=== PATIENT | female | born 1960 | race Hispanic/Latino ===

== ENCOUNTER 2016-09-15 10:32 | Inpatient (IN) | payer OTHER ==
[2016-09-15] MEDS ORDERED: DUONEB 0.5 MG-3 MG/3 ML SOLN IH ONE (11:18)
--- NOTE | 2016-09-15 11:20 | Emergency Department Report ---
HPI - General Chief Complaint: Extremity Injury, Lower Time Seen by Provider: 09/15/16 10:53 - HPI HPI: This is a 56-year-old female who presents to the emergency department with a complaint of a 3-4 day history of progressively worsening right lower leg swelling, redness and weeping. Through triage, the patient was found to have some low oxygen saturation of 86%. Patient does admit to a little shortness of breath but otherwise thinks she is close to her baseline respiratory status. She has a history of COPD and is on 3 L oxygen dependence at home. She also has a history of CHF. Her primary care doctor is Dr. Lam Crane. No recent travel or sick contacts at home. She has not taken anything for symptoms prior to presentation. ED Past Medical Hx - Past Medical History Hx Congestive Heart Failure: Yes Hx Diabetes: No Hx Asthma: No Hx COPD: Yes Hx HIV: No - Social History Smoking Status: Former Smoker Substance Use Type: Alcohol - Medications Home Medications: Home Medications Medication Instructions Recorded Confirmed Last Taken Type Aspirin [Aspirin TAB] 325 mg PO QDAY 06/05/15 09/15/16 06/05/15 History Hydrochlorothiazide [HCTZ] 25 mg PO QDAY 06/05/15 09/15/16 1 Day Ago History ALBUTEROL Inhaler [ProAir HFA 1 puff IH Q4H PRN #1 inha 06/07/15 09/15/16 Unknown Rx Inhaler] Lisinopril [Zestril TAB] 10 mg PO QDAY #30 tablet 06/07/15 09/15/16 1 Day Ago Rx ED Review of Systems ROS: Stated complaint: RT LEG BLISTERS Other details as noted in HPI Comment: All other systems reviewed and negative Constitutional: denies: chills, fever Eyes: denies: eye pain, eye discharge, vision change ENT: denies: ear pain, throat pain Respiratory: denies: cough, shortness of breath, wheezing Cardiovascular: edema. denies: chest pain Gastrointestinal: denies: abdominal pain, nausea, diarrhea Genitourinary: denies: urgency, dysuria, discharge Musculoskeletal: denies: back pain, joint swelling, arthralgia Skin: change in color. denies: pruritus Neurological: denies: headache, weakness, paresthesias Physical Exam - Physical Exam Vital Signs: Vital Signs 09/15/16 10:40 Temperature 98.5 F Pulse Rate 110 H Respiratory 20 Rate Blood Pressure 140/78 O2 Sat by Pulse 86 Oximetry Physical Exam: GENERAL: The patient is well-developed well-nourished. HEENT: Normocephalic. Atraumatic. Extraocular motions are intact. Patient has moist mucous membranes. Pupils equal reactive to light bilaterally. NECK: Supple. Trachea is midline. CHEST/LUNGS: Coarse breath sounds throughout the chest. Mild tachypnea but no accessory muscle use. There is no respiratory distress noted. HEART/CARDIOVASCULAR: Regular. There is mild tachycardia. There is no gallop rub or murmur. ABDOMEN: Abdomen is soft, nontender. Patient has normal bowel sounds. Obese habitus. SKIN: The patient has erythema to the bilateral lower extremities from the knees distally but is worse on the right. There is some weeping and some cheesy white discharge to the lateral distal right leg. NEURO: The patient is awake, alert, and oriented. The patient is cooperative. The patient has no focal neurologic deficits. The patient has normal speech. MUSCULOSKELETAL: There is no tenderness or deformity. There is no limitation range of motion. There is no evidence of acute injury. ED Course Vital Signs 09/15/16 10:40 Temperature 98.5 F Pulse Rate 110 H Respiratory 20 Rate Blood Pressure 140/78 O2 Sat by Pulse 86 Oximetry - ABG Interpretation Ph: 7.236 PCO2: 95 PO2: 54 Bicarbonate: 40 Interpretation: respiratory acidosis ED Medical Decision Making - Lab Data Result diagrams: 09/15/16 11:37 09/15/16 11:37 - EKG Data -: EKG Interpreted by Me EKG shows normal: sinus rhythm, axis (right axis deviation), intervals, QRS complexes (right ventricular hypertrophy), ST-T waves (T-wave inversions to the anterior leads) Rate: tachycardia (103 bpm) - EKG Data When compared to previous EKG there are: no significant change Interpretation: unchanged when compared t (07/21/16) - Radiology Data Radiology results: report reviewed, image reviewed interpreted by me: X-ray shows some moderate to severe cardiomegaly, pulmonary vascular congestion and mild basilar effusions. No obvious pneumonia. CT angiography of the chest is negative for pulmonary embolus, dissection. - Medical Decision Making 56-year-old female presents with complaint of right lower extremity pain, redness and some mild shortness of breath. However the patient presents with some hypoxia and history of COPD and CHF. Patient's blood work showed hypercapnia and was even more profound on the ABG so the patient has been placed on BiPAP. D-dimer was elevated and equivocal so a CT angiography of the chest was done that did not show any pulmonary embolus him. There is some signs of CHF as well so the patient was given some Lasix. Blood cultures were obtained and the patient was started on some vagal mycin for suspected lower extremity cellulitis. She'll be admitted to the hospital for further evaluation and treatment and has been accepted by the hospitalist, Dr. Maldonado. - Differential Diagnosis cellulitis, CHF, COPD, PE Critical Care Time: No Critical care attestation.: If time is entered above; I have spent that time in minutes in the direct care of this critically ill patient, excluding procedure time. ED Disposition Clinical Impression: Acute exacerbation of chronic obstructive pulmonary disease (COPD), Hypercapnia , Hypoxemia Cellulitis of lower extremity Qualifiers: Laterality: right Qualified Code(s): L03.115 - Cellulitis of right lower limb CHF (congestive heart failure) Qualifiers: Congestive heart failure type: unspecified congestive heart failure type Congestive heart failure chronicity: acute on chronic Qualified Code(s): I50.9 - Heart failure, unspecified Disposition: OP ADMITTED IP TO THIS HOSP Is pt being admited?: Yes Condition: Stable Instructions: Chronic Obstructive Pulmonary Disease (ED) Time of Disposition: 15:21
[2016-09-15 11:54] LABS: Basophils % (Auto) 1.1 % (0.0-1.8); Eosinophils % (Auto) 4.4 % (0.0-4.3); Hematocrit 45.2 % (30.3-42.9); Hemoglobin 14.3 gm/dl (10.1-14.3); Mean Corpuscular HGB Conc 32 % (30-34); Mean Corpuscular Hemoglobin 31 pg (28-32); Mean Corpuscular Volume 99 fl (79-97); Platelet Count 166 K/mm3 (140-440); Red Blood Count 4.58 M/mm3 (3.65-5.03)
[2016-09-15] MEDS ORDERED: MORPHINE IV ONE (11:54)
[2016-09-15 12:07] LABS: BUN/Creatinine Ratio 28.57; Blood Urea Nitrogen 20 mg/dL (7-17); Calcium 9.2 mg/dL (8.4-10.2); Chloride 95.1 mmol/L (98-107); Glucose 147 mg/dL (65-100); Potassium 5.8 mmol/L (3.6-5.0); Sodium 142 mmol/L (137-145)
[2016-09-15 12:12] LABS: Anion Gap 10 mmol/L
[2016-09-15 12:17] LABS: Carbon Dioxide 43 mmol/L (22-30)
[2016-09-15] MEDS ORDERED: KIONEX PO ONE (12:52)
[2016-09-15] MEDS ORDERED: D50W (25GM) IV ONE (12:52)
[2016-09-15] MEDS ORDERED: PROVENTIL IH ONE (12:52)
[2016-09-15] MEDS ORDERED: VANCOMYCIN/NS 1 GM/250 ML 1 GM/250 ML BAG IV ONE (12:53)
--- NOTE | 2016-09-15 13:17 | Admit Criteria Form ---
Admission Criteria Documentation: RESPIRATORY FAILURE GRG Clinical Indications for Admission to Inpatient Care (Place 'X' for any and all applicable criteria): Hospital admission is needed for appropriate care of the patient because of acute respiratory failure or insufficiency as indicated by ANY ONE of the following(1)(2)(3)(4)(5)(6)(7)(8): [ X]I. Mechanical ventilation needed (acute invasive or noninvasive) [X ]II. Severe ventilation deficit as indicated by ANY ONE of the following (9 ) [X ]a) Respiratory acidosis (pH less than 7.32 and partial pressure of carbon dioxide greater than 40 mm Hg (5.3 kPa)) [ ]b) Partial pressure of carbon dioxide greater than 44 mm Hg (5.9 kPa ) (new) [ ]c) Airflow measurements less than 25% of predicted (eg, peak expiratory flow rate less than 100 L/minute) [ ]d) Forced vital capacity less than 15 mL/kg of ideal body weight, or 50% decrease in vital capacity from baseline [ ]III. Noncardiac pulmonary edema not resolving with rapid emergency treatment (8) [ ]IV. Severe respiratory distress as indicated by ANY ONE of the following: [ ]a) Severe tachypnea (respiratory rate greater than 30, greater than 45 for 6-month-old, greater than 60 for ) [ ]b) Severe hypoxemia (partial pressure of oxygen less than 50 mm Hg ( 6.7 kPa) on greater than 50% oxygen or partial pressure of oxygen to FIO2 ratio less than 200) [ ]c) Mental status deterioration from respiratory disease [ ]V. Airway obstruction or inadequate protection [A](10)(11) The original [employer] content created by [employer] has been revised. The portions of the content which have been revised are identified through the use of italic text or in bold, and [facility] has neither reviewed nor approved the modified material. All other unmodified content is copyright [employer]. Please see references footnoted in the original [employer] edition 2016 Admission Criteria Met: Yes
[2016-09-15] MEDS ORDERED: NACL 0.9% 1000 ML 1,000 ML ONE (13:39)
--- NOTE | 2016-09-15 13:49 | XRay Report ---
Single view chest: Compared to 07/26/16. History: Shortness of breath. Findings: Marked cardiomegaly. Trachea is midline. Mild pulmonary venous congestion. No consolidation or pleural effusion. No significant interval change. Impression: No significant change.
[2016-09-15 14:17] LABS: Bilirubin,Urine NEG (Negative); Blood,Urine SM (Negative); Ketones,Urine NEG (Negative); Leukocyte Esterase,Urine NEG (Negative); Mucus,Urine FEW /HPF; Nitrite,Urine NEG (Negative); Urobilinogen,Urine < 2.0 mg/dL (<2.0)
[2016-09-15] MEDS ORDERED: LASIX IV ONE (14:23)
[2016-09-15 14:56] LABS: ISTAT Base Excess 13; ISTAT HCO3 40.5; ISTAT PCO2 95.4 (35-45); ISTAT PH 7.236 (7.35-7.45); ISTAT PO2 54 (80-105); ISTAT SO2 79; ISTAT TCO2 43
--- NOTE | 2016-09-15 15:07 | Cat Scan Report ---
CTA chest: PA protocol. History: Shortness of breath elevated d-dimer. Findings: No evidence of acute aneurysm or pulmonary embolism. Pretracheal and aorticopulmonary window lymph nodes are visualized with maximum diameter 1.4 cm. No pleural or pericardial effusion. Bibasilar linear densities suggestive of discoid atelectasis. Less likely pneumonitis. No mass. Impression: No evidence of pulmonary embolism. Bibasilar atelectasis. The
[2016-09-15 16:33] LABS: ISTAT Base Excess 16; ISTAT HCO3 42.8; ISTAT PH 7.249 (7.35-7.45); ISTAT PO2 55 (80-105); ISTAT SO2 80; ISTAT TCO2 46
[2016-09-15] MEDS ORDERED: DULCOLAX PR PRN (18:10)
[2016-09-15] MEDS ORDERED: MILK OF MAGNESIA PO PRN (18:10)
[2016-09-15] MEDS ORDERED: D50W (25GM) IV PRN (18:10)
[2016-09-15] MEDS ORDERED: ALUM-MAG HYDROX-SIMETH 200-200-20MG/5ML PO PRN (18:10)
[2016-09-15] MEDS ORDERED: XYLOCAINE TOPICAL 2% TP PRN (18:21)
[2016-09-15] MEDS: MORPHINE IV PRN ×2 (18:54→23:34)
[2016-09-15] MEDS ORDERED: NACL 0.9% 1000 ML 1,000 ML IV SCH (19:00)
[2016-09-15] MEDS: DECADRON IV SCH (19:06)
[2016-09-15] MEDS: DUONEB 0.5 MG-3 MG/3 ML SOLN IH SCH (20:02)
--- NOTE | 2016-09-15 20:23 | History and Physical Report ---
History of Present Illness Date of examination: 09/15/16 Date of admission: 09/15/16 18:10 Chief complaint: Burning pain swelling and redness in the right leg for 4 days History of present illness: This is a 56-year-old obese female with history of COPD and home oxygen who presents to the emergency department with a complaint of a 3-4 day history of progressively worsening right leg swelling, redness and pain. Through triage, the patient was found to have some low oxygen saturation of 86% . Patient does admit to a little shortness of breath but otherwise thinks she is close to her baseline respiratory status. She has a history of COPD and is on 3 L oxygen dependence at home. At the time of my evaluation patient was on BiPAP. ABG showed respiratory failure with CO2 retention and hypoxemia She also has a history of CHF. Her primary care doctor is Dr. Lam Crane. No recent travel or sick contacts at home. She has not taken anything for symptoms prior to presentation. Past History Past Medical History: COPD, heart failure Past Surgical History: hysterectomy, Other (lumpectomy left breast) Social history: no significant social history (quit smoking 1 year ago) Family history: no significant family history Medications and Allergies Allergies Allergy/AdvReac Type Severity Reaction Status Date / Time methylprednisolone sodium Allergy Itching Verified 09/15/16 10:40 succinate [From Solu-Medrol] Home Medications Medication Instructions Recorded Confirmed Last Taken Type Aspirin [Aspirin TAB] 325 mg PO QDAY 06/05/15 09/15/16 06/05/15 History Hydrochlorothiazide [HCTZ] 25 mg PO QDAY 06/05/15 09/15/16 1 Day Ago History ALBUTEROL Inhaler [ProAir HFA 1 puff IH Q4H PRN #1 inha 06/07/15 09/15/16 Unknown Rx Inhaler] Lisinopril [Zestril TAB] 10 mg PO QDAY #30 tablet 06/07/15 09/15/16 1 Day Ago Rx Active Meds: Active Medications Al Hydrox/Mg Hydrox/Simethicone (Alum-Mag Hydrox-Simeth 420-685-78tz/5ml) 30 ml PO Q4H PRN PRN Reason: Indigestion Albuterol/Ipratropium (Duoneb 0.5 Mg-3 Mg/3 Ml Soln) 1 ampul IH Q6HRT [facility] Last Admin: 09/15/16 20:02 Dose: 1 ampul Bisacodyl (Dulcolax) 10 mg [place] QDAY PRN PRN Reason: constipation unrelieved by MOM Dexamethasone (Decadron) 2 mg IV Q12H [facility] Last Admin: 09/15/16 19:06 Dose: 2 mg Dextrose (D50w (25gm)) 50 ml IV PRN PRN PRN Reason: Hypoglycemia Heparin Sodium (Porcine) (Heparin) 5,000 unit SUB-Q Q8HR [facility] Hydrochlorothiazide (Hctz) 12.5 mg PO QDAY [facility] Sodium Chloride (Nacl 0.9% 1000 Ml) 1,000 mls @ 42 mls/hr IV DIRECT [facility] Piperacillin Sod/Tazobactam Sod (Zosyn/Ns 4.5gm/100ml) 4.5 gm in 100 mls @ 200 mls/hr IV Q8HR [facility] PRN Reason: Protocol Insulin Aspart (Novolog) 0 units SUB-Q ACHS [facility] PRN Reason: Protocol Lidocaine (Xylocaine Topical 2%) 1 applic TP Q8H PRN PRN Reason: Analgesia Last Admin: 09/15/16 18:55 Dose: 1 applic Magnesium Hydroxide (Milk Of Magnesia) 30 ml PO Q4H PRN PRN Reason: Constipation Morphine Sulfate (Morphine) 2 mg IV Q4H PRN PRN Reason: Pain, Moderate (4-6) Last Admin: 09/15/16 18:54 Dose: 2 mg Pantoprazole Sodium (Protonix) 40 mg PO DAILY [facility] Review of Systems Constitutional: no weight loss, no weight gain, no fever, no chills Ears, nose, mouth and throat: no ear pain, no ear discharge, no sore throat, no headache Breasts: deferred Cardiovascular: no chest pain, no orthopnea, no palpitations, no syncope, no lightheadedness, no high blood pressure Respiratory: shortness of breath (chronic), home oxygen, no cough, no wheezing Gastrointestinal: no abdominal pain, no nausea, no vomiting, no diarrhea, no constipation, no melena Genitourinary Female: no stress incontinence, no urge incontinence Rectal: no pain Musculoskeletal: no neck pain, no low back pain Neurological: no head injury, no seizures, no syncope Psychiatric: no anxiety, no depression Endocrine: no polyphagia, no excessive thirst, no polydipsia Exam - Constitutional Vitals: Temp Pulse Resp BP Pulse Ox 98.7 F 101 H 25 H 133/68 93 09/15/16 12:45 09/15/16 20:02 09/15/16 20:02 09/15/16 16:18 09/15/16 19:05 General appearance: Present: mild distress, well-nourished, obese - EENT Eyes: Present: PERRL, EOM intact ENT: hearing intact - Neck Neck: Present: supple, normal ROM. Absent: masses or JVD - Respiratory Respiratory: bilateral: diminished, negative: rhonchi, wheezing - Cardiovascular Rhythm: regular Heart Sounds: Present: S1 & S2 - Extremities Extremity abnormal: edema (bilateral nonpitting leg edema), erythema (right leg with moderate tenderness with some superficial slough) - Abdominal General gastrointestinal: Present: soft, non-tender. Absent: hepatomegaly, splenomegaly - Musculoskeletal Musculoskeletal: strength equal bilaterally - Neurologic Neurologic: no focal deficits, moves all extremities Results - Labs CBC & Chem 7: 09/15/16 11:37 09/15/16 11:37 Assessment and Plan - Patient Problems (1) Cellulitis of lower extremity Current Visit: Yes Status: Acute Qualifiers: Laterality: right Qualified Code(s): L03.115 - Cellulitis of right lower limb Plan to address problem: Patient was started on vancomycin I would start the patient on Zosyn We will consult wound care There is no evidence of any systemic infection (2) UTI (urinary tract infection) Current Visit: Yes Status: Acute Qualifiers: Urinary tract infection type: U Hematuria presence: H Indwelling urinary catheter type: I Encounter type: E Plan to address problem: Continue Zosyn (3) Hyperkalemia Current Visit: Yes Status: Acute Plan to address problem: Most likely rox inhibitor induced She was given Kayexalate in ED monitor electrolytes (4) Acute exacerbation of chronic obstructive pulmonary disease (COPD) Current Visit: Yes Status: Acute (5) Acute hypoxemic respiratory failure Current Visit: No Status: Acute Plan to address problem: Patient is presently on BiPAP Admit the patient to stepdown or CCU Pulmonary consult was requested Aggressive invasive treatments with DuoNeb Patient is allergic to methylprednisolone Will try dexamethasone and monitor for any reaction (6) Morbid obesity Current Visit: No Status: Acute Qualifiers: Obesity type: due to excess calories Qualified Code(s): E66.01 - Morbid ( severe) obesity due to excess calories
[2016-09-15] MEDS: NOVOLOG SUB-Q SCH (23:00)
[2016-09-15] MEDS: HEPARIN SUB-Q SCH (23:33)
[2016-09-15] MEDS: ZOSYN/NS 4.5GM/100ML 4.5 GM/100 ML VIAL IV SCH (23:36)
[2016-09-16] MEDS: DUONEB 0.5 MG-3 MG/3 ML SOLN IH SCH ×4 (01:37→20:21)
[2016-09-16 04:22] LABS: Blood Urea Nitrogen 12 mg/dL (7-17); Calcium 7.9 mg/dL (8.4-10.2); Chloride 92.6 mmol/L (98-107); Glucose 185 mg/dL (65-100); Sodium 144 mmol/L (137-145)
[2016-09-16 04:37] LABS: Potassium 4.2 mmol/L (3.6-5.0)
[2016-09-16 04:40] LABS: Anion Gap 13 mmol/L; Carbon Dioxide 43 mmol/L (22-30)
[2016-09-16] MEDS: ZOSYN/NS 4.5GM/100ML 4.5 GM/100 ML VIAL IV SCH ×3 (06:15→22:26)
[2016-09-16] MEDS: HEPARIN SUB-Q SCH ×3 (06:16→22:19)
[2016-09-16] MEDS: DECADRON IV SCH (08:00)
[2016-09-16] MEDS: NOVOLOG SUB-Q SCH ×4 (08:00→22:21)
[2016-09-16] MEDS: MORPHINE IV PRN ×4 (08:54→22:39)
[2016-09-16] MEDS: PROTONIX PO SCH (11:00)
[2016-09-16] MEDS: HCTZ PO SCH (11:00)
--- NOTE | 2016-09-16 13:24 | Consultation ---
History of Present Illness Consult date: 09/16/16 Requesting physician: ROJAS SEXTON Reason for consult: other (Respiratory Failure) History of present illness: PULMONARY/CCM CONSULT NOTE (Full dictation # [id number]) Please see dictated notes for full details Past History Past Medical History: COPD, heart failure Past Surgical History: hysterectomy, Other (lumpectomy left breast) Social history: no significant social history (quit smoking 1 year ago) Family history: no significant family history Medications and Allergies Allergies Allergy/AdvReac Type Severity Reaction Status Date / Time methylprednisolone sodium Allergy Itching Verified 09/15/16 10:40 succinate [From Solu-Medrol] Home Medications Medication Instructions Recorded Confirmed Last Taken Type Aspirin [Aspirin TAB] 325 mg PO QDAY 06/05/15 09/15/16 06/05/15 History Hydrochlorothiazide [HCTZ] 25 mg PO QDAY 06/05/15 09/15/16 1 Day Ago History ALBUTEROL Inhaler [ProAir HFA 1 puff IH Q4H PRN #1 inha 06/07/15 09/15/16 Unknown Rx Inhaler] Lisinopril [Zestril TAB] 10 mg PO QDAY #30 tablet 06/07/15 09/15/16 1 Day Ago Rx Active Meds: Active Medications Al Hydrox/Mg Hydrox/Simethicone (Alum-Mag Hydrox-Simeth [id number]/5ml) 30 ml PO Q4H PRN PRN Reason: Indigestion Albuterol/Ipratropium (Duoneb 0.5 Mg-3 Mg/3 Ml Soln) 1 ampul IH Q6HRT [facility] Last Admin: 09/16/16 07:22 Dose: 1 ampul Bisacodyl (Dulcolax) 10 mg [place] QDAY PRN PRN Reason: constipation unrelieved by MOM Dexamethasone (Decadron) 2 mg IV Q12H [facility] Last Admin: 09/16/16 08:00 Dose: 2 mg Dextrose (D50w (25gm)) 50 ml IV PRN PRN PRN Reason: Hypoglycemia Heparin Sodium (Porcine) (Heparin) 5,000 unit SUB-Q Q8HR [facility] Last Admin: 09/16/16 06:16 Dose: 5,000 unit Hydrochlorothiazide (Hctz) 12.5 mg PO QDAY [facility] Last Admin: 09/16/16 11:00 Dose: 12.5 mg Sodium Chloride (Nacl 0.9% 1000 Ml) 1,000 mls @ 42 mls/hr IV DIRECT [facility] Last Admin: 09/15/16 23:37 Dose: 42 mls/hr Piperacillin Sod/Tazobactam Sod (Zosyn/Ns 4.5gm/100ml) 4.5 gm in 100 mls @ 200 mls/hr IV Q8HR [facility] PRN Reason: Protocol Last Admin: 09/16/16 06:15 Dose: 200 mls/hr Insulin Aspart (Novolog) 0 units SUB-Q ACHS [facility] PRN Reason: Protocol Last Admin: 09/16/16 12:17 Dose: Not Given Lidocaine (Xylocaine Topical 2%) 1 applic TP Q8H PRN PRN Reason: Analgesia Last Admin: 09/15/16 18:55 Dose: 1 applic Magnesium Hydroxide (Milk Of Magnesia) 30 ml PO Q4H PRN PRN Reason: Constipation Morphine Sulfate (Morphine) 2 mg IV Q4H PRN PRN Reason: Pain, Moderate (4-6) Last Admin: 09/16/16 08:54 Dose: 2 mg Pantoprazole Sodium (Protonix) 40 mg PO DAILY [facility] Last Admin: 09/16/16 11:00 Dose: 40 mg Physical Examination Vital signs: Vital Signs Temp Pulse Resp BP Pulse Ox 98.5 F 110 H 20 140/78 86 09/15/16 10:40 09/15/16 10:40 09/15/16 10:40 09/15/16 10:40 09/15/16 10:40 Results - Laboratory Findings CBC and BMP: 09/15/16 11:37 09/16/16 03:40 ABG POC ABG pH 7.249 (7.35-7.45) L 09/15/16 16:11 POC ABG pCO2 98.0 (35-45) H 09/15/16 16:11 POC ABG pO2 55 (80-105) L 09/15/16 16:11 POC ABG HCO3 42.8 09/15/16 16:11 POC ABG Total CO2 46 09/15/16 16:11 POC ABG O2 Sat 80 09/15/16 16:11 PT/INR, D-dimer D-Dimer 595.43 ng/mlDDU (0-234) H 09/15/16 11:37 Abnormal lab findings: Abnormal Labs 09/15/16 09/16/16 09/16/16 23:23 03:40 08:25 Chloride 92.6 L Carbon Dioxide 43 H* Creatinine 0.5 L Glucose 185 H POC Glucose 143 H 155 H Calcium 7.9 L 09/16/16 12:13 Chloride Carbon Dioxide Creatinine Glucose POC Glucose 141 H Calcium
[2016-09-16 14:18] LABS: ISTAT Base Excess 28; ISTAT HCO3 52.8; ISTAT PCO2 90.8 (35-45); ISTAT PH 7.372 (7.35-7.45); ISTAT PO2 65 (80-105); ISTAT SO2 90; ISTAT TCO2 > 50
[2016-09-16] MEDS ORDERED: MORPHINE IV PRN (14:22)
--- NOTE | 2016-09-16 19:53 | Consultation ---
CONSULTING PHYSICIAN: Berto Franco MD REASON FOR CONSULTATION: Acute on chronic respiratory failure, hypoxemic, and hypercapnic. CHIEF COMPLAINT AND HISTORY OF PRESENT ILLNESS: The patient is a 56-year-old female with past medical history significant both for a diagnoses of home oxygen dependent, COPD, on 3 liters at home, but also history of congestive heart failure. She came in with complaints of 3-4 days of progressively worsening right lower leg swelling, redness, weeping, really denied any significant increase in shortness of breath. Subjectively, she denied any chest pains. She denied any cough or expectoration. She stated she had been on diuretics at that point, but that was stopped and also she has had trouble getting her medications on outpatient setting. She is without insurance. In the Emergency Room, she was found to be hypercapnic, hypoxemic, required continuous BiPAP and was brought to the Intensive Care Unit for that reason. When I stopped by to see her, she was lying in bed, feeling better. She had oxygen on about 3 liters nasal cannula. She denied any prior fevers or chills. Now with regards to tobacco use/abuse, she has a [id number] tobacco smoking history, but has quit smoking now. That really is as much of the history of presentation as I have. PAST MEDICAL HISTORY: Again, COPD, congestive heart failure, obstructive sleep apnea. She is morbidly obese, history of hypertension, and history of congestive heart failure. PAST SURGICAL HISTORY: Unknown. MEDICATIONS: She was on at the time I stopped by to see her, according to the medication administration record included the following: P.r.n. milk of magnesia, DuoNeb treatments nebulized q.6 hours, Decadron 2 mg IV q.12 hours, p.r.n. Dulcolax, heparin 5000 units subcutaneous q.8 hours, hydrochlorothiazide 12.5 mg p.o. daily, insulin via sliding scale, topical Xylocaine 2% patch q.8 hours p.r.n. for analgesia, morphine sulfate 2 mg IV q.4 hours p.r.n., moderate pain, Protonix 40 mg p.o. daily, and Zosyn 4.5 g IV q.8 hours. She had been receiving normal saline at 42 mL per hour earlier. She received a one-time dose of Lasix in the Emergency Room. ALLERGIES: Solu-Medrol. Nature of this allergy is unknown. DIET: Morbidly obese. Denies significant weight loss or gain the preceding few weeks to months. FAMILY AND SOCIAL HISTORY: Lives in the community. She has a 10+ pack year tobacco smoking history. No longer smokes. Denies alcohol or illicit drug use or abuse. REVIEW OF SYSTEMS: No loss of consciousness. No new onset seizures. No new onset focal weakness. No gross hematochezia or melena. No gross hematuria or dysuria. No hematemesis. No hemoptysis. She complains of the increase in bilateral lower extremity swelling and redness. Complete review of systems obtained. Pertinent positives and/or negatives as in body of history above, otherwise noncontributory. PHYSICAL EXAMINATION: VITAL SIGNS: At presentation, she was afebrile, temperature 98.5, pulse was 110, respiratory rate was 24, blood pressure was 140/78, oxygen sats were 77%, inspired oxygen concentration was not recorded. HEENT, EYES, EARS, NOSE AND THROAT: Pupils are equal, round about 3 mm, reactive to light. Extraocular muscle movements are intact. Oropharynx is a Mallampati #4 oropharynx. No significant posterior oropharyngeal erythema. Grossly, no palpable lymph nodes in the supraclavicular or submandibular lymph node chains. No gross jugular venous distention. LUNGS: Auscultation of both lung guzman, diminished bilateral breath sounds, prolonged expiratory phase, but clear. HEART: Heart sounds 1 and 2 are heard. They were regular in rate and rhythm at time of my evaluation. ABDOMEN: Soft, full, bowel sounds are positive, nontender. EXTREMITIES: Without over digital clubbing or cyanosis. She had about 2+ pedal edema and redness to the right chin with an area about 3 cm diameter that has happened to her at some open skin in the area. NEUROLOGIC: The exam was grossly nonfocal. LABORATORY DATA: From my review are as follows: White cell count 10,000, hemoglobin 14.3, hematocrit 45.2, and platelet count 166,000. D-dimer was elevated at 595. Arterial blood gas at presentation showed a pH of 7.24, pCO2 of 95, pO2 of 54 that was on 3 liters nasal cannula. Serum sodium was 142, potassium was 5.8, chloride was 95, bicarbonate was 43, BUN 20, creatinine 0.7, glucose 147. BNP was elevated cardiac enzymes, troponin within normal limits. Urinalysis negative for nitrites and leukocyte esterase. It did show 13 white cells per high power field, no bacteria. Potassium was within normal range today. pH yesterday showed a pH of 7.25 with a pCO2 of 98. Radiographic studies have been reviewed. I have also reviewed the radiologist's interpretation and really the main finding is gross cardiomegaly compared to the chest x-ray from July of this year, really no significant changes. CT angio was also done. I am going to try and review those images, I have reviewed the radiologist's interpretation and essentially states no evidence of pulmonary embolism, but with bibasilar atelectasis and some AP window nodes, which may well be related to chronic venous congestion. I must say this CTA of the chest was high as poor contrast phase timing. It is really difficult to completely rule out pulmonary emboli, but I do feel there are other reasons for lower extremity swelling. No overt pulmonary edema features on the CT scan. ASSESSMENT AND PLAN: We have a middle-aged lady in with cellulitis essentially and found to be with a hypercapnic, hypoxemia, and acute on chronic respiratory failure. Clinically, she looks more alert. I have also give her serum bicarbonate, serum pCO2 should be improved. A stat arterial blood gas has been ordered. If that is within normal limits, the plan will be to transfer her to the medical floor. She will be kept on BiPAP at bedtime scheduled. I have told her to try and talk to her primary care physician about repeating another sleep study. Bronchodilators will be continued. I will add long-acting bronchodilators as well as inhaled corticosteroids and quickly wean her off Decadron, especially in light of cellulitis. She is appropriately on antibiotic therapy, it is not clear if she does need Zosyn, she probably could get by with Levaquin monotherapy, I would guess Infectious Disease consultation will be at the behest of the attending physician. I am sure she should be able away with p.o. treatment. She is appropriately on GI and DVT prophylaxis. Just to complete for workup here and I see that has actually been ordered. Lower extremity Dopplers will be done and that has been done. No DVTs was found. Flu and pneumonia vaccination will be per protocol. Thank you very much for the consult. She is doing better. She can transfer to the medical floor. JOB# [id number] ALDEN/ROSA
[2016-09-16] MEDS: PULMICORT IH SCH (20:21)
[2016-09-16] MEDS: BROVANA NEBU IH SCH (20:21)
--- NOTE | 2016-09-16 21:54 | Progress Note ---
Assessment and Plan Assessment and plan: 1. Acute on chronic hypercapnic hypoxic respiratory failure Due to advanced COPD Placed on BiPAP and inhaled bronchodilators Pulmonary consulted and regimen adjusted 2. COPD Advanced, on 3 L home oxygen No signs of exacerbation, so will discontinue IV corticosteroid Continue inhaled bronchodilators, supplemental oxygen and BiPAP at night 3. Sepsis Due to severe lower extremity cellulitis/? UTI Continue antibiotics 4. RLE cellulitis With open, oozing wound (wound culture not obtained before starting antibiotics) On broad-spectrum IV antibiotics Local wound care Wound care nurse consulted 5. UTI UA suggestive of UTI (slightly elevated WBC) Urine culture not obtained On antibiotics for cellulitis that also will cover UTI if any 6. Hyperkalemia Received Kayexalate, resolved Continue to monitor 7. Hypertension BP controlled on HCTZ 8. CHF - suspected, but last month ECHO showed normal EF and severe pulmonary hypertension 9. Morbid obesity Counseled regarding importance of losing weight 10. DVT/GI prophylaxis History Interval history: c/o RLE pain, swelling and oozing wound Hospitalist Physical - Constitutional Vitals: Temp Pulse Resp BP Pulse Ox 98.6 F 80 20 121/58 90 09/16/16 21:32 09/16/16 21:32 09/16/16 21:32 09/16/16 21:32 09/16/16 21:32 General appearance: Present: no acute distress, obese (morbidly) - EENT Eyes: Present: PERRL, EOM intact. Absent: scleral icterus, conjunctival injection - Neck Neck: Present: supple. Absent: enlarged thyroid, masses or JVD - Respiratory Respiratory effort: labored Respiratory: bilateral: diminished, negative: rhonchi, wheezing - Cardiovascular Rhythm: other (tachycardic) Heart Sounds: Present: S1 & S2. Absent: systolic murmur - Extremities Extremities: no ischemia Extremity abnormal: edema, erythema, other (RLE with open, oozing wound) - Abdominal General gastrointestinal: soft, non-tender, non-distended, normal bowel sounds - Psychiatric Psychiatric: cooperative - Neurologic Neurologic: CNII-XII intact, no focal deficits Results - Labs CBC & Chem 7: 09/15/16 11:37 09/16/16 03:40 Labs: Laboratory Last Values WBC 10.0 K/mm3 (4.5-11.0) 09/15/16 11:37 RBC 4.58 M/mm3 (3.65-5.03) 09/15/16 11:37 Hgb 14.3 gm/dl (10.1-14.3) 09/15/16 11:37 Hct 45.2 % (30.3-42.9) H 09/15/16 11:37 MCV 99 fl (79-97) H 09/15/16 11:37 MCH 31 pg (28-32) 09/15/16 11:37 MCHC 32 % (30-34) 09/15/16 11:37 RDW 18.0 % (13.2-15.2) H 09/15/16 11:37 Plt Count 166 K/mm3 (140-440) 09/15/16 11:37 Lymph % (Auto) 11.5 % (13.4-35.0) L 09/15/16 11:37 [place] % (Auto) 7.0 % (0.0-7.3) 09/15/16 11:37 Eos % (Auto) 4.4 % (0.0-4.3) H 09/15/16 11:37 Baso % (Auto) 1.1 % (0.0-1.8) 09/15/16 11:37 Lymph # 1.1 K/mm3 (1.2-5.4) L 09/15/16 11:37 [place] # 0.7 K/mm3 (0.0-0.8) 09/15/16 11:37 Eos # 0.4 K/mm3 (0.0-0.4) 09/15/16 11:37 Baso # 0.1 K/mm3 (0.0-0.1) 09/15/16 11:37 Seg Neutrophils % 76.0 % (40.0-70.0) H 09/15/16 11:37 Seg Neutrophils # 7.6 K/mm3 (1.8-7.7) 09/15/16 11:37 D-Dimer 595.43 ng/mlDDU (0-234) H 09/15/16 11:37 POC ABG pH 7.372 (7.35-7.45) 09/16/16 14:08 POC ABG pCO2 90.8 (35-45) H 09/16/16 14:08 POC ABG pO2 65 (80-105) L 09/16/16 14:08 POC ABG HCO3 52.8 09/16/16 14:08 POC ABG Total CO2 > 50 09/16/16 14:08 POC ABG O2 Sat 90 09/16/16 14:08 POC ABG Base Excess 28 09/16/16 14:08 FiO2 5 % 09/16/16 14:08 Sodium 144 mmol/L (137-145) 09/16/16 03:40 Potassium 4.2 mmol/L (3.6-5.0) D 09/16/16 03:40 Chloride 92.6 mmol/L (98-107) L 09/16/16 03:40 Carbon Dioxide 43 mmol/L (22-30) H* 09/16/16 03:40 Anion Gap 13 mmol/L 09/16/16 03:40 BUN 12 mg/dL (7-17) 09/16/16 03:40 Creatinine 0.5 mg/dL (0.7-1.2) L 09/16/16 03:40 Estimated GFR > 60 ml/min 09/16/16 03:40 BUN/Creatinine Ratio 24.00 % 09/16/16 03:40 Glucose 185 mg/dL (65-100) H 09/16/16 03:40 POC Glucose 190 (70-105) H 09/16/16 17:13 Lactic Acid 1.6 mmol/L (0.7-2.0) 09/16/16 14:33 Calcium 7.9 mg/dL (8.4-10.2) L 09/16/16 03:40 Troponin T < 0.010 ng/mL (0.00-0.029) 09/15/16 11:37 C-Reactive Protein 5.00 mg/dL (0.00-1.30) H 09/16/16 14:33 NT-Pro-B Natriuret Pep 1415 pg/mL (0-900) H 09/15/16 11:37 Urine Color Yellow (Yellow) 09/15/16 12:22 Urine Turbidity Clear (Clear) 09/15/16 12:22 Urine pH 5.0 (5.0-7.0) 09/15/16 12:22 Ur Specific [place] 1.016 (1.003-1.030) 09/15/16 12:22 Urine Protein 30 mg/dl mg/dL (Negative) 09/15/16 12:22 Urine Glucose (UA) Neg mg/dL (Negative) 09/15/16 12:22 Urine Ketones Neg mg/dL (Negative) 09/15/16 12:22 Urine Blood Sm (Negative) 09/15/16 12:22 Urine Nitrite Neg (Negative) 09/15/16 12:22 Urine Bilirubin Neg (Negative) 09/15/16 12:22 Urine Urobilinogen < 2.0 mg/dL (<2.0) 09/15/16 12:22 Ur Leukocyte Esterase Neg (Negative) 09/15/16 12:22 Urine WBC (Auto) 13.0 /HPF (0.0-6.0) H 09/15/16 12:22 Urine RBC (Auto) 1.0 /HPF (0.0-6.0) 09/15/16 12:22 U Epithel Cells (Auto) 3.0 /HPF (0-13.0) 09/15/16 12:22 Hyaline Casts 1 /LPF 09/15/16 12:22 Urine Mucus Few /HPF 09/15/16 12:22 - Imaging and Cardiology EKG: image reviewed Chest x-ray: image reviewed CT scan - chest: report reviewed (no PE, bibasilar atelectasis) Venous US: report reviewed (no DVT/SVT bilateral lower extremities)
[2016-09-17] MEDS: DUONEB 0.5 MG-3 MG/3 ML SOLN IH SCH ×4 (02:23→21:06)
[2016-09-17] MEDS: MORPHINE IV PRN ×3 (04:31→23:39)
[2016-09-17] MEDS: ZOSYN/NS 4.5GM/100ML 4.5 GM/100 ML VIAL IV SCH ×3 (05:46→21:57)
[2016-09-17] MEDS: HEPARIN SUB-Q SCH ×3 (05:52→21:57)
[2016-09-17] MEDS: NOVOLOG SUB-Q SCH ×4 (08:00→22:50)
[2016-09-17] MEDS: PULMICORT IH SCH ×2 (08:14→21:06)
[2016-09-17] MEDS: BROVANA NEBU IH SCH ×2 (08:14→21:06)
--- NOTE | 2016-09-17 11:22 | Progress Note ---
Assessment and Plan Assessment and plan: 1. Acute on chronic hypercapnic hypoxic respiratory failure Due to advanced COPD Placed on BiPAP and inhaled bronchodilators Pulmonary consulted and regimen adjusted 2. COPD Advanced, on 3 L home oxygen No signs of exacerbation, so IV corticosteroid discontinued Continue inhaled bronchodilators, supplemental oxygen and BiPAP at night 3. Sepsis Due to severe lower extremity cellulitis/? UTI Continue antibiotics 4. RLE cellulitis With open, oozing wound (wound culture not obtained before starting antibiotics) On broad-spectrum IV antibiotics; ; plan to switch to by mouth tomorrow based on clinical status Local wound care Wound care nurse consulted 5. UTI UA suggestive of UTI (slightly elevated WBC, LE, nitrate negative) Urine culture not obtained On antibiotics for cellulitis that also will cover UTI if any 6. Hyperkalemia Received Kayexalate, resolved Continue to monitor 7. Hypertension BP controlled on HCTZ 8. CHF - suspected, but last month ECHO showed normal EF and severe pulmonary hypertension 9. Morbid obesity Counseled regarding importance of losing weight 10. DVT/GI prophylaxis History Interval history: edema and eythema RLE decreased as well as the pain; wound still oozing Hospitalist Physical - Constitutional Vitals: Temp Pulse Resp BP Pulse Ox 97.3 F L 80 20 126/59 90 09/17/16 04:25 09/17/16 08:34 09/17/16 08:34 09/17/16 04:25 09/17/16 08:11 General appearance: Present: no acute distress, obese (morbidly) - EENT Eyes: Present: PERRL, EOM intact. Absent: scleral icterus, conjunctival injection - Neck Neck: Present: supple. Absent: enlarged thyroid, masses or JVD - Respiratory Respiratory effort: normal (at rest), labored (with minimal activity) Respiratory: bilateral: diminished, negative: rhonchi, wheezing - Cardiovascular Rhythm: regular Heart Sounds: Present: S1 & S2. Absent: systolic murmur - Extremities Extremities: no ischemia Extremity abnormal: edema, erythema (RLE), other (RLE with open wound) - Abdominal General gastrointestinal: soft, non-tender, non-distended, normal bowel sounds - Psychiatric Psychiatric: cooperative - Neurologic Neurologic: CNII-XII intact, no focal deficits Results - Labs CBC & Chem 7: 09/15/16 11:37 09/16/16 03:40 Labs: Laboratory Last Values WBC 10.0 K/mm3 (4.5-11.0) 09/15/16 11:37 RBC 4.58 M/mm3 (3.65-5.03) 09/15/16 11:37 Hgb 14.3 gm/dl (10.1-14.3) 09/15/16 11:37 Hct 45.2 % (30.3-42.9) H 09/15/16 11:37 MCV 99 fl (79-97) H 09/15/16 11:37 MCH 31 pg (28-32) 09/15/16 11:37 MCHC 32 % (30-34) 09/15/16 11:37 RDW 18.0 % (13.2-15.2) H 09/15/16 11:37 Plt Count 166 K/mm3 (140-440) 09/15/16 11:37 Lymph % (Auto) 11.5 % (13.4-35.0) L 09/15/16 11:37 [place] % (Auto) 7.0 % (0.0-7.3) 09/15/16 11:37 Eos % (Auto) 4.4 % (0.0-4.3) H 09/15/16 11:37 Baso % (Auto) 1.1 % (0.0-1.8) 09/15/16 11:37 Lymph # 1.1 K/mm3 (1.2-5.4) L 09/15/16 11:37 [place] # 0.7 K/mm3 (0.0-0.8) 09/15/16 11:37 Eos # 0.4 K/mm3 (0.0-0.4) 09/15/16 11:37 Baso # 0.1 K/mm3 (0.0-0.1) 09/15/16 11:37 Seg Neutrophils % 76.0 % (40.0-70.0) H 09/15/16 11:37 Seg Neutrophils # 7.6 K/mm3 (1.8-7.7) 09/15/16 11:37 D-Dimer 595.43 ng/mlDDU (0-234) H 09/15/16 11:37 POC ABG pH 7.372 (7.35-7.45) 09/16/16 14:08 POC ABG pCO2 90.8 (35-45) H 09/16/16 14:08 POC ABG pO2 65 (80-105) L 09/16/16 14:08 POC ABG HCO3 52.8 09/16/16 14:08 POC ABG Total CO2 > 50 09/16/16 14:08 POC ABG O2 Sat 90 09/16/16 14:08 POC ABG Base Excess 28 09/16/16 14:08 FiO2 5 % 09/16/16 14:08 Sodium 144 mmol/L (137-145) 09/16/16 03:40 Potassium 4.2 mmol/L (3.6-5.0) D 09/16/16 03:40 Chloride 92.6 mmol/L (98-107) L 09/16/16 03:40 Carbon Dioxide 43 mmol/L (22-30) H* 09/16/16 03:40 Anion Gap 13 mmol/L 09/16/16 03:40 BUN 12 mg/dL (7-17) 09/16/16 03:40 Creatinine 0.5 mg/dL (0.7-1.2) L 09/16/16 03:40 Estimated GFR > 60 ml/min 09/16/16 03:40 BUN/Creatinine Ratio 24.00 % 09/16/16 03:40 Glucose 185 mg/dL (65-100) H 09/16/16 03:40 POC Glucose 170 (70-105) H 09/16/16 21:42 Lactic Acid 1.6 mmol/L (0.7-2.0) 09/16/16 14:33 Calcium 7.9 mg/dL (8.4-10.2) L 09/16/16 03:40 Troponin T < 0.010 ng/mL (0.00-0.029) 09/15/16 11:37 C-Reactive Protein 5.00 mg/dL (0.00-1.30) H 09/16/16 14:33 NT-Pro-B Natriuret Pep 1415 pg/mL (0-900) H 09/15/16 11:37 Urine Color Yellow (Yellow) 09/15/16 12:22 Urine Turbidity Clear (Clear) 09/15/16 12:22 Urine pH 5.0 (5.0-7.0) 09/15/16 12:22 Ur Specific [place] 1.016 (1.003-1.030) 09/15/16 12:22 Urine Protein 30 mg/dl mg/dL (Negative) 09/15/16 12:22 Urine Glucose (UA) Neg mg/dL (Negative) 09/15/16 12:22 Urine Ketones Neg mg/dL (Negative) 09/15/16 12:22 Urine Blood Sm (Negative) 09/15/16 12:22 Urine Nitrite Neg (Negative) 09/15/16 12:22 Urine Bilirubin Neg (Negative) 09/15/16 12:22 Urine Urobilinogen < 2.0 mg/dL (<2.0) 09/15/16 12:22 Ur Leukocyte Esterase Neg (Negative) 09/15/16 12:22 Urine WBC (Auto) 13.0 /HPF (0.0-6.0) H 09/15/16 12:22 Urine RBC (Auto) 1.0 /HPF (0.0-6.0) 09/15/16 12:22 U Epithel Cells (Auto) 3.0 /HPF (0-13.0) 09/15/16 12:22 Hyaline Casts 1 /LPF 09/15/16 12:22 Urine Mucus Few /HPF 09/15/16 12:22
[2016-09-17] MEDS: HCTZ PO SCH (11:36)
[2016-09-17] MEDS: PROTONIX PO SCH (11:36)
[2016-09-17] MEDS ORDERED: VANCOMYCIN PHARMACY TO DOSE IV SCH (12:00)
[2016-09-17] MEDS: VANCOMYCIN 2,000 MG in NACL 0.9% 500 ML 500 ML IV SCH (13:25)
--- NOTE | 2016-09-17 15:27 | Progress Note ---
Subjective Date of service: 09/17/16 Principal diagnosis: Acute on Chronic Respiratory Failure; Cellulitis Interval history: Seen and examined at bedside; 24 hour events reviewed; nursing and respiratory care staff consulted; no adverse overnight events reported to me; Objective Vital Signs - 12hr 09/17/16 09/17/16 09/17/16 04:25 04:31 08:11 Temperature 97.3 F L Pulse Rate [ 75 Anterior Bilateral Throughout] Pulse Rate [ 83 Right Radial] Respiratory 22 18 Rate Respiratory 20 Rate [Anterior Bilateral Throughout] Blood Pressure 126/59 [Right Radial Artery] O2 Sat by Pulse 96 90 Oximetry 09/17/16 09/17/16 08:34 10:00 Temperature 97.6 F Pulse Rate [ 80 Anterior Bilateral Throughout] Pulse Rate [ 82 Right Radial] Respiratory 22 Rate Respiratory 20 Rate [Anterior Bilateral Throughout] Blood Pressure 128/58 [Right Radial Artery] O2 Sat by Pulse 91 Oximetry CBC and BMP: 09/15/16 11:37 09/16/16 03:40 ABG, PT/INR, D-dimer: ABG POC ABG pH 7.372 (7.35-7.45) 09/16/16 14:08 POC ABG pCO2 90.8 (35-45) H 09/16/16 14:08 POC ABG pO2 65 (80-105) L 09/16/16 14:08 POC ABG HCO3 52.8 09/16/16 14:08 POC ABG Total CO2 > 50 09/16/16 14:08 POC ABG O2 Sat 90 09/16/16 14:08 PT/INR, D-dimer D-Dimer 595.43 ng/mlDDU (0-234) H 09/15/16 11:37 Abnormal lab findings: Abnormal Labs 09/15/16 09/16/16 09/16/16 23:23 03:40 08:25 POC ABG pCO2 POC ABG pO2 Chloride 92.6 L Carbon Dioxide 43 H* Creatinine 0.5 L Glucose 185 H POC Glucose 143 H 155 H Calcium 7.9 L C-Reactive Protein 09/16/16 09/16/16 09/16/16 12:13 14:08 14:33 POC ABG pCO2 90.8 H POC ABG pO2 65 L Chloride Carbon Dioxide Creatinine Glucose POC Glucose 141 H Calcium C-Reactive Protein 5.00 H 09/16/16 09/16/16 09/17/16 17:13 21:42 11:56 POC ABG pCO2 POC ABG pO2 Chloride Carbon Dioxide Creatinine Glucose POC Glucose 190 H 170 H 177 H Calcium C-Reactive Protein
[2016-09-18] MEDS: DUONEB 0.5 MG-3 MG/3 ML SOLN IH SCH ×4 (03:00→20:44)
[2016-09-18] MEDS: HEPARIN SUB-Q SCH ×3 (06:52→21:58)
[2016-09-18] MEDS: ZOSYN/NS 4.5GM/100ML 4.5 GM/100 ML VIAL IV SCH ×3 (06:52→21:58)
[2016-09-18] MEDS: MORPHINE IV PRN ×2 (07:09→13:58)
[2016-09-18] MEDS: VANCOMYCIN 2,000 MG in NACL 0.9% 500 ML 500 ML IV SCH ×2 (07:13→13:57)
[2016-09-18 07:27] LABS: Basophils % (Auto) 0.8 % (0.0-1.8); Eosinophils % (Auto) 2.3 % (0.0-4.3); Mean Corpuscular HGB Conc 31 % (30-34); Mean Corpuscular Hemoglobin 30 pg (28-32); Mean Corpuscular Volume 98 fl (79-97); Platelet Count 123 K/mm3 (140-440); Red Blood Count 4.66 M/mm3 (3.65-5.03); Red Cell Distribution Width 17.6 % (13.2-15.2)
[2016-09-18 07:38] LABS: Hematocrit 45.5 % (30.3-42.9)
[2016-09-18 07:43] LABS: Anion Gap 13 mmol/L; Blood Urea Nitrogen 15 mg/dL (7-17); Calcium 8.1 mg/dL (8.4-10.2); Chloride 92.5 mmol/L (98-107); Glucose 105 mg/dL (65-100); Sodium 142 mmol/L (137-145)
[2016-09-18 07:44] LABS: Carbon Dioxide 41 mmol/L (22-30)
[2016-09-18] MEDS: PULMICORT IH SCH ×2 (08:16→20:43)
[2016-09-18] MEDS: BROVANA NEBU IH SCH ×2 (08:16→20:43)
[2016-09-18] MEDS: NOVOLOG SUB-Q SCH ×4 (08:31→21:58)
[2016-09-18] MEDS: PROTONIX PO SCH (10:28)
[2016-09-18] MEDS: HCTZ PO SCH (10:28)
--- NOTE | 2016-09-18 13:59 | Progress Note ---
Assessment and Plan Patient sleeping at this time on 3 litres O2. Patient arousable. Says breathing better. No complaint of chest pain or shortness of breath.O2 satuaration 97% on 3 litres O2. - Patient Problems (1) Acute exacerbation of chronic obstructive pulmonary disease (COPD) Current Visit: Yes Status: Acute Plan to address problem: O2 supplementatation BIPAP during Night and Prn during day time. Brovanna and budesonide aerosol treatments. q 12 hours. Albuterol/atrovent aerosol treatments q 6 hours prn for shortness of breath. (2) Acute hypoxemic respiratory failure Current Visit: No Status: Acute Plan to address problem: O2 supplementation 3 litres. BIPAP during night time and Prn during day time. Brovanna/Budesonide aerosol treatments q 12 hours. Continue S/C Heparin for DVT prophylaxis. Continue Protonix. (3) CHF (congestive heart failure) Current Visit: Yes Status: Acute Qualifiers: Congestive heart failure type: unspecified congestive heart failure type Congestive heart failure chronicity: acute on chronic Qualified Code(s): I50.9 - Heart failure, unspecified Plan to address problem: Management as per primary care and cardiology. (4) Cellulitis of lower extremity Current Visit: Yes Status: Acute Qualifiers: Laterality: right Qualified Code(s): L03.115 - Cellulitis of right lower limb Plan to address problem: Patient is on zosyn and vancomycin. (5) UTI (urinary tract infection) Current Visit: Yes Status: Acute Qualifiers: Urinary tract infection type: U Hematuria presence: H Indwelling urinary catheter type: I Encounter type: E Plan to address problem: Patient is on zosyn and vancomycin. (6) Morbid obesity Current Visit: No Status: Acute Qualifiers: Obesity type: due to excess calories Qualified Code(s): E66.01 - Morbid ( severe) obesity due to excess calories Plan to address problem: Recommend to loose weight. Recommend sleep study as out patient. (7) HTN (hypertension), benign Current Visit: No Status: Chronic Plan to address problem: Management as per primary care. Subjective Date of service: 09/18/16 Principal diagnosis: Acute on Chronic Respiratory Failure; Cellulitis Interval history: Patient sleeping at this time on 3 litres O2. Patient arousable. Says breathing better. No complaint of chest pain or shortness of breath.O2 satuaration 97% on 3 litres O2. Objective Vital Signs - 12hr 09/18/16 09/18/16 09/18/16 02:57 03:00 03:12 Temperature Pulse Rate 74 Pulse Rate [ 86 86 Anterior Bilateral Throughout] Pulse Rate [ From Monitor] Pulse Rate [ Right Radial] Respiratory 25 H Rate Respiratory 18 18 Rate [Anterior Bilateral Throughout] Blood Pressure [Right Radial Artery] O2 Sat by Pulse 97 Oximetry 09/18/16 09/18/16 09/18/16 06:28 08:00 08:14 Temperature 98.1 F Pulse Rate Pulse Rate [ 71 Anterior Bilateral Throughout] Pulse Rate [ 65 From Monitor] Pulse Rate [ 64 65 Right Radial] Respiratory 18 20 Rate Respiratory 17 Rate [Anterior Bilateral Throughout] Blood Pressure 124/76 [Right Radial Artery] O2 Sat by Pulse 98 97 Oximetry 09/18/16 09/18/16 09/18/16 08:32 10:00 10:09 Temperature 98.0 F Pulse Rate 70 Pulse Rate [ 64 Anterior Bilateral Throughout] Pulse Rate [ From Monitor] Pulse Rate [ 124 H Right Radial] Respiratory Rate Respiratory 20 Rate [Anterior Bilateral Throughout] Blood Pressure 124/63 [Right Radial Artery] O2 Sat by Pulse Oximetry 09/18/16 13:13 Temperature Pulse Rate Pulse Rate [ Anterior Bilateral Throughout] Pulse Rate [ From Monitor] Pulse Rate [ 79 Right Radial] Respiratory Rate Respiratory Rate [Anterior Bilateral Throughout] Blood Pressure 140/64 [Right Radial Artery] O2 Sat by Pulse Oximetry Constitutional: no acute distress, asleep (Patient is arousable.) Eyes: non-icteric Neck: supple, no lymphadenopathy Ascultation: Bilateral: diminished breath sounds Cardiovascular: regular rate and rhythm Gastrointestinal: normoactive bowel sounds, soft, non-tender Integumentary: normal Extremities: no cyanosis, no edema Neurologic: normal mental status, non-focal exam, pupils equal and round, CN II- XII normal Psychiatric: other (Patient sleepy.) CBC and BMP: 09/18/16 06:53 09/18/16 06:53 ABG, PT/INR, D-dimer: ABG POC ABG pH 7.372 (7.35-7.45) 09/16/16 14:08 POC ABG pCO2 90.8 (35-45) H 09/16/16 14:08 POC ABG pO2 65 (80-105) L 09/16/16 14:08 POC ABG HCO3 52.8 09/16/16 14:08 POC ABG Total CO2 > 50 09/16/16 14:08 POC ABG O2 Sat 90 09/16/16 14:08 PT/INR, D-dimer D-Dimer 595.43 ng/mlDDU (0-234) H 09/15/16 11:37 Abnormal lab findings: Abnormal Labs 09/15/16 09/16/16 09/16/16 23:23 03:40 08:25 Hct MCV RDW Plt Count Lymph % (Auto) Lymph # Seg Neutrophils % Seg Neutrophils # POC ABG pCO2 POC ABG pO2 Chloride 92.6 L Carbon Dioxide 43 H* Creatinine 0.5 L Glucose 185 H POC Glucose 143 H 155 H Calcium 7.9 L C-Reactive Protein 09/16/16 09/16/16 09/16/16 12:13 14:08 14:33 Hct MCV RDW Plt Count Lymph % (Auto) Lymph # Seg Neutrophils % Seg Neutrophils # POC ABG pCO2 90.8 H POC ABG pO2 65 L Chloride Carbon Dioxide Creatinine Glucose POC Glucose 141 H Calcium C-Reactive Protein 5.00 H 09/16/16 09/16/16 09/17/16 17:13 21:42 11:56 Hct MCV RDW Plt Count Lymph % (Auto) Lymph # Seg Neutrophils % Seg Neutrophils # POC ABG pCO2 POC ABG pO2 Chloride Carbon Dioxide Creatinine Glucose POC Glucose 190 H 170 H 177 H Calcium C-Reactive Protein 09/17/16 09/17/16 09/18/16 16:36 21:22 06:53 Hct 45.5 H MCV 98 H RDW 17.6 H Plt Count 123 L Lymph % (Auto) 11.2 L Lymph # 1.1 L Seg Neutrophils % 78.9 H Seg Neutrophils # 7.8 H POC ABG pCO2 POC ABG pO2 Chloride Carbon Dioxide Creatinine Glucose POC Glucose 143 H 158 H Calcium C-Reactive Protein 09/18/16 06:53 Hct MCV RDW Plt Count Lymph % (Auto) Lymph # Seg Neutrophils % Seg Neutrophils # POC ABG pCO2 POC ABG pO2 Chloride 92.5 L Carbon Dioxide 41 H* Creatinine 0.5 L Glucose 105 H POC Glucose Calcium 8.1 L C-Reactive Protein Chest x-ray: report reviewed (Cardiomegaly.), image reviewed CT scan - chest: report reviewed (No pulmonary emboli.), image reviewed Prior PFT's, U/S of legs: report reviewed (No DVT.)
--- NOTE | 2016-09-18 17:08 | Progress Note ---
Assessment and Plan Assessment and plan: 1. Acute on chronic hypercapnic hypoxic respiratory failure Due to advanced COPD Placed on BiPAP at night and inhaled bronchodilators Pulmonary consulted and regimen adjusted 2. COPD Advanced, on 3 L home oxygen No signs of exacerbation, so IV corticosteroid discontinued Continue inhaled bronchodilators, supplemental oxygen and BiPAP at night Likely with SAMANTHA/OHS also 3. Sepsis Due to severe lower extremity cellulitis/? UTI Continue antibiotics 4. RLE cellulitis With open, oozing wound (wound culture not obtained before starting antibiotics) On broad-spectrum IV antibiotics Wound care nurse consulted; following recom; intervention appreciated 5. UTI UA suggestive of UTI (slightly elevated WBC, LE, nitrate negative) Urine culture not obtained On antibiotics for cellulitis that also will cover UTI if any 6. Hyperkalemia Received Kayexalate, resolved Continue to monitor 7. Hypertension BP controlled on HCTZ 8. CHF - suspected, but last month ECHO showed normal EF and severe pulmonary hypertension 9. Morbid obesity Counseled regarding importance of losing weight 10. DVT/GI prophylaxis History Interval history: edema and eythema RLE decreased as well as the pain, but wound still oozing Hospitalist Physical - Constitutional Vitals: Temp Pulse Resp BP Pulse Ox 98.0 F 79 20 140/64 97 09/18/16 10:09 09/18/16 13:13 09/18/16 08:32 09/18/16 13:13 09/18/16 08:14 General appearance: Present: no acute distress, obese (morbidly) - EENT Eyes: Present: PERRL, EOM intact. Absent: scleral icterus, conjunctival injection - Neck Neck: Present: supple, normal ROM. Absent: masses or JVD - Respiratory Respiratory effort: normal (at rest), other (on O2 per NC) Respiratory: bilateral: diminished, negative: rhonchi, wheezing - Cardiovascular Rhythm: regular Heart Sounds: Present: S1 & S2. Absent: systolic murmur - Extremities Extremities: no ischemia, abnormal (RLE wound with dressing in place, edema and erythema decreased) - Abdominal General gastrointestinal: soft, non-tender, non-distended, normal bowel sounds - Psychiatric Psychiatric: cooperative - Neurologic Neurologic: CNII-XII intact, no focal deficits Results - Labs CBC & Chem 7: 09/18/16 06:53 09/18/16 06:53 Labs: Laboratory Last Values WBC 10.0 K/mm3 (4.5-11.0) 09/18/16 06:53 RBC 4.66 M/mm3 (3.65-5.03) 09/18/16 06:53 Hgb 14.0 gm/dl (10.1-14.3) 09/18/16 06:53 Hct 45.5 % (30.3-42.9) H 09/18/16 06:53 MCV 98 fl (79-97) H 09/18/16 06:53 MCH 30 pg (28-32) 09/18/16 06:53 MCHC 31 % (30-34) 09/18/16 06:53 RDW 17.6 % (13.2-15.2) H 09/18/16 06:53 Plt Count 123 K/mm3 (140-440) L 09/18/16 06:53 Lymph % (Auto) 11.2 % (13.4-35.0) L 09/18/16 06:53 [place] % (Auto) 6.8 % (0.0-7.3) 09/18/16 06:53 Eos % (Auto) 2.3 % (0.0-4.3) 09/18/16 06:53 Baso % (Auto) 0.8 % (0.0-1.8) 09/18/16 06:53 Lymph # 1.1 K/mm3 (1.2-5.4) L 09/18/16 06:53 [place] # 0.7 K/mm3 (0.0-0.8) 09/18/16 06:53 Eos # 0.2 K/mm3 (0.0-0.4) 09/18/16 06:53 Baso # 0.1 K/mm3 (0.0-0.1) 09/18/16 06:53 Seg Neutrophils % 78.9 % (40.0-70.0) H 09/18/16 06:53 Seg Neutrophils # 7.8 K/mm3 (1.8-7.7) H 09/18/16 06:53 D-Dimer 595.43 ng/mlDDU (0-234) H 09/15/16 11:37 POC ABG pH 7.372 (7.35-7.45) 09/16/16 14:08 POC ABG pCO2 90.8 (35-45) H 09/16/16 14:08 POC ABG pO2 65 (80-105) L 09/16/16 14:08 POC ABG HCO3 52.8 09/16/16 14:08 POC ABG Total CO2 > 50 09/16/16 14:08 POC ABG O2 Sat 90 09/16/16 14:08 POC ABG Base Excess 28 09/16/16 14:08 FiO2 5 % 09/16/16 14:08 Sodium 142 mmol/L (137-145) 09/18/16 06:53 Potassium 4.0 mmol/L (3.6-5.0) 09/18/16 06:53 Chloride 92.5 mmol/L (98-107) L 09/18/16 06:53 Carbon Dioxide 41 mmol/L (22-30) H* 09/18/16 06:53 Anion Gap 13 mmol/L 09/18/16 06:53 BUN 15 mg/dL (7-17) 09/18/16 06:53 Creatinine 0.5 mg/dL (0.7-1.2) L 09/18/16 06:53 Estimated GFR > 60 ml/min 09/18/16 06:53 BUN/Creatinine Ratio 30.00 % 09/18/16 06:53 Glucose 105 mg/dL (65-100) H 09/18/16 06:53 POC Glucose 89 (70-105) 09/18/16 07:50 Lactic Acid 1.6 mmol/L (0.7-2.0) 09/16/16 14:33 Calcium 8.1 mg/dL (8.4-10.2) L 09/18/16 06:53 Troponin T < 0.010 ng/mL (0.00-0.029) 09/15/16 11:37 C-Reactive Protein 5.00 mg/dL (0.00-1.30) H 09/16/16 14:33 NT-Pro-B Natriuret Pep 1415 pg/mL (0-900) H 09/15/16 11:37 Urine Color Yellow (Yellow) 09/15/16 12:22 Urine Turbidity Clear (Clear) 09/15/16 12:22 Urine pH 5.0 (5.0-7.0) 09/15/16 12:22 Ur Specific [place] 1.016 (1.003-1.030) 09/15/16 12:22 Urine Protein 30 mg/dl mg/dL (Negative) 09/15/16 12:22 Urine Glucose (UA) Neg mg/dL (Negative) 09/15/16 12:22 Urine Ketones Neg mg/dL (Negative) 09/15/16 12:22 Urine Blood Sm (Negative) 09/15/16 12:22 Urine Nitrite Neg (Negative) 09/15/16 12:22 Urine Bilirubin Neg (Negative) 09/15/16 12:22 Urine Urobilinogen < 2.0 mg/dL (<2.0) 09/15/16 12:22 Ur Leukocyte Esterase Neg (Negative) 09/15/16 12:22 Urine WBC (Auto) 13.0 /HPF (0.0-6.0) H 09/15/16 12:22 Urine RBC (Auto) 1.0 /HPF (0.0-6.0) 09/15/16 12:22 U Epithel Cells (Auto) 3.0 /HPF (0-13.0) 09/15/16 12:22 Hyaline Casts 1 /LPF 09/15/16 12:22 Urine Mucus Few /HPF 09/15/16 12:22
[2016-09-19] MEDS: VANCOMYCIN 2,000 MG in NACL 0.9% 500 ML 500 ML IV SCH ×2 (00:35→14:19)
[2016-09-19] MEDS: DUONEB 0.5 MG-3 MG/3 ML SOLN IH SCH ×4 (02:25→21:52)
[2016-09-19] MEDS: HEPARIN SUB-Q SCH ×3 (06:02→21:39)
[2016-09-19] MEDS: ZOSYN/NS 4.5GM/100ML 4.5 GM/100 ML VIAL IV SCH ×3 (06:02→21:39)
[2016-09-19] MEDS: NOVOLOG SUB-Q SCH ×4 (07:30→21:45)
[2016-09-19] MEDS: BROVANA NEBU IH SCH ×2 (08:08→21:51)
[2016-09-19] MEDS: PULMICORT IH SCH ×2 (08:08→21:51)
[2016-09-19] MEDS: MORPHINE IV PRN ×3 (09:53→22:07)
[2016-09-19] MEDS: HCTZ PO SCH (09:54)
[2016-09-19] MEDS: PROTONIX PO SCH (09:54)
--- NOTE | 2016-09-19 21:19 | Progress Note ---
Assessment and Plan Patient sleeping at this time on 3 litres O2. .O2 satuaration 96% on 3 litres O2.No acute respiratory distress. - Patient Problems (1) Acute exacerbation of chronic obstructive pulmonary disease (COPD) Current Visit: Yes Status: Acute Plan to address problem: O2 supplementatation BIPAP during Night and Prn during day time. Brovanna and budesonide aerosol treatments. q 12 hours. Albuterol/atrovent aerosol treatments q 6 hours prn for shortness of breath. (2) Acute hypoxemic respiratory failure Current Visit: No Status: Acute Plan to address problem: O2 supplementation 3 litres. BIPAP during night time and Prn during day time. Brovanna/Budesonide aerosol treatments q 12 hours. Continue S/C Heparin for DVT prophylaxis. Continue Protonix. (3) CHF (congestive heart failure) Current Visit: Yes Status: Acute Qualifiers: Congestive heart failure type: unspecified congestive heart failure type Congestive heart failure chronicity: acute on chronic Qualified Code(s): I50.9 - Heart failure, unspecified Plan to address problem: Management as per primary care and cardiology. (4) Cellulitis of lower extremity Current Visit: Yes Status: Acute Qualifiers: Laterality: right Qualified Code(s): L03.115 - Cellulitis of right lower limb Plan to address problem: Patient is on zosyn and vancomycin. (5) UTI (urinary tract infection) Current Visit: Yes Status: Acute Qualifiers: Urinary tract infection type: U Hematuria presence: H Indwelling urinary catheter type: I Encounter type: E Plan to address problem: Patient is on zosyn and vancomycin. (6) Morbid obesity Current Visit: No Status: Acute Qualifiers: Obesity type: due to excess calories Qualified Code(s): E66.01 - Morbid ( severe) obesity due to excess calories Plan to address problem: Recommend to loose weight. Recommend sleep study as out patient. (7) HTN (hypertension), benign Current Visit: No Status: Chronic Plan to address problem: Management as per primary care. Subjective Date of service: 09/19/16 Principal diagnosis: Acute on Chronic Respiratory Failure; Cellulitis Interval history: Patient sleeping at this time on 3 litres O2. .O2 satuaration 96% on 3 litres O2.No acute respiratory distress. Objective Vital Signs - 12hr 09/19/16 09/19/16 09/19/16 10:00 10:26 14:22 Temperature 98.7 F Pulse Rate 82 Pulse Rate [ 84 Anterior Bilateral Throughout] Pulse Rate [ 87 Right Radial] Respiratory 16 Rate Respiratory 20 Rate [Anterior Bilateral Throughout] Blood Pressure 130/58 [Right Radial Artery] O2 Sat by Pulse 89 Oximetry 09/19/16 09/19/16 09/19/16 14:36 18:32 19:50 Temperature Pulse Rate Pulse Rate [ 81 Anterior Bilateral Throughout] Pulse Rate [ 91 H Right Radial] Respiratory 26 H Rate Respiratory 20 Rate [Anterior Bilateral Throughout] Blood Pressure 141/65 [Right Radial Artery] O2 Sat by Pulse 96 Oximetry Constitutional: no acute distress, asleep (Patient is arousable.) Eyes: non-icteric Neck: supple, no lymphadenopathy Ascultation: Bilateral: diminished breath sounds Cardiovascular: regular rate and rhythm Gastrointestinal: normoactive bowel sounds, soft, non-tender Integumentary: normal Extremities: no cyanosis, no edema Neurologic: normal mental status, non-focal exam, pupils equal and round, CN II- XII normal Psychiatric: other (Patient sleepy.) CBC and BMP: 09/18/16 06:53 09/18/16 06:53 ABG, PT/INR, D-dimer: ABG POC ABG pH 7.372 (7.35-7.45) 09/16/16 14:08 POC ABG pCO2 90.8 (35-45) H 09/16/16 14:08 POC ABG pO2 65 (80-105) L 09/16/16 14:08 POC ABG HCO3 52.8 09/16/16 14:08 POC ABG Total CO2 > 50 09/16/16 14:08 POC ABG O2 Sat 90 09/16/16 14:08 PT/INR, D-dimer D-Dimer 595.43 ng/mlDDU (0-234) H 09/15/16 11:37 Abnormal lab findings: Abnormal Labs 09/15/16 09/16/16 09/16/16 23:23 03:40 08:25 Hct MCV RDW Plt Count Lymph % (Auto) Lymph # Seg Neutrophils % Seg Neutrophils # POC ABG pCO2 POC ABG pO2 Chloride 92.6 L Carbon Dioxide 43 H* Creatinine 0.5 L Glucose 185 H POC Glucose 143 H 155 H Calcium 7.9 L C-Reactive Protein Vancomycin Trough 09/16/16 09/16/16 09/16/16 12:13 14:08 14:33 Hct MCV RDW Plt Count Lymph % (Auto) Lymph # Seg Neutrophils % Seg Neutrophils # POC ABG pCO2 90.8 H POC ABG pO2 65 L Chloride Carbon Dioxide Creatinine Glucose POC Glucose 141 H Calcium C-Reactive Protein 5.00 H Vancomycin Trough 09/16/16 09/16/16 09/17/16 17:13 21:42 11:56 Hct MCV RDW Plt Count Lymph % (Auto) Lymph # Seg Neutrophils % Seg Neutrophils # POC ABG pCO2 POC ABG pO2 Chloride Carbon Dioxide Creatinine Glucose POC Glucose 190 H 170 H 177 H Calcium C-Reactive Protein Vancomycin Trough 09/17/16 09/17/16 09/18/16 16:36 21:22 06:53 Hct 45.5 H MCV 98 H RDW 17.6 H Plt Count 123 L Lymph % (Auto) 11.2 L Lymph # 1.1 L Seg Neutrophils % 78.9 H Seg Neutrophils # 7.8 H POC ABG pCO2 POC ABG pO2 Chloride Carbon Dioxide Creatinine Glucose POC Glucose 143 H 158 H Calcium C-Reactive Protein Vancomycin Trough 09/18/16 09/18/16 09/18/16 06:53 11:44 16:13 Hct MCV RDW Plt Count Lymph % (Auto) Lymph # Seg Neutrophils % Seg Neutrophils # POC ABG pCO2 POC ABG pO2 Chloride 92.5 L Carbon Dioxide 41 H* Creatinine 0.5 L Glucose 105 H POC Glucose 128 H 190 H Calcium 8.1 L C-Reactive Protein Vancomycin Trough 09/18/16 09/18/16 09/19/16 18:38 21:28 07:29 Hct MCV RDW Plt Count Lymph % (Auto) Lymph # Seg Neutrophils % Seg Neutrophils # POC ABG pCO2 POC ABG pO2 Chloride Carbon Dioxide Creatinine Glucose POC Glucose 185 H 142 H 132 H Calcium C-Reactive Protein Vancomycin Trough 09/19/16 09/19/16 14:32 15:10 Hct MCV RDW Plt Count Lymph % (Auto) Lymph # Seg Neutrophils % Seg Neutrophils # POC ABG pCO2 POC ABG pO2 Chloride Carbon Dioxide Creatinine Glucose POC Glucose 161 H Calcium C-Reactive Protein Vancomycin Trough 41.5 H
--- NOTE | 2016-09-19 23:24 | Progress Note ---
Assessment and Plan Assessment and plan: 1. Acute on chronic hypercapnic hypoxic respiratory failure Due to advanced COPD Placed on BiPAP at night and inhaled bronchodilators Pulmonary consulted and regimen adjusted 2. COPD Advanced, on 3 L home oxygen No signs of exacerbation, so IV corticosteroid discontinued Continue inhaled bronchodilators, supplemental oxygen and BiPAP at night Likely with SAMANTHA/OHS also 3. Sepsis Due to severe lower extremity cellulitis/? UTI Continue antibiotics 4. RLE cellulitis With open, oozing wound (wound culture not obtained before starting antibiotics) On broad-spectrum IV antibiotics Wound care nurse consulted; following recom; intervention appreciated 5. UTI UA suggestive of UTI (slightly elevated WBC, LE, nitrate negative) Urine culture not obtained On antibiotics for cellulitis that also will cover UTI if any 6. Hyperkalemia Received Kayexalate, resolved Continue to monitor 7. Hypertension BP controlled on HCTZ 8. CHF - suspected, but last month ECHO showed normal EF and severe pulmonary hypertension 9. Morbid obesity Counseled regarding importance of losing weight 10. DVT/GI prophylaxis History Interval history: edema and eythema RLE decreased as well as the pain, wound wrapped by wound care nurse Hospitalist Physical - Constitutional Vitals: Temp Pulse Resp BP Pulse Ox 98.1 F 71 14 127/67 96 09/19/16 21:24 09/19/16 22:13 09/19/16 22:13 09/19/16 21:24 09/19/16 22:13 General appearance: Present: no acute distress, obese (morbidly) Results - Labs CBC & Chem 7: 09/18/16 06:53 09/18/16 06:53 Labs: Laboratory Last Values WBC 10.0 K/mm3 (4.5-11.0) 09/18/16 06:53 RBC 4.66 M/mm3 (3.65-5.03) 09/18/16 06:53 Hgb 14.0 gm/dl (10.1-14.3) 09/18/16 06:53 Hct 45.5 % (30.3-42.9) H 09/18/16 06:53 MCV 98 fl (79-97) H 09/18/16 06:53 MCH 30 pg (28-32) 09/18/16 06:53 MCHC 31 % (30-34) 09/18/16 06:53 RDW 17.6 % (13.2-15.2) H 09/18/16 06:53 Plt Count 123 K/mm3 (140-440) L 09/18/16 06:53 Lymph % (Auto) 11.2 % (13.4-35.0) L 09/18/16 06:53 [place] % (Auto) 6.8 % (0.0-7.3) 09/18/16 06:53 Eos % (Auto) 2.3 % (0.0-4.3) 09/18/16 06:53 Baso % (Auto) 0.8 % (0.0-1.8) 09/18/16 06:53 Lymph # 1.1 K/mm3 (1.2-5.4) L 09/18/16 06:53 [place] # 0.7 K/mm3 (0.0-0.8) 09/18/16 06:53 Eos # 0.2 K/mm3 (0.0-0.4) 09/18/16 06:53 Baso # 0.1 K/mm3 (0.0-0.1) 09/18/16 06:53 Seg Neutrophils % 78.9 % (40.0-70.0) H 09/18/16 06:53 Seg Neutrophils # 7.8 K/mm3 (1.8-7.7) H 09/18/16 06:53 D-Dimer 595.43 ng/mlDDU (0-234) H 09/15/16 11:37 POC ABG pH 7.372 (7.35-7.45) 09/16/16 14:08 POC ABG pCO2 90.8 (35-45) H 09/16/16 14:08 POC ABG pO2 65 (80-105) L 09/16/16 14:08 POC ABG HCO3 52.8 09/16/16 14:08 POC ABG Total CO2 > 50 09/16/16 14:08 POC ABG O2 Sat 90 09/16/16 14:08 POC ABG Base Excess 28 09/16/16 14:08 FiO2 5 % 09/16/16 14:08 Sodium 142 mmol/L (137-145) 09/18/16 06:53 Potassium 4.0 mmol/L (3.6-5.0) 09/18/16 06:53 Chloride 92.5 mmol/L (98-107) L 09/18/16 06:53 Carbon Dioxide 41 mmol/L (22-30) H* 09/18/16 06:53 Anion Gap 13 mmol/L 09/18/16 06:53 BUN 15 mg/dL (7-17) 09/18/16 06:53 Creatinine 0.5 mg/dL (0.7-1.2) L 09/18/16 06:53 Estimated GFR > 60 ml/min 09/18/16 06:53 BUN/Creatinine Ratio 30.00 % 09/18/16 06:53 Glucose 105 mg/dL (65-100) H 09/18/16 06:53 POC Glucose 136 (70-105) H 09/19/16 21:19 Lactic Acid 1.6 mmol/L (0.7-2.0) 09/16/16 14:33 Calcium 8.1 mg/dL (8.4-10.2) L 09/18/16 06:53 Troponin T < 0.010 ng/mL (0.00-0.029) 09/15/16 11:37 C-Reactive Protein 5.00 mg/dL (0.00-1.30) H 09/16/16 14:33 NT-Pro-B Natriuret Pep 1415 pg/mL (0-900) H 09/15/16 11:37 Urine Color Yellow (Yellow) 09/15/16 12:22 Urine Turbidity Clear (Clear) 09/15/16 12:22 Urine pH 5.0 (5.0-7.0) 09/15/16 12:22 Ur Specific [place] 1.016 (1.003-1.030) 09/15/16 12:22 Urine Protein 30 mg/dl mg/dL (Negative) 09/15/16 12:22 Urine Glucose (UA) Neg mg/dL (Negative) 09/15/16 12:22 Urine Ketones Neg mg/dL (Negative) 09/15/16 12:22 Urine Blood Sm (Negative) 09/15/16 12:22 Urine Nitrite Neg (Negative) 09/15/16 12:22 Urine Bilirubin Neg (Negative) 09/15/16 12:22 Urine Urobilinogen < 2.0 mg/dL (<2.0) 09/15/16 12:22 Ur Leukocyte Esterase Neg (Negative) 09/15/16 12:22 Urine WBC (Auto) 13.0 /HPF (0.0-6.0) H 09/15/16 12:22 Urine RBC (Auto) 1.0 /HPF (0.0-6.0) 09/15/16 12:22 U Epithel Cells (Auto) 3.0 /HPF (0-13.0) 09/15/16 12:22 Hyaline Casts 1 /LPF 09/15/16 12:22 Urine Mucus Few /HPF 09/15/16 12:22 Vancomycin Trough 41.5 ug/mL (5.0-20.0) H 09/19/16 15:10
[2016-09-20] MEDS: VANCOMYCIN 2,000 MG in NACL 0.9% 500 ML 500 ML IV SCH (01:03)
[2016-09-20] MEDS: DUONEB 0.5 MG-3 MG/3 ML SOLN IH SCH ×3 (02:04→13:15)
[2016-09-20] MEDS: ZOSYN/NS 4.5GM/100ML 4.5 GM/100 ML VIAL IV SCH (05:40)
[2016-09-20] MEDS: HEPARIN SUB-Q SCH ×2 (05:41→14:31)
[2016-09-20] MEDS: MORPHINE IV PRN ×3 (05:46→17:15)
--- NOTE | 2016-09-20 07:53 | Discharge Summary ---
Providers - Providers Date of Admission: 09/15/16 18:10 Date of discharge: 09/20/16 Attending physician: YOLANDA SCHUMACHER 09/18/16 11:17 Physical Therapy Evaluation and Treat [CONS] Routine Comment: Reason For Exam: debility Primary care physician: [employer] Hospitalization Reason for admission: pain/swelling/redness right leg with open wound Condition: Stable Pertinent studies: CXR CTA chest Doppler LE Disposition: DC/TX HOME UNDER HOME HEALTH Time spent for discharge: 35 min Core Measure Documentation - Palliative Care Palliative Care/ Comfort Measures: Not Applicable - Core Measures Any of the following diagnoses?: none Exam - Constitutional Vitals: Temp Pulse Resp BP Pulse Ox 97.4 F L 66 24 145/65 95 09/20/16 04:25 09/20/16 04:25 09/20/16 06:16 09/20/16 04:25 09/20/16 04:25 Plan Activity: advance as tolerated, fall precautions Diet: low cholesterol, low salt Follow up with: PRIMARY MD DORIE [Primary Care Provider] - 3-5 Days [facility] [Outside] - 7 Days GINA MATTHEWS MD [Staff Physician] - 10 Days Prescriptions: ALBUTEROL Inhaler [ProAir HFA Inhaler] 1 puff IH Q4H PRN #1 inha PRN Reason: Shortness Of Breath/mild wheez Arformoterol Nebu [Brovana Nebu] 15 mcg IH Q12HRT #1 ml Aspirin [Aspirin TAB] 325 mg PO QDAY #30 tablet Budesonide [Pulmicort Respules] 0.5 mg IH Q12HRT #1 nebu Hydrochlorothiazide [HCTZ] 25 mg PO QDAY #30 tablet Lidocaine Topical 2% [Xylocaine Topical 2%] 1 applic TP Q8H PRN #1 tube PRN Reason: Analgesia Lisinopril [Zestril TAB] 10 mg PO QDAY #30 tablet Oxycodone HCl/Acetaminophen [Percocet 7.5/325 mg] 1 each PO Q6HR PRN #28 tablet PRN Reason: Pain Pantoprazole [Protonix TAB] 40 mg PO DAILY #30 tablet Pending Studies wound readdressed by wound care nurse
[2016-09-20] MEDS: BROVANA NEBU IH SCH (07:56)
[2016-09-20] MEDS: PULMICORT IH SCH (07:56)
[2016-09-20] MEDS: NOVOLOG SUB-Q SCH ×2 (08:40→13:31)
[2016-09-20] MEDS: HCTZ PO SCH (09:28)
[2016-09-20] MEDS: PROTONIX PO SCH (09:28)
--- NOTE | 2016-09-20 11:47 | Progress Note ---
Assessment and Plan Patient resting on 3 litres O2. .O2 satuaration 95% on 3 litres O2.No acute respiratory distress. - Patient Problems (1) Acute exacerbation of chronic obstructive pulmonary disease (COPD) Current Visit: Yes Status: Acute Plan to address problem: O2 supplementatation BIPAP during Night and Prn during day time. Brovanna and budesonide aerosol treatments. q 12 hours. Albuterol/atrovent aerosol treatments q 6 hours prn for shortness of breath. (2) Acute hypoxemic respiratory failure Current Visit: No Status: Acute Plan to address problem: O2 supplementation 3 litres. BIPAP during night time and Prn during day time. Brovanna/Budesonide aerosol treatments q 12 hours. Continue S/C Heparin for DVT prophylaxis. Continue Protonix. (3) CHF (congestive heart failure) Current Visit: Yes Status: Acute Qualifiers: Congestive heart failure type: unspecified congestive heart failure type Congestive heart failure chronicity: acute on chronic Qualified Code(s): I50.9 - Heart failure, unspecified Plan to address problem: Management as per primary care and cardiology. (4) Cellulitis of lower extremity Current Visit: Yes Status: Acute Qualifiers: Laterality: right Qualified Code(s): L03.115 - Cellulitis of right lower limb Plan to address problem: Patient is on zosyn and vancomycin. (5) UTI (urinary tract infection) Current Visit: Yes Status: Acute Qualifiers: Urinary tract infection type: U Hematuria presence: H Indwelling urinary catheter type: I Encounter type: E Plan to address problem: Patient is on zosyn and vancomycin. (6) Morbid obesity Current Visit: No Status: Acute Qualifiers: Obesity type: due to excess calories Qualified Code(s): E66.01 - Morbid ( severe) obesity due to excess calories Plan to address problem: Recommend to loose weight. Patient said she already diagnosed Sleep apnea. Patient has CPAP and O2 at home. (7) HTN (hypertension), benign Current Visit: No Status: Chronic Plan to address problem: Management as per primary care. Subjective Date of service: 09/20/16 Principal diagnosis: Acute on Chronic Respiratory Failure; Cellulitis Interval history: Patient resting on 3 litres O2. .O2 satuaration 95% on 3 litres O2.No acute respiratory distress. Objective Vital Signs - 12hr 09/20/16 09/20/1617 01:05 04:25 05:46 Temperature 97.3 F L 97.4 F L Pulse Rate Pulse Rate [ Bilateral] Pulse Rate [ Right Dorsalis Pedis] Pulse Rate [ 68 66 Right Radial] Respiratory 20 20 24 Rate Respiratory Rate [Bilateral ] Respiratory Rate [Right Lower Leg] Blood Pressure 124/58 145/65 [Right Radial Artery] O2 Sat by Pulse 90 95 Oximetry 09/20/16 09/20/16 09/20/16 06:16 07:59 08:00 Temperature Pulse Rate Pulse Rate [ 75 Bilateral] Pulse Rate [ Right Dorsalis Pedis] Pulse Rate [ Right Radial] Respiratory 24 Rate Respiratory 18 Rate [Bilateral ] Respiratory Rate [Right Lower Leg] Blood Pressure [Right Radial Artery] O2 Sat by Pulse 95 Oximetry 09/20/16 09/20/16 09/20/16 08:11 08:28 08:32 Temperature 97.5 F L Pulse Rate Pulse Rate [ 78 Bilateral] Pulse Rate [ 71 Right Dorsalis Pedis] Pulse Rate [ Right Radial] Respiratory 18 Rate Respiratory 18 Rate [Bilateral ] Respiratory Rate [Right Lower Leg] Blood Pressure 130/84 [Right Radial Artery] O2 Sat by Pulse 92 95 Oximetry 09/20/16 09/20/16 09/20/16 10:00 10:01 11:15 Temperature Pulse Rate 86 Pulse Rate [ Bilateral] Pulse Rate [ Right Dorsalis Pedis] Pulse Rate [ Right Radial] Respiratory 18 Rate Respiratory Rate [Bilateral ] Respiratory 24 Rate [Right Lower Leg] Blood Pressure [Right Radial Artery] O2 Sat by Pulse Oximetry Constitutional: no acute distress, asleep (Patient is arousable.) Eyes: non-icteric Neck: supple, no lymphadenopathy Ascultation: Bilateral: diminished breath sounds Cardiovascular: regular rate and rhythm Gastrointestinal: normoactive bowel sounds, soft, non-tender Integumentary: normal Extremities: no cyanosis, no edema Neurologic: normal mental status, non-focal exam, pupils equal and round, CN II- XII normal Psychiatric: other (Patient sleepy.) CBC and BMP: 09/18/16 06:53 09/18/16 06:53 ABG, PT/INR, D-dimer: ABG POC ABG pH 7.372 (7.35-7.45) 09/16/16 14:08 POC ABG pCO2 90.8 (35-45) H 09/16/16 14:08 POC ABG pO2 65 (80-105) L 09/16/16 14:08 POC ABG HCO3 52.8 09/16/16 14:08 POC ABG Total CO2 > 50 09/16/16 14:08 POC ABG O2 Sat 90 09/16/16 14:08 PT/INR, D-dimer D-Dimer 595.43 ng/mlDDU (0-234) H 09/15/16 11:37 Abnormal lab findings: Abnormal Labs 09/15/16 09/16/16 09/16/16 23:23 03:40 08:25 Hct MCV RDW Plt Count Lymph % (Auto) Lymph # Seg Neutrophils % Seg Neutrophils # POC ABG pCO2 POC ABG pO2 Chloride 92.6 L Carbon Dioxide 43 H* Creatinine 0.5 L Glucose 185 H POC Glucose 143 H 155 H Calcium 7.9 L C-Reactive Protein Vancomycin Trough 09/16/16 09/16/16 09/16/16 12:13 14:08 14:33 Hct MCV RDW Plt Count Lymph % (Auto) Lymph # Seg Neutrophils % Seg Neutrophils # POC ABG pCO2 90.8 H POC ABG pO2 65 L Chloride Carbon Dioxide Creatinine Glucose POC Glucose 141 H Calcium C-Reactive Protein 5.00 H Vancomycin Trough 09/16/16 09/16/16 09/17/16 17:13 21:42 11:56 Hct MCV RDW Plt Count Lymph % (Auto) Lymph # Seg Neutrophils % Seg Neutrophils # POC ABG pCO2 POC ABG pO2 Chloride Carbon Dioxide Creatinine Glucose POC Glucose 190 H 170 H 177 H Calcium C-Reactive Protein Vancomycin Trough 09/17/16 09/17/16 09/18/16 16:36 21:22 06:53 Hct 45.5 H MCV 98 H RDW 17.6 H Plt Count 123 L Lymph % (Auto) 11.2 L Lymph # 1.1 L Seg Neutrophils % 78.9 H Seg Neutrophils # 7.8 H POC ABG pCO2 POC ABG pO2 Chloride Carbon Dioxide Creatinine Glucose POC Glucose 143 H 158 H Calcium C-Reactive Protein Vancomycin Trough 09/18/16 09/18/16 09/18/16 06:53 11:44 16:13 Hct MCV RDW Plt Count Lymph % (Auto) Lymph # Seg Neutrophils % Seg Neutrophils # POC ABG pCO2 POC ABG pO2 Chloride 92.5 L Carbon Dioxide 41 H* Creatinine 0.5 L Glucose 105 H POC Glucose 128 H 190 H Calcium 8.1 L C-Reactive Protein Vancomycin Trough 09/18/16 09/18/16 09/19/16 18:38 21:28 07:29 Hct MCV RDW Plt Count Lymph % (Auto) Lymph # Seg Neutrophils % Seg Neutrophils # POC ABG pCO2 POC ABG pO2 Chloride Carbon Dioxide Creatinine Glucose POC Glucose 185 H 142 H 132 H Calcium C-Reactive Protein Vancomycin Trough 09/19/16 09/19/16 09/19/16 14:32 15:10 17:34 Hct MCV RDW Plt Count Lymph % (Auto) Lymph # Seg Neutrophils % Seg Neutrophils # POC ABG pCO2 POC ABG pO2 Chloride Carbon Dioxide Creatinine Glucose POC Glucose 161 H 163 H Calcium C-Reactive Protein Vancomycin Trough 41.5 H 09/19/16 21:19 Hct MCV RDW Plt Count Lymph % (Auto) Lymph # Seg Neutrophils % Seg Neutrophils # POC ABG pCO2 POC ABG pO2 Chloride Carbon Dioxide Creatinine Glucose POC Glucose 136 H Calcium C-Reactive Protein Vancomycin Trough
[2016-09-20 13:05] VITALS: BP 132/65
== END 2016-09-20 18:00 | disposition home health service (06) | DRG 871 ==
LOC: ED 10:32 → CC1 18:10 → 4A 09-16 19:16
PROVIDERS: ADMIT Internal Medicine; ATTEND Internal Medicine
PROC: 5A09357 Assistance with Respiratory Ventilation, Less than 24 Consecutive Hours, Continuous Positive Airway Pressure (ICD-10-PCS; principal; 2016-09-15)
PROC: 4A033R1 Measurement of Arterial Saturation, Peripheral, Percutaneous Approach (ICD-10-PCS; 2016-09-15)
DX: A41.9 Sepsis, unspecified organism (principal); J96.21 Acute and chronic respiratory failure with hypoxia; J96.22 Acute and chronic respiratory failure with hypercapnia; J44.1 Chronic obstructive pulmonary disease with (acute) exacerbation; N39.0 Urinary tract infection, site not specified; L03.115 Cellulitis of right lower limb; Z68.43 Body mass index [BMI] 50.0-59.9, adult; I50.9 Heart failure, unspecified; E87.5 Hyperkalemia; E66.01 Morbid (severe) obesity due to excess calories; I11.0 Hypertensive heart disease with heart failure; G47.33 Obstructive sleep apnea (adult) (pediatric); I27.2 Other secondary pulmonary hypertension; Z90.12 Acquired absence of left breast and nipple; Z88.8 Allergy status to other drugs, medicaments and biological substances; Z71.89 Other specified counseling; Z90.710 Acquired absence of both cervix and uterus; Z99.81 Dependence on supplemental oxygen; Z87.891 Personal history of nicotine dependence
CPT/HCPCS: 36415; 36600; 71010; 71275; 80048; 80202; 81001; 82140; 82803; 82962; 83880; 84484; 85025; 85379; 86140; 87040; 93005; 93010; 93970; 94640; 94644; 94660; 94760; 96365; 96366; 96375; J1100; J1644; J1815; J1940; J2270; J2543; J3370; J7030; J7040; Q9967

== ENCOUNTER 2016-11-11 22:39 | Inpatient (IN) | payer OTHER ==
[2016-11-11 23:24] LABS: Basophils % (Auto) 0.6 % (0.0-1.8); Eosinophils % (Auto) 2.3 % (0.0-4.3); Mean Corpuscular HGB Conc 31 % (30-34); Mean Corpuscular Hemoglobin 31 pg (28-32); Mean Corpuscular Volume 100 fl (79-97); Platelet Count 205 K/mm3 (140-440); Red Cell Distribution Width 16.6 % (13.2-15.2); White Blood Count 12.5 K/mm3 (4.5-11.0)
[2016-11-11] MEDS ORDERED: ATROVENT IH ONE (23:29)
[2016-11-11] MEDS ORDERED: PROVENTIL IH ONE (23:29)
[2016-11-11] MEDS ORDERED: DECADRON IV ONE (23:30)
[2016-11-11] MEDS ORDERED: MAGNESIUM SULFATE 2GM/50ML 2 GM/50 ML BAG IV ONE (23:30)
--- NOTE | 2016-11-11 23:31 | Emergency Department Report ---
ED General Adult HPI - General Chief complaint: Dyspnea/Respdistress Stated complaint: ANDREE Time Seen by Provider: 11/11/16 23:21 Source: EMS (ems notes not available at time of chart dictation), RN notes reviewed, old records reviewed Mode of arrival: Stretcher Limitations: Altered Mental Status - History of Present Illness Initial comments: This is a 56-year-old female. I have evaluated her in the past. Her primary care doctor is Dr. Lam Crane. She has a past medical history of COPD, heart failure, intubation. The patient is brought to the hospital by EMS for altered mental status and respiratory distress. As per verbal report from EMS, the patient was hypoxic to the 80s. Upon arrival to the ER, the patient was lethargic and obtunded. She was having intermittent periods of lucidity. The patient was placed on a BiPAP. Her oxygenation improved. However, her mental status was tenuous, and she was noted to be drooling within the BiPAP mask. She was induced with 200 mg of ketamine, and preoxygenated with BiPAP ventilation, and then placed on nasal cannula, for garrett apneic oxygenation oxygenation. The patient was intubated with an 8.0 endotracheal tube by myself using a Kwasi 4 curved blade, with one attempt, with no obvious complications or difficulty. The patient was then paralyzed with 100 mg of rocuronium I have discussed the case with the critical care physician on-call, Dr. Holloway, Who agrees with triage and placement to the intensive care unit. The case is discussed with the hospital physician, Dr. Sullivan, who graciously accepts the patient to her service. -: Gradual Severity scale (0 -10): 4 Consistency: constant Improves with: none Worsens with: none Associated Symptoms: confusion, shortness of breath, weakness - Related Data Previous Rx's Medication Instructions Recorded Last Taken Type ALBUTEROL Inhaler [ProAir HFA 1 puff IH Q4H PRN #1 inha 09/20/16 Unknown Rx Inhaler] Arformoterol Nebu [Brovana Nebu] 15 mcg IH Q12HRT #1 ml 09/20/16 Unknown Rx Aspirin [Aspirin TAB] 325 mg PO QDAY #30 tablet 09/20/16 Unknown Rx Budesonide [Pulmicort Respules] 0.5 mg IH Q12HRT #1 nebu 09/20/16 Unknown Rx Hydrochlorothiazide [HCTZ] 25 mg PO QDAY #30 tablet 09/20/16 Unknown Rx Lidocaine Topical 2% [Xylocaine 1 applic TP Q8H PRN #1 tube 09/20/16 Unknown Rx Topical 2%] Lisinopril [Zestril TAB] 10 mg PO QDAY #30 tablet 09/20/16 Unknown Rx Oxycodone HCl/Acetaminophen 1 each PO Q6HR PRN #28 tablet 09/20/16 Unknown Rx [Percocet 7.5/325 mg] Pantoprazole [Protonix TAB] 40 mg PO DAILY #30 tablet 09/20/16 Unknown Rx Allergies Allergy/AdvReac Type Severity Reaction Status Date / Time methylprednisolone sodium Allergy Itching Verified 09/15/16 10:40 succinate [From Solu-Medrol] ED Review of Systems ROS: Stated complaint: ANDREE Other details as noted in HPI Comment: Unobtainable due to pts medical conditions ED Past Medical Hx - Past Medical History Previous Medical History?: Yes Hx Hypertension: Yes Hx Congestive Heart Failure: Yes Hx Diabetes: No Hx Asthma: No Hx COPD: Yes Hx HIV: No - Surgical History Past Surgical History?: No - Social History Smoking Status: Never Smoker Substance Use Type: None - Medications Home Medications: Home Medications Medication Instructions Recorded Confirmed Last Taken Type ALBUTEROL Inhaler [ProAir HFA 1 puff IH Q4H PRN #1 inha 09/20/16 11/11/16 Unknown Rx Inhaler] Arformoterol Nebu [Brovana Nebu] 15 mcg IH Q12HRT #1 ml 09/20/16 11/11/16 Unknown Rx Aspirin [Aspirin TAB] 325 mg PO QDAY #30 tablet 09/20/16 11/11/16 Unknown Rx Budesonide [Pulmicort Respules] 0.5 mg IH Q12HRT #1 nebu 09/20/16 11/11/16 Unknown Rx Hydrochlorothiazide [HCTZ] 25 mg PO QDAY #30 tablet 09/20/16 11/11/16 Unknown Rx Lidocaine Topical 2% [Xylocaine 1 applic TP Q8H PRN #1 tube 09/20/16 11/11/16 Unknown Rx Topical 2%] Lisinopril [Zestril TAB] 10 mg PO QDAY #30 tablet 09/20/16 11/11/16 Unknown Rx Oxycodone HCl/Acetaminophen 1 each PO Q6HR PRN #28 tablet 09/20/16 11/11/16 Unknown Rx [Percocet 7.5/325 mg] Pantoprazole [Protonix TAB] 40 mg PO DAILY #30 tablet 09/20/16 11/11/16 Unknown Rx ED Physical Exam - General Limitations: Altered Mental Status General appearance: obtunded - Head Head exam: Present: atraumatic, normocephalic - Eye Eye exam: Present: normal appearance - ENT ENT exam: Present: normal orophraynx, mucous membranes moist - Neck Neck exam: Present: normal inspection, full ROM. Absent: tenderness - Respiratory Respiratory exam: Present: respiratory distress, decreased breath sounds - Cardiovascular Cardiovascular Exam: Present: normal rhythm, tachycardia, normal heart sounds. Absent: systolic murmur, diastolic murmur, rubs, gallop - GI/Abdominal GI/Abdominal exam: Present: soft, normal bowel sounds, other (patient has a morbidly obese abdomen, with some anterior wall erythema). Absent: distended, tenderness, guarding, rebound, rigid, pulsatile mass - External exam: Present: normal external exam, other (on the intertrigonous regions, there is moist white/clear discharge.) - Extremities Exam Extremities exam: Present: normal inspection, pedal edema, other (chronic erythema and venous insufficiency are noted on the bilateral lower extremities, right greater than left). Absent: calf tenderness - Back Exam Back exam: Present: normal inspection - Neurological Exam Neurological exam: Present: altered, other (patient is intermittently moving 4 extremities) - Psychiatric Psychiatric exam: Present: flat affect - Skin Skin exam: Present: warm, erythema ED Course Vital Signs 11/11/16 11/11/16 11/11/16 23:18 23:19 23:45 Temperature 98 F Pulse Rate 107 H 71 Respiratory 16 Rate Blood Pressure 116/71 [Left] O2 Sat by Pulse 95 95 100 Oximetry 11/12/16 11/12/16 00:30 01:54 Temperature Pulse Rate 85 Respiratory Rate Blood Pressure 124/85 [Left] O2 Sat by Pulse 100 95 Oximetry - Reevaluation(s) Reevaluation #1: 11/12/16 00:51 differential diagnosis: Obstructive sleep apnea, pulmonary hypertension, congestive heart failure, pneumonia, COPD exacerbation, multifactorial respiratory failure Assessment and plan: 56-year-old female with probable multifactorial respiratory failure. Elevated BNP is appreciated. I do not appreciate crackles or rales on physical examination. Elevated carbon dioxide is noted on laboratory studies, most likely suggestive of hypercarbic respiratory failure. An arterial blood gas is pending. After intubation, the patient did become transiently hypotensive, given her tachycardia, altered mental status, presence of infiltrate on x-ray, I'm concerned about pneumonia and sepsis. The patient will be ventilated on a lung protective strategy using 8 mL/kg of ideal body weight, and she will be treated with antibiotics to cover community-acquired pneumonia and cellulitis. - Intubation Time Out Performed: Yes Sedative: Ketamine Mg Given: 200 Paralytic: Rocuronium Mg Given: 200 Laryngoscope: Kwasi Size: 4 ET Tube Size: 8 Tube Secured Location: teeth Tube Placement Confirmation: visualized tube passing t Patient Tolerated Procedure: well Intubation Complications: none Additional Comments: Patient is preoxygenated with BiPAP. She is then placed on a nasal cannula, and receives Rusty apneic oxygenation. The patient did not desaturate. ED Medical Decision Making - Lab Data Result diagrams: 11/11/16 23:05 11/11/16 23:05 Vital Signs 11/11/16 11/11/16 23:18 23:19 Temperature 98 F Pulse Rate 107 H Respiratory 16 Rate Blood Pressure 116/71 [Left] O2 Sat by Pulse 95 95 Oximetry Lab Results 11/11/16 11/11/16 11/11/16 Range/Units 23:05 23:05 23:37 WBC 12.5 H (4.5-11.0) K/mm3 RBC 4.30 (3.65-5.03) M/mm3 Hgb 13.3 (10.1-14.3) gm/dl Hct 43.1 H (30.3-42.9) % MCV 100 H (79-97) fl MCH 31 (28-32) pg MCHC 31 (30-34) % RDW 16.6 H (13.2-15.2) % Plt Count 205 (140-440) K/mm3 Lymph % (Auto) 9.1 L (13.4-35.0) % [place] % (Auto) 4.6 (0.0-7.3) % Eos % (Auto) 2.3 (0.0-4.3) % Baso % (Auto) 0.6 (0.0-1.8) % Lymph # 1.1 L (1.2-5.4) K/mm3 [place] # 0.6 (0.0-0.8) K/mm3 Eos # 0.3 (0.0-0.4) K/mm3 Baso # 0.1 (0.0-0.1) K/mm3 Seg Neutrophils % 83.4 H (40.0-70.0) % Seg Neutrophils # 10.4 H (1.8-7.7) K/mm3 PT 13.7 (12.2-14.9) Sec. INR 1.06 (0.87-1.13) Sodium 143 (137-145) mmol/L Potassium 5.5 H (3.6-5.0) mmol/L Chloride 92.9 L (98-107) mmol/L Carbon Dioxide 41 H* (22-30) mmol/L Anion Gap 15 mmol/L BUN 27 H (7-17) mg/dL Creatinine 0.6 L (0.7-1.2) mg/dL Estimated GFR > 60 ml/min BUN/Creatinine Ratio 45.00 % Glucose 164 H (65-100) mg/dL Calcium 8.8 (8.4-10.2) mg/dL Troponin T < 0.010 (0.00-0.029) ng/mL NT-Pro-B Natriuret Pep (0-900) pg/mL 11/11/16 Range/Units 23:37 WBC (4.5-11.0) K/mm3 RBC (3.65-5.03) M/mm3 Hgb (10.1-14.3) gm/dl Hct (30.3-42.9) % MCV (79-97) fl MCH (28-32) pg MCHC (30-34) % RDW (13.2-15.2) % Plt Count (140-440) K/mm3 Lymph % (Auto) (13.4-35.0) % [place] % (Auto) (0.0-7.3) % Eos % (Auto) (0.0-4.3) % Baso % (Auto) (0.0-1.8) % Lymph # (1.2-5.4) K/mm3 [place] # (0.0-0.8) K/mm3 Eos # (0.0-0.4) K/mm3 Baso # (0.0-0.1) K/mm3 Seg Neutrophils % (40.0-70.0) % Seg Neutrophils # (1.8-7.7) K/mm3 PT (12.2-14.9) Sec. INR (0.87-1.13) Sodium (137-145) mmol/L Potassium (3.6-5.0) mmol/L Chloride (98-107) mmol/L Carbon Dioxide (22-30) mmol/L Anion Gap mmol/L BUN (7-17) mg/dL Creatinine (0.7-1.2) mg/dL Estimated GFR ml/min BUN/Creatinine Ratio % Glucose (65-100) mg/dL Calcium (8.4-10.2) mg/dL Troponin T (0.00-0.029) ng/mL NT-Pro-B Natriuret Pep 2574 H (0-900) pg/mL - EKG Data -: EKG Interpreted by Me - EKG Data 11/12/16 00:53 sinus tachycardia, 102 bpm, rightward axis, poor R-wave progression, abnormal EKG, not morphologically consistent with STEMI, S1 every 3 T3 noted, not consistent with STEMI, pseudo-normalized T waves in the anteroseptal leads. - Radiology Data Radiology results: report reviewed, image reviewed Discoid atelectasis, infiltrate, no obvious pleural effusions on chest x-ray Critical Care Time: Yes Critical care time in (mins) excluding proc time.: 45 Critical care attestation.: If time is entered above; I have spent that time in minutes in the direct care of this critically ill patient, excluding procedure time. Critical Care Time: Critical care time includes multiple bedside reevaluation, interpretation of laboratory studies, radiology studies, time spent managing a critically ill patient with respiratory failure requiring consultation with hospital medicine, critical care medicine. This does not include procedure time. ED Disposition Clinical Impression: Respiratory failure Disposition: OP ADMIT IP TO THIS HOSP Is pt being admited?: Yes Does the pt Need Aspirin: Yes Condition: Critical
[2016-11-11 23:38] LABS: Blood Urea Nitrogen 27 mg/dL (7-17); Calcium 8.8 mg/dL (8.4-10.2); Chloride 92.9 mmol/L (98-107); Glucose 164 mg/dL (65-100); Potassium 5.5 mmol/L (3.6-5.0); Sodium 143 mmol/L (137-145)
[2016-11-11 23:44] LABS: Anion Gap 15 mmol/L
--- NOTE | 2016-11-11 23:46 | XRay Report ---
FINAL REPORT PROCEDURE: XR CHEST 1V AP TECHNIQUE: Chest radiograph anteroposterior view. CPT 23742 HISTORY: Shortness of breath COMPARISON: No prior studies are available for comparison. FINDINGS: Heart: Heart is enlarged Mediastinum/Vessels: There is mild pulmonary vascular congestion.. Lungs/Pleural space: There is suboptimal inspiration. There is a focal infiltrate at the right lung base. There is discoid atelectasis at the left lung base. There are no pleural effusions or pneumothoraces. Bony thorax: No acute osseous abnormality. Life support devices: None. IMPRESSION: Heart is enlarged There is a focal infiltrate at the right lung base. There is discoid atelectasis at the left lung base. There are no pleural effusions or pneumothoraces. .
[2016-11-11 23:50] LABS: Hematocrit 43.1 % (30.3-42.9); Hemoglobin 13.3 gm/dl (10.1-14.3)
[2016-11-11 23:52] LABS: Carbon Dioxide 41 mmol/L (22-30)
[2016-11-12] MEDS ORDERED: KETALAR ONE (00:01)
[2016-11-12 00:09] LABS: INR 1.06 (0.87-1.13)
[2016-11-12] MEDS ORDERED: ROCEPHIN/NS 1 GM/50 ML 1 GM/50 ML BAG IV ONE (00:23)
[2016-11-12] MEDS ORDERED: ZITHROMAX PO ONE (00:23)
[2016-11-12] MEDS ORDERED: NACL 0.9% 1000 ML 2,000 ML ONE (00:23)
[2016-11-12] MEDS ORDERED: ZITHROMAX 500 MG in NACL 0.9% 250ML 250 ML IV ONE (00:23)
[2016-11-12] MEDS ORDERED: NACL 0.9% 1000 ML IV ONE (00:23)
[2016-11-12] MEDS ORDERED: ARTIFICIAL TEARS OPHTH OINT OU PRN (00:24)
[2016-11-12] MEDS ORDERED: VASELINE LIP THERAPY TP PRN (00:24)
[2016-11-12] MEDS ORDERED: ZEMURON IV ONE ×2 (00:27→11:00)
[2016-11-12] MEDS ORDERED: KETALAR IV ONE ×2 (00:27→01:00)
[2016-11-12] MEDS ORDERED: SUBLIMAZE IV ONE (00:45)
[2016-11-12] MEDS ORDERED: BABY ASPIRIN FEEDTUBE ONE (00:55)
--- NOTE | 2016-11-12 01:11 | XRay Report ---
FINAL REPORT PROCEDURE: XR CHEST 1V AP TECHNIQUE: Chest radiograph anteroposterior view. CPT 32690 HISTORY: ETT placement COMPARISON: Earlier the same date FINDINGS: Heart: The heart size is prominent but stable. Mediastinum/Vessels: Normal. Lungs/Pleural space: Mild vascular congestion slight infiltrate or atelectasis bilateral lower lungs. No effusion or pneumothorax. Bony thorax: No acute osseous abnormality. Life support devices: The endotracheal tube ends 3 centimeters above the ross. IMPRESSION: Vascular congestion with slight atelectasis or infiltrate bilateral lower lungs. The endotracheal tube ends 3 centimeters above the ross. Stable cardiomegaly..
[2016-11-12 01:23] LABS: ISTAT Base Excess 26; ISTAT HCO3 49.6; ISTAT PCO2 70.7 (35-45); ISTAT PH 7.454 (7.35-7.45); ISTAT PO2 381 (80-105); ISTAT SO2 100; ISTAT TCO2 > 50
[2016-11-12] MEDS: fentaNYL DRIP Premix 2,000 MCG/100 ML BAG IV SCH ×3 (01:37→14:31)
[2016-11-12 02:18] LABS: Bacteria,Urine 4+ /HPF (Negative); Bilirubin,Urine NEG (Negative); Blood,Urine NEG (Negative); Ketones,Urine TR mg/dL (Negative); Leukocyte Esterase,Urine TR (Negative); Nitrite,Urine NEG (Negative); Urobilinogen,Urine < 2.0 mg/dL (<2.0)
[2016-11-12] MEDS ORDERED: ZOFRAN IV PRN (02:31)
[2016-11-12] MEDS ORDERED: TYLENOL PR PRN (02:31)
--- NOTE | 2016-11-12 02:36 | History and Physical Report ---
History of Present Illness Date of examination: 11/12/16 History of present illness: 56-year-old woman history of COPD on home oxygen, CHF was brought to the emergency room because she was noted to be in respiratory distress, hypoxic with oxygen all in the 80s. It was also reported that she was confused. The patient was placed on BiPAP but she failed BiPAP and was subsequently intubated. Review of system is unobtainable. Old records were reviewed PAST SURGICAL HISTORY: Hysterectomy, lumpectomy SOCIAL HISTORY: Quit smoking, no alcohol or drugs FAMILY HISTORY: Unknown Medications and Allergies Allergies Allergy/AdvReac Type Severity Reaction Status Date / Time methylprednisolone sodium Allergy Itching Verified 09/15/16 10:40 succinate [From Solu-Medrol] Home Medications Medication Instructions Recorded Confirmed Last Taken Type ALBUTEROL Inhaler [ProAir HFA 1 puff IH Q4H PRN #1 inha 09/20/16 11/11/16 Unknown Rx Inhaler] Arformoterol Nebu [Brovana Nebu] 15 mcg IH Q12HRT #1 ml 09/20/16 11/11/16 Unknown Rx Aspirin [Aspirin TAB] 325 mg PO QDAY #30 tablet 09/20/16 11/11/16 Unknown Rx Budesonide [Pulmicort Respules] 0.5 mg IH Q12HRT #1 nebu 09/20/16 11/11/16 Unknown Rx Hydrochlorothiazide [HCTZ] 25 mg PO QDAY #30 tablet 09/20/16 11/11/16 Unknown Rx Lidocaine Topical 2% [Xylocaine 1 applic TP Q8H PRN #1 tube 09/20/16 11/11/16 Unknown Rx Topical 2%] Lisinopril [Zestril TAB] 10 mg PO QDAY #30 tablet 09/20/16 11/11/16 Unknown Rx Oxycodone HCl/Acetaminophen 1 each PO Q6HR PRN #28 tablet 09/20/16 11/11/16 Unknown Rx [Percocet 7.5/325 mg] Pantoprazole [Protonix TAB] 40 mg PO DAILY #30 tablet 09/20/16 11/11/16 Unknown Rx Active Meds: Active Medications Acetaminophen (Tylenol) 650 mg ME Q4H PRN PRN Reason: Pain MILD(1-3)/Fever >100.5/ZIMMERMAN Enoxaparin Sodium (Lovenox) 30 mg SUB-Q QDAY SHANNON Hydrophilic Ointment (Vaseline Lip Therapy) 1 applic TP Q2HR PRN PRN Reason: Dry Lips Fentanyl Citrate (Fentanyl Drip Premix) 2,000 mcg in 100 mls @ 7.258 mls/hr IV TITR SHANNON; 1 MCG/KG/HR PRN Reason: Protocol Last Admin: 11/12/16 01:37 Dose: 1 mcg/kg/hr, 7.258 mls/hr Azithromycin 500 mg/ Sodium (Chloride) 250 mls @ 250 mls/hr IV Q24HR SHANNON PRN Reason: Protocol Ceftriaxone Sodium (Rocephin/Ns 1 Gm/50 Ml) 1 gm in 50 mls @ 100 mls/hr IV Q24HR SHANNON PRN Reason: Protocol Multi-Ingred Cream/Lotion/Oil/Oint (Artificial Tears Ophth Oint) 1 applic OU Q4HR PRN PRN Reason: Dry Eye(s) Ondansetron HCl (Zofran) 4 mg IV Q8H PRN PRN Reason: N/V unrelieved by Reglan Exam - Physical Exam Narrative exam: Gen. appearance: Patient lying in bed, no apparent distress HEENT: Normocephalic, atraumatic, pupils equally round and reactive to light, unable to do extraocular movement , and no sclericterus,. No JVD or thyromegaly or nodule,neck supple, no carotid bruit ,mucous membranes moist, no exudate or erythema Heart: S1, S2, regular rate and rhythm Lungs: Wheezing anteriorly bilaterally, breathing comfortable Abdomen: Positive bowel sounds, soft, nondistended, obese Extremity: No edema, cyanosis, clubbing Skin: No rash, nodules, warm, dry Neuro: Sedated - Constitutional Vitals: Temp Pulse Resp BP Pulse Ox 98 F 85 16 124/85 95 11/11/16 23:18 11/12/16 01:54 11/11/16 23:18 11/12/16 01:54 11/12/16 01:54 Results - Labs CBC & Chem 7: 11/11/16 23:05 11/11/16 23:05 Labs: Abnormal lab results 11/11/16 11/11/16 11/11/16 Range/Units 23:05 23:05 23:37 WBC 12.5 H (4.5-11.0) K/mm3 Hct 43.1 H (30.3-42.9) % MCV 100 H (79-97) fl RDW 16.6 H (13.2-15.2) % Lymph % (Auto) 9.1 L (13.4-35.0) % Lymph # 1.1 L (1.2-5.4) K/mm3 Seg Neutrophils % 83.4 H (40.0-70.0) % Seg Neutrophils # 10.4 H (1.8-7.7) K/mm3 POC ABG pH (7.35-7.45) POC ABG pCO2 (35-45) POC ABG pO2 (80-105) Potassium 5.5 H (3.6-5.0) mmol/L Chloride 92.9 L (98-107) mmol/L Carbon Dioxide 41 H* (22-30) mmol/L BUN 27 H (7-17) mg/dL Creatinine 0.6 L (0.7-1.2) mg/dL Glucose 164 H (65-100) mg/dL NT-Pro-B Natriuret Pep 2574 H (0-900) pg/mL Urine WBC (Auto) (0.0-6.0) /HPF 17 11/12/16 Range/Units 01:07 01:45 WBC (4.5-11.0) K/mm3 Hct (30.3-42.9) % MCV (79-97) fl RDW (13.2-15.2) % Lymph % (Auto) (13.4-35.0) % Lymph # (1.2-5.4) K/mm3 Seg Neutrophils % (40.0-70.0) % Seg Neutrophils # (1.8-7.7) K/mm3 POC ABG pH 7.454 H (7.35-7.45) POC ABG pCO2 70.7 H (35-45) POC ABG pO2 381 H (80-105) Potassium (3.6-5.0) mmol/L Chloride (98-107) mmol/L Carbon Dioxide (22-30) mmol/L BUN (7-17) mg/dL Creatinine (0.7-1.2) mg/dL Glucose (65-100) mg/dL NT-Pro-B Natriuret Pep (0-900) pg/mL Urine WBC (Auto) 10.0 H (0.0-6.0) /HPF - Imaging and Cardiology EKG: image reviewed Chest x-ray: image reviewed Assessment and Plan Acute respiratory failure, acute, hypoxic Community-acquired pneumonia Altered mental status COPD CHF, stable Admit to medicine Start IV Rocephin, azithromycin, nebulizer treatments Obtain CAT scan of the head, consult critical care Continue sedation with fentanyl drip Check cardiac enzymes, start DVT prophylaxis
[2016-11-12] MEDS ORDERED: CLEOCIN 600 MG/50 mL 600 MG/50 ML BAG IV ONE (02:57)
[2016-11-12] MEDS ORDERED: DUONEB 0.5 MG-3 MG/3 ML SOLN IH PRN (03:54)
--- NOTE | 2016-11-12 03:54 | Admit Criteria Form ---
Admission Criteria Documentation: RESPIRATORY FAILURE GRG Clinical Indications for Admission to Inpatient Care (Place 'X' for any and all applicable criteria): Hospital admission is needed for appropriate care of the patient because of acute respiratory failure or insufficiency as indicated by ANY ONE of the following(1)(2)(3)(4)(5)(6)(7)(8): [ ]I. Mechanical ventilation needed (acute invasive or noninvasive) [X ]II. Severe ventilation deficit as indicated by ANY ONE of the following (9 ) [ ]a) Respiratory acidosis (pH less than 7.32 and partial pressure of carbon dioxide greater than 40 mm Hg (5.3 kPa)) [X ]b) Partial pressure of carbon dioxide greater than 44 mm Hg (5.9 kPa) (new) [ ]c) Airflow measurements less than 25% of predicted (eg, peak expiratory flow rate less than 100 L/minute) [ ]d) Forced vital capacity less than 15 mL/kg of ideal body weight, or 50% decrease in vital capacity from baseline [ ]III. Noncardiac pulmonary edema not resolving with rapid emergency treatment (8) [ ]IV. Severe respiratory distress as indicated by ANY ONE of the following: [ ]a) Severe tachypnea (respiratory rate greater than 30, greater than 45 for 6-month-old, greater than 60 for ) [ ]b) Severe hypoxemia (partial pressure of oxygen less than 50 mm Hg ( 6.7 kPa) on greater than 50% oxygen or partial pressure of oxygen to FIO2 ratio less than 200) [ ]c) Mental status deterioration from respiratory disease [ ]V. Airway obstruction or inadequate protection [A](10)(11) The original [employer] content created by [employer] has been revised. The portions of the content which have been revised are identified through the use of italic text or in bold, and [facility] [employer] has neither reviewed nor approved the modified material. All other unmodified content is copyright [employer]. Please see references footnoted in the original [employer] edition 2016 Admission Criteria Met: Yes
[2016-11-12] MEDS ORDERED: KIONEX PR ONE (03:55)
[2016-11-12] MEDS ORDERED: PROVENTIL IH PRN (03:58)
--- NOTE | 2016-11-12 04:58 | Cat Scan Report ---
FINAL REPORT PROCEDURE: CT HEAD/BRAIN WO CON TECHNIQUE: Computerized tomography of the head was performed without contrast material. HISTORY: ams COMPARISON: No prior studies are available for comparison. FINDINGS: Skull and scalp: Normal. Paranasal sinuses: Mild opacification of the ethmoid and sphenoid sinuses.. Ventricles and subarachnoid spaces: Normal. Cerebrum: No evidence of hemorrhage, acute infarction or mass . Cerebellum and brainstem: No evidence of hemorrhage, acute infarction or mass. Vasculature: Normal. Comments: None. IMPRESSION: There is no evidence of an acute intracranial process.
[2016-11-12 05:35] LABS: ISTAT Base Excess 24; ISTAT HCO3 46.1; ISTAT PCO2 49.4 (35-45); ISTAT PH 7.578 (7.35-7.45); ISTAT PO2 82 (80-105); ISTAT SO2 97; ISTAT TCO2 48
[2016-11-12 05:35] LABS: Creatine Kinase MB 2.3 ng/mL (0.0-4.0)
[2016-11-12 05:36] LABS: Creatine Kinase 42 units/L (30-135)
[2016-11-12] MEDS: LOVENOX SUB-Q SCH (10:15)
[2016-11-12] MEDS: ROCEPHIN/NS 1 GM/50 ML 1 GM/50 ML BAG IV SCH (10:16)
[2016-11-12 11:15] LABS: Creatine Kinase 37 units/L (30-135)
[2016-11-12 11:17] LABS: Creatine Kinase MB < 1.0 ng/mL (0.0-4.0)
--- NOTE | 2016-11-12 14:41 | Consultation ---
History of Present Illness Consult date: 11/12/16 Requesting physician: TASNEEM HERCULES Reason for consult: COPD, other (Acute on Chronic Respiratory Failure) History of present illness: PULMONARY/CCM CONSULT NOTE (Full dictation # [id number]) Please see dictated notes for full details Medications and Allergies Allergies Allergy/AdvReac Type Severity Reaction Status Date / Time methylprednisolone sodium Allergy Itching Verified 09/15/16 10:40 succinate [From Solu-Medrol] Home Medications Medication Instructions Recorded Confirmed Last Taken Type ALBUTEROL Inhaler [ProAir HFA 1 puff IH Q4H PRN #1 inha 09/20/16 11/11/16 Unknown Rx Inhaler] Arformoterol Nebu [Brovana Nebu] 15 mcg IH Q12HRT #1 ml 09/20/16 11/11/16 Unknown Rx Aspirin [Aspirin TAB] 325 mg PO QDAY #30 tablet 09/20/16 11/11/16 Unknown Rx Budesonide [Pulmicort Respules] 0.5 mg IH Q12HRT #1 nebu 09/20/16 11/11/16 Unknown Rx Hydrochlorothiazide [HCTZ] 25 mg PO QDAY #30 tablet 09/20/16 11/11/16 Unknown Rx Lidocaine Topical 2% [Xylocaine 1 applic TP Q8H PRN #1 tube 09/20/16 11/11/16 Unknown Rx Topical 2%] Lisinopril [Zestril TAB] 10 mg PO QDAY #30 tablet 09/20/16 11/11/16 Unknown Rx Oxycodone HCl/Acetaminophen 1 each PO Q6HR PRN #28 tablet 09/20/16 11/11/16 Unknown Rx [Percocet 7.5/325 mg] Pantoprazole [Protonix TAB] 40 mg PO DAILY #30 tablet 09/20/16 11/11/16 Unknown Rx Active Meds: Active Medications Acetaminophen (Tylenol) 650 mg UT Q4H PRN PRN Reason: Pain MILD(1-3)/Fever >100.5/ZIMMERMAN Albuterol (Proventil) 2.5 mg IH Q4HRT PRN PRN Reason: Shortness Of Breath Enoxaparin Sodium (Lovenox) 40 mg SUB-Q QDAY SHANNON Last Admin: 11/12/16 10:15 Dose: 40 mg Hydrophilic Ointment (Vaseline Lip Therapy) 1 applic TP Q2HR PRN PRN Reason: Dry Lips Fentanyl Citrate (Fentanyl Drip Premix) 2,000 mcg in 100 mls @ 7.258 mls/hr IV TITR SHANNON; 1 MCG/KG/HR PRN Reason: Protocol Last Admin: 11/12/16 14:31 Dose: 1 mcg/kg/hr, 7.258 mls/hr Azithromycin 500 mg/ Sodium (Chloride) 250 mls @ 250 mls/hr IV Q24HR SHANNON PRN Reason: Protocol Ceftriaxone Sodium (Rocephin/Ns 1 Gm/50 Ml) 1 gm in 50 mls @ 100 mls/hr IV Q24HR SHANNON PRN Reason: Protocol Last Admin: 11/12/16 10:16 Dose: 100 mls/hr Multi-Ingred Cream/Lotion/Oil/Oint (Artificial Tears Ophth Oint) 1 applic OU Q4HR PRN PRN Reason: Dry Eye(s) Ondansetron HCl (Zofran) 4 mg IV Q8H PRN PRN Reason: N/V unrelieved by Silvia Physical Examination Vital signs: Vital Signs Temp Pulse Resp BP Pulse Ox 98 F 107 H 16 116/71 95 11/11/16 23:18 11/11/16 23:18 11/11/16 23:18 11/11/16 23:18 11/11/16 23:18 Results - Laboratory Findings CBC and BMP: 11/11/16 23:05 11/11/16 23:05 ABG POC ABG pH 7.578 (7.35-7.45) H 11/12/16 05:18 POC ABG pCO2 49.4 (35-45) H 11/12/16 05:18 POC ABG pO2 82 (80-105) 11/12/16 05:18 POC ABG HCO3 46.1 11/12/16 05:18 POC ABG Total CO2 48 11/12/16 05:18 POC ABG O2 Sat 97 11/12/16 05:18 PT/INR, D-dimer PT 13.7 Sec. (12.2-14.9) 11/11/16 23:37 INR 1.06 (0.87-1.13) 11/11/16 23:37 Abnormal lab findings: Abnormal Labs 11/12/16 11/12/16 11/12/16 05:18 11:41 Unknown POC ABG pH 7.578 H POC ABG pCO2 49.4 H POC Glucose 215 H Lactic Acid 2.60 H* CK-MB (CK-2) Rel Index 11/12/16 Unknown POC ABG pH POC ABG pCO2 POC Glucose Lactic Acid CK-MB (CK-2) Rel Index 5.4 H
--- NOTE | 2016-11-12 16:13 | Event Note ---
Date: 11/12/16 Patient seen and examined, remains intubated, continue abx, continue fluids. recheck lactate.
--- NOTE | 2016-11-12 17:14 | XRay Report ---
FINAL REPORT EXAM: XR ABDOMEN 1V AP HISTORY: feeding tube location TECHNIQUE: AP abdominal radiograph. PRIORS: 07/22/2016. FINDINGS: The enteric tube tip lies in the stomach. No bowel obstruction. No organomegaly or masses. Probable calcified injection granuloma projecting over the right lower quadrant. No acute osseous abnormality. IMPRESSION: Enteric tube tip lying in the stomach.
[2016-11-12 17:31] LABS: Magnesium 2.1 mg/dL (1.7-2.3)
[2016-11-12] MEDS ORDERED: DIPRIVAN 10 MG/ML 1,000 MG/100 ML BOTTLE IV SCH (19:00)
[2016-11-12] MEDS: DUONEB 0.5 MG-3 MG/3 ML SOLN IH SCH (19:36)
[2016-11-12] MEDS: BROVANA NEBU IH SCH (19:36)
[2016-11-12 21:08] LABS: ISTAT Base Excess 23; ISTAT HCO3 45.9; ISTAT PCO2 59.6 (35-45); ISTAT PH 7.495 (7.35-7.45); ISTAT PO2 64 (80-105); ISTAT SO2 93; ISTAT TCO2 48
[2016-11-12] MEDS: PEPCID IV SCH (21:35)
[2016-11-13] MEDS: fentaNYL DRIP Premix 2,000 MCG/100 ML BAG IV SCH ×2 (00:44→17:39)
[2016-11-13] MEDS: DUONEB 0.5 MG-3 MG/3 ML SOLN IH SCH ×4 (02:05→19:42)
--- NOTE | 2016-11-13 02:24 | Consultation ---
PULMONARY CRITICAL CARE CONSULTATION CONSULTING PHYSICIAN: Dr. Frances, Emergency Room physician. REASON FOR CONSULTATION: Acute on chronic hypoxemic hypercapnic respiratory failure on mechanical support. HISTORY OF PRESENT ILLNESS: The patient is a 56-year-old female known to me, I believe, from a prior admission who came to the Emergency Room. She has a past medical history of COPD. She was brought in by EMS for altered mental status and respiratory distress. She was hypoxemic in the low 80s when they found her. Upon arrival in the ER, she was lethargic and obtunded. She had intermittent periods of lucidity. She was placed on BiPAP. Mental status remained tenuous. She was drooling within the BiPAP, so she was intubated via a rapid sequence intubation. No immediate obvious complications. The Emergency Room physician then discussed the case with me. When I stopped by to see the patient, she was on the mechanical ventilator. She was on a fentanyl drip going at 3 mcg/kg per hour. I do not have any history of nausea, vomiting, or overt aspiration. According to the nurse, roommate mentioned that she had been really this way for a few days, just slowly gradually getting worse every day. With regards to her tobacco use/abuse history, she was described as a never smoker in the Emergency Room. This is as much of the history of presentation as I have. PAST MEDICAL HISTORY: Chronic obstructive lung disease, hypertension, congestive heart failure, history of PE. She is morbidly obese. PAST SURGICAL HISTORY: Denied in the ER. MEDICATIONS: She was on at the time I stopped by to see her, according to the medication administration record included the following: Tylenol 650 mg p.o. q. 4 hours p.r.n. mild pain, albuterol 2.5 mg nebulized q. 4 hours p.r.n. shortness of breath, Zithromax 500 mg IV daily, Rocephin 1 gram IV daily, Lovenox 40 mg subcutaneous daily, p.r.n., Zofran 4 mg IV q. 8 hours p.r.n. nausea and vomiting. ALLERGIES: SOLU-MEDROL, nature of this allergy is unknown. DIET: Morbidly obese, acute weight loss. Again, history is unknown. FAMILY AND SOCIAL HISTORY: Apparently lives in the community. They had denied alcohol, tobacco, or illicit drug use or abuse at presentation. REVIEW OF SYSTEMS: Difficult to obtain secondary to the patient's medical and mental condition. Since she has been here, there was no gross hematochezia or melena. No gross hematuria. No hematemesis, no bloody tracheal secretions. No witnessed seizures. She has some occasional jerky movements that seem like related to CO2 narcosis at times. Review of systems, otherwise unobtainable. PHYSICAL EXAMINATION: VITAL SIGNS: At presentation in the Emergency Room revealed vital signs shows that she was afebrile, temperature 98 degrees Fahrenheit, pulse 107, respiratory rate 16, blood pressure 116/71, oxygen sats were 95%, inspired oxygen concentration was not recorded. HEAD, EYES, EARS, NOSE AND THROAT: Pupils are equal, round, very sluggishly reactive about 2 mm. Extraocular muscle movements could not be assessed. Endotracheal tube was in place, taped at the lips around 23-24 cm. LUNGS: Auscultation of both lung guzman revealed tight expiratory wheezing, prolonged expiratory phase. HEART: Sounds 1 and 2 are heard. They were regular in rate and rhythm at the time of my evaluation. ABDOMEN: Soft, full, bowel sounds are positive, did not appear tender. EXTREMITIES: Without overt digital clubbing or cyanosis. She has some mild edema and chronic venous stasis changes. NEUROLOGIC: She was sedated. LABORATORY DATA: From my review are as follows: Admission white cell count 12,500, hemoglobin 13.3, hematocrit 43.1, platelets count 205. INR was 1.06. Arterial blood gas showed a pH of 7.45 at presentation with a pCO2 of 71, pO2 of 381 and FIO2 of 100. This morning, it 7.58 on the pH with a pCO2 of 49 and pO2 of 82 that is on 60%. She is on assist control mode of ventilation, tidal volumes 550, rate of 24, PEEP of 5. Serum sodium was 143, potassium 5.5, chloride 93, bicarbonate 41, BUN was 27, creatinine was 0.6 and glucose was 164. BNP was 2574. Lactic acid level was 1.6, it has gone up to 2.60. Troponin is within normal limits. Urinalysis negative for nitrites. There was trace leukocyte esterase, 100 white cells per high power field. Microbiology, no growth to date. CT scan was done of the head. It was read by the radiologist as no acute intracranial process. The chest x-ray shows an endotracheal tube in place about 3-4 cm above the ross. The patchy looking infiltrates in the lung guzman were more likely related to venous congestion. There is gross cardiomegaly. There are increased interstitial markings, I think, consistent with interstitial edema. ASSESSMENT AND PLAN: We have a middle-aged lady in with an acute on chronic hypercapnic hypoxemic respiratory failure. From a respiratory standpoint, I will go ahead and reduce the set minute ventilations, I will drop the rate to 16 and drop the tidal volumes to 500 and repeat arterial blood gases later today. I am going to add long acting bronchodilators in the mix. I am going to put her on p.o. prednisone 40 q. 12 hours and will continue to wean her. Hopefully, we can get to a point of spontaneous breathing trial shortly. She will benefit from some gentle diuresis too. I will repeat a BNP and make sure that the potassium is being addressed. She did receive some Kayexalate 30 grams earlier today. I will also get a stat D-dimer level with the plan to continue venosus thromboembolic disorder workup. If it is elevated, I will also get bilateral lower extremity Dopplers. CTA of the chest will depend on clinical progress and results of the above-mentioned testing. From a cardiovascular standpoint, blood pressure is holding, as mentioned, I will start some Lasix. Cardiology evaluation will be at the behest of the attending physician. Cardiac enzymes are negative so far. From an infectious disease standpoint, she has been pancultured. She is appropriately on community-acquired pneumonia therapy. Anti-infectives will ultimately be deescalated based on results of clinical and microbiologic data. From a renal standpoint, inputs and outputs will be followed. Electrolytes will be corrected as necessary. I am going to repeat the BMP. She has received some Kayexalate for the potassium and I will start gentle diuresis and again keep an eye on the electrolytes. From a SOURCING ANALYST standpoint, the exam is grossly nonfocal. Neuro imaging was unremarkable, we will follow her clinically. From a GI and nutritional standpoint, enteral nutrition will be the feeding modality of choice. Feeding tube is going to be placed and we will begin enteral nutrition. She will also be placed on GI prophylaxis. From a general and hospital healthcare maintenance standpoint, she is going to be on GI and DVT prophylaxis. Flu and pneumonia vaccination will be per protocol. Thank you very much for the consult Dr. Frances. We will follow along. We will make further recommendations as picture progresses/becomes clearer. At this time, I spent about 35-40 minutes of critical care time without overlap and excluding any procedural time that may be necessary. She is critically ill, on life-sustaining interventions including mechanical ventilatory support at risk for further deterioration including . JOB# [id number] ALDEN/NTS
[2016-11-13 04:27] LABS: Basophils % (Auto) 0.4 % (0.0-1.8); Hemoglobin 11.7 gm/dl (10.1-14.3); Mean Corpuscular HGB Conc 32 % (30-34); Mean Corpuscular Hemoglobin 31 pg (28-32); Mean Corpuscular Volume 97 fl (79-97); Platelet Count 146 K/mm3 (140-440); Red Blood Count 3.82 M/mm3 (3.65-5.03); Red Cell Distribution Width 16.5 % (13.2-15.2); White Blood Count 8.8 K/mm3 (4.5-11.0)
[2016-11-13] MEDS: DELTASONE FEEDTUBE SCH ×3 (04:30→17:45)
[2016-11-13 04:45] LABS: Blood Urea Nitrogen 26 mg/dL (7-17); Calcium 8.3 mg/dL (8.4-10.2); Chloride 97.3 mmol/L (98-107); Glucose 176 mg/dL (65-100); Sodium 145 mmol/L (137-145)
[2016-11-13 05:00] LABS: Anion Gap 11 mmol/L; Carbon Dioxide 41 mmol/L (22-30)
[2016-11-13] MEDS ORDERED: NARCAN 0.4 MG/1 ML ONE (05:22)
[2016-11-13 05:32] LABS: ISTAT Base Excess 23; ISTAT HCO3 47.4; ISTAT PCO2 72.5 (35-45); ISTAT PH 7.423 (7.35-7.45); ISTAT PO2 107 (80-105); ISTAT SO2 98; ISTAT TCO2 50
--- NOTE | 2016-11-13 07:36 | Vascular Lab Report ---
LOWER EXTREMITY VENOUS DUPLEX: REASON FOR EXAM: Swelling of the lower extremities. COMMENTS ON THE RIGHT: All veins visualized are freely compressible without evidence of internal echogenicity. Flow is spontaneous and phasic throughout. COMMENTS ON THE LEFT: All veins visualized are freely compressible without evidence of internal echogenicity. Flow is spontaneous and phasic throughout. IMPRESSION: No evidence of acute or chronic deep venous thrombosis in either lower extremity.
[2016-11-13] MEDS ORDERED: NARCAN 0.4 MG/1 ML IV NR (08:30)
[2016-11-13] MEDS: BROVANA NEBU IH SCH ×2 (08:56→19:42)
--- NOTE | 2016-11-13 09:01 | Progress Note ---
Assessment and Plan Assessment and plan: 56-year-old woman history of COPD on home oxygen, CHF was brought to the emergency room because she was noted to be in respiratory distress, hypoxic with oxygen all in the 80s. It was also reported that she was confused. The patient was placed on BiPAP but she failed BiPAP and was subsequently intubated. * Acute respiratory failure, acute, hypoxic * Right lobar penumonia r/o Aspiration penumonitis, GNR * Acute Metabolic encephalopathy * COPD exacerbation * Acute on chronic Diastolic congestive heart failure * Contraction Alkalosis * R/O sepsis * Morbid obesity Plan: * Continue supportive care, Emperic abx * Cultures with no growth * SBT and vent libration trial * Cardiology consult for CHF managment * Cultures show no growth at this time * Weight managment discussion when librated from the vent * Patient Flow Coordinator input appreciated * DVT/GI prophy The high probability of a clinically significant, sudden or life threatening deterioration of the [PULMONARY ] system(s) required my full and direct attention, intervention and personal management. The aggregate critical care time was [35] minutes. This time is in addition to time spent performing reported procedures but includes the following: [X] Data Review and interpretation [X] Patient assessment and monitoring of vital signs [X] Documentation [X] Medication orders and management History Interval history: Patient seen and examined this am, remains intubated, but awake and following commands, on SBT. no other adverse event reported to me. Hospitalist Physical - Physical exam Narrative exam: VITAL SIGNS: Reviewed. GENERAL: The patient appeared well nourished and normally developed. Vital signs as documented. HEAD: No signs of head trauma. EYES: Pupils are equal. Extraocular motions intact. EARS: Hearing grossly intact. MOUTH: ET tube in place. NECK: No adenopathy, no JVD. CHEST: Chest with vesicular breath sounds bilaterally. No wheezes, rales, or rhonchi. CARDIAC: Regular rate and rhythm. S1 and S2, without murmurs, gallops, or rubs. VASCULAR: No Edema. Peripheral pulses normal and equal in all extremities. ABDOMEN: Soft, without detectable tenderness. No sign of distention. No rebound or guarding, and no masses palpated. Bowel Sounds normal. MUSCULOSKELETAL: Good range of motion of all major joints. Extremities without clubbing, cyanosis or edema. NEUROLOGIC EXAM: Alert and oriented x 3. No focal sensory or strength deficits. Speech normal. Follows commands. PSYCHIATRIC: Mood normal. SKIN: No rash or lesions. - Constitutional Vitals: Temp Pulse Resp BP Pulse Ox 98.9 F 66 10 L 97/43 99 11/13/16 08:03 11/13/16 07:00 11/13/16 07:00 11/13/16 03:34 11/13/16 03:34 Results - Labs CBC & Chem 7: 11/13/16 03:47 11/13/16 03:47 Labs: Laboratory Last Values WBC 8.8 K/mm3 (4.5-11.0) 11/13/16 03:47 RBC 3.82 M/mm3 (3.65-5.03) 11/13/16 03:47 Hgb 11.7 gm/dl (10.1-14.3) 11/13/16 03:47 Hct 37.0 % (30.3-42.9) D 11/13/16 03:47 MCV 97 fl (79-97) D 11/13/16 03:47 MCH 31 pg (28-32) 11/13/16 03:47 MCHC 32 % (30-34) 11/13/16 03:47 RDW 16.5 % (13.2-15.2) H 11/13/16 03:47 Plt Count 146 K/mm3 (140-440) 11/13/16 03:47 Lymph % (Auto) 7.3 % (13.4-35.0) L 11/13/16 03:47 Wheeler % (Auto) 6.1 % (0.0-7.3) 11/13/16 03:47 Eos % (Auto) 0.0 % (0.0-4.3) 11/13/16 03:47 Baso % (Auto) 0.4 % (0.0-1.8) 11/13/16 03:47 Lymph # 0.6 K/mm3 (1.2-5.4) L 11/13/16 03:47 Wheeler # 0.5 K/mm3 (0.0-0.8) 11/13/16 03:47 Eos # 0.0 K/mm3 (0.0-0.4) 11/13/16 03:47 Baso # 0.0 K/mm3 (0.0-0.1) 11/13/16 03:47 Seg Neutrophils % 86.2 % (40.0-70.0) H 11/13/16 03:47 Seg Neutrophils # 7.6 K/mm3 (1.8-7.7) 11/13/16 03:47 PT 13.7 Sec. (12.2-14.9) 11/11/16 23:37 INR 1.06 (0.87-1.13) 11/11/16 23:37 D-Dimer 716.99 ng/mlDDU (0-234) H 11/12/16 16:54 POC ABG pH 7.423 (7.35-7.45) 11/13/16 04:27 POC ABG pCO2 72.5 (35-45) H 11/13/16 04:27 POC ABG pO2 107 (80-105) H 11/13/16 04:27 POC ABG HCO3 47.4 11/13/16 04:27 POC ABG Total CO2 50 11/13/16 04:27 POC ABG O2 Sat 98 11/13/16 04:27 POC ABG Base Excess 23 11/13/16 04:27 FiO2 50 % 11/13/16 04:27 Sodium 145 mmol/L (137-145) 11/13/16 03:47 Potassium 4.0 mmol/L (3.6-5.0) D 11/13/16 03:47 Chloride 97.3 mmol/L (98-107) L 11/13/16 03:47 Carbon Dioxide 41 mmol/L (22-30) H* 11/13/16 03:47 Anion Gap 11 mmol/L 11/13/16 03:47 BUN 26 mg/dL (7-17) H 11/13/16 03:47 Creatinine 0.5 mg/dL (0.7-1.2) L 11/13/16 03:47 Estimated GFR > 60 ml/min 11/13/16 03:47 BUN/Creatinine Ratio 52.00 % 11/13/16 03:47 Glucose 176 mg/dL (65-100) H 11/13/16 03:47 POC Glucose 206 (70-105) H 11/12/16 16:18 Lactic Acid 2.60 mmol/L (0.7-2.0) H* 11/12/16 Unknown Calcium 8.3 mg/dL (8.4-10.2) L 11/13/16 03:47 Phosphorus 2.00 mg/dL (2.5-4.5) L 11/12/16 16:55 Magnesium 2.10 mg/dL (1.7-2.3) 11/12/16 16:55 Total Creatine Kinase 42 units/L (30-135) 11/12/16 Unknown CK-MB (CK-2) 2.3 ng/mL (0.0-4.0) 11/12/16 Unknown CK-MB (CK-2) Rel Index 5.4 (0-4) H 11/12/16 Unknown Troponin T < 0.010 ng/mL (0.00-0.029) 11/12/16 Unknown NT-Pro-B Natriuret Pep 2574 pg/mL (0-900) H 11/11/16 23:37 Urine Color Yellow (Yellow) 11/12/16 01:45 Urine Turbidity Slightly-cloudy (Clear) 11/12/16 01:45 Urine pH 5.0 (5.0-7.0) 11/12/16 01:45 Ur Specific Clemmons 1.021 (1.003-1.030) 11/12/16 01:45 Urine Protein 100 mg/dl mg/dL (Negative) 11/12/16 01:45 Urine Glucose (UA) Neg mg/dL (Negative) 11/12/16 01:45 Urine Ketones Tr mg/dL (Negative) 11/12/16 01:45 Urine Blood Neg (Negative) 11/12/16 01:45 Urine Nitrite Neg (Negative) 11/12/16 01:45 Urine Bilirubin Neg (Negative) 11/12/16 01:45 Urine Urobilinogen < 2.0 mg/dL (<2.0) 11/12/16 01:45 Ur Leukocyte Esterase Tr (Negative) 11/12/16 01:45 Urine WBC (Auto) 10.0 /HPF (0.0-6.0) H 11/12/16 01:45 Urine RBC (Auto) 3.0 /HPF (0.0-6.0) 11/12/16 01:45 U Epithel Cells (Auto) 2.0 /HPF (0-13.0) 11/12/16 01:45 Urine Bacteria (Auto) 4+ /HPF (Negative) 11/12/16 01:45
--- NOTE | 2016-11-13 09:19 | XRay Report ---
Portable supine chest: Respiratory failure: There is mild vascular congestion and there is mild enlargement of the cardiac contour. No pulmonary infiltrates identified. Endotracheal and nasogastric tubes are in good positions. The findings are not significantly changed compared to prior study of November 12. Impressions: The findings are consistent with mild congestive changes despite the supine positioning. No interval change.
[2016-11-13] MEDS: LEVAQUIN 750MG/150ML 750 MG/150 ML BAG IV SCH (11:25)
[2016-11-13] MEDS: PEPCID IV SCH ×2 (11:26→22:36)
[2016-11-13] MEDS: LOVENOX SUB-Q SCH (11:26)
[2016-11-13] MEDS: ZITHROMAX 500 MG in NACL 0.9% 250ML 250 ML IV SCH ×2 (11:27→11:28)
[2016-11-13] MEDS: ROCEPHIN/NS 1 GM/50 ML 1 GM/50 ML BAG IV SCH (11:29)
[2016-11-13] MEDS ORDERED: SODIUM BICARBONATE FEEDTUBE PRN (12:10)
[2016-11-13] MEDS ORDERED: PANCREAZE DR 10,500 UNIT FEEDTUBE PRN (12:10)
[2016-11-13] MEDS ORDERED: SIMPLE SYRUP FEEDTUBE PRN ×2 (12:10)
--- NOTE | 2016-11-13 12:24 | Progress Note ---
Assessment and Plan - Patient Problems (1) Acute hypoxemic respiratory failure Current Visit: No Status: Acute Plan to address problem: Continue with mechanical ventilatory support. Adjust minute ventilation to achieve better acid-base May need acetazolamide to help with the hypercarbia Initiate spontaneous breathing trials today Daily SAT/SBT Decrease sedation and titrate to RAAS VAP bundle addressed Aspiration precautions, HOB>40 VTE and stress ulcer prophylaxis Nutritional support, accucheck with glycemic control Oliver catheter in this critically ill patient Agitation and anxiety management, avoid over sedation and benzodiazepines. Discontinue propofol and continue with fentanyl (2) Acute on chronic respiratory failure with hypercapnia Current Visit: Yes Status: Acute Plan to address problem: Adjust minute ventilation. Follow ABG in the morning, if persistent metabolic alkalosis, initiate acetazolamide (3) CAP (community acquired pneumonia) Current Visit: Yes Status: Acute Plan to address problem: With her history of severe COPD and home oxygen therapy- add levofloxacin. (4) Morbid obesity Current Visit: Yes Status: Chronic Qualifiers: Obesity type: O Plan to address problem: Will need lifestyle modifications, weight loss and exercise regimen (5) Acute exacerbation of chronic obstructive pulmonary disease (COPD) Current Visit: Yes Status: Acute Plan to address problem: Continue bronchodilators, steroids( start taper in the next 24 hours) (6) Diastolic heart failure Current Visit: Yes Status: Acute Qualifiers: Heart failure chronicity: H Plan to address problem: Optimize fluid status, blood pressure control Subjective Date of service: 11/13/16 Principal diagnosis: Acute on chronic respiratory failure on mechanical ventilatory support Interval history: Acute overnight events reported- episode of unresponsiveness associated with bradycardia. Sedation infusion rate decreased, Narcan administered. Currently on AC-VC 10/500/5/40% ABG 7.43/72/47.4/107/98% No patient-ventilator dys-synchrony. Currently on a sedation holiday and is awake and alert.. Tmax of 101.1 Tcurrent 100.2 Patient was seen and examined. Vitals, labs, medications, chart and imaging were reviewed. Discussed during interdisciplinary ICU rounds Objective - Exam Narrative Exam: GENERAL: The patient appeared well nourished and normally developed. Vital signs as documented. HEAD: No signs of head trauma, atraumatic, normocephalic, obese. EYES: Pupils are equal. Extraocular motions intact. EARS: Hearing grossly intact. MOUTH: ET tube in place. NECK: No adenopathy, no JVD. CHEST: Chest with vesicular breath sounds bilaterally. No wheezes, rales, or rhonchi. CARDIAC: Regular rate and rhythm. S1 and S2, without murmurs, gallops, or rubs. VASCULAR: No Edema. Peripheral pulses normal and equal in all extremities. Right lower extremity- erythema with some induration, chronic venous stasis changes, edema ABDOMEN: Soft, without detectable tenderness. No sign of distention. No rebound or guarding, and no masses palpated. Bowel Sounds normal. MUSCULOSKELETAL: Good range of motion of all major joints. Extremities without clubbing, cyanosis or edema. NEUROLOGIC EXAM: Alert and oriented x 3. No focal sensory or strength deficits. Follows commands one step commands. PSYCHIATRIC: Affect appears normal Vital Signs - 12hr 11/13/16 11/13/16 11/13/16 00:50 01:00 01:10 Temperature Pulse Rate 86 79 88 Pulse Rate [ Anterior Bilateral Throughout] Pulse Rate [ 92 H Apical] Respiratory 14 15 15 Rate Respiratory Rate [Anterior Bilateral Throughout] Blood Pressure 152/65 136/62 152/65 O2 Sat by Pulse 98 98 98 Oximetry 11/13/16 11/13/16 11/13/16 01:20 01:30 01:40 Temperature Pulse Rate 87 83 74 Pulse Rate [ Anterior Bilateral Throughout] Pulse Rate [ Apical] Respiratory 17 16 14 Rate Respiratory Rate [Anterior Bilateral Throughout] Blood Pressure 113/73 108/69 108/69 O2 Sat by Pulse 97 96 97 Oximetry 11/13/16 11/13/16 11/13/16 01:50 02:00 02:10 Temperature Pulse Rate 77 81 81 Pulse Rate [ Anterior Bilateral Throughout] Pulse Rate [ Apical] Respiratory 11 L 14 18 Rate Respiratory Rate [Anterior Bilateral Throughout] Blood Pressure 108/69 108/69 108/69 O2 Sat by Pulse 95 95 96 Oximetry 11/13/16 11/13/16 11/13/16 02:20 02:30 02:40 Temperature Pulse Rate 67 72 61 Pulse Rate [ Anterior Bilateral Throughout] Pulse Rate [ Apical] Respiratory 12 Rate Respiratory Rate [Anterior Bilateral Throughout] Blood Pressure 108/69 95/44 95/44 O2 Sat by Pulse 95 98 Oximetry 11/13/16 11/13/16 11/13/16 02:50 03:00 03:08 Temperature 98.9 F Pulse Rate 56 L 59 L Pulse Rate [ Anterior Bilateral Throughout] Pulse Rate [ 58 L Apical] Respiratory 10 L Rate Respiratory Rate [Anterior Bilateral Throughout] Blood Pressure 95/42 92/43 O2 Sat by Pulse 97 95 Oximetry 11/13/16 11/13/16 11/13/16 03:10 03:20 03:30 Temperature Pulse Rate 58 L 58 L 56 L Pulse Rate [ Anterior Bilateral Throughout] Pulse Rate [ Apical] Respiratory 10 L 10 L 10 L Rate Respiratory Rate [Anterior Bilateral Throughout] Blood Pressure 92/43 87/40 101/46 O2 Sat by Pulse 97 98 87 Oximetry 11/13/16 11/13/16 11/13/16 03:34 03:40 03:50 Temperature Pulse Rate 58 L 57 L 56 L Pulse Rate [ Anterior Bilateral Throughout] Pulse Rate [ Apical] Respiratory 10 L 9 L Rate Respiratory Rate [Anterior Bilateral Throughout] Blood Pressure 97/43 101/46 101/46 O2 Sat by Pulse 99 98 98 Oximetry 11/13/16 11/13/16 11/13/16 04:00 04:10 04:20 Temperature Pulse Rate 53 L 56 L 52 L Pulse Rate [ Anterior Bilateral Throughout] Pulse Rate [ Apical] Respiratory 10 L 13 11 L Rate Respiratory Rate [Anterior Bilateral Throughout] Blood Pressure 93/46 93/46 93/46 O2 Sat by Pulse 98 98 Oximetry 11/13/16 11/13/16 11/13/16 04:30 04:40 04:50 Temperature Pulse Rate 50 L 52 L 47 L Pulse Rate [ Anterior Bilateral Throughout] Pulse Rate [ Apical] Respiratory 21 21 19 Rate Respiratory Rate [Anterior Bilateral Throughout] Blood Pressure 97/40 97/40 97/40 O2 Sat by Pulse 95 93 Oximetry 11/13/16 11/13/16 11/13/16 05:00 05:55 07:00 Temperature Pulse Rate 48 L Pulse Rate [ Anterior Bilateral Throughout] Pulse Rate [ 42 L 66 Apical] Respiratory 15 9 L 10 L Rate Respiratory Rate [Anterior Bilateral Throughout] Blood Pressure 100/42 O2 Sat by Pulse Oximetry 11/13/16 11/13/16 11/13/16 08:00 08:03 08:14 Temperature 98.9 F Pulse Rate 63 Pulse Rate [ 58 L Anterior Bilateral Throughout] Pulse Rate [ Apical] Respiratory 10 L Rate Respiratory 14 Rate [Anterior Bilateral Throughout] Blood Pressure 152/65 O2 Sat by Pulse 94 95 Oximetry 11/13/16 11/13/16 11/13/16 08:20 08:25 08:30 Temperature Pulse Rate 67 64 Pulse Rate [ 64 Anterior Bilateral Throughout] Pulse Rate [ Apical] Respiratory 11 L 10 L Rate Respiratory 14 Rate [Anterior Bilateral Throughout] Blood Pressure 127/56 119/51 O2 Sat by Pulse 94 92 Oximetry 11/13/16 11/13/16 11/13/16 08:40 08:50 09:00 Temperature Pulse Rate 63 75 68 Pulse Rate [ Anterior Bilateral Throughout] Pulse Rate [ Apical] Respiratory 10 L 11 L 10 L Rate Respiratory Rate [Anterior Bilateral Throughout] Blood Pressure 113/54 115/52 115/52 O2 Sat by Pulse 91 91 91 Oximetry 11/13/16 11/13/16 11/13/16 09:10 09:20 09:30 Temperature Pulse Rate 67 62 60 Pulse Rate [ Anterior Bilateral Throughout] Pulse Rate [ Apical] Respiratory 10 L 10 L 10 L Rate Respiratory Rate [Anterior Bilateral Throughout] Blood Pressure 125/60 125/60 O2 Sat by Pulse 89 93 90 Oximetry 11/13/16 11/13/16 11/13/16 09:41 09:51 10:01 Temperature Pulse Rate 62 80 61 Pulse Rate [ Anterior Bilateral Throughout] Pulse Rate [ Apical] Respiratory 10 L 11 L 17 Rate Respiratory Rate [Anterior Bilateral Throughout] Blood Pressure 131/66 128/60 O2 Sat by Pulse 90 90 91 Oximetry 11/13/16 11/13/16 11/13/16 10:11 10:21 10:31 Temperature Pulse Rate 72 63 63 Pulse Rate [ Anterior Bilateral Throughout] Pulse Rate [ Apical] Respiratory 13 10 L 12 Rate Respiratory Rate [Anterior Bilateral Throughout] Blood Pressure 128/60 128/60 137/65 O2 Sat by Pulse 94 95 95 Oximetry 11/13/16 11/13/16 11/13/16 10:41 10:51 11:01 Temperature Pulse Rate 60 62 77 Pulse Rate [ Anterior Bilateral Throughout] Pulse Rate [ Apical] Respiratory 11 L 10 L 10 L Rate Respiratory Rate [Anterior Bilateral Throughout] Blood Pressure 137/65 137/65 131/66 O2 Sat by Pulse 94 93 92 Oximetry 11/13/16 11/13/16 11/13/16 11:11 11:21 11:25 Temperature Pulse Rate 59 L 62 55 L Pulse Rate [ Anterior Bilateral Throughout] Pulse Rate [ Apical] Respiratory 9 L 12 Rate Respiratory Rate [Anterior Bilateral Throughout] Blood Pressure 131/66 131/66 131/66 O2 Sat by Pulse 95 95 94 Oximetry 11/13/16 11/13/16 11/13/16 11:31 11:41 11:51 Temperature Pulse Rate 62 78 86 Pulse Rate [ Anterior Bilateral Throughout] Pulse Rate [ Apical] Respiratory 20 14 12 Rate Respiratory Rate [Anterior Bilateral Throughout] Blood Pressure 152/63 152/63 152/63 O2 Sat by Pulse 93 94 94 Oximetry 11/13/16 12:01 Temperature Pulse Rate 87 Pulse Rate [ Anterior Bilateral Throughout] Pulse Rate [ Apical] Respiratory 19 Rate Respiratory Rate [Anterior Bilateral Throughout] Blood Pressure 150/74 O2 Sat by Pulse 92 Oximetry CBC and BMP: 11/13/16 03:47 11/13/16 03:47 ABG, PT/INR, D-dimer: ABG POC ABG pH 7.423 (7.35-7.45) 11/13/16 04:27 POC ABG pCO2 72.5 (35-45) H 11/13/16 04:27 POC ABG pO2 107 (80-105) H 11/13/16 04:27 POC ABG HCO3 47.4 11/13/16 04:27 POC ABG Total CO2 50 11/13/16 04:27 POC ABG O2 Sat 98 11/13/16 04:27 PT/INR, D-dimer PT 13.7 Sec. (12.2-14.9) 11/11/16 23:37 INR 1.06 (0.87-1.13) 11/11/16 23:37 D-Dimer 716.99 ng/mlDDU (0-234) H 11/12/16 16:54 Abnormal lab findings: Abnormal Labs 11/12/16 11/12/16 11/12/16 05:18 11:41 16:18 RDW Lymph % (Auto) Lymph # Seg Neutrophils % D-Dimer POC ABG pH 7.578 H POC ABG pCO2 49.4 H POC ABG pO2 Chloride Carbon Dioxide BUN Creatinine Glucose POC Glucose 215 H 206 H Lactic Acid Calcium Phosphorus CK-MB (CK-2) Rel Index 11/12/16 11/12/16 11/12/16 16:54 16:55 20:11 RDW Lymph % (Auto) Lymph # Seg Neutrophils % D-Dimer 716.99 H POC ABG pH 7.495 H POC ABG pCO2 59.6 H POC ABG pO2 64 L Chloride Carbon Dioxide BUN Creatinine Glucose POC Glucose Lactic Acid Calcium Phosphorus 2.00 L CK-MB (CK-2) Rel Index 11/12/16 11/12/16 11/13/16 Unknown Unknown 03:47 RDW 16.5 H Lymph % (Auto) 7.3 L Lymph # 0.6 L Seg Neutrophils % 86.2 H D-Dimer POC ABG pH POC ABG pCO2 POC ABG pO2 Chloride Carbon Dioxide BUN Creatinine Glucose POC Glucose Lactic Acid 2.60 H* Calcium Phosphorus CK-MB (CK-2) Rel Index 5.4 H 11/13/16 11/13/16 03:47 04:27 RDW Lymph % (Auto) Lymph # Seg Neutrophils % D-Dimer POC ABG pH POC ABG pCO2 72.5 H POC ABG pO2 107 H Chloride 97.3 L Carbon Dioxide 41 H* BUN 26 H Creatinine 0.5 L Glucose 176 H POC Glucose Lactic Acid Calcium 8.3 L Phosphorus CK-MB (CK-2) Rel Index Chest x-ray: report reviewed, image reviewed Allied health notes reviewed: RT ED Critical Care Note - Critical Care Note Total Time (mins): 45
--- NOTE | 2016-11-13 13:00 | Consultation ---
History of Present Illness Consult date: 11/13/16 Requesting physician: MACIEL HERNDON Consult reason: congestive heart failure History of present illness: The history was obtained from a review of the medical chart since the patient is currently sedated and mechanically ventilated. She has a history of COPD and she is on home oxygen therapy. She apparently presented to the emergency department by EMS with a complaint of altered sensorium and respiratory distress. In the ER, she was noted to be hypoxic and due to respiratory failure , she was intubated and placed on mechanical ventilation. Her chest x-ray showed bilateral pulmonary vascular prominence. Her d-dimer is elevated. Venous Doppler study of both lower extremities was negative for DVT. Echocardiogram obtained in June 2016 revealed an ejection fraction of 55-60 percent. Past History Past Medical History: COPD, heart failure, other (chronic respiratory failure on home oxygen therapy.) Past Surgical History: hysterectomy, Other (lumpectomy) Social history: denies: smoking, alcohol abuse Family history: other (details are not obtainable at this time.) Medications and Allergies Allergies Allergy/AdvReac Type Severity Reaction Status Date / Time methylprednisolone sodium Allergy Itching Verified 09/15/16 10:40 succinate [From Solu-Medrol] Home Medications Medication Instructions Recorded Confirmed Last Taken Type ALBUTEROL Inhaler [ProAir HFA 1 puff IH Q4H PRN #1 inha 09/20/16 11/11/16 Unknown Rx Inhaler] Arformoterol Nebu [Brovana Nebu] 15 mcg IH Q12HRT #1 ml 09/20/16 11/11/16 Unknown Rx Aspirin [Aspirin TAB] 325 mg PO QDAY #30 tablet 09/20/16 11/11/16 Unknown Rx Budesonide [Pulmicort Respules] 0.5 mg IH Q12HRT #1 nebu 09/20/16 11/11/16 Unknown Rx Hydrochlorothiazide [HCTZ] 25 mg PO QDAY #30 tablet 09/20/16 11/11/16 Unknown Rx Lidocaine Topical 2% [Xylocaine 1 applic TP Q8H PRN #1 tube 09/20/16 11/11/16 Unknown Rx Topical 2%] Lisinopril [Zestril TAB] 10 mg PO QDAY #30 tablet 09/20/16 11/11/16 Unknown Rx Oxycodone HCl/Acetaminophen 1 each PO Q6HR PRN #28 tablet 09/20/16 11/11/16 Unknown Rx [Percocet 7.5/325 mg] Pantoprazole [Protonix TAB] 40 mg PO DAILY #30 tablet 09/20/16 11/11/16 Unknown Rx Active Meds: Active Medications Acetaminophen (Tylenol) 650 mg NE Q4H PRN PRN Reason: Pain MILD(1-3)/Fever >100.5/ZIMMERMAN Albuterol (Proventil) 2.5 mg IH Q4HRT PRN PRN Reason: Shortness Of Breath Albuterol/Ipratropium (Duoneb 0.5 Mg-3 Mg/3 Ml Soln) 1 ampul IH Q6HRT [facility] Last Admin: 11/13/16 08:27 Dose: 1 ampul Lipase/Protease/Amylase (Pancreaze Dr 10,500 Unit) 1 each FEEDTUBE PRN PRN PRN Reason: For Clogged Feeding Tube Arformoterol Tartrate (Brovana Nebu) 15 mcg IH Q12HRT [facility] Last Admin: 11/13/16 08:56 Dose: 15 mcg Enoxaparin Sodium (Lovenox) 40 mg SUB-Q QDAY [facility] Last Admin: 11/13/16 11:26 Dose: 40 mg Famotidine (Pepcid) 20 mg IV BID [facility] Last Admin: 11/13/16 11:26 Dose: 20 mg Hydrophilic Ointment (Vaseline Lip Therapy) 1 applic TP Q2HR PRN PRN Reason: Dry Lips Fentanyl Citrate (Fentanyl Drip Premix) 2,000 mcg in 100 mls @ 7.258 mls/hr IV TITR SHANNON; 1 MCG/KG/HR PRN Reason: Protocol Last Admin: 11/13/16 00:44 Dose: 3 mcg/kg/hr, 21.773 mls/hr Azithromycin 500 mg/ Sodium (Chloride) 250 mls @ 250 mls/hr IV Q24HR SHANNON PRN Reason: Protocol Last Admin: 11/13/16 11:28 Dose: 250 mls/hr Ceftriaxone Sodium (Rocephin/Ns 1 Gm/50 Ml) 1 gm in 50 mls @ 100 mls/hr IV Q24HR SHANNON PRN Reason: Protocol Last Admin: 11/13/16 11:29 Dose: 100 mls/hr Propofol (Diprivan 10 Mg/Ml) 1,000 mg in 100 mls @ 4.355 mls/hr IV TITR SHANNON; 5 MCG/KG/MIN PRN Reason: Protocol Levofloxacin/Dextrose (Levaquin 750mg/150ml) 750 mg in 150 mls @ 100 mls/hr IV Q24HR SHANNON PRN Reason: Protocol Last Admin: 11/13/16 11:25 Dose: 100 mls/hr Multi-Ingred Cream/Lotion/Oil/Oint (Artificial Tears Ophth Oint) 1 applic OU Q4HR PRN PRN Reason: Dry Eye(s) Naloxone HCl (Narcan 0.4 Mg/1 Ml) 0.1 mg IV ONCE NR Stop: 11/13/16 16:00 Ondansetron HCl (Zofran) 4 mg IV Q8H PRN PRN Reason: N/V unrelieved by Reglan Prednisone (Deltasone) 40 mg FEEDTUBE Q12H SHANNON Last Admin: 11/13/16 04:30 Dose: Not Given Scopolamine (Transderm-Scop) 1 each TD Q3D SHANNON Simple Syrup (Simple Syrup) 15 ml FEEDTUBE PRN PRN PRN Reason: Hypoglycemia Simple Syrup (Simple Syrup) 30 ml FEEDTUBE PRN PRN PRN Reason: Hypoglycemia Sodium Bicarbonate (Sodium Bicarbonate) 325 mg FEEDTUBE PRN PRN PRN Reason: For Clogged Feeding Tube Review of Systems ROS unobtainable: due to endotracheal tube, due to mental status Physical Examination Vital Signs Last Vital Signs Temp 99.3 F 11/13/16 12:18 Pulse 87 11/13/16 12:01 Resp 19 11/13/16 12:01 BP 150/74 11/13/16 12:01 Pulse Ox 92 11/13/16 12:01 General appearance: no acute distress HEENT: Positive: EOMI, Normocephaly, Mucus Membranes Moist Neck: Positive: trachea midline Cardiac: Positive: Reg Rate and Rhythm, S1/S2 Lungs: Positive: Rhonchi Neuro: Positive: Other (sedated) Abdomen: Positive: Soft, Active Bowel Sounds Skin: Negative: Clear, Rash Musculoskeletal: No Fluid Collection Extremities: Present: normal. Absent: edema Results 11/13/16 03:47 11/13/16 03:47 CBC 11/13/16 Range/Units 03:47 WBC 8.8 (4.5-11.0) K/mm3 RBC 3.82 (3.65-5.03) M/mm3 Hgb 11.7 (10.1-14.3) gm/dl Hct 37.0 D (30.3-42.9) % Plt Count 146 (140-440) K/mm3 Lymph # 0.6 L (1.2-5.4) K/mm3 Crowley # 0.5 (0.0-0.8) K/mm3 Eos # 0.0 (0.0-0.4) K/mm3 Baso # 0.0 (0.0-0.1) K/mm3 Comprehensive Metabolic Panel 11/13/16 Range/Units 03:47 Sodium 145 (137-145) mmol/L Potassium 4.0 D (3.6-5.0) mmol/L Chloride 97.3 L (98-107) mmol/L Carbon Dioxide 41 H* (22-30) mmol/L BUN 26 H (7-17) mg/dL Creatinine 0.5 L (0.7-1.2) mg/dL Glucose 176 H (65-100) mg/dL Calcium 8.3 L (8.4-10.2) mg/dL - Imaging and Cardiology EKG: image reviewed - EKG Interpretation EKG: sinus rhythm EKG interpretations - Telemetry EKG Rhythm: Sinus Rhythm - EKG Sinus rhythms and dysrhythmias: sinus rhythm AV and intraventricular conduction: right bundle branch block QRS axis and voltage: right axis deviation Assessment and Plan Intermittent diuresis. Optimize antihypertensive regimen. - Patient Problems (1) Acute and chronic respiratory failure Current Visit: Yes Status: Acute Qualifiers: Respiratory failure complication: hypoxia Qualified Code(s): J96.21 - Acute and chronic respiratory failure with hypoxia (2) Acute exacerbation of chronic obstructive pulmonary disease (COPD) Current Visit: Yes Status: Acute (3) Acute diastolic heart failure Current Visit: Yes Status: Acute (4) Morbid obesity Current Visit: Yes Status: Chronic Qualifiers: Obesity type: O (5) HTN (hypertension), benign Current Visit: Yes Status: Chronic
[2016-11-13] MEDS ORDERED: LASIX IV ONE (13:26)
[2016-11-13] MEDS: TRANSDERM-SCOP TD SCH (13:59)
[2016-11-14] MEDS: DUONEB 0.5 MG-3 MG/3 ML SOLN IH SCH ×4 (01:37→19:56)
[2016-11-14] MEDS: fentaNYL DRIP Premix 2,000 MCG/100 ML BAG IV SCH ×2 (02:13→07:42)
--- NOTE | 2016-11-14 03:55 | XRay Report ---
FINAL REPORT PROCEDURE: XR CHEST 1V AP TECHNIQUE: Chest radiograph anteroposterior view. CPT 40498 HISTORY: follow up respiratory failure COMPARISON: No prior studies are available for comparison. FINDINGS: Heart: The heart is enlarged Mediastinum/Vessels: There is pulmonary vascular congestion.. Lungs/Pleural space: There are bilateral lower lobe infiltrates worse on the right. There are no effusions or pneumothoraces.. Bony thorax: No acute osseous abnormality. Life support devices: Endotracheal tube is in the mid trachea. NG tube is in the stomach.. IMPRESSION: The heart is enlarged There is pulmonary vascular congestion.. There are bilateral lower lobe infiltrates worse on the right. There are no effusions or pneumothoraces.. Endotracheal tube is in the mid trachea. NG tube is in the stomach.. .
[2016-11-14] MEDS: DELTASONE FEEDTUBE SCH ×2 (04:00→16:24)
[2016-11-14 05:06] LABS: ISTAT Base Excess 24; ISTAT PCO2 62.9 (35-45); ISTAT PH 7.482 (7.35-7.45); ISTAT PO2 71 (80-105); ISTAT SO2 94; ISTAT TCO2 49
[2016-11-14 08:35] LABS: Hematocrit 41.8 % (30.3-42.9); Hemoglobin 13.2 gm/dl (10.1-14.3); Mean Corpuscular HGB Conc 32 % (30-34); Mean Corpuscular Hemoglobin 31 pg (28-32); Mean Corpuscular Volume 97 fl (79-97); Platelet Count 132 K/mm3 (140-440); Red Blood Count 4.31 M/mm3 (3.65-5.03); Red Cell Distribution Width 16.3 % (13.2-15.2); White Blood Count 10.6 K/mm3 (4.5-11.0)
[2016-11-14] MEDS: BROVANA NEBU IH SCH ×2 (08:48→19:56)
[2016-11-14 08:49] LABS: Blood Urea Nitrogen 21 mg/dL (7-17); Calcium 8.8 mg/dL (8.4-10.2); Chloride 96.7 mmol/L (98-107); Glucose 193 mg/dL (65-100); Potassium 4.3 mmol/L (3.6-5.0); Sodium 147 mmol/L (137-145)
[2016-11-14 08:57] LABS: Anion Gap 14 mmol/L
[2016-11-14 09:03] LABS: Carbon Dioxide 41 mmol/L (22-30)
--- NOTE | 2016-11-14 09:19 | Progress Note ---
Assessment and Plan - Patient Problems (1) Acute hypoxemic respiratory failure Current Visit: No Status: Acute Plan to address problem: Get weaning parameters if acceptable- liberate from mechanical ventilation. May need noocturnal NIPPV support VAP bundle addressed Aspiration precautions, HOB>40 VTE and stress ulcer prophylaxis Nutritional support, accucheck with glycemic control Oliver catheter in this critically ill patient Agitation and anxiety management, avoid over sedation and benzodiazepines. Discontinue propofol and fentanyl (2) Acute on chronic respiratory failure with hypercapnia Current Visit: Yes Status: Acute Plan to address problem: Get weaning parameters with plan to liberate from ventilator. Follow ABG post extubation (3) CAP (community acquired pneumonia) Current Visit: Yes Status: Acute Plan to address problem: With her history of severe COPD and home oxygen therapy- add levofloxacin. (4) Morbid obesity Current Visit: Yes Status: Chronic Qualifiers: Obesity type: O Plan to address problem: Will need lifestyle modifications, weight loss and exercise regimen (5) Acute exacerbation of chronic obstructive pulmonary disease (COPD) Current Visit: Yes Status: Acute Plan to address problem: Continue bronchodilators, steroids( start taper in the next 24 hours) (6) Diastolic heart failure Current Visit: Yes Status: Acute Qualifiers: Heart failure chronicity: H Plan to address problem: Optimize fluid status, blood pressure control Subjective Date of service: 11/14/16 Principal diagnosis: Acute on chronic respiratory failure on mechanical ventilatory support Interval history: No acute overnight events reported. Patient currently on PSV 10/5 with tidal volumes of >350 Nods and shakes her head in response to questions and writes on a pad. denies any chest pain or shortness of breath. Awake and alert communicating by writing on a pad. No patient-ventilator dys-synchrony. Patient was seen and examined. Vitals, labs, medications, chart and imaging were reviewed. Discussed during interdisciplinary ICU rounds Objective - Exam Narrative Exam: GENERAL: The patient appeared well nourished and normally developed. Vital signs as documented. HEAD: No signs of head trauma, atraumatic, normocephalic, obese. EYES: Pupils are equal. Extraocular motions intact. EARS: Hearing grossly intact. MOUTH: ET tube in place. NECK: No adenopathy, no JVD. CHEST: Chest with vesicular breath sounds bilaterally. No wheezes, rales, or rhonchi. CARDIAC: Regular rate and rhythm. S1 and S2, without murmurs, gallops, or rubs. VASCULAR: No Edema. Peripheral pulses normal and equal in all extremities. Right lower extremity- erythema with some induration, chronic venous stasis changes, edema ABDOMEN: Soft, without detectable tenderness. No sign of distention. No rebound or guarding, and no masses palpated. Bowel Sounds normal. MUSCULOSKELETAL: Good range of motion of all major joints. Extremities without clubbing, cyanosis or edema. NEUROLOGIC EXAM: Alert and oriented x 3. No focal sensory or strength deficits. Follows commands one step commands. PSYCHIATRIC: Affect appears normal Vital Signs - 12hr 11/13/16 11/13/16 11/13/16 21:30 22:00 22:30 Temperature Pulse Rate 57 L 53 L 51 L Pulse Rate [ Anterior Bilateral Throughout] Respiratory 13 14 14 Rate Respiratory Rate [Anterior Bilateral Throughout] Blood Pressure 130/49 116/55 127/55 O2 Sat by Pulse 93 96 92 Oximetry 11/13/16 11/13/16 11/13/16 23:00 23:30 23:40 Temperature Pulse Rate 47 L 50 L 50 L Pulse Rate [ Anterior Bilateral Throughout] Respiratory 14 14 Rate Respiratory Rate [Anterior Bilateral Throughout] Blood Pressure 131/58 127/53 127/55 O2 Sat by Pulse 94 92 94 Oximetry 11/13/16 11/14/16 11/14/16 23:55 00:00 00:30 Temperature 99.9 F H Pulse Rate 51 L 51 L Pulse Rate [ Anterior Bilateral Throughout] Respiratory 14 14 Rate Respiratory Rate [Anterior Bilateral Throughout] Blood Pressure 135/58 126/54 O2 Sat by Pulse 92 93 Oximetry 11/14/16 11/14/16 11/14/16 01:00 01:31 01:37 Temperature Pulse Rate 50 L 91 H Pulse Rate [ 87 Anterior Bilateral Throughout] Respiratory 12 11 L Rate Respiratory 17 Rate [Anterior Bilateral Throughout] Blood Pressure 131/55 126/54 O2 Sat by Pulse 92 95 Oximetry 11/14/16 11/14/16 11/14/16 01:52 02:00 02:30 Temperature Pulse Rate 82 56 L Pulse Rate [ 89 Anterior Bilateral Throughout] Respiratory 13 15 Rate Respiratory 17 Rate [Anterior Bilateral Throughout] Blood Pressure 141/70 123/57 O2 Sat by Pulse 81 L 94 Oximetry 11/14/16 11/14/16 11/14/16 03:00 03:30 04:00 Temperature Pulse Rate 49 L 47 L Pulse Rate [ Anterior Bilateral Throughout] Respiratory 15 14 18 Rate Respiratory Rate [Anterior Bilateral Throughout] Blood Pressure 134/54 142/74 O2 Sat by Pulse 94 94 97 Oximetry 11/14/16 11/14/16 11/14/16 04:01 04:07 04:15 Temperature 97.9 F Pulse Rate 50 L 85 Pulse Rate [ Anterior Bilateral Throughout] Respiratory 12 Rate Respiratory Rate [Anterior Bilateral Throughout] Blood Pressure 133/68 149/83 O2 Sat by Pulse 95 100 Oximetry 11/14/16 11/14/16 11/14/16 04:30 05:01 05:30 Temperature Pulse Rate 83 58 L 47 L Pulse Rate [ Anterior Bilateral Throughout] Respiratory 19 14 18 Rate Respiratory Rate [Anterior Bilateral Throughout] Blood Pressure 149/83 125/53 132/53 O2 Sat by Pulse 94 95 95 Oximetry 11/14/16 11/14/16 11/14/16 06:00 06:31 07:00 Temperature Pulse Rate 53 L 49 L 54 L Pulse Rate [ Anterior Bilateral Throughout] Respiratory 18 14 18 Rate Respiratory Rate [Anterior Bilateral Throughout] Blood Pressure 141/57 151/67 161/63 O2 Sat by Pulse 94 95 95 Oximetry 11/14/16 11/14/16 11/14/16 07:50 08:00 08:45 Temperature 98.9 F Pulse Rate 81 Pulse Rate [ 98 H Anterior Bilateral Throughout] Respiratory 14 Rate Respiratory 11 L Rate [Anterior Bilateral Throughout] Blood Pressure 136/83 O2 Sat by Pulse 95 Oximetry 11/14/16 08:58 Temperature Pulse Rate Pulse Rate [ 93 H Anterior Bilateral Throughout] Respiratory Rate Respiratory 12 Rate [Anterior Bilateral Throughout] Blood Pressure O2 Sat by Pulse Oximetry CBC and BMP: 11/14/16 08:17 11/15/16 05:11 ABG, PT/INR, D-dimer: ABG POC ABG pH 7.482 (7.35-7.45) H 11/14/16 04:31 POC ABG pCO2 62.9 (35-45) H 11/14/16 04:31 POC ABG pO2 71 (80-105) L 11/14/16 04:31 POC ABG HCO3 47.0 11/14/16 04:31 POC ABG Total CO2 49 11/14/16 04:31 POC ABG O2 Sat 94 11/14/16 04:31 PT/INR, D-dimer PT 13.7 Sec. (12.2-14.9) 11/11/16 23:37 INR 1.06 (0.87-1.13) 11/11/16 23:37 D-Dimer 716.99 ng/mlDDU (0-234) H 11/12/16 16:54 Abnormal lab findings: Abnormal Labs 11/12/16 11/12/16 11/12/16 05:18 11:41 16:18 RDW Plt Count Lymph % (Auto) Lymph # Seg Neutrophils % D-Dimer POC ABG pH 7.578 H POC ABG pCO2 49.4 H POC ABG pO2 Sodium Chloride Carbon Dioxide BUN Creatinine Glucose POC Glucose 215 H 206 H Lactic Acid Calcium Phosphorus CK-MB (CK-2) Rel Index 11/12/16 11/12/16 11/12/16 16:54 16:55 20:11 RDW Plt Count Lymph % (Auto) Lymph # Seg Neutrophils % D-Dimer 716.99 H POC ABG pH 7.495 H POC ABG pCO2 59.6 H POC ABG pO2 64 L Sodium Chloride Carbon Dioxide BUN Creatinine Glucose POC Glucose Lactic Acid Calcium Phosphorus 2.00 L CK-MB (CK-2) Rel Index 11/12/16 11/12/16 11/13/16 Unknown Unknown 03:47 RDW 16.5 H Plt Count Lymph % (Auto) 7.3 L Lymph # 0.6 L Seg Neutrophils % 86.2 H D-Dimer POC ABG pH POC ABG pCO2 POC ABG pO2 Sodium Chloride Carbon Dioxide BUN Creatinine Glucose POC Glucose Lactic Acid 2.60 H* Calcium Phosphorus CK-MB (CK-2) Rel Index 5.4 H 11/13/16 11/13/16 11/14/16 03:47 04:27 04:31 RDW Plt Count Lymph % (Auto) Lymph # Seg Neutrophils % D-Dimer POC ABG pH 7.482 H POC ABG pCO2 72.5 H 62.9 H POC ABG pO2 107 H 71 L Sodium Chloride 97.3 L Carbon Dioxide 41 H* BUN 26 H Creatinine 0.5 L Glucose 176 H POC Glucose Lactic Acid Calcium 8.3 L Phosphorus CK-MB (CK-2) Rel Index 11/14/16 11/14/16 08:17 08:17 RDW 16.3 H Plt Count 132 L Lymph % (Auto) Lymph # Seg Neutrophils % D-Dimer POC ABG pH POC ABG pCO2 POC ABG pO2 Sodium 147 H Chloride 96.7 L Carbon Dioxide 41 H* BUN 21 H Creatinine 0.5 L Glucose 193 H POC Glucose Lactic Acid Calcium Phosphorus CK-MB (CK-2) Rel Index Allied health notes reviewed: RT ED Critical Care Note - Critical Care Note Total Time (mins): 31 Critical Care Time: Yes Critical care time in (mins) excluding proc time.: 31 Critical care attestation.: If time is entered above; I have spent that time in minutes in the direct care of this critically ill patient, excluding procedure time.
[2016-11-14] MEDS ORDERED: D50W (25GM) IV PRN (09:42)
[2016-11-14 09:45] LABS: ISTAT Base Excess 23; ISTAT HCO3 47.8; ISTAT PCO2 78.3 (35-45); ISTAT PH 7.394 (7.35-7.45); ISTAT PO2 94 (80-105); ISTAT SO2 97; ISTAT TCO2 > 50
[2016-11-14] MEDS: ROCEPHIN/NS 1 GM/50 ML 1 GM/50 ML BAG IV SCH (10:42)
[2016-11-14] MEDS: PEPCID IV SCH ×2 (10:42→21:54)
[2016-11-14] MEDS: LOVENOX SUB-Q SCH (10:44)
[2016-11-14] MEDS: LEVAQUIN 750MG/150ML 750 MG/150 ML BAG IV SCH (10:44)
--- NOTE | 2016-11-14 11:39 | Progress Note ---
Assessment and Plan Cont present management. The patient has been seen in conjunction with Dr. Terry who agrees with the assessment and plan of care. - Patient Problems (1) Acute and chronic respiratory failure Current Visit: Yes Status: Acute Qualifiers: Respiratory failure complication: hypoxia Qualified Code(s): J96.21 - Acute and chronic respiratory failure with hypoxia (2) Acute exacerbation of chronic obstructive pulmonary disease (COPD) Current Visit: Yes Status: Acute (3) Acute diastolic heart failure Current Visit: Yes Status: Acute (4) Morbid obesity Current Visit: Yes Status: Chronic Qualifiers: Obesity type: O (5) HTN (hypertension), benign Current Visit: Yes Status: Chronic Subjective Date of service: 11/14/16 Principal diagnosis: Acute on chronic respiratory failure on mechanical ventilatory support Interval history: Pt resting in bed, off sedation, alert and following commands appropriately. Remains intubated but is on CPAP trial. VSS. Objective Last Vital Signs Temp 98.9 F 11/14/16 08:00 Pulse 98 H 11/14/16 11:00 Resp 15 11/14/16 11:00 BP 138/69 11/14/16 11:00 Pulse Ox 94 11/14/16 11:00 - Physical Examination General: No Apparent Distress HEENT: Positive: EOMI, Normocephaly, Mucus Membranes Moist Neck: Positive: trachea midline Cardiac: Positive: Reg Rate and Rhythm, S1/S2 Lungs: Positive: Rhonchi Neuro: Positive: Grossly Intact Abdomen: Positive: Soft, Active Bowel Sounds Skin: Negative: Clear, Rash Musculoskeletal: No Fluid Collection Extremities: Present: normal. Absent: edema - Labs and Meds CBC 11/14/16 Range/Units 08:17 WBC 10.6 (4.5-11.0) K/mm3 RBC 4.31 (3.65-5.03) M/mm3 Hgb 13.2 (10.1-14.3) gm/dl Hct 41.8 (30.3-42.9) % Plt Count 132 L (140-440) K/mm3 Comprehensive Metabolic Panel 11/14/16 Range/Units 08:17 Sodium 147 H (137-145) mmol/L Potassium 4.3 (3.6-5.0) mmol/L Chloride 96.7 L (98-107) mmol/L Carbon Dioxide 41 H* (22-30) mmol/L BUN 21 H (7-17) mg/dL Creatinine 0.5 L (0.7-1.2) mg/dL Glucose 193 H (65-100) mg/dL Calcium 8.8 (8.4-10.2) mg/dL - Imaging and Cardiology EKG: image reviewed - Telemetry EKG Rhythm: Sinus Rhythm - EKG Sinus rhythms and dysrhythmias: sinus rhythm AV and intraventricular conduction: right bundle branch block QRS axis and voltage: right axis deviation - Allied health notes Allied health notes reviewed: RT
[2016-11-14] MEDS: ZITHROMAX 500 MG in NACL 0.9% 250ML 250 ML IV SCH (12:24)
[2016-11-14] MEDS: NOVOLOG SUB-Q SCH ×2 (12:58→18:17)
--- NOTE | 2016-11-14 14:11 | Progress Note ---
Assessment and Plan Assessment and plan: 56-year-old woman history of COPD on home oxygen, CHF was brought to the emergency room because she was noted to be in respiratory distress, hypoxic with oxygen all in the 80s. It was also reported that she was confused. The patient was placed on BiPAP but she failed BiPAP and was subsequently intubated. * Acute respiratory failure, acute, hypoxic * Right lobar penumonia r/o Aspiration penumonitis, GNR * Acute Metabolic encephalopathy * COPD exacerbation * Acute on chronic Diastolic congestive heart failure * Contraction Alkalosis * R/O sepsis * Morbid obesity Plan: * Continue supportive care, Emperic abx * Cultures with no growth * planned for extubation * Cardiology consult for CHF managment * Cultures show no growth at this time * Weight managment discussion when librated from the vent * Methods Time Analyst input appreciated * DVT/GI prophy The high probability of a clinically significant, sudden or life threatening deterioration of the [PULMONARY ] system(s) required my full and direct attention, intervention and personal management. The aggregate critical care time was [35] minutes. This time is in addition to time spent performing reported procedures but includes the following: [X] Data Review and interpretation [X] Patient assessment and monitoring of vital signs [X] Documentation [X] Medication orders and management Hospitalist Physical - Constitutional Vitals: Temp Pulse Resp BP Pulse Ox 99.4 F 98 H 15 138/69 94 11/14/16 12:00 11/14/16 11:00 11/14/16 11:00 11/14/16 11:00 11/14/16 11:00 General appearance: Present: no acute distress Results - Labs CBC & Chem 7: 11/14/16 08:17 11/14/16 08:17 Labs: Laboratory Last Values WBC 10.6 K/mm3 (4.5-11.0) 11/14/16 08: RBC 4.31 M/mm3 (3.65-5.03) 11/14/16 08:17 Hgb 13.2 gm/dl (10.1-14.3) 11/14/16 08:17 Hct 41.8 % (30.3-42.9) 11/14/16 08:17 MCV 97 fl (79-97) 11/14/16 08:17 MCH 31 pg (28-32) 11/14/16 08:17 MCHC 32 % (30-34) 11/14/16 08:17 RDW 16.3 % (13.2-15.2) H 11/14/16 08:17 Plt Count 132 K/mm3 (140-440) L 11/14/16 08:17 Lymph % (Auto) 7.3 % (13.4-35.0) L 11/13/16 03:47 Wood % (Auto) 6.1 % (0.0-7.3) 11/13/16 03:47 Eos % (Auto) 0.0 % (0.0-4.3) 11/13/16 03:47 Baso % (Auto) 0.4 % (0.0-1.8) 11/13/16 03:47 Lymph # 0.6 K/mm3 (1.2-5.4) L 11/13/16 03:47 Wood # 0.5 K/mm3 (0.0-0.8) 11/13/16 03:47 Eos # 0.0 K/mm3 (0.0-0.4) 11/13/16 03:47 Baso # 0.0 K/mm3 (0.0-0.1) 11/13/16 03:47 Seg Neutrophils % 86.2 % (40.0-70.0) H 11/13/16 03:47 Seg Neutrophils # 7.6 K/mm3 (1.8-7.7) 11/13/16 03:47 PT 13.7 Sec. (12.2-14.9) 11/11/16 23:37 INR 1.06 (0.87-1.13) 11/11/16 23:37 D-Dimer 716.99 ng/mlDDU (0-234) H 11/12/16 16:54 POC ABG pH 7.394 (7.35-7.45) 11/14/16 09:22 POC ABG pCO2 78.3 (35-45) H 11/14/16 09:22 POC ABG pO2 94 (80-105) 11/14/16 09:22 POC ABG HCO3 47.8 11/14/16 09:22 POC ABG Total CO2 > 50 11/14/16 09:22 POC ABG O2 Sat 97 11/14/16 09:22 POC ABG Base Excess 23 11/14/16 09:22 FiO2 40 % 11/14/16 09:22 Sodium 147 mmol/L (137-145) H 11/14/16 08:17 Potassium 4.3 mmol/L (3.6-5.0) 11/14/16 08:17 Chloride 96.7 mmol/L (98-107) L 11/14/16 08:17 Carbon Dioxide 41 mmol/L (22-30) H* 11/14/16 08:17 Anion Gap 14 mmol/L 11/14/16 08:17 BUN 21 mg/dL (7-17) H 11/14/16 08:17 Creatinine 0.5 mg/dL (0.7-1.2) L 11/14/16 08:17 Estimated GFR > 60 ml/min 11/14/16 08:17 BUN/Creatinine Ratio 42.00 % 11/14/16 08:17 Glucose 193 mg/dL (65-100) H 11/14/16 08:17 POC Glucose 162 (70-105) H 11/14/16 11:54 Lactic Acid 1.20 mmol/L (0.7-2.0) 11/13/16 09:10 Calcium 8.8 mg/dL (8.4-10.2) 11/14/16 08:17 Phosphorus 2.00 mg/dL (2.5-4.5) L 11/12/16 16:55 Magnesium 1.90 mg/dL (1.7-2.3) 11/14/16 08:17 Total Creatine Kinase 42 units/L (30-135) 11/12/16 Unknown CK-MB (CK-2) 2.3 ng/mL (0.0-4.0) 11/12/16 Unknown CK-MB (CK-2) Rel Index 5.4 (0-4) H 11/12/16 Unknown Troponin T < 0.010 ng/mL (0.00-0.029) 11/12/16 Unknown NT-Pro-B Natriuret Pep 2574 pg/mL (0-900) H 11/11/16 23:37 Urine Color Yellow (Yellow) 11/12/16 01:45 Urine Turbidity Slightly-cloudy (Clear) 11/12/16 01:45 Urine pH 5.0 (5.0-7.0) 11/12/16 01:45 Ur Specific [place] 1.021 (1.003-1.030) 11/12/16 01:45 Urine Protein 100 mg/dl mg/dL (Negative) 11/12/16 01:45 Urine Glucose (UA) Neg mg/dL (Negative) 11/12/16 01:45 Urine Ketones Tr mg/dL (Negative) 11/12/16 01:45 Urine Blood Neg (Negative) 11/12/16 01:45 Urine Nitrite Neg (Negative) 11/12/16 01:45 Urine Bilirubin Neg (Negative) 11/12/16 01:45 Urine Urobilinogen < 2.0 mg/dL (<2.0) 11/12/16 01:45 Ur Leukocyte Esterase Tr (Negative) 11/12/16 01:45 Urine WBC (Auto) 10.0 /HPF (0.0-6.0) H 11/12/16 01:45 Urine RBC (Auto) 3.0 /HPF (0.0-6.0) 11/12/16 01:45 U Epithel Cells (Auto) 2.0 /HPF (0-13.0) 11/12/16 01:45 Urine Bacteria (Auto) 4+ /HPF (Negative) 11/12/16 01:45
[2016-11-15] MEDS: NOVOLOG SUB-Q SCH ×4 (00:35→19:43)
[2016-11-15] MEDS: DUONEB 0.5 MG-3 MG/3 ML SOLN IH SCH ×4 (02:02→20:38)
[2016-11-15] MEDS: DELTASONE FEEDTUBE SCH ×2 (04:59→16:10)
[2016-11-15 06:19] LABS: Anion Gap 15 mmol/L; Blood Urea Nitrogen 19 mg/dL (7-17); Calcium 8.3 mg/dL (8.4-10.2); Carbon Dioxide 38 mmol/L (22-30); Chloride 96.8 mmol/L (98-107); Glucose 139 mg/dL (65-100); Sodium 146 mmol/L (137-145)
[2016-11-15] MEDS: BROVANA NEBU IH SCH ×2 (07:50→20:38)
--- NOTE | 2016-11-15 08:21 | XRay Report ---
AP CHEST :11/12/16 02:32:00 CLINICAL: Follow up respiratory failure. COMPARISON:Previous day. FINDINGS: The endotracheal tube has been removed. The lungs are normally expanded and clear. Stable cardiomegaly and central vascular congestion. No tubes or lines. IMPRESSION: Cardiomegaly and pulmonary venous hypertension.No pulmonary edema and no pneumonia.
--- NOTE | 2016-11-15 08:24 | Progress Note ---
Assessment and Plan - Patient Problems (1) Acute hypoxemic respiratory failure Current Visit: No Status: Acute Plan to address problem: Extubated. NIPPV qhs and prn VTE and stress ulcer prophylaxis Discontinue Oliver catheter PT/OT to evaluate and treat. OK to transfer to telemetry (2) Acute on chronic respiratory failure with hypercapnia Current Visit: Yes Status: Acute Plan to address problem: Nocturnal BIPAP Supplemental oxygen to keep O2 sats>90 (3) CAP (community acquired pneumonia) Current Visit: Yes Status: Acute Plan to address problem: With her history of severe COPD and home oxygen therapy- add levofloxacin. Complete 7 day course of antibiotics (4) Morbid obesity Current Visit: Yes Status: Chronic Qualifiers: Obesity type: O Plan to address problem: Will need lifestyle modifications, weight loss and exercise regimen (5) Acute exacerbation of chronic obstructive pulmonary disease (COPD) Current Visit: Yes Status: Acute Plan to address problem: Continue bronchodilators, steroids-taper (6) Diastolic heart failure Current Visit: Yes Status: Acute Qualifiers: Heart failure chronicity: H Plan to address problem: Optimize fluid status, blood pressure control Subjective Date of service: 11/15/16 Principal diagnosis: Acute on chronic respiratory failure on mechanical ventilatory support Interval history: No acute overnight events reported. Extubated and was on NIPPV overnight. Tolerating a diet, currently on oxygen via NC with adequate saturations Patient was seen and examined. Vitals, labs, medications, chart and imaging were reviewed. Discussed during interdisciplinary ICU rounds Objective - Exam Narrative Exam: GENERAL: The patient appeared well nourished and normally developed. Vital signs as documented. HEAD: No signs of head trauma, atraumatic, normocephalic, obese. EYES: Pupils are equal. Extraocular motions intact. EARS: Hearing grossly intact. NECK: No adenopathy, no JVD. CHEST: Chest with vesicular breath sounds bilaterally. No wheezes, rales, or rhonchi. CARDIAC: Regular rate and rhythm. S1 and S2, without murmurs, gallops, or rubs. VASCULAR: No Edema. Peripheral pulses normal and equal in all extremities. Right lower extremity- erythema with some induration, chronic venous stasis changes, edema ABDOMEN: Soft, without detectable tenderness. No sign of distention. No rebound or guarding, and no masses palpated. Bowel Sounds normal. MUSCULOSKELETAL: Good range of motion of all major joints. Extremities without clubbing, cyanosis or edema. NEUROLOGIC EXAM: Alert and oriented x 3. No focal sensory or strength deficits. Follows commands PSYCHIATRIC: Affect appears normal Vital Signs - 12hr 11/14/16 11/14/16 11/14/16 20:49 21:00 21:05 Temperature Pulse Rate 97 H 89 Pulse Rate [ Anterior Bilateral Throughout] Respiratory 17 14 Rate Respiratory Rate [Anterior Bilateral Throughout] Blood Pressure 154/81 142/73 O2 Sat by Pulse 93 91 96 Oximetry 11/14/16 11/14/16 11/15/16 22:00 23:00 00:00 Temperature 99.2 F Pulse Rate 75 82 79 Pulse Rate [ Anterior Bilateral Throughout] Respiratory 11 L 15 15 Rate Respiratory Rate [Anterior Bilateral Throughout] Blood Pressure 145/76 137/77 145/79 O2 Sat by Pulse 91 92 93 Oximetry 11/15/16 11/15/16 11/15/16 01:00 01:20 02:01 Temperature Pulse Rate 83 65 52 L Pulse Rate [ Anterior Bilateral Throughout] Respiratory 14 19 14 Rate Respiratory Rate [Anterior Bilateral Throughout] Blood Pressure 169/61 169/60 138/73 O2 Sat by Pulse 94 95 Oximetry 11/15/16 11/15/16 11/15/16 02:02 02:12 03:01 Temperature Pulse Rate 80 Pulse Rate [ 76 86 Anterior Bilateral Throughout] Respiratory 13 Rate Respiratory 14 16 Rate [Anterior Bilateral Throughout] Blood Pressure 137/68 O2 Sat by Pulse 93 Oximetry 11/15/16 11/15/16 11/15/16 03:55 03:58 04:00 Temperature 99.2 F Pulse Rate 61 59 L Pulse Rate [ Anterior Bilateral Throughout] Respiratory 14 14 Rate Respiratory Rate [Anterior Bilateral Throughout] Blood Pressure 128/70 147/68 O2 Sat by Pulse 96 97 Oximetry 11/15/16 11/15/16 11/15/16 05:00 06:00 07:50 Temperature Pulse Rate 63 71 Pulse Rate [ 75 Anterior Bilateral Throughout] Respiratory 13 12 Rate Respiratory 20 Rate [Anterior Bilateral Throughout] Blood Pressure 146/73 137/72 O2 Sat by Pulse 96 90 Oximetry 11/15/16 11/15/16 07:53 08:07 Temperature Pulse Rate Pulse Rate [ 73 Anterior Bilateral Throughout] Respiratory Rate Respiratory 22 Rate [Anterior Bilateral Throughout] Blood Pressure O2 Sat by Pulse 97 Oximetry CBC and BMP: 11/14/16 08:17 11/15/16 05:11 ABG, PT/INR, D-dimer: ABG POC ABG pH 7.394 (7.35-7.45) 11/14/16 09:22 POC ABG pCO2 78.3 (35-45) H 11/14/16 09:22 POC ABG pO2 94 (80-105) 11/14/16 09:22 POC ABG HCO3 47.8 11/14/16 09:22 POC ABG Total CO2 > 50 11/14/16 09:22 POC ABG O2 Sat 97 11/14/16 09:22 PT/INR, D-dimer PT 13.7 Sec. (12.2-14.9) 11/11/16 23:37 INR 1.06 (0.87-1.13) 11/11/16 23:37 D-Dimer 716.99 ng/mlDDU (0-234) H 11/12/16 16:54 Abnormal lab findings: Abnormal Labs 11/12/16 11/12/16 11/12/16 05:18 11:41 16:18 RDW Plt Count Lymph % (Auto) Lymph # Seg Neutrophils % D-Dimer POC ABG pH 7.578 H POC ABG pCO2 49.4 H POC ABG pO2 Sodium Chloride Carbon Dioxide BUN Creatinine Glucose POC Glucose 215 H 206 H Lactic Acid Calcium Phosphorus CK-MB (CK-2) Rel Index 11/12/16 11/12/16 11/12/16 16:54 16:55 20:11 RDW Plt Count Lymph % (Auto) Lymph # Seg Neutrophils % D-Dimer 716.99 H POC ABG pH 7.495 H POC ABG pCO2 59.6 H POC ABG pO2 64 L Sodium Chloride Carbon Dioxide BUN Creatinine Glucose POC Glucose Lactic Acid Calcium Phosphorus 2.00 L CK-MB (CK-2) Rel Index 11/12/16 11/12/16 11/13/16 Unknown Unknown 03:47 RDW 16.5 H Plt Count Lymph % (Auto) 7.3 L Lymph # 0.6 L Seg Neutrophils % 86.2 H D-Dimer POC ABG pH POC ABG pCO2 POC ABG pO2 Sodium Chloride Carbon Dioxide BUN Creatinine Glucose POC Glucose Lactic Acid 2.60 H* Calcium Phosphorus CK-MB (CK-2) Rel Index 5.4 H 11/13/16 11/13/16 11/14/16 03:47 04:27 04:31 RDW Plt Count Lymph % (Auto) Lymph # Seg Neutrophils % D-Dimer POC ABG pH 7.482 H POC ABG pCO2 72.5 H 62.9 H POC ABG pO2 107 H 71 L Sodium Chloride 97.3 L Carbon Dioxide 41 H* BUN 26 H Creatinine 0.5 L Glucose 176 H POC Glucose Lactic Acid Calcium 8.3 L Phosphorus CK-MB (CK-2) Rel Index 11/14/16 11/14/16 11/14/16 08:17 08:17 09:22 RDW 16.3 H Plt Count 132 L Lymph % (Auto) Lymph # Seg Neutrophils % D-Dimer POC ABG pH POC ABG pCO2 78.3 H POC ABG pO2 Sodium 147 H Chloride 96.7 L Carbon Dioxide 41 H* BUN 21 H Creatinine 0.5 L Glucose 193 H POC Glucose Lactic Acid Calcium Phosphorus CK-MB (CK-2) Rel Index 11/14/16 11/14/16 11/15/16 11:54 17:31 00:12 RDW Plt Count Lymph % (Auto) Lymph # Seg Neutrophils % D-Dimer POC ABG pH POC ABG pCO2 POC ABG pO2 Sodium Chloride Carbon Dioxide BUN Creatinine Glucose POC Glucose 162 H 126 H 245 H Lactic Acid Calcium Phosphorus CK-MB (CK-2) Rel Index 11/15/16 11/15/16 05:04 05:11 RDW Plt Count Lymph % (Auto) Lymph # Seg Neutrophils % D-Dimer POC ABG pH POC ABG pCO2 POC ABG pO2 Sodium 146 H Chloride 96.8 L Carbon Dioxide 38 H BUN 19 H Creatinine 0.5 L Glucose 139 H POC Glucose 144 H Lactic Acid Calcium 8.3 L Phosphorus CK-MB (CK-2) Rel Index Allied health notes reviewed: RT
[2016-11-15] MEDS: ROCEPHIN/NS 1 GM/50 ML 1 GM/50 ML BAG IV SCH (10:24)
[2016-11-15] MEDS: PEPCID IV SCH ×2 (10:24→22:01)
[2016-11-15] MEDS: LOVENOX SUB-Q SCH (10:24)
[2016-11-15] MEDS: LEVAQUIN 750MG/150ML 750 MG/150 ML BAG IV SCH (10:25)
[2016-11-15] MEDS: ZITHROMAX 500 MG in NACL 0.9% 250ML 250 ML IV SCH (10:27)
--- NOTE | 2016-11-15 11:46 | Progress Note ---
Assessment and Plan Assessment and plan: 56-year-old woman history of COPD on home oxygen, CHF was brought to the emergency room because she was noted to be in respiratory distress, hypoxic with oxygen all in the 80s. It was also reported that she was confused. The patient was placed on BiPAP but she failed BiPAP and was subsequently intubated. * Acute respiratory failure, acute, hypoxic * Right lobar penumonia r/o Aspiration penumonitis, GNR * Acute Metabolic encephalopathy * COPD exacerbation * Acute on chronic Diastolic congestive heart failure * Contraction Alkalosis * R/O sepsis * Morbid obesity Plan: * Continue supportive care, Emperic abx * Cultures with no growth * planned for extubation * Cardiology consult for CHF managment * Cultures show no growth at this time * Weight managment discussion when librated from the vent * Small Boat Engineer input appreciated * DVT/GI prophy The high probability of a clinically significant, sudden or life threatening deterioration of the [PULMONARY ] system(s) required my full and direct attention, intervention and personal management. The aggregate critical care time was [35] minutes. This time is in addition to time spent performing reported procedures but includes the following: [X] Data Review and interpretation [X] Patient assessment and monitoring of vital signs [X] Documentation [X] Medication orders and management Hospitalist Physical - Constitutional Vitals: Temp Pulse Resp BP Pulse Ox 98.7 F 73 22 137/72 97 11/15/16 08:00 11/15/16 08:07 11/15/16 08:07 11/15/16 06:00 11/15/16 07:53 General appearance: Present: no acute distress Results - Labs CBC & Chem 7: 11/14/16 08:17 11/15/16 05:11 Labs: Laboratory Last Values WBC 10.6 K/mm3 (4.5-11.0) 11/14/16 08:17 RBC 4.31 M/mm3 (3.65-5.03) 11/14/16 08:17 Hgb 13.2 gm/dl (10.1-14.3) 11/14/16 08:17 Hct 41.8 % (30.3-42.9) 11/14/16 08:17 MCV 97 fl (79-97) 11/14/16 08:17 MCH 31 pg (28-32) 11/14/16 08:17 MCHC 32 % (30-34) 11/14/16 08:17 RDW 16.3 % (13.2-15.2) H 11/14/16 08:17 Plt Count 132 K/mm3 (140-440) L 11/14/16 08:17 Lymph % (Auto) 7.3 % (13.4-35.0) L 11/13/16 03:47 [place] % (Auto) 6.1 % (0.0-7.3) 11/13/16 03:47 Eos % (Auto) 0.0 % (0.0-4.3) 11/13/16 03:47 Baso % (Auto) 0.4 % (0.0-1.8) 11/13/16 03:47 Lymph # 0.6 K/mm3 (1.2-5.4) L 11/13/16 03:47 Morton # 0.5 K/mm3 (0.0-0.8) 11/13/16 03:47 Eos # 0.0 K/mm3 (0.0-0.4) 11/13/16 03:47 Baso # 0.0 K/mm3 (0.0-0.1) 11/13/16 03:47 Seg Neutrophils % 86.2 % (40.0-70.0) H 11/13/16 03:47 Seg Neutrophils # 7.6 K/mm3 (1.8-7.7) 11/13/16 03:47 PT 13.7 Sec. (12.2-14.9) 11/11/16 23:37 INR 1.06 (0.87-1.13) 11/11/16 23:37 D-Dimer 716.99 ng/mlDDU (0-234) H 11/12/16 16:54 POC ABG pH 7.394 (7.35-7.45) 11/14/16 09:22 POC ABG pCO2 78.3 (35-45) H 11/14/16 09:22 POC ABG pO2 94 (80-105) 11/14/16 09:22 POC ABG HCO3 47.8 11/14/16 09:22 POC ABG Total CO2 > 50 11/14/16 09:22 POC ABG O2 Sat 97 11/14/16 09:22 POC ABG Base Excess 23 11/14/16 09:22 FiO2 40 % 11/14/16 09:22 Sodium 146 mmol/L (137-145) H 11/15/16 05:11 Potassium 4.0 mmol/L (3.6-5.0) 11/15/16 05:11 Chloride 96.8 mmol/L (98-107) L 11/15/16 05:11 Carbon Dioxide 38 mmol/L (22-30) H 11/15/16 05:11 Anion Gap 15 mmol/L 11/15/16 05:11 BUN 19 mg/dL (7-17) H 11/15/16 05:11 Creatinine 0.5 mg/dL (0.7-1.2) L 11/15/16 05:11 Estimated GFR > 60 ml/min 11/15/16 05:11 BUN/Creatinine Ratio 38.00 % 11/15/16 05:11 Glucose 139 mg/dL (65-100) H 11/15/16 05:11 POC Glucose 172 (70-105) H 11/15/16 08:03 Lactic Acid 1.20 mmol/L (0.7-2.0) 11/13/16 09:10 Calcium 8.3 mg/dL (8.4-10.2) L 11/15/16 05:11 Phosphorus 2.00 mg/dL (2.5-4.5) L 11/12/16 16:55 Magnesium 1.90 mg/dL (1.7-2.3) 11/14/16 08:17 Total Creatine Kinase 42 units/L (30-135) 11/12/16 Unknown CK-MB (CK-2) 2.3 ng/mL (0.0-4.0) 11/12/16 Unknown CK-MB (CK-2) Rel Index 5.4 (0-4) H 11/12/16 Unknown Troponin T < 0.010 ng/mL (0.00-0.029) 11/12/16 Unknown NT-Pro-B Natriuret Pep 2574 pg/mL (0-900) H 11/11/16 23:37 Urine Color Yellow (Yellow) 11/12/16 01:45 Urine Turbidity Slightly-cloudy (Clear) 11/12/16 01:45 Urine pH 5.0 (5.0-7.0) 11/12/16 01:45 Ur Specific [place] 1.021 (1.003-1.030) 11/12/16 01:45 Urine Protein 100 mg/dl mg/dL (Negative) 11/12/16 01:45 Urine Glucose (UA) Neg mg/dL (Negative) 11/12/16 01:45 Urine Ketones Tr mg/dL (Negative) 11/12/16 01:45 Urine Blood Neg (Negative) 11/12/16 01:45 Urine Nitrite Neg (Negative) 11/12/16 01:45 Urine Bilirubin Neg (Negative) 11/12/16 01:45 Urine Urobilinogen < 2.0 mg/dL (<2.0) 11/12/16 01:45 Ur Leukocyte Esterase Tr (Negative) 11/12/16 01:45 Urine WBC (Auto) 10.0 /HPF (0.0-6.0) H 11/12/16 01:45 Urine RBC (Auto) 3.0 /HPF (0.0-6.0) 11/12/16 01:45 U Epithel Cells (Auto) 2.0 /HPF (0-13.0) 11/12/16 01:45 Urine Bacteria (Auto) 4+ /HPF (Negative) 11/12/16 01:45
--- NOTE | 2016-11-15 13:09 | Progress Note ---
Assessment and Plan Currently stable cardiac status. Cont present cardiac management. Will see PRN. The patient has been seen in conjunction with Dr. Terry who agrees with the assessment and plan of care. - Patient Problems (1) Acute and chronic respiratory failure Current Visit: Yes Status: Acute Qualifiers: Respiratory failure complication: hypoxia Qualified Code(s): J96.21 - Acute and chronic respiratory failure with hypoxia (2) Acute exacerbation of chronic obstructive pulmonary disease (COPD) Current Visit: Yes Status: Acute (3) Acute diastolic heart failure Current Visit: Yes Status: Acute (4) Morbid obesity Current Visit: Yes Status: Chronic Qualifiers: Obesity type: O (5) HTN (hypertension), benign Current Visit: Yes Status: Chronic Subjective Date of service: 11/15/16 Principal diagnosis: Acute on chronic respiratory failure on mechanical ventilatory support Interval history: Pt resting in bed, extubated, A&O with no complaints. VSS. Objective Last Vital Signs Temp 98.7 F 11/15/16 13:01 Pulse 87 11/15/16 12:00 Resp 15 11/15/16 12:00 BP 131/56 11/15/16 12:00 Pulse Ox 94 11/15/16 12:00 - Physical Examination General: No Apparent Distress HEENT: Positive: EOMI, Normocephaly, Mucus Membranes Moist Neck: Positive: trachea midline Cardiac: Positive: Reg Rate and Rhythm, S1/S2 Lungs: Positive: Wheezes Neuro: Positive: Grossly Intact Abdomen: Positive: Soft, Active Bowel Sounds Skin: Negative: Clear, Rash Musculoskeletal: No Fluid Collection Extremities: Absent: edema - Labs and Meds Comprehensive Metabolic Panel 11/15/16 Range/Units 05:11 Sodium 146 H (137-145) mmol/L Potassium 4.0 (3.6-5.0) mmol/L Chloride 96.8 L (98-107) mmol/L Carbon Dioxide 38 H (22-30) mmol/L BUN 19 H (7-17) mg/dL Creatinine 0.5 L (0.7-1.2) mg/dL Glucose 139 H (65-100) mg/dL Calcium 8.3 L (8.4-10.2) mg/dL - Imaging and Cardiology EKG: image reviewed - Telemetry EKG Rhythm: Sinus Rhythm - EKG Sinus rhythms and dysrhythmias: sinus rhythm AV and intraventricular conduction: right bundle branch block QRS axis and voltage: right axis deviation - Allied health notes Allied health notes reviewed: RT
--- NOTE | 2016-11-15 17:59 | Consultation ---
History of Present Illness - Reason for Consult Consult date: 11/15/16 LLE gangrene - History of Present Illness 56-year-old woman history of COPD on home oxygen, CHF was brought to the emergency room because she was noted to be in respiratory distress, hypoxic with oxygen all in the 80s. It was also reported that she was confused. The patient was placed on BiPAP but she failed BiPAP and was subsequently intubated. During her admission, was noted that she had a dark area of her left second digit which was concerning. On physical exam, the patient had palpable pedal pulses. She had trauma to the left second digit 2 weeks ago, and areas been slowly healing. There appears to be Betadine applied to the area. He dark areas associated with the nail and represents a subungual hematoma. Patient also has changes of venous insufficiency both lower extremities with hemosiderin staining. She has cracks posterior ankle of the right calf. These of the beginnings of venous ulcers. She had a venous ulcer in the past requiring wound care and Unna boot placement. Past History Past Medical History: COPD, heart failure, other (chronic respiratory failure on home oxygen therapy.) Past Surgical History: hysterectomy, Other (lumpectomy) Social history: denies: smoking, alcohol abuse Family history: other (details are not obtainable at this time.) Medications and Allergies Allergies Allergy/AdvReac Type Severity Reaction Status Date / Time methylprednisolone sodium Allergy Itching Verified 09/15/16 10:40 succinate [From Solu-Medrol] Home Medications Medication Instructions Recorded Confirmed Last Taken Type ALBUTEROL Inhaler [ProAir HFA 1 puff IH Q4H PRN #1 inha 09/20/16 11/11/16 Unknown Rx Inhaler] Arformoterol Nebu [Brovana Nebu] 15 mcg IH Q12HRT #1 ml 09/20/16 11/11/16 Unknown Rx Aspirin [Aspirin TAB] 325 mg PO QDAY #30 tablet 09/20/16 11/11/16 Unknown Rx Budesonide [Pulmicort Respules] 0.5 mg IH Q12HRT #1 nebu 09/20/16 11/11/16 Unknown Rx Hydrochlorothiazide [HCTZ] 25 mg PO QDAY #30 tablet 09/20/16 11/11/16 Unknown Rx Lidocaine Topical 2% [Xylocaine 1 applic TP Q8H PRN #1 tube 09/20/16 11/11/16 Unknown Rx Topical 2%] Lisinopril [Zestril TAB] 10 mg PO QDAY #30 tablet 09/20/16 11/11/16 Unknown Rx Oxycodone HCl/Acetaminophen 1 each PO Q6HR PRN #28 tablet 09/20/16 11/11/16 Unknown Rx [Percocet 7.5/325 mg] Pantoprazole [Protonix TAB] 40 mg PO DAILY #30 tablet 09/20/16 11/11/16 Unknown Rx Active Meds: Active Medications Acetaminophen (Tylenol) 650 mg OR Q4H PRN PRN Reason: Pain MILD(1-3)/Fever >100.5/ZIMMERMAN Albuterol (Proventil) 2.5 mg IH Q4HRT PRN PRN Reason: Shortness Of Breath Albuterol/Ipratropium (Duoneb 0.5 Mg-3 Mg/3 Ml Soln) 1 ampul IH Q6HRT [facility] Last Admin: 11/15/16 13:58 Dose: 1 ampul Lipase/Protease/Amylase (Pancreaze Dr 10,500 Unit) 1 each FEEDTUBE PRN PRN PRN Reason: For Clogged Feeding Tube Arformoterol Tartrate (Brovana Nebu) 15 mcg IH Q12HRT [facility] Last Admin: 11/15/16 07:50 Dose: Not Given Dextrose (D50w (25gm)) 50 ml IV PRN PRN PRN Reason: Hypoglycemia Enoxaparin Sodium (Lovenox) 40 mg SUB-Q QDAY [facility] Last Admin: 11/15/16 10:24 Dose: 40 mg Famotidine (Pepcid) 20 mg IV BID [facility] Last Admin: 11/15/16 10:24 Dose: 20 mg Hydrophilic Ointment (Vaseline Lip Therapy) 1 applic TP Q2HR PRN PRN Reason: Dry Lips Fentanyl Citrate (Fentanyl Drip Premix) 2,000 mcg in 100 mls @ 7.258 mls/hr IV TITR SHANNON; 1 MCG/KG/HR PRN Reason: Protocol Last Titration: 11/14/16 17:43 Dose: 0 mcg/kg/hr, 0 mls/hr Azithromycin 500 mg/ Sodium (Chloride) 250 mls @ 250 mls/hr IV Q24HR SHANNON PRN Reason: Protocol Last Admin: 11/15/16 10:27 Dose: 250 mls/hr Ceftriaxone Sodium (Rocephin/Ns 1 Gm/50 Ml) 1 gm in 50 mls @ 100 mls/hr IV Q24HR SHANNON PRN Reason: Protocol Last Admin: 11/15/16 10:24 Dose: 100 mls/hr Propofol (Diprivan 10 Mg/Ml) 1,000 mg in 100 mls @ 4.355 mls/hr IV TITR SHANNON; 5 MCG/KG/MIN PRN Reason: Protocol Levofloxacin/Dextrose (Levaquin 750mg/150ml) 750 mg in 150 mls @ 100 mls/hr IV Q24HR SHANNON PRN Reason: Protocol Last Admin: 11/15/16 10:25 Dose: 100 mls/hr Insulin Aspart (Novolog) 0 units SUB-Q Q6HR SHANNON PRN Reason: Protocol Last Admin: 11/15/16 12:42 Dose: 4 units Multi-Ingred Cream/Lotion/Oil/Oint (Artificial Tears Ophth Oint) 1 applic OU Q4HR PRN PRN Reason: Dry Eye(s) Ondansetron HCl (Zofran) 4 mg IV Q8H PRN PRN Reason: N/V unrelieved by Reglan Prednisone (Deltasone) 40 mg FEEDTUBE Q12H [facility] Last Admin: 11/15/16 16:10 Dose: 40 mg Scopolamine (Transderm-Scop) 1 each TD Q3D [facility] Last Admin: 11/13/16 13:59 Dose: 1 each Simple Syrup (Simple Syrup) 15 ml FEEDTUBE PRN PRN PRN Reason: Hypoglycemia Simple Syrup (Simple Syrup) 30 ml FEEDTUBE PRN PRN PRN Reason: Hypoglycemia Sodium Bicarbonate (Sodium Bicarbonate) 325 mg FEEDTUBE PRN PRN PRN Reason: For Clogged Feeding Tube Review of Systems All systems: negative (see HPI) Exam - Constitutional Vitals: Temp Pulse Resp BP Pulse Ox 98.5 F 101 H 24 129/62 92 11/15/16 16:00 11/15/16 16:00 11/15/16 16:00 11/15/16 16:00 11/15/16 13:00 General appearance: Present: mild distress (shortness of breath with minimal movement) - EENT Eyes: Present: EOM intact ENT: hearing intact - Respiratory Respiratory effort: labored - Extremities Extremities: normal temperature, normal color Extremity abnormal: other (please see history of present illness) - Abdominal General gastrointestinal: Present: soft - Psychiatric Psychiatric: appropriate mood/affect, cooperative Results - Labs CBC & Chem 7: 11/14/16 08:17 11/15/16 05:11 Labs: Abnormal lab results 11/14/16 11/15/16 11/15/16 Range/Units 17:31 00:12 05:04 Sodium (137-145) mmol/L Chloride (98-107) mmol/L Carbon Dioxide (22-30) mmol/L BUN (7-17) mg/dL Creatinine (0.7-1.2) mg/dL Glucose (65-100) mg/dL POC Glucose 126 H 245 H 144 H (70-105) Calcium (8.4-10.2) mg/dL 11/15/16 11/15/16 11/15/16 Range/Units 05:11 08:03 12:02 Sodium 146 H (137-145) mmol/L Chloride 96.8 L (98-107) mmol/L Carbon Dioxide 38 H (22-30) mmol/L BUN 19 H (7-17) mg/dL Creatinine 0.5 L (0.7-1.2) mg/dL Glucose 139 H (65-100) mg/dL POC Glucose 172 H 272 H (70-105) Calcium 8.3 L (8.4-10.2) mg/dL 11/15/16 Range/Units 17:25 Sodium (137-145) mmol/L Chloride (98-107) mmol/L Carbon Dioxide (22-30) mmol/L BUN (7-17) mg/dL Creatinine (0.7-1.2) mg/dL Glucose (65-100) mg/dL POC Glucose 203 H (70-105) Calcium (8.4-10.2) mg/dL Assessment and Plan 56-year-old female with multiple medical problems including COPD and CHF requiring intubation. Patient has subsequently been activated. Patient has trauma to the left second digit, with a subungual hematoma. Recommend discontinuation of Betadine application to the left second digit. This was discussed with the nurse. Patient has palpable pedal pulses. Arterial ultrasounds be obtained for confirmation purposes. Patient has venous insufficiency changes to bilateral lower extremities and linear cracks in the posterior aspect of her right ankle which had the beginnings of venous ulcers which she has had in the past. Recommend wound nurse consult for Unna boot placement which needs to be performed 3 times a week. Recommend referral to wound care upon discharge. Patient can follow-up with us after discharge. Provided patient card. Given her significant comorbidities, active venous ulcer would be the only indication for endovenous ablation.
[2016-11-16] MEDS: NOVOLOG SUB-Q SCH ×5 (00:15→22:58)
[2016-11-16] MEDS: DUONEB 0.5 MG-3 MG/3 ML SOLN IH SCH ×4 (02:25→19:48)
[2016-11-16] MEDS: DELTASONE FEEDTUBE SCH ×2 (05:08→15:42)
[2016-11-16] MEDS: BROVANA NEBU IH SCH ×2 (08:15→19:48)
--- NOTE | 2016-11-16 09:53 | Event Note ---
Date: 11/16/16 Awaiting arterial vascular lab studies. Suspect will be relatively normal given palpable pulses. Further recommendations to follow once vascular labs performed.
[2016-11-16] MEDS: LEVAQUIN PO SCH (12:22)
[2016-11-16] MEDS: ZITHROMAX PO SCH (12:22)
[2016-11-16] MEDS: PEPCID PO SCH ×2 (12:22→21:19)
[2016-11-16] MEDS: TRANSDERM-SCOP TD SCH (12:23)
[2016-11-16] MEDS: LOVENOX SUB-Q SCH (12:23)
[2016-11-16] MEDS: ROCEPHIN/NS 1 GM/50 ML 1 GM/50 ML BAG IV SCH (12:24)
--- NOTE | 2016-11-16 15:21 | Progress Note ---
Assessment and Plan - Patient Problems (1) Acute hypoxemic respiratory failure Current Visit: No Status: Acute Plan to address problem: Extubated. NIPPV qhs and prn VTE and stress ulcer prophylaxis PT/OT to evaluate and treat. Home oxygen evaluation prior to discharge (2) Acute on chronic respiratory failure with hypercapnia Current Visit: Yes Status: Acute Plan to address problem: Nocturnal BIPAP Supplemental oxygen to keep O2 sats>90 (3) CAP (community acquired pneumonia) Current Visit: Yes Status: Acute Plan to address problem: With her history of severe COPD and home oxygen therapy- add levofloxacin. Complete 7 day course of antibiotics (4) Morbid obesity Current Visit: Yes Status: Chronic Qualifiers: Obesity type: O Plan to address problem: Will need lifestyle modifications, weight loss and exercise regimen (5) Acute exacerbation of chronic obstructive pulmonary disease (COPD) Current Visit: Yes Status: Acute Plan to address problem: Continue bronchodilators, steroids-taper (6) Diastolic heart failure Current Visit: Yes Status: Acute Qualifiers: Heart failure chronicity: H Plan to address problem: Optimize fluid status, blood pressure control Subjective Date of service: 11/16/16 Principal diagnosis: Acute on chronic respiratory failure on mechanical ventilatory support Interval history: No acute overnight events reported. NIPPV overnight. Tolerating a diet, currently on oxygen via NC with adequate saturations Patient was seen and examined. Vitals, labs, medications, chart and imaging were reviewed. Objective - Exam Narrative Exam: GENERAL: The patient appeared well nourished and normally developed. Vital signs as documented. HEAD: No signs of head trauma, atraumatic, normocephalic, obese. EYES: Pupils are equal. Extraocular motions intact. EARS: Hearing grossly intact. NECK: No adenopathy, no JVD. CHEST: Chest with vesicular breath sounds bilaterally. No wheezes, rales, or rhonchi. CARDIAC: Regular rate and rhythm. S1 and S2, without murmurs, gallops, or rubs. VASCULAR: No Edema. Peripheral pulses normal and equal in all extremities. Right lower extremity- erythema with some induration, chronic venous stasis changes, edema ABDOMEN: Soft, without detectable tenderness. No sign of distention. No rebound or guarding, and no masses palpated. Bowel Sounds normal. MUSCULOSKELETAL: Good range of motion of all major joints. Extremities without clubbing, cyanosis or edema. NEUROLOGIC EXAM: Alert and oriented x 3. No focal sensory or strength deficits. Follows commands PSYCHIATRIC: Affect appears normal Vital Signs - 12hr 11/16/16 11/16/16 11/16/16 07:00 08:00 08:10 Temperature 97.6 F Pulse Rate 62 Pulse Rate [ 76 82 Anterior Bilateral Throughout] Respiratory 18 Rate Respiratory 18 18 Rate [Anterior Bilateral Throughout] Blood Pressure 167/76 [Left] O2 Sat by Pulse 96 Oximetry 11/16/16 11/16/16 11/16/16 10:00 13:47 14:00 Temperature Pulse Rate Pulse Rate [ 85 78 Anterior Bilateral Throughout] Respiratory Rate Respiratory 18 18 Rate [Anterior Bilateral Throughout] Blood Pressure [Left] O2 Sat by Pulse 96 Oximetry CBC and BMP: 11/14/16 08:17 11/15/16 05:11 ABG, PT/INR, D-dimer: ABG POC ABG pH 7.394 (7.35-7.45) 11/14/16 09:22 POC ABG pCO2 78.3 (35-45) H 11/14/16 09:22 POC ABG pO2 94 (80-105) 11/14/16 09:22 POC ABG HCO3 47.8 11/14/16 09:22 POC ABG Total CO2 > 50 11/14/16 09:22 POC ABG O2 Sat 97 11/14/16 09:22 PT/INR, D-dimer PT 13.7 Sec. (12.2-14.9) 11/11/16 23:37 INR 1.06 (0.87-1.13) 11/11/16 23:37 D-Dimer 716.99 ng/mlDDU (0-234) H 11/12/16 16:54 Abnormal lab findings: Abnormal Labs 11/12/16 11/12/16 11/12/16 05:18 11:41 16:18 RDW Plt Count Lymph % (Auto) Lymph # Seg Neutrophils % D-Dimer POC ABG pH 7.578 H POC ABG pCO2 49.4 H POC ABG pO2 Sodium Chloride Carbon Dioxide BUN Creatinine Glucose POC Glucose 215 H 206 H Lactic Acid Calcium Phosphorus CK-MB (CK-2) Rel Index 11/12/16 11/12/16 11/12/16 16:54 16:55 20:11 RDW Plt Count Lymph % (Auto) Lymph # Seg Neutrophils % D-Dimer 716.99 H POC ABG pH 7.495 H POC ABG pCO2 59.6 H POC ABG pO2 64 L Sodium Chloride Carbon Dioxide BUN Creatinine Glucose POC Glucose Lactic Acid Calcium Phosphorus 2.00 L CK-MB (CK-2) Rel Index 11/12/16 11/12/16 11/13/16 Unknown Unknown 03:47 RDW 16.5 H Plt Count Lymph % (Auto) 7.3 L Lymph # 0.6 L Seg Neutrophils % 86.2 H D-Dimer POC ABG pH POC ABG pCO2 POC ABG pO2 Sodium Chloride Carbon Dioxide BUN Creatinine Glucose POC Glucose Lactic Acid 2.60 H* Calcium Phosphorus CK-MB (CK-2) Rel Index 5.4 H 11/13/16 11/13/16 11/14/16 03:47 04:27 04:31 RDW Plt Count Lymph % (Auto) Lymph # Seg Neutrophils % D-Dimer POC ABG pH 7.482 H POC ABG pCO2 72.5 H 62.9 H POC ABG pO2 107 H 71 L Sodium Chloride 97.3 L Carbon Dioxide 41 H* BUN 26 H Creatinine 0.5 L Glucose 176 H POC Glucose Lactic Acid Calcium 8.3 L Phosphorus CK-MB (CK-2) Rel Index 11/14/16 11/14/16 11/14/16 08:17 08:17 09:22 RDW 16.3 H Plt Count 132 L Lymph % (Auto) Lymph # Seg Neutrophils % D-Dimer POC ABG pH POC ABG pCO2 78.3 H POC ABG pO2 Sodium 147 H Chloride 96.7 L Carbon Dioxide 41 H* BUN 21 H Creatinine 0.5 L Glucose 193 H POC Glucose Lactic Acid Calcium Phosphorus CK-MB (CK-2) Rel Index 11/14/16 11/14/16 11/15/16 11:54 17:31 00:12 RDW Plt Count Lymph % (Auto) Lymph # Seg Neutrophils % D-Dimer POC ABG pH POC ABG pCO2 POC ABG pO2 Sodium Chloride Carbon Dioxide BUN Creatinine Glucose POC Glucose 162 H 126 H 245 H Lactic Acid Calcium Phosphorus CK-MB (CK-2) Rel Index 11/15/16 11/15/16 11/15/16 05:04 05:11 08:03 RDW Plt Count Lymph % (Auto) Lymph # Seg Neutrophils % D-Dimer POC ABG pH POC ABG pCO2 POC ABG pO2 Sodium 146 H Chloride 96.8 L Carbon Dioxide 38 H BUN 19 H Creatinine 0.5 L Glucose 139 H POC Glucose 144 H 172 H Lactic Acid Calcium 8.3 L Phosphorus CK-MB (CK-2) Rel Index 11/15/16 11/15/16 11/15/16 12:02 17:25 21:11 RDW Plt Count Lymph % (Auto) Lymph # Seg Neutrophils % D-Dimer POC ABG pH POC ABG pCO2 POC ABG pO2 Sodium Chloride Carbon Dioxide BUN Creatinine Glucose POC Glucose 272 H 203 H 133 H Lactic Acid Calcium Phosphorus CK-MB (CK-2) Rel Index 11/16/16 05:21 RDW Plt Count Lymph % (Auto) Lymph # Seg Neutrophils % D-Dimer POC ABG pH POC ABG pCO2 POC ABG pO2 Sodium Chloride Carbon Dioxide BUN Creatinine Glucose POC Glucose 193 H Lactic Acid Calcium Phosphorus CK-MB (CK-2) Rel Index Allied health notes reviewed: RT
--- NOTE | 2016-11-16 16:30 | Progress Note ---
Assessment and Plan - Patient Problems (1) Acute and chronic respiratory failure with hypoxia Current Visit: Yes Status: Acute Plan to address problem: Patient extubated and she is on 2LNC BiPAP at night Home oxygen evaluation prior to discharge (2) Acute diastolic heart failure Current Visit: Yes Status: Acute Plan to address problem: Continue Lasix, beta blockers, PRECIOUS inhibitor Strict I/O's and daily weights No sodium/ cardiac diet Fluid restriction 1200 ml in 24 hours Cause of monitor electrolytes Followed by cardiology (3) Acute exacerbation of chronic obstructive pulmonary disease (COPD) Current Visit: Yes Status: Acute Plan to address problem: Patient oxygen dependent Started on Duoneb Q6hrs IV steroid Solu-Medrol 40mg every 6 hours (4) CAP (community acquired pneumonia) Current Visit: Yes Status: Acute Plan to address problem: Patient completed 7 days course of antibiotics Started on Levaquin per Pulmonology (5) HTN (hypertension), benign Current Visit: Yes Status: Chronic Plan to address problem: We will continue home blood pressure medicine (6) Ulcer of left second toe Current Visit: Yes Status: Acute Qualifiers: Non-pressure ulcer stage: N Plan to address problem: Wound care consulted (7) Venous (peripheral) insufficiency Current Visit: Yes Status: Acute Plan to address problem: Continue current treatment wound nurse consult for Unna boot placement (8) Morbid obesity Current Visit: Yes Status: Chronic Qualifiers: Obesity type: O Plan to address problem: Discussed about the importance of physical exercise and low-fat diet reducing intake of high-fat foods to improve cardiovascular disease and patient agreed upon course of action History Interval history: Patient verbalized feeling better, but still has dyspnea with exertion other than that no acute respiratory distress. Hospitalist Physical - Constitutional Vitals: Temp Pulse Resp BP Pulse Ox 97.6 F 78 18 167/76 96 11/16/16 07:00 11/16/16 14:00 11/16/16 14:00 11/16/16 07:00 11/16/16 10:00 General appearance: Present: mild distress (shortness of breath with minimal movement) - EENT Eyes: Present: PERRL ENT: hearing intact - Neck Neck: Present: supple, normal ROM - Respiratory Respiratory effort: normal Respiratory: bilateral: diminished - Cardiovascular Heart rate: 69 (She is on 2LNC) Rhythm: regular Heart Sounds: Present: S1 & S2 - Extremities Extremity abnormal: edema (Right erythema and swelling ) Results - Labs CBC & Chem 7: 11/14/16 08:17 11/15/16 05:11 Labs: Laboratory Last Values WBC 10.6 K/mm3 (4.5-11.0) 11/14/16 08:17 RBC 4.31 M/mm3 (3.65-5.03) 11/14/16 08:17 Hgb 13.2 gm/dl (10.1-14.3) 11/14/16 08:17 Hct 41.8 % (30.3-42.9) 11/14/16 08:17 MCV 97 fl (79-97) 11/14/16 08:17 MCH 31 pg (28-32) 11/14/16 08: MCHC 32 % (30-34) 11/14/16 08: RDW 16.3 % (13.2-15.2) H 11/14/16 08:17 Plt Count 132 K/mm3 (140-440) L 11/14/16 08:17 Lymph % (Auto) 7.3 % (13.4-35.0) L 11/13/16 03:47 [place] % (Auto) 6.1 % (0.0-7.3) 11/13/16 03:47 Eos % (Auto) 0.0 % (0.0-4.3) 11/13/16 03:47 Baso % (Auto) 0.4 % (0.0-1.8) 11/13/16 03:47 Lymph # 0.6 K/mm3 (1.2-5.4) L 11/13/16 03:47 [place] # 0.5 K/mm3 (0.0-0.8) 11/13/16 03:47 Eos # 0.0 K/mm3 (0.0-0.4) 11/13/16 03:47 Baso # 0.0 K/mm3 (0.0-0.1) 11/13/16 03:47 Seg Neutrophils % 86.2 % (40.0-70.0) H 11/13/16 03:47 Seg Neutrophils # 7.6 K/mm3 (1.8-7.7) 11/13/16 03:47 PT 13.7 Sec. (12.2-14.9) 11/11/16 23:37 INR 1.06 (0.87-1.13) 11/11/16 23:37 D-Dimer 716.99 ng/mlDDU (0-234) H 11/12/16 16:54 POC ABG pH 7.394 (7.35-7.45) 11/14/16 09:22 POC ABG pCO2 78.3 (35-45) H 11/14/16 09:22 POC ABG pO2 94 (80-105) 11/14/16 09:22 POC ABG HCO3 47.8 11/14/16 09:22 POC ABG Total CO2 > 50 11/14/16 09:22 POC ABG O2 Sat 97 11/14/16 09:22 POC ABG Base Excess 23 11/14/16 09:22 FiO2 40 % 11/14/16 09:22 Sodium 146 mmol/L (137-145) H 11/15/16 05:11 Potassium 4.0 mmol/L (3.6-5.0) 11/15/16 05:11 Chloride 96.8 mmol/L (98-107) L 11/15/16 05:11 Carbon Dioxide 38 mmol/L (22-30) H 11/15/16 05:11 Anion Gap 15 mmol/L 11/15/16 05:11 BUN 19 mg/dL (7-17) H 11/15/16 05:11 Creatinine 0.5 mg/dL (0.7-1.2) L 11/15/16 05:11 Estimated GFR > 60 ml/min 11/15/16 05:11 BUN/Creatinine Ratio 38.00 % 11/15/16 05:11 Glucose 139 mg/dL (65-100) H 11/15/16 05:11 POC Glucose 173 (70-105) H 11/16/16 15:40 Lactic Acid 1.20 mmol/L (0.7-2.0) 11/13/16 09:10 Calcium 8.3 mg/dL (8.4-10.2) L 11/15/16 05:11 Phosphorus 2.00 mg/dL (2.5-4.5) L 11/12/16 16:55 Magnesium 1.90 mg/dL (1.7-2.3) 11/14/16 08:17 Total Creatine Kinase 42 units/L (30-135) 11/12/16 Unknown CK-MB (CK-2) 2.3 ng/mL (0.0-4.0) 11/12/16 Unknown CK-MB (CK-2) Rel Index 5.4 (0-4) H 11/12/16 Unknown Troponin T < 0.010 ng/mL (0.00-0.029) 11/12/16 Unknown NT-Pro-B Natriuret Pep 2574 pg/mL (0-900) H 11/11/16 23:37 Urine Color Yellow (Yellow) 11/12/16 01:45 Urine Turbidity Slightly-cloudy (Clear) 11/12/16 01:45 Urine pH 5.0 (5.0-7.0) 11/12/16 01:45 Ur Specific [place] 1.021 (1.003-1.030) 11/12/16 01:45 Urine Protein 100 mg/dl mg/dL (Negative) 11/12/16 01:45 Urine Glucose (UA) Neg mg/dL (Negative) 11/12/16 01:45 Urine Ketones Tr mg/dL (Negative) 11/12/16 01:45 Urine Blood Neg (Negative) 11/12/16 01:45 Urine Nitrite Neg (Negative) 11/12/16 01:45 Urine Bilirubin Neg (Negative) 11/12/16 01:45 Urine Urobilinogen < 2.0 mg/dL (<2.0) 11/12/16 01:45 Ur Leukocyte Esterase Tr (Negative) 11/12/16 01:45 Urine WBC (Auto) 10.0 /HPF (0.0-6.0) H 11/12/16 01:45 Urine RBC (Auto) 3.0 /HPF (0.0-6.0) 11/12/16 01:45 U Epithel Cells (Auto) 2.0 /HPF (0-13.0) 11/12/16 01:45 Urine Bacteria (Auto) 4+ /HPF (Negative) 11/12/16 01:45
[2016-11-17] MEDS: DUONEB 0.5 MG-3 MG/3 ML SOLN IH SCH ×3 (02:26→13:24)
[2016-11-17] MEDS: DELTASONE FEEDTUBE SCH ×2 (06:07→18:07)
--- NOTE | 2016-11-17 07:26 | Vascular Lab Report ---
LOWER EXTREMITY ARTERIAL PHYSIOLOGIC STUDY: REASON FOR EXAM: Peripheral arterial disease. COMMENTS ON THE RIGHT: Ankle brachial index is 1.15. This value is normal. Toe brachial index is 0.97. This value is normal. Wound healing is likely. Pulse volume recording at the level of the ankle is normal. Exercise testing was not done. COMMENTS ON THE LEFT: Ankle brachial index is 1.15. This value is normal. Toe brachial index is 1.15. This value is normal. Wound healing is likely. Pulse volume recording at the level of the ankle is normal. Exercise testing was not done. IMPRESSION: RIGHT: No hemodynamically significant arterial disease. LEFT:No hemodynamically significant arterial disease.
--- NOTE | 2016-11-17 07:27 | Vascular Lab Report ---
LOWER EXTREMITY ARTERIAL DUPLEX: REASON FOR EXAM: Peripheral arterial disease. COMMENTS ON THE RIGHT: Triphasic waveforms are seen proximally. Biphasic waveforms are seen distally. No significant velocity gradients are identified. No focal significant plaque is identified. Findings are consistent with normal perfusion. Findings are consistent with the ability to heal distal wounds. COMMENTS ON THE LEFT: Triphasic waveforms are seen proximally. Biphasic waveforms are seen distally. No significant velocity gradients are identified. No focal significant plaque is identified. Findings are consistent with normal perfusion. Findings are consistent with the ability to heal distal wounds. IMPRESSION: RIGHT: Essentially normal arterial flow. LEFT:Essentially normal arterial flow.
[2016-11-17] MEDS: BROVANA NEBU IH SCH (07:39)
[2016-11-17] MEDS: NOVOLOG SUB-Q SCH ×3 (08:43→18:07)
[2016-11-17 09:06] VITALS: BP 166/84
[2016-11-17 09:20] LABS: Anion Gap 13 mmol/L; Blood Urea Nitrogen 23 mg/dL (7-17); Calcium 8.7 mg/dL (8.4-10.2); Carbon Dioxide 39 mmol/L (22-30); Glucose 127 mg/dL (65-100); Potassium 4.1 mmol/L (3.6-5.0); Sodium 144 mmol/L (137-145)
[2016-11-17] MEDS: ROCEPHIN/NS 1 GM/50 ML 1 GM/50 ML BAG IV SCH (10:38)
[2016-11-17] MEDS: ZITHROMAX PO SCH (10:39)
[2016-11-17] MEDS: PEPCID PO SCH (10:40)
[2016-11-17] MEDS: LEVAQUIN PO SCH (10:40)
[2016-11-17] MEDS: LOVENOX SUB-Q SCH (10:40)
--- NOTE | 2016-11-17 11:15 | Progress Note ---
Assessment and Plan - Patient Problems (1) Acute hypoxemic respiratory failure Status: Acute Plan to address problem: Extubated. NIPPV qhs and prn VTE and stress ulcer prophylaxis PT/OT to evaluate and treat. Home oxygen evaluation prior to discharge (2) Acute on chronic respiratory failure with hypercapnia Status: Acute Plan to address problem: Nocturnal BIPAP Supplemental oxygen to keep O2 sats>90 (3) CAP (community acquired pneumonia) Status: Acute Plan to address problem: With her history of severe COPD and home oxygen therapy- add levofloxacin. Complete 7 day course of antibiotics (4) Morbid obesity Status: Chronic Qualifiers: Obesity type: O Plan to address problem: Will need lifestyle modifications, weight loss and exercise regimen (5) Acute exacerbation of chronic obstructive pulmonary disease (COPD) Status: Acute Plan to address problem: Continue bronchodilators, steroids-taper (6) Diastolic heart failure Status: Deleted Qualifiers: Heart failure chronicity: H Plan to address problem: Optimize fluid status, blood pressure control Subjective Date of service: 11/17/16 Principal diagnosis: Acute on chronic respiratory failure on mechanical ventilatory support Interval history: No acute overnight events reported. NIPPV overnight. Tolerating a diet, currently on oxygen via NC with adequate saturations Patient was seen and examined. Vitals, labs, medications, chart and imaging were reviewed. Objective - Exam Narrative Exam: GENERAL: The patient appeared well nourished and normally developed. Vital signs as documented. HEAD: No signs of head trauma, atraumatic, normocephalic, obese. EYES: Pupils are equal. Extraocular motions intact. EARS: Hearing grossly intact. NECK: No adenopathy, no JVD. CHEST: Chest with vesicular breath sounds bilaterally. No wheezes, rales, or rhonchi. CARDIAC: Regular rate and rhythm. S1 and S2, without murmurs, gallops, or rubs. VASCULAR: No Edema. Peripheral pulses normal and equal in all extremities. Right lower extremity- erythema with some induration, chronic venous stasis changes, edema ABDOMEN: Soft, without detectable tenderness. No sign of distention. No rebound or guarding, and no masses palpated. Bowel Sounds normal. MUSCULOSKELETAL: Good range of motion of all major joints. Extremities without clubbing, cyanosis or edema. NEUROLOGIC EXAM: Alert and oriented x 3. No focal sensory or strength deficits. Follows commands PSYCHIATRIC: Affect appears normal Vital Signs - 12hr 11/16/16 11/16/16 11/17/16 23:17 23:40 02:20 Temperature 97.9 F Pulse Rate 57 L 72 Pulse Rate [ 81 Anterior Bilateral Throughout] Respiratory 18 17 Rate Respiratory 16 Rate [Anterior Bilateral Throughout] Respiratory Rate [Bilateral Chest] Blood Pressure 145/82 [Left] O2 Sat by Pulse 95 93 Oximetry 11/17/16 11/17/16 11/17/16 02:30 09:05 10:46 Temperature 98.5 F Pulse Rate 59 L Pulse Rate [ 85 Anterior Bilateral Throughout] Respiratory 20 Rate Respiratory 16 Rate [Anterior Bilateral Throughout] Respiratory 16 Rate [Bilateral Chest] Blood Pressure 166/84 [Left] O2 Sat by Pulse 94 Oximetry CBC and BMP: 11/14/16 08:17 11/17/16 08:17 ABG, PT/INR, D-dimer: ABG POC ABG pH 7.394 (7.35-7.45) 11/14/16 09:22 POC ABG pCO2 78.3 (35-45) H 11/14/16 09:22 POC ABG pO2 94 (80-105) 11/14/16 09:22 POC ABG HCO3 47.8 11/14/16 09:22 POC ABG Total CO2 > 50 11/14/16 09:22 POC ABG O2 Sat 97 11/14/16 09:22 PT/INR, D-dimer PT 13.7 Sec. (12.2-14.9) 11/11/16 23:37 INR 1.06 (0.87-1.13) 11/11/16 23:37 D-Dimer 716.99 ng/mlDDU (0-234) H 11/12/16 16:54 Abnormal lab findings: Abnormal Labs 11/12/16 11/12/16 11/12/16 05:18 11:41 16:18 RDW Plt Count Lymph % (Auto) Lymph # Seg Neutrophils % D-Dimer POC ABG pH 7.578 H POC ABG pCO2 49.4 H POC ABG pO2 Sodium Chloride Carbon Dioxide BUN Creatinine Glucose POC Glucose 215 H 206 H Lactic Acid Calcium Phosphorus CK-MB (CK-2) Rel Index 11/12/16 11/12/16 11/12/16 16:54 16:55 20:11 RDW Plt Count Lymph % (Auto) Lymph # Seg Neutrophils % D-Dimer 716.99 H POC ABG pH 7.495 H POC ABG pCO2 59.6 H POC ABG pO2 64 L Sodium Chloride Carbon Dioxide BUN Creatinine Glucose POC Glucose Lactic Acid Calcium Phosphorus 2.00 L CK-MB (CK-2) Rel Index 11/12/16 11/12/16 11/13/16 Unknown Unknown 03:47 RDW 16.5 H Plt Count Lymph % (Auto) 7.3 L Lymph # 0.6 L Seg Neutrophils % 86.2 H D-Dimer POC ABG pH POC ABG pCO2 POC ABG pO2 Sodium Chloride Carbon Dioxide BUN Creatinine Glucose POC Glucose Lactic Acid 2.60 H* Calcium Phosphorus CK-MB (CK-2) Rel Index 5.4 H 11/13/16 11/13/16 11/14/16 03:47 04:27 04:31 RDW Plt Count Lymph % (Auto) Lymph # Seg Neutrophils % D-Dimer POC ABG pH 7.482 H POC ABG pCO2 72.5 H 62.9 H POC ABG pO2 107 H 71 L Sodium Chloride 97.3 L Carbon Dioxide 41 H* BUN 26 H Creatinine 0.5 L Glucose 176 H POC Glucose Lactic Acid Calcium 8.3 L Phosphorus CK-MB (CK-2) Rel Index 11/14/16 11/14/16 11/14/16 08:17 08:17 09:22 RDW 16.3 H Plt Count 132 L Lymph % (Auto) Lymph # Seg Neutrophils % D-Dimer POC ABG pH POC ABG pCO2 78.3 H POC ABG pO2 Sodium 147 H Chloride 96.7 L Carbon Dioxide 41 H* BUN 21 H Creatinine 0.5 L Glucose 193 H POC Glucose Lactic Acid Calcium Phosphorus CK-MB (CK-2) Rel Index 11/14/16 11/14/16 11/15/16 11:54 17:31 00:12 RDW Plt Count Lymph % (Auto) Lymph # Seg Neutrophils % D-Dimer POC ABG pH POC ABG pCO2 POC ABG pO2 Sodium Chloride Carbon Dioxide BUN Creatinine Glucose POC Glucose 162 H 126 H 245 H Lactic Acid Calcium Phosphorus CK-MB (CK-2) Rel Index 11/15/16 11/15/16 11/15/16 05:04 05:11 08:03 RDW Plt Count Lymph % (Auto) Lymph # Seg Neutrophils % D-Dimer POC ABG pH POC ABG pCO2 POC ABG pO2 Sodium 146 H Chloride 96.8 L Carbon Dioxide 38 H BUN 19 H Creatinine 0.5 L Glucose 139 H POC Glucose 144 H 172 H Lactic Acid Calcium 8.3 L Phosphorus CK-MB (CK-2) Rel Index 11/15/16 11/15/16 11/15/16 12:02 17:25 21:11 RDW Plt Count Lymph % (Auto) Lymph # Seg Neutrophils % D-Dimer POC ABG pH POC ABG pCO2 POC ABG pO2 Sodium Chloride Carbon Dioxide BUN Creatinine Glucose POC Glucose 272 H 203 H 133 H Lactic Acid Calcium Phosphorus CK-MB (CK-2) Rel Index 11/16/16 11/16/16 11/16/16 05:21 11:38 15:40 RDW Plt Count Lymph % (Auto) Lymph # Seg Neutrophils % D-Dimer POC ABG pH POC ABG pCO2 POC ABG pO2 Sodium Chloride Carbon Dioxide BUN Creatinine Glucose POC Glucose 193 H 261 H 173 H Lactic Acid Calcium Phosphorus CK-MB (CK-2) Rel Index 11/16/16 11/17/16 11/17/16 21:49 05:48 08:17 RDW Plt Count Lymph % (Auto) Lymph # Seg Neutrophils % D-Dimer POC ABG pH POC ABG pCO2 POC ABG pO2 Sodium Chloride 96.0 L Carbon Dioxide 39 H BUN 23 H Creatinine 0.5 L Glucose 127 H POC Glucose 244 H 167 H Lactic Acid Calcium Phosphorus CK-MB (CK-2) Rel Index Allied health notes reviewed: RT
--- NOTE | 2016-11-17 13:08 | Progress Note ---
Assessment and Plan Arterial duplex and ankle-brachial indices results were reviewed. Patient appears to have showing normal arterial flow to her lower extremities. No arterial intervention required at this point. The patient can follow up in our office for further evaluation and possible venous insufficiency. This was discussed with the patient, who states understanding. - Patient Problems (1) Ulcer of left second toe Current Visit: Yes Status: Acute Qualifiers: Non-pressure ulcer stage: N (2) Venous (peripheral) insufficiency Current Visit: Yes Status: Acute (3) Morbid obesity Current Visit: Yes Status: Chronic Qualifiers: Obesity type: O (4) CHF (congestive heart failure) Current Visit: No Status: Acute Qualifiers: Congestive heart failure type: unspecified congestive heart failure type Congestive heart failure chronicity: acute on chronic Qualified Code(s): I50.9 - Heart failure, unspecified (5) COPD exacerbation Current Visit: No Status: Acute Subjective Date of service: 11/17/16 Principal diagnosis: Acute on chronic respiratory failure on mechanical ventilatory support Interval history: Patient is awake and alert without specific complaint at present. Objective - Constitutional Vitals: Vital Signs - 12hr 11/17/16 11/17/16 11/17/16 02:20 02:30 07:39 Temperature Pulse Rate Pulse Rate [ 81 85 68 Anterior Bilateral Throughout] Respiratory Rate Respiratory 16 16 20 Rate [Anterior Bilateral Throughout] Respiratory Rate [Bilateral Chest] Blood Pressure [Left] O2 Sat by Pulse 95 Oximetry 11/17/16 11/17/16 11/17/16 07:50 09:05 10:46 Temperature 98.5 F Pulse Rate 59 L Pulse Rate [ 70 Anterior Bilateral Throughout] Respiratory 20 Rate Respiratory 20 Rate [Anterior Bilateral Throughout] Respiratory 16 Rate [Bilateral Chest] Blood Pressure 166/84 [Left] O2 Sat by Pulse 94 Oximetry General appearance: Present: no acute distress - EENT Eyes: EOM intact ENT: hearing intact - Neck Neck: supple - Respiratory Respiratory effort: normal Extremity abnormal: edema (bilateral lower extremity) - Neurologic Neurologic: no focal deficits - Psychiatric Psychiatric: appropriate mood/affect, intact judgment & insight, cooperative - Labs CBC & Chem 7: 11/14/16 08:17 11/17/16 08:17 Labs: Abnormal lab results 11/16/16 11/16/16 11/16/16 Range/Units 11:38 15:40 21:49 Chloride (98-107) mmol/L Carbon Dioxide (22-30) mmol/L BUN (7-17) mg/dL Creatinine (0.7-1.2) mg/dL Glucose (65-100) mg/dL POC Glucose 261 H 173 H 244 H (70-105) 11/17/16 11/17/16 11/17/16 Range/Units 05:48 08:17 10:20 Chloride 96.0 L (98-107) mmol/L Carbon Dioxide 39 H (22-30) mmol/L BUN 23 H (7-17) mg/dL Creatinine 0.5 L (0.7-1.2) mg/dL Glucose 127 H (65-100) mg/dL POC Glucose 167 H 173 H (70-105)
[2016-11-17] MEDS ORDERED: TYLENOL PO PRN (13:14)
[2016-11-17] MEDS ORDERED: LASIX IV ONE (14:19)
--- NOTE | 2016-11-17 15:24 | Discharge Summary ---
Providers - Providers Date of Admission: 11/12/16 02:32 Date of discharge: 11/17/16 Attending physician: JULIET SEGAL MD 11/12/16 08:22 Consult to Wound/ET Nurse [CONS] Stat Reason For Exam: necrotic toes 11/12/16 15:51 Consult to Dietitian/Nutrition [CONS] Routine Physician Instructions: Reason For Exam: Reason for Consult: Write/Manage Tube Feeding 11/14/16 16:51 Consult to Physician [CONS] Routine Consulting Provider: JAYE LANGSTON Reason For Exam: PAD, with left second toe dry gangrene? Place consult to:: Marvin PETTY Notified:: Marvin PETTY Phone number called:: overhead page Was contact made?: Yes If yes, spoke with:: Marvin PETTY Time called:: 17:56 11/15/16 18:03 Consult to Wound/ET Nurse [CONS] Routine Reason For Exam: venous ulcers right leg ; no betadine to left toes Primary care physician: GEOLOGY INSTRUCTOR Hospitalization Condition: Critical Hospital course: Patient is a 56 -year-old woman history of CHF COPD on home oxygen dependent, patient was admitted for respiratory distress with hypoxic, altered mental status. The patient was placed on BiPAP but she failed BiPAP and was subsequently intubated. Diagnosed with Acute respiratory failure, acute, hypoxic, Right lobar penumonia r/o Aspiration penumonitis, GNR, Acute Metabolic encephalopathy, COPD exacerbation, Acute on chronic Diastolic congestive heart failure, Left foot second toe ulcer and bilateral lower extremity peripheral venous insufficiency . Cardiolgy and pulmonology wound care consulted. Patient extubated , currently on oxygen via NC adequate saturations. No acute respiratory distress noted.Patient completed 7 days course of antibiotics but started on Levaquin per Pulmonology. patient slowly improved and discharged with PO Levaquin, home oxygen. Also home health for wound care. She will follow with her PCP Disposition: [id number] TO HOME OR SELFCARE - Discharge Diagnoses (1) Acute and chronic respiratory failure with hypoxia Status: Acute (2) Acute diastolic heart failure Status: Acute (3) Acute exacerbation of chronic obstructive pulmonary disease (COPD) Status: Acute (4) CAP (community acquired pneumonia) Status: Acute (5) HTN (hypertension), benign Status: Chronic (6) Ulcer of left second toe Status: Acute Qualifiers: Non-pressure ulcer stage: N (7) Venous (peripheral) insufficiency Status: Acute (8) Morbid obesity Status: Chronic Qualifiers: Obesity type: O Core Measure Documentation - Palliative Care Palliative Care/ Comfort Measures: Not Applicable - VTE Discharge Requirements Anticoagulant overlap therapy prescribed at discharge: No - Heart Failure Discharge Requirements PRECIOUS/ARB for LVSD if EF <40%: Yes Beta carl at discharge: Yes Exam - Constitutional Vitals: Temp Pulse Resp BP Pulse Ox 98.5 F 59 L 16 166/84 94 11/17/16 09:05 11/17/16 09:05 11/17/16 10:46 11/17/16 09:05 11/17/16 09:05 General appearance: Present: no acute distress - EENT Eyes: Present: PERRL ENT: hearing intact - Neck Neck: Present: supple, normal ROM - Respiratory Respiratory effort: normal Respiratory: right: diminished - Cardiovascular Heart rate: 94 Rhythm: regular Heart Sounds: Present: S1 & S2 - Extremities Extremity abnormal: edema (Bilateral LE) Peripheral Pulses: within normal limits - Abdominal General gastrointestinal: Present: soft, non-tender Female genitourinary: Present: deferred - Rectal Rectal Exam: deferred - Integumentary Integumentary: Present: clear (Left second toe ulcer) - Musculoskeletal Musculoskeletal: gait normal, strength equal bilaterally - Psychiatric Psychiatric: appropriate mood/affect, intact judgment & insight - Neurologic Neurologic: CNII-XII intact, moves all extremities - Allied Health Allied health notes reviewed: nursing Plan Activity: advance as tolerated Diet: low cholesterol, low salt, advance as tolerated Wound: keep clean and dry, per wound nurse instructions Special Instructions: restrict fluid intake to, record daily BP diary, physical therapy, home oxygen via (NC) Follow up with: PRIMARY CARE, [Primary Care Provider] - 14 Days () Prescriptions: ALBUTEROL Inhaler [ProAir HFA Inhaler] 1 puff IH Q4H PRN #1 inha PRN Reason: Shortness Of Breath/mild wheez Arformoterol Nebu [Brovana Nebu] 15 mcg IH Q12HRT #60 ml Aspirin [Aspirin TAB] 325 mg PO QDAY #30 tablet Budesonide [Pulmicort Respules] 0.5 mg IH Q12HRT #60 nebu Hydrochlorothiazide [HCTZ] 25 mg PO QDAY #30 tablet Levofloxacin [Levaquin TAB] 750 mg PO DAILY #5 tablet Lisinopril [Zestril TAB] 10 mg PO QDAY #30 tablet Oxycodone HCl/Acetaminophen [Percocet 7.5/325 mg] 1 each PO Q6HR PRN #28 tablet PRN Reason: Pain Pantoprazole [Protonix TAB] 40 mg PO DAILY #30 tablet Prednisone [predniSONE 10 mg (6-Day Pack, 21 Tabs)] 10 mg PO .TAPER #1 tab.ds.pk
[2016-11-18] MEDS ORDERED: LASIX PO SCH (10:00)
== END 2016-11-17 19:45 | disposition home or self-care (01) | DRG 208 ==
LOC: ED 22:39 → UNDOADMIN 11-12 02:23 → CC1 11-12 02:23 → 3A 11-15 14:34
PROVIDERS: ADMIT Internal Medicine; ATTEND Internal Medicine
PROC: 5A1935Z Respiratory Ventilation, Less than 24 Consecutive Hours (ICD-10-PCS; 2016-11-11)
PROC: 0BH17EZ Insertion of Endotracheal Airway into Trachea, Via Natural or Artificial Opening (ICD-10-PCS; 2016-11-11)
PROC: 4A033R1 Measurement of Arterial Saturation, Peripheral, Percutaneous Approach (ICD-10-PCS; principal; 2016-11-12)
DX: J96.21 Acute and chronic respiratory failure with hypoxia (principal); J18.9 Pneumonia, unspecified organism; G93.41 Metabolic encephalopathy; I50.33 Acute on chronic diastolic (congestive) heart failure; Z68.44 Body mass index [BMI] 60.0-69.9, adult; J44.1 Chronic obstructive pulmonary disease with (acute) exacerbation; E87.3 Alkalosis; J96.22 Acute and chronic respiratory failure with hypercapnia; E66.01 Morbid (severe) obesity due to excess calories; I11.0 Hypertensive heart disease with heart failure; L97.529 Non-pressure chronic ulcer of other part of left foot with unspecified severity; I87.2 Venous insufficiency (chronic) (peripheral); Z99.81 Dependence on supplemental oxygen; Z90.710 Acquired absence of both cervix and uterus; Z90.89 Acquired absence of other organs; Z88.8 Allergy status to other drugs, medicaments and biological substances; Z86.711 Personal history of pulmonary embolism
CPT/HCPCS: 36415; 36600; 70450; 71010; 74000; 80048; 81001; 82140; 82550; 82553; 82803; 82962; 83735; 83880; 84100; 84484; 85025; 85027; 85379; 85610; 87040; 87070; 87086; 87205; 93005; 93010; 93922; 93925; 93970; 94002; 94003; 94640; 94760; 96365; 96367; 96375; 99291; J0456; J0696; J1100; J1650; J1815; J1940; J1956; J2310; J2704; J3010; J3475; J7030; J7050; J7512

== ENCOUNTER 2016-12-06 16:23 | Inpatient (IN) | payer OTHER ==
[~2016-12-06 16:23] MED LIST: ADRENALIN ONE
[2016-12-06] MEDS ORDERED: DECADRON ONE (16:25)
[2016-12-06] MEDS ORDERED: ZEMURON IV ONE ×2 (16:25→16:39)
[2016-12-06] MEDS ORDERED: KETALAR ONE (16:25)
[2016-12-06] MEDS ORDERED: DECADRON IV ONE (16:26)
[2016-12-06] MEDS ORDERED: fentaNYL DRIP Premix 2,000 MCG/100 ML BAG IV ONE (16:28)
[2016-12-06] MEDS ORDERED: PROVENTIL IH ONE (16:37)
[2016-12-06] MEDS ORDERED: ATROVENT IH ONE (16:37)
[2016-12-06] MEDS ORDERED: ADRENALIN SUB-Q ONE (16:37)
[2016-12-06] MEDS ORDERED: MAGNESIUM SULFATE 2GM/50ML 2 GM/50 ML BAG IV ONE (16:37)
[2016-12-06] MEDS: fentaNYL DRIP Premix 2,000 MCG/100 ML BAG IV SCH (16:39)
[2016-12-06] MEDS ORDERED: ARTIFICIAL TEARS OPHTH OINT OU PRN (16:39)
[2016-12-06] MEDS ORDERED: SUBLIMAZE IV ONE (16:39)
[2016-12-06] MEDS ORDERED: KETALAR IV ONE ×2 (16:39→17:00)
[2016-12-06] MEDS ORDERED: VASELINE LIP THERAPY TP PRN (16:39)
--- NOTE | 2016-12-06 16:43 | Emergency Department Report ---
ED General Adult HPI - General Chief complaint: Dyspnea/Respdistress Stated complaint: ANDREE Time Seen by Provider: 12/06/16 16:35 Source: EMS (verbal report received from EMS.ems notes not available at time of chart dictation), RN notes reviewed, old records reviewed Mode of arrival: Stretcher Limitations: Altered Mental Status - History of Present Illness Initial comments: This is a 56-year-old female. I have evaluated her in the past. Primary care doctor is Dr. Crane. Past medical history includes COPD, respiratory failure, heart failure, I had intubated her in the past 2. Patient is brought to the hospital by EMS for altered mental status and respiratory distress. As per verbal report from EMS, patient found at home, with difficulty breathing. They report that the patient was receiving bag valve mask ventilation in the field. Upon arrival to the ER, the patient was somnolent, obtunded, and receiving bag valve mask ventilation. The patient was placed on a nasal cannula, 15 L/m, and she and she continued to receive high-quality [id number] ventilation. She was induced with 150 mg of ketamine, indirect laryngoscopy was performed by myself with a Humphrey 3 blade, the patient was intubated by myself, using a 7.5 endotracheal tube, with direct visualization of the cords. After insertion of the endotracheal tube, the patient had appropriate color change on capnography, and tube position was confirmed through chest x-ray, auscultation, and improvement in her pulse oximetry. After intubation, I directly pressed down on the patient's abdomen in diaphragm , and actively pushed out the extra air that had been trapped in her lungs. Appropriate medications, including albuterol, Atrovent, magnesium, epinephrine were ordered, in addition to Decadron. The patient will be ventilated on a lung protective strategy, at 7 mL/kg of ideal body weight. The patient was then paralyzed with rocuronium, and sedated with fentanyl and Ativan. The case was presented to the ICU physician, Dr. Hall, who authorized placement into the intensive care unit. The case was presented to the Hospital physician, Dr. Maldonado, who accepts the patient to his service. -: unknown Consistency: constant Improves with: none Worsens with: none Associated Symptoms: confusion, malaise, shortness of breath, weakness - Related Data Previous Rx's Medication Instructions Recorded Last Taken Type ALBUTEROL Inhaler [ProAir HFA 1 puff IH Q4H PRN #1 inha 11/17/16 Unknown Rx Inhaler] Arformoterol Nebu [Brovana Nebu] 15 mcg IH Q12HRT #60 ml 11/17/16 Unknown Rx Aspirin [Aspirin TAB] 325 mg PO QDAY #30 tablet 11/17/16 Unknown Rx Budesonide [Pulmicort Respules] 0.5 mg IH Q12HRT #60 nebu 11/17/16 Unknown Rx Hydrochlorothiazide [HCTZ] 25 mg PO QDAY #30 tablet 11/17/16 Unknown Rx Levofloxacin [Levaquin TAB] 750 mg PO DAILY #5 tablet 11/17/16 Unknown Rx Lisinopril [Zestril TAB] 10 mg PO QDAY #30 tablet 11/17/16 Unknown Rx Oxycodone HCl/Acetaminophen 1 each PO Q6HR PRN #28 tablet 11/17/16 Unknown Rx [Percocet 7.5/325 mg] Pantoprazole [Protonix TAB] 40 mg PO DAILY #30 tablet 11/17/16 Unknown Rx Prednisone [predniSONE 10 mg 10 mg PO .TAPER #1 tab.ds.pk 11/17/16 Unknown Rx (6-Day Pack, 21 Tabs)] Allergies Allergy/AdvReac Type Severity Reaction Status Date / Time methylprednisolone sodium Allergy Itching Verified 09/15/16 10:40 succinate [From Solu-Medrol] ED Review of Systems ROS: Stated complaint: ANDREE Other details as noted in HPI Comment: Unobtainable due to pts medical conditions ED Past Medical Hx - Past Medical History Hx Hypertension: Yes Hx Congestive Heart Failure: Yes Hx Diabetes: No Hx Asthma: No Hx COPD: Yes Hx HIV: No - Social History Smoking Status: Unknown if ever smoked - Medications Home Medications: Home Medications Medication Instructions Recorded Confirmed Last Taken Type ALBUTEROL Inhaler [ProAir HFA 1 puff IH Q4H PRN #1 inha 11/17/16 Unknown Rx Inhaler] Arformoterol Nebu [Brovana Nebu] 15 mcg IH Q12HRT #60 ml 11/17/16 Unknown Rx Aspirin [Aspirin TAB] 325 mg PO QDAY #30 tablet 11/17/16 Unknown Rx Budesonide [Pulmicort Respules] 0.5 mg IH Q12HRT #60 nebu 11/17/16 Unknown Rx Hydrochlorothiazide [HCTZ] 25 mg PO QDAY #30 tablet 11/17/16 Unknown Rx Levofloxacin [Levaquin TAB] 750 mg PO DAILY #5 tablet 11/17/16 Unknown Rx Lisinopril [Zestril TAB] 10 mg PO QDAY #30 tablet 11/17/16 Unknown Rx Oxycodone HCl/Acetaminophen 1 each PO Q6HR PRN #28 tablet 11/17/16 Unknown Rx [Percocet 7.5/325 mg] Pantoprazole [Protonix TAB] 40 mg PO DAILY #30 tablet 11/17/16 Unknown Rx Prednisone [predniSONE 10 mg 10 mg PO .TAPER #1 tab.ds.pk 11/17/16 Unknown Rx (6-Day Pack, 21 Tabs)] ED Physical Exam - General Limitations: Altered Mental Status General appearance: obtunded - Head Head exam: Present: atraumatic, normocephalic - Eye Eye exam: Present: normal appearance, EOMI - ENT ENT exam: Present: mucous membranes dry - Neck Neck exam: Present: normal inspection, full ROM - Respiratory Respiratory exam: Present: respiratory distress, wheezes, rhonchi - Cardiovascular Cardiovascular Exam: Present: normal rhythm, tachycardia, normal heart sounds. Absent: systolic murmur, diastolic murmur, rubs, gallop - GI/Abdominal GI/Abdominal exam: Present: soft, normal bowel sounds. Absent: distended, tenderness, guarding, rebound, rigid, pulsatile mass - Rectal Rectal exam: Present: normal inspection - External exam: Present: normal external exam - Extremities Exam Extremities exam: Present: normal inspection, normal capillary refill. Absent: calf tenderness - Back Exam Back exam: Present: normal inspection. Absent: paraspinal tenderness, vertebral tenderness - Neurological Exam Neurological exam: Present: altered - Psychiatric Psychiatric exam: Present: other (patient is nonverbal) - Skin Skin exam: Present: warm, dry, intact, normal color. Absent: rash ED Course Vital Signs 12/06/16 12/06/16 12/06/16 16:14 16:15 16:25 Temperature Pulse Rate 107 H 77 96 H Pulse Rate [ Anterior Bilateral Throughout] Respiratory 13 12 Rate Respiratory Rate [Anterior Bilateral Throughout] Blood Pressure 158/83 181/94 O2 Sat by Pulse 91 91 Oximetry 12/06/16 12/06/16 12/06/16 16:30 16:39 16:45 Temperature 99 F Pulse Rate 107 H 109 H 106 H Pulse Rate [ Anterior Bilateral Throughout] Respiratory 13 15 14 Rate Respiratory Rate [Anterior Bilateral Throughout] Blood Pressure 158/83 O2 Sat by Pulse 92 100 100 Oximetry 12/06/16 12/06/16 12/06/16 16:53 17:01 17:15 Temperature Pulse Rate 102 H 103 H Pulse Rate [ Anterior Bilateral Throughout] Respiratory 14 13 14 Rate Respiratory Rate [Anterior Bilateral Throughout] Blood Pressure 172/86 181/94 O2 Sat by Pulse 100 100 100 Oximetry 12/06/16 12/06/16 12/06/16 17:30 17:45 18:00 Temperature Pulse Rate 93 H 81 83 Pulse Rate [ Anterior Bilateral Throughout] Respiratory 14 12 14 Rate Respiratory Rate [Anterior Bilateral Throughout] Blood Pressure 147/86 147/74 136/65 O2 Sat by Pulse 100 96 94 Oximetry 12/06/16 12/06/16 12/06/16 18:15 18:35 18:54 Temperature Pulse Rate 73 Pulse Rate [ 77 72 Anterior Bilateral Throughout] Respiratory 14 Rate Respiratory 16 14 Rate [Anterior Bilateral Throughout] Blood Pressure 139/67 O2 Sat by Pulse 93 Oximetry - Reevaluation(s) Reevaluation #1: 12/06/16 20:08 patient resting comfortably intubated and sedated, no events, currently awaiting placement to the intensive care unit. - Intubation Time Out Performed: No (emergency situation) Sedative: Ketamine Mg Given: 150 Paralytic: Rocuronium Mg Given: 100 Laryngoscope: Humphrey Size: 3 ET Tube Size: 7.5 Tube Secured Depth (cm): 23 Tube Secured Location: teeth Tube Placement Confirmation: visualized tube passing t, equal breath sounds bilat, no breath sounds over epi, confirmation by capnometr Patient Tolerated Procedure: well Intubation Complications: none ED Medical Decision Making - Lab Data Result diagrams: 12/06/16 16:37 12/06/16 16:37 Vital Signs 12/06/16 12/06/16 12/06/16 16:14 16:15 16:25 Temperature Pulse Rate 107 H 77 96 H Respiratory 13 12 Rate Blood Pressure 158/83 181/94 O2 Sat by Pulse 91 91 Oximetry 12/06/16 12/06/16 12/06/16 16:30 16:39 16:45 Temperature 99 F Pulse Rate 107 H 109 H 106 H Respiratory 13 15 14 Rate Blood Pressure 158/83 O2 Sat by Pulse 92 100 100 Oximetry 12/06/16 12/06/16 12/06/16 16:53 17:01 17:15 Temperature Pulse Rate 102 H 103 H Respiratory 14 13 14 Rate Blood Pressure 172/86 181/94 O2 Sat by Pulse 100 100 100 Oximetry 12/06/16 12/06/16 12/06/16 17:30 17:45 18:00 Temperature Pulse Rate 93 H 81 83 Respiratory 14 12 14 Rate Blood Pressure 147/86 147/74 136/65 O2 Sat by Pulse 100 96 94 Oximetry Temp Pulse Resp BP Pulse Ox 99 F 83 14 136/65 94 12/06/16 16:30 12/06/16 18:00 12/06/16 18:00 12/06/16 18:00 12/06/16 18:00 Lab Results 12/06/16 12/06/16 12/06/16 Range/Units 16:37 16:37 16:37 WBC 9.9 (4.5-11.0) K/mm3 RBC 4.52 (3.65-5.03) M/mm3 Hgb 13.9 (10.1-14.3) gm/dl Hct 46.6 H (30.3-42.9) % MCV 103 H (79-97) fl MCH 31 (28-32) pg MCHC 30 (30-34) % RDW 18.5 H (13.2-15.2) % Plt Count 146 (140-440) K/mm3 Lymph % (Auto) 17.2 (13.4-35.0) % Island % (Auto) 6.6 (0.0-7.3) % Eos % (Auto) 2.1 (0.0-4.3) % Baso % (Auto) 0.4 (0.0-1.8) % Lymph # 1.7 (1.2-5.4) K/mm3 Island # 0.7 (0.0-0.8) K/mm3 Eos # 0.2 (0.0-0.4) K/mm3 Baso # 0.0 (0.0-0.1) K/mm3 Seg Neutrophils % 73.7 H (40.0-70.0) % Seg Neutrophils # 7.3 (1.8-7.7) K/mm3 PT 14.0 (12.2-14.9) Sec. INR 1.03 (0.87-1.13) APTT 20.2 L (24.2-36.6) Sec. POC ABG pH (7.35-7.45) POC ABG pCO2 (35-45) POC ABG pO2 (80-105) POC ABG HCO3 POC ABG Total CO2 POC ABG O2 Sat POC ABG Base Excess FiO2 % Sodium 146 H (137-145) mmol/L Potassium 5.0 (3.6-5.0) mmol/L Chloride 96.9 L (98-107) mmol/L Carbon Dioxide 40 H (22-30) mmol/L Anion Gap 14 mmol/L BUN 15 (7-17) mg/dL Creatinine 0.7 (0.7-1.2) mg/dL Estimated GFR > 60 ml/min BUN/Creatinine Ratio 21.42 % Glucose 213 H (65-100) mg/dL Calcium 8.5 (8.4-10.2) mg/dL Magnesium 2.50 H (1.7-2.3) mg/dL Total Bilirubin 0.50 (0.1-1.2) mg/dL AST 13 (5-40) units/L ALT 16 (7-56) units/L Alkaline Phosphatase 73 (35-129) units/L Troponin T < 0.010 (0.00-0.029) ng/mL NT-Pro-B Natriuret Pep (0-900) pg/mL Total Protein 6.5 (6.3-8.2) g/dL Albumin 3.6 L (3.9-5) g/dL Albumin/Globulin Ratio 1.2 % 12/06/16 12/06/16 Range/Units 16:50 17:42 WBC (4.5-11.0) K/mm3 RBC (3.65-5.03) M/mm3 Hgb (10.1-14.3) gm/dl Hct (30.3-42.9) % MCV (79-97) fl MCH (28-32) pg MCHC (30-34) % RDW (13.2-15.2) % Plt Count (140-440) K/mm3 Lymph % (Auto) (13.4-35.0) % Island % (Auto) (0.0-7.3) % Eos % (Auto) (0.0-4.3) % Baso % (Auto) (0.0-1.8) % Lymph # (1.2-5.4) K/mm3 Island # (0.0-0.8) K/mm3 Eos # (0.0-0.4) K/mm3 Baso # (0.0-0.1) K/mm3 Seg Neutrophils % (40.0-70.0) % Seg Neutrophils # (1.8-7.7) K/mm3 PT (12.2-14.9) Sec. INR (0.87-1.13) APTT (24.2-36.6) Sec. POC ABG pH 7.364 (7.35-7.45) POC ABG pCO2 80.8 H (35-45) POC ABG pO2 193 H (80-105) POC ABG HCO3 46.0 POC ABG Total CO2 48 POC ABG O2 Sat 100 POC ABG Base Excess 21 FiO2 100 % Sodium (137-145) mmol/L Potassium (3.6-5.0) mmol/L Chloride (98-107) mmol/L Carbon Dioxide (22-30) mmol/L Anion Gap mmol/L BUN (7-17) mg/dL Creatinine (0.7-1.2) mg/dL Estimated GFR ml/min BUN/Creatinine Ratio % Glucose (65-100) mg/dL Calcium (8.4-10.2) mg/dL Magnesium (1.7-2.3) mg/dL Total Bilirubin (0.1-1.2) mg/dL AST (5-40) units/L ALT (7-56) units/L Alkaline Phosphatase (35-129) units/L Troponin T (0.00-0.029) ng/mL NT-Pro-B Natriuret Pep 5274 H (0-900) pg/mL Total Protein (6.3-8.2) g/dL Albumin (3.9-5) g/dL Albumin/Globulin Ratio % - EKG Data -: EKG Interpreted by Me Rate: tachycardia - EKG Data 12/06/16 18:19 sinus tachycardia, 106 bpm, atrial enlargement, right axis deviation, T-wave inversion in V2, abnormal EKG, not morphologically consistent with STEMI, appears unchanged from prior EKG from 11/11/2016 - Radiology Data Radiology results: report reviewed, image reviewed X-ray of the chest demonstrates appropriate positioning of endotracheal tube, oral gastric tube, pneumonia versus pneumonitis - Medical Decision Making Differential diagnosis: COPD exacerbation, pneumonia, pneumonitis, pulmonary hypertension, congestive heart failure, multifactorial respiratory failure Assessment and plan: 56-year-old female with multifactorial respiratory failure , most likely a combination of all of the above. She will be treated medically with albuterol, Atrovent, steroids, Lasix, appropriate antibiotics. I will withhold IV fluids as the patient is volume overloaded. Patient is admitted to the medical service to the ICU. Critical Care Time: Yes Critical care time in (mins) excluding proc time.: 45 Critical care attestation.: If time is entered above; I have spent that time in minutes in the direct care of this critically ill patient, excluding procedure time. Critical Care Time: Critical care time includes multiple bedside evaluations, interpretation of laboratory studies, radiology studies, time spent managing critically ill patient with respiratory failure requiring intubation, consultation with hospital medicine and critical care medicine. This does not include procedure time. ED Disposition Clinical Impression: Respiratory failure Disposition: [id number] OP ADMIT IP TO THIS HOSP Is pt being admited?: Yes Condition: Critical
[2016-12-06 17:17] LABS: Basophils % (Auto) 0.4 % (0.0-1.8); Eosinophils % (Auto) 2.1 % (0.0-4.3); Mean Corpuscular HGB Conc 30 % (30-34); Mean Corpuscular Hemoglobin 31 pg (28-32); Mean Corpuscular Volume 103 fl (79-97); Platelet Count 146 K/mm3 (140-440); Red Blood Count 4.52 M/mm3 (3.65-5.03); Red Cell Distribution Width 18.5 % (13.2-15.2); White Blood Count 9.9 K/mm3 (4.5-11.0)
[2016-12-06 17:18] LABS: Hematocrit 46.6 % (30.3-42.9); Hemoglobin 13.9 gm/dl (10.1-14.3)
[2016-12-06 17:30] LABS: INR 1.03 (0.87-1.13); Partial Thromboplastin Time 20.2 Sec. (24.2-36.6)
[2016-12-06] MEDS ORDERED: ATIVAN 100 MG in NACL 0.9% 50 ML, VIAFLEX EMPTY CONTAINER 0 ML IV SCH (17:30)
--- NOTE | 2016-12-06 17:31 | XRay Report ---
FINAL REPORT PROCEDURE: XR CHEST 1V AP TECHNIQUE: Chest radiograph anteroposterior view. CPT 67774 HISTORY: ETT placement COMPARISON: Prior chest x-ray 10/2016 FINDINGS: Heart: Magnified due to projection although appears to be enlarged.. Mediastinum/Vessels: Normal. Endotracheal tube in place. Lungs/Pleural space: Patchy alveolar densities are present in both lower lobes suggesting atelectasis or infiltrate. Bony thorax: No acute osseous abnormality. Life support devices: Endotracheal tube in place. The tip lies 2.5 centimeters above the ross. NG tube is partially visualized. This appears to be directed into the left side of the stomach. A large caliber piece of tubing projects over the left hemithorax directed superiorly. This may represent a chest tube. No pneumothorax is seen. IMPRESSION: Endotracheal tube and NG tube appear to be in good position. Possible chest tube on the left. No pneumothorax is seen.. Stable cardiomegaly. Patchy alveolar densities in both lung bases suggesting bibasilar atelectasis. Pneumonia needs clinical exclusion.
[2016-12-06 17:41] LABS: Alanine Aminotransferase 16 units/L (7-56); Albumin 3.6 g/dL (3.9-5); Albumin/Globulin Ratio 1.2 %; Alkaline Phosphatase 73 units/L (35-129); Anion Gap 14 mmol/L; BUN/Creatinine Ratio 21.42; Blood Urea Nitrogen 15 mg/dL (7-17); Calcium 8.5 mg/dL (8.4-10.2); Carbon Dioxide 40 mmol/L (22-30); Chloride 96.9 mmol/L (98-107); Glucose 213 mg/dL (65-100); Sodium 146 mmol/L (137-145); Total Protein 6.5 g/dL (6.3-8.2)
[2016-12-06 17:52] LABS: ISTAT Base Excess 21; ISTAT PCO2 80.8 (35-45); ISTAT PH 7.364 (7.35-7.45); ISTAT PO2 193 (80-105); ISTAT SO2 100; ISTAT TCO2 48
[2016-12-06] MEDS ORDERED: VANCOMYCIN VIAL IV ONE (18:12)
[2016-12-06] MEDS ORDERED: LEVAQUIN 750MG/150ML 750 MG/150 ML BAG IV ONE (18:12)
[2016-12-06] MEDS ORDERED: LASIX IV ONE (18:19)
[2016-12-06] MEDS ORDERED: VANCOMYCIN 2,000 MG in NACL 0.9% 500 ML 500 ML IV ONE (18:30)
[2016-12-06] MEDS ORDERED: VANCOMYCIN PHARMACY TO DOSE IV SCH (19:00)
[2016-12-06 19:01] LABS: Bilirubin,Urine NEG (Negative); Blood,Urine NEG (Negative); Ketones,Urine NEG (Negative); Leukocyte Esterase,Urine NEG (Negative); Mucus,Urine FEW /HPF; Nitrite,Urine NEG (Negative); Urobilinogen,Urine < 2.0 mg/dL (<2.0)
--- NOTE | 2016-12-06 21:51 | History and Physical Report ---
History of Present Illness Date of examination: 12/06/16 Date of admission: 12/06/16 18:21 Chief complaint: Severe difficulty in breathing and decreased responsiveness when the EMS arrived. History of present illness: This is a 56-year-old female with history of recurrent respiratory failure. Multiple intubations in the past. Noncompliant with medications. Past medical history includes COPD, respiratory failure, heart failure.Patient is brought to the hospital by EMS for altered mental status and respiratory distress. As per verbal report from EMS, patient found at home, with difficulty breathing. They report that the patient was receiving bag valve mask ventilation in the field. Upon arrival to the ER, the patient was somnolent, obtunded, and receiving bag valve mask ventilation. The patient was placed on a nasal cannula, 15 L/m, and she and she continued to receive high-quality [id number] ventilation. She was induced with 150 mg of ketamine, indirect laryngoscopy was performed with a Humphrey 3 blade,and the patient was intubated by Dr Frances ED physician using a 7.5 endotracheal tube, with direct visualization of the cords. After insertion of the endotracheal tube, the patient had appropriate color change on capnography, and tube position was confirmed through chest x-ray, auscultation, and improvement in her pulse oximetry. Appropriate medications, including albuterol, Atrovent, magnesium, epinephrine were ordered, in addition to Decadron. The patient will be ventilated on a lung protective strategy, at 7 mL/kg of ideal body weight. The patient was then paralyzed with rocuronium, and sedated with fentanyl and Ativan. Worsens with: none Associated Symptoms: confusion, malaise, shortness of breath, weakness - Related Data Previous Rx's Medication Instructions Recorded Last Taken Type ALBUTEROL Inhaler [ProAir HFA 1 puff IH Q4H PRN #1 inha 11/17/16 Unknown Rx Inhaler] Arformoterol Nebu [Brovana Nebu] 15 mcg IH Q12HRT #60 ml 11/17/16 Unknown Rx Aspirin [Aspirin TAB] 325 mg PO QDAY #30 tablet 11/17/16 Unknown Rx Budesonide [Pulmicort Respules] 0.5 mg IH Q12HRT #60 nebu 11/17/16 Unknown Rx Hydrochlorothiazide [HCTZ] 25 mg PO QDAY #30 tablet 11/17/16 Unknown Rx Levofloxacin [Levaquin TAB] 750 mg PO DAILY #5 tablet 11/17/16 Unknown Rx Lisinopril [Zestril TAB] 10 mg PO QDAY #30 tablet 11/17/16 Unknown Rx Oxycodone HCl/Acetaminophen 1 each PO Q6HR PRN #28 tablet 11/17/16 Unknown Rx [Percocet 7.5/325 mg] Pantoprazole [Protonix TAB] 40 mg PO DAILY #30 tablet 11/17/16 Unknown Rx Prednisone [predniSONE 10 mg 10 mg PO .TAPER #1 tab.ds.pk 11/17/16 Unknown Rx (6-Day Pack, 21 Tabs)] Allergies Allergy/AdvReac Type Severity Reaction Status Date / Time methylprednisolone sodium Allergy Itching Verified 09/15/16 10:40 succinate [From Solu-Medrol] Review of Systems ROS: Stated complaint: ANDREE Other details as noted in HPI Comment: Unobtainable due to pts medical conditions Past Medical Hx - Past Medical History Hx Hypertension: Yes Hx Congestive Heart Failure: Yes Hx Diabetes: No Hx Asthma: No Hx COPD: Yes Hx HIV: No - Social History Smoking Status: Unknown if ever smoked - Medications Home Medications: Home Medications Medication Instructions Recorded Confirmed Last Taken Type ALBUTEROL Inhaler [ProAir HFA 1 puff IH Q4H PRN #1 inha 11/17/16 Unknown Rx Inhaler] Arformoterol Nebu [Brovana Nebu] 15 mcg IH Q12HRT #60 ml 11/17/16 Unknown Rx Aspirin [Aspirin TAB] 325 mg PO QDAY #30 tablet 11/17/16 Unknown Rx Budesonide [Pulmicort Respules] 0.5 mg IH Q12HRT #60 nebu 11/17/16 Unknown Rx Hydrochlorothiazide [HCTZ] 25 mg PO QDAY #30 tablet 11/17/16 Unknown Rx Levofloxacin [Levaquin TAB] 750 mg PO DAILY #5 tablet 11/17/16 Unknown Rx Lisinopril [Zestril TAB] 10 mg PO QDAY #30 tablet 11/17/16 Unknown Rx Oxycodone HCl/Acetaminophen 1 each PO Q6HR PRN #28 tablet 11/17/16 Unknown Rx [Percocet 7.5/325 mg] Pantoprazole [Protonix TAB] 40 mg PO DAILY #30 tablet 11/17/16 Unknown Rx Prednisone [predniSONE 10 mg 10 mg PO .TAPER #1 tab.ds.pk 11/17/16 Unknown Rx (6-Day Pack, 21 Tabs)] Medications and Allergies Allergies Allergy/AdvReac Type Severity Reaction Status Date / Time methylprednisolone sodium Allergy Itching Verified 09/15/16 10:40 succinate [From Solu-Medrol] Home Medications Medication Instructions Recorded Confirmed Last Taken Type ALBUTEROL Inhaler [ProAir HFA 1 puff IH Q4H PRN #1 inha 11/17/16 Unknown Rx Inhaler] Arformoterol Nebu [Brovana Nebu] 15 mcg IH Q12HRT #60 ml 11/17/16 Unknown Rx Aspirin [Aspirin TAB] 325 mg PO QDAY #30 tablet 11/17/16 Unknown Rx Budesonide [Pulmicort Respules] 0.5 mg IH Q12HRT #60 nebu 11/17/16 Unknown Rx Hydrochlorothiazide [HCTZ] 25 mg PO QDAY #30 tablet 11/17/16 Unknown Rx Levofloxacin [Levaquin TAB] 750 mg PO DAILY #5 tablet 11/17/16 Unknown Rx Lisinopril [Zestril TAB] 10 mg PO QDAY #30 tablet 11/17/16 Unknown Rx Oxycodone HCl/Acetaminophen 1 each PO Q6HR PRN #28 tablet 11/17/16 Unknown Rx [Percocet 7.5/325 mg] Pantoprazole [Protonix TAB] 40 mg PO DAILY #30 tablet 11/17/16 Unknown Rx Prednisone [predniSONE 10 mg 10 mg PO .TAPER #1 tab.ds.pk 11/17/16 Unknown Rx (6-Day Pack, 21 Tabs)] Active Meds: Active Medications Hydrophilic Ointment (Vaseline Lip Therapy) 1 applic TP Q2HR PRN PRN Reason: Dry Lips Fentanyl Citrate (Fentanyl Drip Premix) 2,000 mcg in 100 mls @ 7.121 mls/hr IV TITR SHANNON; 1 MCG/KG/HR PRN Reason: Protocol Last Admin: 12/06/16 16:39 Dose: 1 mcg/kg/hr, 7.121 mls/hr Lorazepam 100 mg/ Sodium Chloride/ Miscellaneous Information 100 mls @ 1 mls/ hr IV TITR SHANNON; 1 MG/HR PRN Reason: Protocol Last Titration: 12/06/16 18:44 Dose: 2 mg/hr, 2 mls/hr Vancomycin HCl 1,750 mg/ (Sodium Chloride) 535 mls @ 267.5 mls/hr IV Q12H SHANNON Multi-Ingred Cream/Lotion/Oil/Oint (Artificial Tears Ophth Oint) 1 applic OU Q4HR PRN PRN Reason: Dry Eye(s) Vancomycin HCl (Vancomycin Pharmacy To Dose) 1 each IV PKCONSULT SHANNON PRN Reason: Protocol Exam - Constitutional Vitals: Temp Pulse Resp BP Pulse Ox 99 F 148 H 14 146/68 92 12/06/16 16:30 12/06/16 21:13 12/06/16 20:00 12/06/16 20:00 12/06/16 21:13 General appearance: Present: no acute distress, severe distress (patient intubated and on ventilator), well-nourished - EENT Eyes: Present: PERRL ENT: hearing intact, clear oral mucosa - Neck Neck: Present: supple, normal ROM - Respiratory Respiratory effort: normal Respiratory: bilateral: diminished, rhonchi, wheezing - Cardiovascular Heart rate: 80 Rhythm: regular (80) Heart Sounds: Present: S1 & S2. Absent: rub, click - Extremities Extremities: no ischemia, pulses intact, pulses symmetrical, No edema Peripheral Pulses: within normal limits - Abdominal General gastrointestinal: Present: soft, non-tender, non-distended, normal bowel sounds Female genitourinary: Present: normal - Rectal Rectal Exam: deferred - Integumentary Integumentary: Present: clear, warm, dry - Musculoskeletal Musculoskeletal: gait normal, strength equal bilaterally - Psychiatric Psychiatric: other (intubated) - Neurologic Neurologic: other (intubated) - Allied Health Allied health notes reviewed: nursing, case management Results - Labs CBC & Chem 7: 12/06/16 16:37 12/06/16 16:37 Labs: Laboratory Last Values WBC 9.9 K/mm3 (4.5-11.0) 12/06/16 16:37 RBC 4.52 M/mm3 (3.65-5.03) 12/06/16 16:37 Hgb 13.9 gm/dl (10.1-14.3) 12/06/16 16:37 Hct 46.6 % (30.3-42.9) H 12/06/16 16:37 MCV 103 fl (79-97) H 12/06/16 16:37 MCH 31 pg (28-32) 12/06/16 16:37 MCHC 30 % (30-34) 12/06/16 16:37 RDW 18.5 % (13.2-15.2) H 12/06/16 16:37 Plt Count 146 K/mm3 (140-440) 12/06/16 16:37 Lymph % (Auto) 17.2 % (13.4-35.0) 12/06/16 16:37 [place] % (Auto) 6.6 % (0.0-7.3) 12/06/16 16:37 Eos % (Auto) 2.1 % (0.0-4.3) 12/06/16 16:37 Baso % (Auto) 0.4 % (0.0-1.8) 12/06/16 16:37 Lymph # 1.7 K/mm3 (1.2-5.4) 12/06/16 16:37 [place] # 0.7 K/mm3 (0.0-0.8) 12/06/16 16:37 Eos # 0.2 K/mm3 (0.0-0.4) 12/06/16 16:37 Baso # 0.0 K/mm3 (0.0-0.1) 12/06/16 16:37 Seg Neutrophils % 73.7 % (40.0-70.0) H 12/06/16 16:37 Seg Neutrophils # 7.3 K/mm3 (1.8-7.7) 12/06/16 16:37 PT 14.0 Sec. (12.2-14.9) 12/06/16 16:37 INR 1.03 (0.87-1.13) 12/06/16 16:37 APTT 20.2 Sec. (24.2-36.6) L 12/06/16 16:37 POC ABG pH 7.364 (7.35-7.45) 12/06/16 17:42 POC ABG pCO2 80.8 (35-45) H 12/06/16 17:42 POC ABG pO2 193 (80-105) H 12/06/16 17:42 POC ABG HCO3 46.0 12/06/16 17:42 POC ABG Total CO2 48 12/06/16 17:42 POC ABG O2 Sat 100 12/06/16 17:42 POC ABG Base Excess 21 12/06/16 17:42 FiO2 100 % 12/06/16 17:42 Sodium 146 mmol/L (137-145) H 12/06/16 16:37 Potassium 5.0 mmol/L (3.6-5.0) 12/06/16 16:37 Chloride 96.9 mmol/L (98-107) L 12/06/16 16:37 Carbon Dioxide 40 mmol/L (22-30) H 12/06/16 16:37 Anion Gap 14 mmol/L 12/06/16 16:37 BUN 15 mg/dL (7-17) 12/06/16 16:37 Creatinine 0.7 mg/dL (0.7-1.2) 12/06/16 16:37 Estimated GFR > 60 ml/min 12/06/16 16:37 BUN/Creatinine Ratio 21.42 % 12/06/16 16:37 Glucose 213 mg/dL (65-100) H 12/06/16 16:37 Lactic Acid 1.20 mmol/L (0.7-2.0) 12/06/16 18:26 Calcium 8.5 mg/dL (8.4-10.2) 12/06/16 16:37 Magnesium 2.50 mg/dL (1.7-2.3) H 12/06/16 16:37 Total Bilirubin 0.50 mg/dL (0.1-1.2) 12/06/16 16:37 AST 13 units/L (5-40) 12/06/16 16:37 ALT 16 units/L (7-56) 12/06/16 16:37 Alkaline Phosphatase 73 units/L (35-129) 12/06/16 16:37 Troponin T < 0.010 ng/mL (0.00-0.029) 12/06/16 16:37 NT-Pro-B Natriuret Pep 5274 pg/mL (0-900) H 12/06/16 16:50 Total Protein 6.5 g/dL (6.3-8.2) 12/06/16 16:37 Albumin 3.6 g/dL (3.9-5) L 12/06/16 16:37 Albumin/Globulin Ratio 1.2 % 12/06/16 16:37 Urine Color Yellow (Yellow) 12/06/16 18:11 Urine Turbidity Clear (Clear) 12/06/16 18:11 Urine pH 5.0 (5.0-7.0) 12/06/16 18:11 Ur Specific [place] 1.020 (1.003-1.030) 12/06/16 18:11 Urine Protein 100 mg/dl mg/dL (Negative) 12/06/16 18:11 Urine Glucose (UA) Neg mg/dL (Negative) 12/06/16 18:11 Urine Ketones Neg mg/dL (Negative) 12/06/16 18:11 Urine Blood Neg (Negative) 12/06/16 18:11 Urine Nitrite Neg (Negative) 12/06/16 18:11 Urine Bilirubin Neg (Negative) 12/06/16 18:11 Urine Urobilinogen < 2.0 mg/dL (<2.0) 12/06/16 18:11 Ur Leukocyte Esterase Neg (Negative) 12/06/16 18:11 Urine WBC (Auto) 1.0 /HPF (0.0-6.0) 12/06/16 18:11 Urine RBC (Auto) 3.0 /HPF (0.0-6.0) 12/06/16 18:11 U Epithel Cells (Auto) 1.0 /HPF (0-13.0) 12/06/16 18:11 Hyaline Casts 17 /LPF 12/06/16 18:11 Urine Mucus Few /HPF 12/06/16 18:11 Short CBC 12/06/16 Range/Units 16:37 WBC 9.9 (4.5-11.0) K/mm3 Hgb 13.9 (10.1-14.3) gm/dl Hct 46.6 H (30.3-42.9) % Plt Count 146 (140-440) K/mm3 BMP 12/06/16 16:37 Sodium 146 H Potassium 5.0 Chloride 96.9 L Carbon Dioxide 40 H BUN 15 Creatinine 0.7 Glucose 213 H Calcium 8.5 Cardiac Enzymes 12/06/16 Range/Units 16:37 Troponin T < 0.010 (0.00-0.029) ng/mL Liver Function 12/06/16 Range/Units 16:37 Total Bilirubin 0.50 (0.1-1.2) mg/dL AST 13 (5-40) units/L ALT 16 (7-56) units/L Alkaline Phosphatase 73 (35-129) units/L Albumin 3.6 L (3.9-5) g/dL Urine 12/06/16 Range/Units 18:11 Urine Color Yellow (Yellow) Urine pH 5.0 (5.0-7.0) Ur Specific [place] 1.020 (1.003-1.030) Urine Protein 100 mg/dl (Negative) mg/dL Urine Glucose (UA) Neg (Negative) mg/dL - Imaging and Cardiology EKG: report reviewed Chest x-ray: report reviewed (no acute findings) Assessment and Plan Assessment and plan: The high probability OF a clinically significant sudden or life-threatening deterioration of the cardiorespiratory system and endocrine system required my full and direct attention, intervention and postoperative management. The aggregate medical care time was 40 minutes. The time is in addition to time spent performing reported procedures but includes the followin: Data review and interpretation 2: Patient assessment and monitoring of vital signs 3: Documentation 4:: Medication orders and management Advance Directives: Yes (full code) VTE prophylaxis?: Chemical Plan of care discussed with patient/family: Yes - Patient Problems (1) Acute on chronic respiratory failure with hypercapnia Current Visit: No Status: Acute Plan to address problem: Patient started on IV Zosyn 4.5 g every 8 hours and duo nebs every 6 around-the- clock and every 3 when necessary. Also IV Solu-Medrol 125 mg every 8 hours. Also vent management as per vent protocol. Critical care's specialty consulted. Their input is appreciated. (2) CHF (congestive heart failure) Current Visit: No Status: Chronic Qualifiers: Congestive heart failure type: unspecified congestive heart failure type Congestive heart failure chronicity: acute on chronic Qualified Code(s): I50.9 - Heart failure, unspecified Plan to address problem: Patient has chronic CHF. There may be an acute complement present. Her BNP is high in mid 5000. Echo done recently. IV Lasix initiated 40 mg every 24 hours (3) COPD exacerbation Current Visit: No Status: Acute Plan to address problem: IV Zosyn IV Solu-Medrol and nebulizer treatments [id number]. (4) Hypernatremia Current Visit: Yes Status: Acute Plan to address problem: Sodium is 146 hydrochlorothiazide stopped. Lasix 40 mg IV every 24 hours initiated for CHF. Monitor sodium levels. (5) Hypertension Current Visit: Yes Status: Chronic Qualifiers: Hypertension type: essential hypertension Qualified Code(s): I10 - Essential (primary) hypertension Plan to address problem: Patient switch to losartan 100 mg once a day (6) Gastroesophageal reflux disease Current Visit: Yes Status: Chronic Qualifiers: Esophagitis presence: without esophagitis Qualified Code(s): K21.9 - Gastro -esophageal reflux disease without esophagitis Plan to address problem: Continue PPIs (7) DVT prophylaxis Current Visit: Yes Status: Acute Plan to address problem: Lovenox 40 mg subcutaneous daily
[2016-12-06] MEDS ORDERED: DUONEB *Not for PRN Use IH (22:02)
[2016-12-06] MEDS ORDERED: SODIUM BICARBONATE FEEDTUBE PRN (22:21)
[2016-12-06] MEDS ORDERED: DULCOLAX PR PRN (22:21)
[2016-12-06] MEDS ORDERED: ALUM-MAG HYDROX-SIMETH 200-200-20MG/5ML PO PRN (22:21)
[2016-12-06] MEDS ORDERED: D50W (25GM) IV PRN (22:21)
[2016-12-06] MEDS ORDERED: SIMPLE SYRUP FEEDTUBE PRN ×2 (22:21)
[2016-12-06] MEDS ORDERED: PANCREAZE DR 10,500 UNIT FEEDTUBE PRN (22:21)
[2016-12-06] MEDS ORDERED: MILK OF MAGNESIA PO PRN (22:21)
[2016-12-06] MEDS ORDERED: PROVENTIL IH PRN (22:35)
[2016-12-07] MEDS: ZOSYN/NS 4.5GM/100ML 4.5 GM/100 ML VIAL IV SCH ×4 (00:39→22:15)
[2016-12-07] MEDS: PULMICORT IH SCH ×3 (00:42→21:00)
[2016-12-07] MEDS: DUONEB *Not for PRN Use IH SCH ×5 (00:42→21:00)
[2016-12-07 05:26] LABS: ISTAT Base Excess 25; ISTAT HCO3 49.1; ISTAT PCO2 68.5 (35-45); ISTAT PH 7.463 (7.35-7.45); ISTAT PO2 65 (80-105); ISTAT SO2 92; ISTAT TCO2 > 50
[2016-12-07] MEDS: fentaNYL DRIP Premix 2,000 MCG/100 ML BAG IV SCH (05:43)
[2016-12-07 07:36] LABS: BUN/Creatinine Ratio 21.42; Blood Urea Nitrogen 15 mg/dL (7-17); Calcium 8.2 mg/dL (8.4-10.2); Glucose 211 mg/dL (65-100); Potassium 4.8 mmol/L (3.6-5.0); Sodium 145 mmol/L (137-145)
[2016-12-07 07:42] LABS: Anion Gap 14 mmol/L; Carbon Dioxide 43 mmol/L (22-30)
[2016-12-07] MEDS ORDERED: VANCOMYCIN 1,750 MG in NACL 0.9% 500 ML 500 ML IV SCH (08:00)
[2016-12-07] MEDS: NOVOLOG SUB-Q SCH ×3 (08:19→18:26)
[2016-12-07] MEDS: D5/0.45NS 1,000 ML IV SCH (08:20)
--- NOTE | 2016-12-07 09:04 | XRay Report ---
Single view chest: Compared to 12/06/16. History: Followup of respiratory failure. Findings: Cardiomegaly with pulmonary venous congestion. Stable support system. Suspicion of left pleural effusion. Impression: No significant interval change. Probable early CHF.
--- NOTE | 2016-12-07 10:29 | Consultation ---
History of Present Illness Consult date: 12/07/16 Requesting physician: GERALDINE GARCIA Consult reason: congestive heart failure History of present illness: The pt is a 56 YO female with a past medical history significant for COPD, pulmonary HTN, DHF, HTN, noncompliance and morbid obesity. She has been seen by our practice on prior admissions. She is intubated on evaluation and this HPI is obtained per the records. As per verbal report from EMS, patient found at home, with difficulty breathing. She was intubated upon arrival to the ED. Of note, she was recently discharged from [facility] on 11/17/2016 following treatment for acute DHF, acute on chronic respiratory failure, and acute COPD exacerbation. CXR shows probable early CHF; pro-BNP 5274. Echo done 06/2016 showed EF 55-60%, LA mildly dilated, severe pulmonary HTN, RVSP 74mmHg. Stress MPI done 08/2011 was nonischemic, EF 50%. Medications and Allergies Allergies Allergy/AdvReac Type Severity Reaction Status Date / Time methylprednisolone sodium Allergy Itching Verified 09/15/16 10:40 succinate [From Solu-Medrol] Home Medications Medication Instructions Recorded Confirmed Last Taken Type ALBUTEROL Inhaler [ProAir HFA 1 puff IH Q4H PRN #1 inha 11/17/16 Unknown Rx Inhaler] Arformoterol Nebu [Brovana Nebu] 15 mcg IH Q12HRT #60 ml 11/17/16 Unknown Rx Aspirin [Aspirin TAB] 325 mg PO QDAY #30 tablet 11/17/16 Unknown Rx Budesonide [Pulmicort Respules] 0.5 mg IH Q12HRT #60 nebu 11/17/16 Unknown Rx Hydrochlorothiazide [HCTZ] 25 mg PO QDAY #30 tablet 11/17/16 Unknown Rx Levofloxacin [Levaquin TAB] 750 mg PO DAILY #5 tablet 11/17/16 Unknown Rx Lisinopril [Zestril TAB] 10 mg PO QDAY #30 tablet 11/17/16 Unknown Rx Oxycodone HCl/Acetaminophen 1 each PO Q6HR PRN #28 tablet 11/17/16 Unknown Rx [Percocet 7.5/325 mg] Pantoprazole [Protonix TAB] 40 mg PO DAILY #30 tablet 11/17/16 Unknown Rx Prednisone [predniSONE 10 mg 10 mg PO .TAPER #1 tab.ds.pk 11/17/16 Unknown Rx (6-Day Pack, 21 Tabs)] Active Meds: Active Medications Al Hydrox/Mg Hydrox/Simethicone (Alum-Mag Hydrox-Simeth [phone]/5ml) 30 ml PO Q4H PRN PRN Reason: Indigestion Albuterol (Proventil) 2.5 mg IH Q3HRT PRN PRN Reason: Wheezing Albuterol/Ipratropium (Duoneb *Not For Prn Use*) 1 ampul IH Q6HRT SHANNON Last Admin: 12/07/16 10:02 Dose: 1 ampul Lipase/Protease/Amylase (Pancreaze Dr 10,500 Unit) 1 each FEEDTUBE PRN PRN PRN Reason: For Clogged Feeding Tube Bisacodyl (Dulcolax) 10 mg MA QDAY PRN PRN Reason: constipation unrelieved by MOM Budesonide (Pulmicort) 0.5 mg IH Q12HRT SHANNON Last Admin: 12/07/16 10:02 Dose: 0.5 mg Dextrose (D50w (25gm)) 50 ml IV PRN PRN PRN Reason: Hypoglycemia Famotidine (Pepcid) 20 mg IV BID SHANNON Furosemide (Lasix) 40 mg IV QDAY SHANNON Hydrophilic Ointment (Vaseline Lip Therapy) 1 applic TP Q2HR PRN PRN Reason: Dry Lips Fentanyl Citrate (Fentanyl Drip Premix) 2,000 mcg in 100 mls @ 7.121 mls/hr IV TITR SHANNON; 1 MCG/KG/HR PRN Reason: Protocol Last Admin: 12/07/16 05:43 Dose: 1 mcg/kg/hr, 7.121 mls/hr Lorazepam 100 mg/ Sodium Chloride/ Miscellaneous Information 100 mls @ 1 mls/ hr IV TITR SHANNON; 1 MG/HR PRN Reason: Protocol Last Titration: 12/06/16 18:44 Dose: 2 mg/hr, 2 mls/hr Piperacillin Sod/Tazobactam Sod (Zosyn/Ns 4.5gm/100ml) 4.5 gm in 100 mls @ 200 mls/hr IV Q8HR SHANNON PRN Reason: Protocol Last Admin: 12/07/16 05:45 Dose: 200 mls/hr Dextrose/Sodium Chloride (D5/0.45ns) 1,000 mls @ 42 mls/hr IV DIRECT [facility] Last Admin: 12/07/16 08:20 Dose: 42 mls/hr Insulin Aspart (Novolog) 0 units SUB-Q Q6HR SHANNON PRN Reason: Protocol Last Admin: 12/07/16 08:19 Dose: 3 units Losartan Potassium (Cozaar) 100 mg PO QDAY SHANNON Magnesium Hydroxide (Milk Of Magnesia) 30 ml PO Q4H PRN PRN Reason: Constipation Methylprednisolone Sodium Succinate (Solu-Medrol) 125 mg IV Q8HR [facility] Last Admin: 12/07/16 05:44 Dose: 125 mg Multi-Ingred Cream/Lotion/Oil/Oint (Artificial Tears Ophth Oint) 1 applic OU Q4HR PRN PRN Reason: Dry Eye(s) Simple Syrup (Simple Syrup) 15 ml FEEDTUBE PRN PRN PRN Reason: Hypoglycemia Simple Syrup (Simple Syrup) 30 ml FEEDTUBE PRN PRN PRN Reason: Hypoglycemia Sodium Bicarbonate (Sodium Bicarbonate) 325 mg FEEDTUBE PRN PRN PRN Reason: For Clogged Feeding Tube Physical Examination Vital Signs Pulse Resp Pulse Ox 107 H 13 91 12/06/16 16:14 12/06/16 16:14 12/06/16 16:14 Results 12/06/16 16:37 12/07/16 07:02 Comprehensive Metabolic Panel 12/07/16 Range/Units 07:02 Sodium 145 (137-145) mmol/L Potassium 4.8 (3.6-5.0) mmol/L Chloride 93.0 L (98-107) mmol/L Carbon Dioxide 43 H* (22-30) mmol/L BUN 15 (7-17) mg/dL Creatinine 0.7 (0.7-1.2) mg/dL Glucose 211 H (65-100) mg/dL Calcium 8.2 L (8.4-10.2) mg/dL - Imaging and Cardiology Echo: report reviewed EKG: report reviewed, image reviewed EKG interpretations - Telemetry EKG Rhythm: Sinus Rhythm - EKG Sinus rhythms and dysrhythmias: sinus rhythm QRS axis and voltage: right axis deviation Repolarization changes or abnormalities: nonspecific abnormality, ST segment, and/or T wave Assessment and Plan Assessment: Acute on chronic respiratory failure - intubated COPD exacerbation ? Right heart failure / cor pulmonale Severe pulmonary HTN HTN Morbid obesity Noncompliance Plan: Cont diuresis with IV lasix daily. Pt has severe pulmonary HTN and is showing signs of cor pulmonale. She may benefit from pulmonary HTN medications but compliance has been an issue in the past. Consider [facility] once medically stable for confirmation of pulmonary HTN for medication pre-approval requirements if pt is agreeable to be compliant with medications. Consider OP referral to [facility] at discharge. Await pulmonary consultation and recommendations. The patient has been seen in conjunction with Dr. Watters who agrees with the assessment and plan of care.
[2016-12-07] MEDS: PEPCID IV SCH ×2 (10:31→22:16)
[2016-12-07] MEDS: LASIX IV SCH (10:31)
--- NOTE | 2016-12-07 10:50 | Consultation ---
History of Present Illness Consult date: 12/07/16 Requesting physician: TASNEEM HERCULES Reason for consult: other (Acute on Chronic Hypercapnic Hypoxemic Respiratory Failure) History of present illness: PULMONARY/CCM CONSULT NOTE (Full dictation # [id number]) Please see dictated notes for full details Medications and Allergies Allergies Allergy/AdvReac Type Severity Reaction Status Date / Time methylprednisolone sodium Allergy Itching Verified 09/15/16 10:40 succinate [From Solu-Medrol] Home Medications Medication Instructions Recorded Confirmed Last Taken Type ALBUTEROL Inhaler [ProAir HFA 1 puff IH Q4H PRN #1 inha 11/17/16 Unknown Rx Inhaler] Arformoterol Nebu [Brovana Nebu] 15 mcg IH Q12HRT #60 ml 11/17/16 Unknown Rx Aspirin [Aspirin TAB] 325 mg PO QDAY #30 tablet 11/17/16 Unknown Rx Budesonide [Pulmicort Respules] 0.5 mg IH Q12HRT #60 nebu 11/17/16 Unknown Rx Hydrochlorothiazide [HCTZ] 25 mg PO QDAY #30 tablet 11/17/16 Unknown Rx Levofloxacin [Levaquin TAB] 750 mg PO DAILY #5 tablet 11/17/16 Unknown Rx Lisinopril [Zestril TAB] 10 mg PO QDAY #30 tablet 11/17/16 Unknown Rx Oxycodone HCl/Acetaminophen 1 each PO Q6HR PRN #28 tablet 11/17/16 Unknown Rx [Percocet 7.5/325 mg] Pantoprazole [Protonix TAB] 40 mg PO DAILY #30 tablet 11/17/16 Unknown Rx Prednisone [predniSONE 10 mg 10 mg PO .TAPER #1 tab.ds.pk 11/17/16 Unknown Rx (6-Day Pack, 21 Tabs)] Active Meds: Active Medications Al Hydrox/Mg Hydrox/Simethicone (Alum-Mag Hydrox-Simeth [id number]/5ml) 30 ml PO Q4H PRN PRN Reason: Indigestion Albuterol (Proventil) 2.5 mg IH Q3HRT PRN PRN Reason: Wheezing Albuterol/Ipratropium (Duoneb *Not For Prn Use*) 1 ampul IH Q6HRT SHANNON Last Admin: 12/07/16 10:02 Dose: 1 ampul Lipase/Protease/Amylase (Pancrehomer Chaudhari 10,500 Unit) 1 each FEEDTUBE PRN PRN PRN Reason: For Clogged Feeding Tube Bisacodyl (Dulcolax) 10 mg MO QDAY PRN PRN Reason: constipation unrelieved by MOM Budesonide (Pulmicort) 0.5 mg IH Q12HRT [facility] Last Admin: 12/07/16 10:02 Dose: 0.5 mg Dextrose (D50w (25gm)) 50 ml IV PRN PRN PRN Reason: Hypoglycemia Famotidine (Pepcid) 20 mg IV BID [facility] Last Admin: 12/07/16 10:31 Dose: 20 mg Furosemide (Lasix) 40 mg IV QDAY SHANNON Last Admin: 12/07/16 10:31 Dose: 40 mg Hydrophilic Ointment (Vaseline Lip Therapy) 1 applic TP Q2HR PRN PRN Reason: Dry Lips Fentanyl Citrate (Fentanyl Drip Premix) 2,000 mcg in 100 mls @ 7.121 mls/hr IV TITR SHANNON; 1 MCG/KG/HR PRN Reason: Protocol Last Admin: 12/07/16 05:43 Dose: 1 mcg/kg/hr, 7.121 mls/hr Lorazepam 100 mg/ Sodium Chloride/ Miscellaneous Information 100 mls @ 1 mls/ hr IV TITR SHANNON; 1 MG/HR PRN Reason: Protocol Last Titration: 12/06/16 18:44 Dose: 2 mg/hr, 2 mls/hr Piperacillin Sod/Tazobactam Sod (Zosyn/Ns 4.5gm/100ml) 4.5 gm in 100 mls @ 200 mls/hr IV Q8HR SHANNON PRN Reason: Protocol Last Admin: 12/07/16 05:45 Dose: 200 mls/hr Dextrose/Sodium Chloride (D5/0.45ns) 1,000 mls @ 42 mls/hr IV DIRECT SHANNON Last Admin: 12/07/16 08:20 Dose: 42 mls/hr Insulin Aspart (Novolog) 0 units SUB-Q Q6HR SHANNON PRN Reason: Protocol Last Admin: 12/07/16 08:19 Dose: 3 units Losartan Potassium (Cozaar) 100 mg PO QDAY SHANNON Magnesium Hydroxide (Milk Of Magnesia) 30 ml PO Q4H PRN PRN Reason: Constipation Methylprednisolone Sodium Succinate (Solu-Medrol) 125 mg IV Q8HR SHANNON Last Admin: 12/07/16 05:44 Dose: 125 mg Multi-Ingred Cream/Lotion/Oil/Oint (Artificial Tears Ophth Oint) 1 applic OU Q4HR PRN PRN Reason: Dry Eye(s) Simple Syrup (Simple Syrup) 15 ml FEEDTUBE PRN PRN PRN Reason: Hypoglycemia Simple Syrup (Simple Syrup) 30 ml FEEDTUBE PRN PRN PRN Reason: Hypoglycemia Sodium Bicarbonate (Sodium Bicarbonate) 325 mg FEEDTUBE PRN PRN PRN Reason: For Clogged Feeding Tube Physical Examination Vital signs: Vital Signs Pulse Resp Pulse Ox 107 H 13 91 12/06/16 16:14 12/06/16 16:14 12/06/16 16:14 Results - Laboratory Findings CBC and BMP: 12/06/16 16:37 12/07/16 07:02 ABG POC ABG pH 7.463 (7.35-7.45) H 12/07/16 05:18 POC ABG pCO2 68.5 (35-45) H 12/07/16 05:18 POC ABG pO2 65 (80-105) L 12/07/16 05:18 POC ABG HCO3 49.1 12/07/16 05:18 POC ABG Total CO2 > 50 12/07/16 05:18 POC ABG O2 Sat 92 12/07/16 05:18 PT/INR, D-dimer PT 14.0 Sec. (12.2-14.9) 12/06/16 16:37 INR 1.03 (0.87-1.13) 12/06/16 16:37 Abnormal lab findings: Abnormal Labs 12/07/16 12/07/16 12/07/16 05:18 05:58 07:02 POC ABG pH 7.463 H POC ABG pCO2 68.5 H POC ABG pO2 65 L Chloride 93.0 L Carbon Dioxide 43 H* Glucose 211 H POC Glucose 195 H Calcium 8.2 L
--- NOTE | 2016-12-07 11:00 | XRay Report ---
Single view abdomen: History: NG tube placement. Findings: Tip of NG tube is noted in distal stomach. Impression: Tip of NG tube is noted in distal stomach.
[2016-12-07] MEDS: COZAAR PO SCH (11:51)
[2016-12-07] MEDS ORDERED: PEPCID IV SCH (13:00)
[2016-12-07] MEDS: HEPARIN SUB-Q SCH ×2 (13:35→22:16)
[2016-12-07] MEDS ORDERED: PANCREAZE DR 10,500 UNIT FEEDTUBE PRN (15:10)
[2016-12-07] MEDS ORDERED: SIMPLE SYRUP FEEDTUBE PRN ×2 (15:10)
[2016-12-07] MEDS ORDERED: SODIUM BICARBONATE FEEDTUBE PRN (15:10)
--- NOTE | 2016-12-07 18:54 | Progress Note ---
Assessment and Plan Assessment and plan: Acute on chronic hypoxic respiratory failure, patient is on mechanical ventilation less than 96 hours - On mechanical ventilation - Pulmonary is following - Patient is off sedation COPD exacerbation - On IV antibiotics, Solu-Medrol, nebulizer treatment Toxic metabolic encephalopathy - Patient to obtain the history of altered mental status Pulmonary hypertension - She is on Lasix DVT prophylaxis Disposition - Continue ICU care CODE STATUS full History Interval history: Patient was seen and evaluated this morning, patient is intubated and on and on mechanical ventilation. Hospitalist Physical - Physical exam Narrative exam: Patient is intubated and on mechanical ventilation, patient is off sedation. The patient appeared well nourished and normally developed. Vital signs as documented. Head exam is unremarkable. No scleral icterus . Neck is without jugular venous distension, thyromegaly, or carotid bruits. Lungs wheezing all over the chest. Cardiac exam reveals regular rate and Rhythm. First and second heart sounds normal. No murmurs, rubs or gallops. Abdominal exam reveals normal bowel sounds, no masses, no organomegaly and no aortic enlargement. Extremities are nonedematous and both femoral and pedal pulses are normal. [employer]: Patient is off sedation but still comatose. - Constitutional Vitals: Temp Pulse Resp BP Pulse Ox 98.5 F 81 14 124/64 89 12/07/16 16:00 12/07/16 18:01 12/07/16 18:01 12/07/16 18:01 12/07/16 18:01 General appearance: Present: no acute distress, severe distress (patient intubated and on ventilator), well-nourished Results - Labs CBC & Chem 7: 12/06/16 16:37 12/07/16 07:02 Labs: Laboratory Last Values WBC 9.9 K/mm3 (4.5-11.0) 12/06/16 16:37 RBC 4.52 M/mm3 (3.65-5.03) 12/06/16 16:37 Hgb 13.9 gm/dl (10.1-14.3) 12/06/16 16:37 Hct 46.6 % (30.3-42.9) H 12/06/16 16:37 MCV 103 fl (79-97) H 12/06/16 16:37 MCH 31 pg (28-32) 12/06/16 16:37 MCHC 30 % (30-34) 12/06/16 16:37 RDW 18.5 % (13.2-15.2) H 12/06/16 16:37 Plt Count 146 K/mm3 (140-440) 12/06/16 16:37 Lymph % (Auto) 17.2 % (13.4-35.0) 12/06/16 16:37 Colbert % (Auto) 6.6 % (0.0-7.3) 12/06/16 16:37 Eos % (Auto) 2.1 % (0.0-4.3) 12/06/16 16:37 Baso % (Auto) 0.4 % (0.0-1.8) 12/06/16 16:37 Lymph # 1.7 K/mm3 (1.2-5.4) 12/06/16 16:37 Colbert # 0.7 K/mm3 (0.0-0.8) 12/06/16 16:37 Eos # 0.2 K/mm3 (0.0-0.4) 12/06/16 16:37 Baso # 0.0 K/mm3 (0.0-0.1) 12/06/16 16:37 Seg Neutrophils % 73.7 % (40.0-70.0) H 12/06/16 16:37 Seg Neutrophils # 7.3 K/mm3 (1.8-7.7) 12/06/16 16:37 PT 14.0 Sec. (12.2-14.9) 12/06/16 16:37 INR 1.03 (0.87-1.13) 12/06/16 16:37 APTT 20.2 Sec. (24.2-36.6) L 12/06/16 16:37 POC ABG pH 7.463 (7.35-7.45) H 12/07/16 05:18 POC ABG pCO2 68.5 (35-45) H 12/07/16 05:18 POC ABG pO2 65 (80-105) L 12/07/16 05:18 POC ABG HCO3 49.1 12/07/16 05:18 POC ABG Total CO2 > 50 12/07/16 05:18 POC ABG O2 Sat 92 12/07/16 05:18 POC ABG Base Excess 25 12/07/16 05:18 FiO2 50 % 12/07/16 05:18 Sodium 145 mmol/L (137-145) 12/07/16 07:02 Potassium 4.8 mmol/L (3.6-5.0) 12/07/16 07:02 Chloride 93.0 mmol/L (98-107) L 12/07/16 07:02 Carbon Dioxide 43 mmol/L (22-30) H* 12/07/16 07:02 Anion Gap 14 mmol/L 12/07/16 07:02 BUN 15 mg/dL (7-17) 12/07/16 07:02 Creatinine 0.7 mg/dL (0.7-1.2) 12/07/16 07:02 Estimated GFR > 60 ml/min 12/07/16 07:02 BUN/Creatinine Ratio 21.42 % 12/07/16 07:02 Glucose 211 mg/dL (65-100) H 12/07/16 07:02 POC Glucose 234 (70-105) H 12/07/16 17:45 Lactic Acid 1.20 mmol/L (0.7-2.0) 12/06/16 18:26 Calcium 8.2 mg/dL (8.4-10.2) L 12/07/16 07:02 Magnesium 2.50 mg/dL (1.7-2.3) H 12/06/16 16:37 Total Bilirubin 0.50 mg/dL (0.1-1.2) 12/06/16 16:37 AST 13 units/L (5-40) 12/06/16 16:37 ALT 16 units/L (7-56) 12/06/16 16:37 Alkaline Phosphatase 73 units/L (35-129) 12/06/16 16:37 Troponin T < 0.010 ng/mL (0.00-0.029) 12/06/16 16:37 C-Reactive Protein 0.90 mg/dL (0.00-1.30) 12/07/16 13:43 NT-Pro-B Natriuret Pep 5274 pg/mL (0-900) H 12/06/16 16:50 Total Protein 6.5 g/dL (6.3-8.2) 12/06/16 16:37 Albumin 3.6 g/dL (3.9-5) L 12/06/16 16:37 Albumin/Globulin Ratio 1.2 % 12/06/16 16:37 Urine Color Yellow (Yellow) 12/06/16 18:11 Urine Turbidity Clear (Clear) 12/06/16 18:11 Urine pH 5.0 (5.0-7.0) 12/06/16 18:11 Ur Specific Pyrites 1.020 (1.003-1.030) 12/06/16 18:11 Urine Protein 100 mg/dl mg/dL (Negative) 12/06/16 18:11 Urine Glucose (UA) Neg mg/dL (Negative) 12/06/16 18:11 Urine Ketones Neg mg/dL (Negative) 12/06/16 18:11 Urine Blood Neg (Negative) 12/06/16 18:11 Urine Nitrite Neg (Negative) 12/06/16 18:11 Urine Bilirubin Neg (Negative) 12/06/16 18:11 Urine Urobilinogen < 2.0 mg/dL (<2.0) 12/06/16 18:11 Ur Leukocyte Esterase Neg (Negative) 12/06/16 18:11 Urine WBC (Auto) 1.0 /HPF (0.0-6.0) 12/06/16 18:11 Urine RBC (Auto) 3.0 /HPF (0.0-6.0) 12/06/16 18:11 U Epithel Cells (Auto) 1.0 /HPF (0-13.0) 12/06/16 18:11 Hyaline Casts 17 /LPF 12/06/16 18:11 Urine Mucus Few /HPF 12/06/16 18:11
[2016-12-07 22:04] LABS: Magnesium 2.1 mg/dL (1.7-2.3); Phosphorous 3.9 mg/dL (2.5-4.5)
[2016-12-08] MEDS: DUONEB *Not for PRN Use IH SCH ×4 (02:21→19:39)
[2016-12-08 04:20] LABS: ISTAT Base Excess > 30; ISTAT HCO3 54.2; ISTAT PCO2 52.2 (35-45); ISTAT PH 7.624 (7.35-7.45); ISTAT PO2 76 (80-105); ISTAT SO2 97; ISTAT TCO2 > 50
[2016-12-08 04:59] LABS: Mean Corpuscular HGB Conc 31 % (30-34); Mean Corpuscular Hemoglobin 30 pg (28-32); Mean Corpuscular Volume 97 fl (79-97); Platelet Count 118 K/mm3 (140-440); Red Blood Count 4.53 M/mm3 (3.65-5.03); Red Cell Distribution Width 18.6 % (13.2-15.2); White Blood Count 8.8 K/mm3 (4.5-11.0)
[2016-12-08 05:00] LABS: Hematocrit 43.8 % (30.3-42.9); Hemoglobin 13.6 gm/dl (10.1-14.3)
[2016-12-08 05:07] LABS: BUN/Creatinine Ratio 23.33; Blood Urea Nitrogen 21 mg/dL (7-17); Calcium 8.1 mg/dL (8.4-10.2); Chloride 91.1 mmol/L (98-107); Glucose 265 mg/dL (65-100); Potassium 3.9 mmol/L (3.6-5.0); Sodium 143 mmol/L (137-145)
[2016-12-08 05:12] LABS: Anion Gap 15 mmol/L
[2016-12-08 05:31] LABS: Carbon Dioxide 41 mmol/L (22-30)
[2016-12-08 05:45] LABS: Basophils % (Manual) 0 % (0.0-1.8); Blastocytes % (Manual) 0 %; Diff Status Complete; Eosinophils % (Manual) 0 % (0.0-4.3); Platelet Estimate Appears Decreased; RBC Morphology Normal
[2016-12-08] MEDS: HEPARIN SUB-Q SCH (06:08)
[2016-12-08] MEDS: ZOSYN/NS 4.5GM/100ML 4.5 GM/100 ML VIAL IV SCH ×3 (06:09→22:00)
[2016-12-08] MEDS: D5/0.45NS 1,000 ML IV SCH (06:10)
--- NOTE | 2016-12-08 07:21 | XRay Report ---
Single view chest: Compared to 12/07/16. History: Followup of respiratory failure. Findings: Marked cardiomegaly. Stable support system. Mild pulmonary venous congestion. No consolidation. Suspected minimal pleural effusion. Impression: Probable CHF.
[2016-12-08] MEDS: PULMICORT IH SCH ×2 (08:20→19:39)
[2016-12-08] MEDS: NOVOLOG SUB-Q SCH ×4 (08:49→18:57)
[2016-12-08] MEDS: LASIX IV SCH (09:19)
[2016-12-08] MEDS: PEPCID IV SCH ×2 (09:19→22:00)
[2016-12-08] MEDS: COZAAR PO SCH (09:19)
--- NOTE | 2016-12-08 09:27 | Progress Note ---
Assessment and Plan Assessment: Acute on chronic respiratory failure - intubated COPD exacerbation ? Right heart failure / cor pulmonale Severe pulmonary HTN Elevated DDimer - further eval/management per primary/pulmonary. HTN Morbid obesity Noncompliance Plan: Optimize antihypertensive regimen. Avoid beta blockers in setting of COPD and acute on chronic respiratory failure. Pt has severe pulmonary HTN and is showing signs of cor pulmonale. She may benefit from pulmonary HTN medications but compliance has been an issue in the past. Consider RHC once medically stable for confirmation of pulmonary HTN for medication pre-approval requirements if pt is agreeable to be compliant with medications. Consider OP referral to [place] pulmonary HTN clinic at discharge. D/ w pulmonary. The patient has been seen in conjunction with Dr. Watters who agrees with the assessment and plan of care. Subjective Date of service: 12/08/16 Principal diagnosis: respiratory failure Interval history: Pt remains intubated, restrained, responds appropriately to painful stimuli. VSS. Objective Last Vital Signs Temp 98.4 F 12/08/16 08:00 Pulse 67 12/08/16 09:19 Resp 14 12/08/16 09:01 BP 168/79 12/08/16 09:19 Pulse Ox 89 12/08/16 09:01 - Physical Examination General: Other (intubated ) HEENT: Positive: PERRL Neck: Positive: neck supple, trachea midline Cardiac: Positive: Reg Rate and Rhythm, S1/S2, Systolic Murmur Lungs: Positive: Decreased Breath Sounds, Ventilated Respirations Neuro: Positive: Grossly Intact, Cranial Nerve 2-12 Intact Abdomen: Positive: Soft, Active Bowel Sounds. Negative: Tender Skin: Positive: Clear. Negative: Rash, Wound Extremities: Present: edema (trace BLE), Other (chronic skin changes noted in BLE ) - Labs and Meds CBC 12/08/16 Range/Units 04:39 WBC 8.8 (4.5-11.0) K/mm3 RBC 4.53 (3.65-5.03) M/mm3 Hgb 13.6 (10.1-14.3) gm/dl Hct 43.8 H (30.3-42.9) % Plt Count 118 L (140-440) K/mm3 Comprehensive Metabolic Panel 12/08/16 Range/Units 04:39 Sodium 143 (137-145) mmol/L Potassium 3.9 (3.6-5.0) mmol/L Chloride 91.1 L (98-107) mmol/L Carbon Dioxide 41 H* (22-30) mmol/L BUN 21 H (7-17) mg/dL Creatinine 0.9 (0.7-1.2) mg/dL Glucose 265 H (65-100) mg/dL Calcium 8.1 L (8.4-10.2) mg/dL - Imaging and Cardiology EKG: report reviewed, image reviewed Echo: report reviewed - Telemetry EKG Rhythm: Sinus Rhythm - EKG Sinus rhythms and dysrhythmias: sinus rhythm QRS axis and voltage: right axis deviation Repolarization changes or abnormalities: nonspecific abnormality, ST segment, and/or T wave
--- NOTE | 2016-12-08 11:31 | Progress Note ---
Assessment and Plan - Patient Problems (1) Acute exacerbation of chronic obstructive pulmonary disease (COPD) Current Visit: No Status: Acute Plan to address problem: - continue systemic steroids - continue long and short acting bronchodilators - continue full mechanical ventilatory support - wean FiO2 for sats > 92% - keep Peep at [id number] for now - continue aspiration precautions / address VAP bundle daily - continue bronchodilators and pulmonary toilet - treat VTE (2) Altered mental status Current Visit: No Status: Acute Qualifiers: Altered mental status type: A Coma depth: C Coma timing: C Plan to address problem: - no acute indication for neuroimaging based on clinical exam - avoid sedativs / overanalgesia (3) Cellulitis of lower extremity Current Visit: No Status: Acute Qualifiers: Laterality: right Qualified Code(s): L03.115 - Cellulitis of right lower limb Plan to address problem: - will de-escalate AB's to levaquin monotherapy (4) Gastroesophageal reflux disease Current Visit: Yes Status: Chronic Qualifiers: Esophagitis presence: without esophagitis Qualified Code(s): K21.9 - Gastro -esophageal reflux disease without esophagitis Plan to address problem: - continue pepcid - aspiration precautions (5) Morbid obesity Current Visit: No Status: Chronic Plan to address problem: - weight loss counselling once improved clinically - sleep clinic evaluation for SDB (6) VTE (venous thromboembolism) Current Visit: Yes Status: Acute Plan to address problem: - dopplers positive for left lower ext DVT - will begin IV heparin - P.E. explains hypoxemia better (7) Constipation Current Visit: Yes Status: Acute Qualifiers: Constipation type: C Plan to address problem: - get KUB - schedule lactulose - schedule low dose reglan - keep NGT to LIS for now (8) Discharge planning issues Current Visit: Yes Status: Acute Plan to address problem: - remains critically ill on life sustaining interventions including MVS and at risk for further deterioration including ....re-evaluate in am & prn ...30' CCT Subjective Date of service: 12/08/16 Principal diagnosis: Acute on Chronic Hypercapnic Hypoxemic Respiratory Failure Interval history: Seen and examined at bedside; 24 hour events reviewed; nursing and respiratory care staff consulted; no adverse overnight events reported to me; remains lethargic to obtunded; still with significant NGT drainage and remains with NGT to LIS; she does follow commands with prodding and showed two fingers in her left hand to command Objective Vital Signs - 12hr 12/07/16 12/07/16 12/08/16 23:31 23:47 00:00 Temperature 99.1 F Pulse Rate 71 Pulse Rate [ Anterior Bilateral Throughout] Respiratory 14 14 Rate Respiratory Rate [Anterior Bilateral Throughout] Blood Pressure 180/92 O2 Sat by Pulse 91 91 Oximetry 12/08/16 12/08/16 12/08/16 00:01 00:04 00:31 Temperature Pulse Rate 68 72 73 Pulse Rate [ Anterior Bilateral Throughout] Respiratory 14 14 Rate Respiratory Rate [Anterior Bilateral Throughout] Blood Pressure 161/70 196/60 161/70 O2 Sat by Pulse 91 92 91 Oximetry 12/08/16 12/08/16 12/08/16 01:01 01:31 02:01 Temperature Pulse Rate 65 64 69 Pulse Rate [ Anterior Bilateral Throughout] Respiratory 14 14 17 Rate Respiratory Rate [Anterior Bilateral Throughout] Blood Pressure 161/70 171/83 165/88 O2 Sat by Pulse 92 91 90 Oximetry 12/08/16 12/08/16 12/08/16 02:05 02:31 03:01 Temperature Pulse Rate 70 72 Pulse Rate [ 59 L Anterior Bilateral Throughout] Respiratory 14 14 Rate Respiratory 14 Rate [Anterior Bilateral Throughout] Blood Pressure 165/88 170/97 O2 Sat by Pulse 92 90 Oximetry 12/08/16 12/08/16 12/08/16 03:31 03:46 03:55 Temperature 99.1 F Pulse Rate 54 L 62 Pulse Rate [ Anterior Bilateral Throughout] Respiratory 14 Rate Respiratory Rate [Anterior Bilateral Throughout] Blood Pressure 170/97 170/97 O2 Sat by Pulse 92 92 Oximetry 12/08/16 12/08/16 12/08/16 04:00 04:01 04:31 Temperature Pulse Rate 58 L 59 L Pulse Rate [ Anterior Bilateral Throughout] Respiratory 14 14 14 Rate Respiratory Rate [Anterior Bilateral Throughout] Blood Pressure 148/80 148/80 O2 Sat by Pulse 92 92 92 Oximetry 12/08/16 12/08/16 12/08/16 05:01 05:31 06:01 Temperature Pulse Rate 59 L 51 L 57 L Pulse Rate [ Anterior Bilateral Throughout] Respiratory 14 14 14 Rate Respiratory Rate [Anterior Bilateral Throughout] Blood Pressure 148/90 148/90 156/75 O2 Sat by Pulse 90 92 91 Oximetry 12/08/16 12/08/1617 06:31 07:01 07:31 Temperature Pulse Rate 59 L 61 80 Pulse Rate [ Anterior Bilateral Throughout] Respiratory 14 14 14 Rate Respiratory Rate [Anterior Bilateral Throughout] Blood Pressure 156/75 149/77 149/77 O2 Sat by Pulse 92 90 91 Oximetry 12/08/16 12/08/16 12/08/16 08:00 08:01 08:31 Temperature 98.4 F Pulse Rate 60 61 72 Pulse Rate [ 73 Anterior Bilateral Throughout] Respiratory 14 14 Rate Respiratory 14 Rate [Anterior Bilateral Throughout] Blood Pressure 172/82 172/82 172/82 O2 Sat by Pulse 92 89 92 Oximetry 12/08/16 12/08/16 12/08/16 09:01 09:19 09:31 Temperature Pulse Rate 65 67 73 Pulse Rate [ Anterior Bilateral Throughout] Respiratory 14 12 Rate Respiratory Rate [Anterior Bilateral Throughout] Blood Pressure 168/79 168/79 168/79 O2 Sat by Pulse 89 91 Oximetry 12/08/16 12/08/16 12/08/16 10:00 10:01 10:31 Temperature Pulse Rate 75 77 65 Pulse Rate [ Anterior Bilateral Throughout] Respiratory 12 12 Rate Respiratory Rate [Anterior Bilateral Throughout] Blood Pressure 168/79 137/65 O2 Sat by Pulse 90 92 Oximetry 12/08/16 11:01 Temperature Pulse Rate 72 Pulse Rate [ Anterior Bilateral Throughout] Respiratory 14 Rate Respiratory Rate [Anterior Bilateral Throughout] Blood Pressure 131/65 O2 Sat by Pulse 90 Oximetry Constitutional: lethargic Eyes: non-icteric ENT: oropharynx moist Neck: supple, no lymphadenopathy Effort: mildly labored Ascultation: Bilateral: diminished breath sounds, rales Cardiovascular: regular rate and rhythm Gastrointestinal: normoactive bowel sounds, soft, non-tender, non-distended Integumentary: normal Extremities: no cyanosis, no edema, pulses normal, no ischemia or petechiae, other ( erhythematous vs mild cellulitis) Neurologic: non-focal exam (grossly), other (lethargic) Psychiatric: other (unable to assess) CBC and BMP: 12/08/16 04:39 12/08/16 04:39 ABG, PT/INR, D-dimer: ABG POC ABG pH 7.624 (7.35-7.45) H 12/08/16 04:07 POC ABG pCO2 52.2 (35-45) H 12/08/16 04:07 POC ABG pO2 76 (80-105) L 12/08/16 04:07 POC ABG HCO3 54.2 12/08/16 04:07 POC ABG Total CO2 > 50 12/08/16 04:07 POC ABG O2 Sat 97 12/08/16 04:07 PT/INR, D-dimer PT 14.0 Sec. (12.2-14.9) 12/06/16 16:37 INR 1.03 (0.87-1.13) 12/06/16 16:37 D-Dimer 776.86 ng/mlDDU (0-234) H 12/07/16 21:34 Abnormal lab findings: Abnormal Labs 12/07/16 12/07/16 12/07/16 05:18 05:58 07:02 Hct RDW Plt Count Seg Neuts % (Manual) Lymphocytes % (Manual) Seg Neutrophils # Man Lymphocytes # (Manual) D-Dimer POC ABG pH 7.463 H POC ABG pCO2 68.5 H POC ABG pO2 65 L Chloride 93.0 L Carbon Dioxide 43 H* BUN Glucose 211 H POC Glucose 195 H Calcium 8.2 L 12/07/16 12/07/16 12/07/16 12:50 17:45 21:34 Hct RDW Plt Count Seg Neuts % (Manual) Lymphocytes % (Manual) Seg Neutrophils # Man Lymphocytes # (Manual) D-Dimer 776.86 H POC ABG pH POC ABG pCO2 POC ABG pO2 Chloride Carbon Dioxide BUN Glucose POC Glucose 275 H 234 H Calcium 12/08/16 12/08/16 12/08/16 00:10 04:07 04:39 Hct RDW Plt Count Seg Neuts % (Manual) Lymphocytes % (Manual) Seg Neutrophils # Man Lymphocytes # (Manual) D-Dimer POC ABG pH 7.624 H POC ABG pCO2 52.2 H POC ABG pO2 76 L Chloride 91.1 L Carbon Dioxide 41 H* BUN 21 H Glucose 265 H POC Glucose 203 H Calcium 8.1 L 12/08/16 12/08/16 04:39 05:16 Hct 43.8 H RDW 18.6 H Plt Count 118 L Seg Neuts % (Manual) 97.0 H Lymphocytes % (Manual) 1.0 L Seg Neutrophils # Man 8.5 H Lymphocytes # (Manual) 0.1 L D-Dimer POC ABG pH POC ABG pCO2 POC ABG pO2 Chloride Carbon Dioxide BUN Glucose POC Glucose 245 H Calcium Chest x-ray: image reviewed
[2016-12-08] MEDS ORDERED: CEPHULAC PO PRN (12:54)
--- NOTE | 2016-12-08 13:46 | XRay Report ---
ABDOMEN RADIOGRAPHS INDICATION: Constipation. COMPARISON: 12/07/2016 FINDINGS: Frontal abdominal radiographs again demonstrate esophagogastric tube tip along the distal stomach. Exam in part limited due to patient's body habitus, though suggests grossly nonobstructive bowel gas pattern. No gross pneumatosis or pneumoperitoneum. Left lower lung opacities/air bronchograms again noted as also EKG leads and multilevel spinal degenerative changes. CONCLUSION: No significant interval change, as described. Thank you for the opportunity to participate in this patient's care.
[2016-12-08] MEDS ORDERED: HEPARIN 10,000 UNITS/10 ML IV ONE (14:00)
[2016-12-08] MEDS: REGLAN IV SCH ×2 (14:09→20:34)
[2016-12-08] MEDS: HEPARIN/ 0.45% NACL-25,000 UNIT/500 ML 25,000 UNIT/500 ML BAG IV SCH (14:12)
[2016-12-08 14:32] LABS: Hemoglobin 13.9 gm/dl (10.1-14.3)
[2016-12-08 14:43] LABS: INR 1.16 (0.87-1.13); Partial Thromboplastin Time 23.5 Sec. (24.2-36.6)
--- NOTE | 2016-12-08 16:08 | Progress Note ---
Assessment and Plan Assessment and plan: Acute on chronic hypoxic respiratory failure, patient is on mechanical ventilation less than 96 hours - On mechanical ventilation - Pulmonary is following - Patient is off sedation VTE, PE is a possibility - Patient is on IV heparin COPD exacerbation - On IV antibiotics, Solu-Medrol, nebulizer treatment Toxic metabolic encephalopathy - Patient to obtain the history of altered mental status Pulmonary hypertension - She is on Lasix DVT prophylaxis Disposition - Continue ICU care CODE STATUS full Prognosis -Poor History Interval history: Patient was seen and evaluated this morning, patient is intubated and on and on mechanical ventilation. Hospitalist Physical - Physical exam Narrative exam: Patient is intubated and on mechanical ventilation, patient is off sedation. The patient appeared well nourished and normally developed. Vital signs as documented. Head exam is unremarkable. No scleral icterus . Neck is without jugular venous distension, thyromegaly, or carotid bruits. Lungs wheezing all over the chest. Cardiac exam reveals regular rate and Rhythm. First and second heart sounds normal. No murmurs, rubs or gallops. Abdominal exam reveals normal bowel sounds, no masses, no organomegaly and no aortic enlargement. Extremities are nonedematous and both femoral and pedal pulses are normal. BLOCK HAND: Patient is off sedation but still comatose. - Constitutional Vitals: Temp Pulse Resp BP Pulse Ox 98.2 F 94 H 13 139/67 90 12/08/16 12:00 12/08/16 15:01 12/08/16 15:01 12/08/16 15:01 12/08/16 14:31 General appearance: Present: no acute distress, severe distress (patient intubated and on ventilator), well-nourished Results - Labs CBC & Chem 7: 12/08/16 14:01 12/08/16 04:39 Labs: Laboratory Last Values WBC 8.8 K/mm3 (4.5-11.0) 12/08/16 04:39 RBC 4.53 M/mm3 (3.65-5.03) 12/08/16 04:39 Hgb 13.9 gm/dl (10.1-14.3) 12/08/16 14:01 Hct 44.0 % (30.3-42.9) H 12/08/16 14:01 MCV 97 fl (79-97) D 12/08/16 04:39 MCH 30 pg (28-32) 12/08/16 04:39 MCHC 31 % (30-34) 12/08/16 04:39 RDW 18.6 % (13.2-15.2) H 12/08/16 04:39 Plt Count 138 K/mm3 (140-440) L 12/08/16 14:01 Lymph % (Auto) 17.2 % (13.4-35.0) 12/06/16 16:37 [place] % (Auto) 6.6 % (0.0-7.3) 12/06/16 16:37 Eos % (Auto) 2.1 % (0.0-4.3) 12/06/16 16:37 Baso % (Auto) 0.4 % (0.0-1.8) 12/06/16 16:37 Lymph # 1.7 K/mm3 (1.2-5.4) 12/06/16 16:37 [place] # 0.7 K/mm3 (0.0-0.8) 12/06/16 16:37 Eos # 0.2 K/mm3 (0.0-0.4) 12/06/16 16:37 Baso # 0.0 K/mm3 (0.0-0.1) 12/06/16 16:37 Add Manual Diff Complete 12/08/16 04:39 Total Counted 100 12/08/16 04:39 Seg Neutrophils % Software Program Manager 12/08/16 04:39 Seg Neuts % (Manual) 97.0 % (40.0-70.0) H 12/08/16 04:39 Band Neutrophils % 0 % 12/08/16 04:39 Lymphocytes % (Manual) 1.0 % (13.4-35.0) L 12/08/16 04:39 Reactive Lymphs % (Man) 0 % 12/08/16 04:39 Monocytes % (Manual) 2.0 % (0.0-7.3) 12/08/16 04:39 Eosinophils % (Manual) 0 % (0.0-4.3) 12/08/16 04:39 Basophils % (Manual) 0 % (0.0-1.8) 12/08/16 04:39 Metamyelocytes % 0 % 12/08/16 04:39 Myelocytes % 0 % 12/08/16 04:39 Promyelocytes % 0 % 12/08/16 04:39 Blast Cells % 0 % 12/08/16 04:39 Nucleated RBC % Not Reportable 12/08/16 04:39 Seg Neutrophils # 7.3 K/mm3 (1.8-7.7) 12/06/16 16:37 Seg Neutrophils # Man 8.5 K/mm3 (1.8-7.7) H 12/08/16 04:39 Band Neutrophils # 0.0 K/mm3 12/08/16 04:39 Lymphocytes # (Manual) 0.1 K/mm3 (1.2-5.4) L 12/08/16 04:39 Abs React Lymphs (Man) 0.0 K/mm3 12/08/16 04:39 Monocytes # (Manual) 0.2 K/mm3 (0.0-0.8) 12/08/16 04:39 Eosinophils # (Manual) 0.0 K/mm3 (0.0-0.4) 12/08/16 04:39 Basophils # (Manual) 0.0 K/mm3 (0.0-0.1) 12/08/16 04:39 Metamyelocytes # 0.0 K/mm3 12/08/16 04:39 Myelocytes # 0.0 K/mm3 12/08/16 04:39 Promyelocytes # 0.0 K/mm3 12/08/16 04:39 Blast Cells # 0.0 K/mm3 12/08/16 04:39 WBC Morphology Not Reportable 12/08/16 04:39 Hypersegmented Neuts Not Reportable 12/08/16 04:39 Hyposegmented Neuts Not Reportable 12/08/16 04:39 Hypogranular Neuts Not Reportable 12/08/16 04:39 Smudge Cells Not Reportable 12/08/16 04:39 Toxic Granulation Not Reportable 12/08/16 04:39 Toxic Vacuolation Not Reportable 12/08/16 04:39 Dohle Bodies Not Reportable 12/08/16 04:39 Pelger-Huet Anomaly Not Reportable 12/08/16 04:39 Ivone Rods Not Reportable 12/08/16 04:39 Platelet Estimate Appears decreased 12/08/16 04:39 Clumped Platelets Not Reportable 12/08/16 04:39 Plt Clumps, EDTA Not Reportable 12/08/16 04:39 Large Platelets Not Reportable 12/08/16 04:39 Giant Platelets Not Reportable 12/08/16 04:39 Platelet Satelliting Not Reportable 12/08/16 04:39 Plt Morphology Comment Not Reportable 12/08/16 04:39 RBC Morphology Normal 12/08/16 04:39 Dimorphic RBCs Not Reportable 12/08/16 04:39 Polychromasia Not Reportable 12/08/16 04:39 Hypochromasia Not Reportable 12/08/16 04:39 Poikilocytosis Not Reportable 12/08/16 04:39 Anisocytosis Not Reportable 12/08/16 04:39 Microcytosis Not Reportable 12/08/16 04:39 Macrocytosis Not Reportable 12/08/16 04:39 Spherocytes Not Reportable 12/08/16 04:39 Pappenheimer Bodies Not Reportable 12/08/16 04:39 Sickle Cells Not Reportable 12/08/16 04:39 Target Cells Not Reportable 12/08/16 04:39 Tear Drop Cells Not Reportable 12/08/16 04:39 Ovalocytes Not Reportable 12/08/16 04:39 Helmet Cells Not Reportable 12/08/16 04:39 [place] Bodies Not Reportable 12/08/16 04:39 Echo Rings Not Reportable 12/08/16 04:39 Prompton Cells Not Reportable 12/08/16 04:39 Bite Cells Not Reportable 12/08/16 04:39 Crenated Cell Not Reportable 12/08/16 04:39 Elliptocytes Not Reportable 12/08/16 04:39 Acanthocytes (Spur) Not Reportable 12/08/16 04:39 Rouleaux Not Reportable 12/08/16 04:39 Hemoglobin C Crystals Not Reportable 12/08/16 04:39 Schistocytes Not Reportable 12/08/16 04:39 Malaria parasites Not Reportable 12/08/16 04:39 [place] Bodies Not Reportable 12/08/16 04:39 Hem Pathologist Commnt No 12/08/16 04:39 PT 14.7 Sec. (12.2-14.9) 12/08/16 14:01 INR 1.16 (0.87-1.13) H 12/08/16 14:01 APTT 23.5 Sec. (24.2-36.6) L 12/08/16 14:01 D-Dimer 776.86 ng/mlDDU (0-234) H 12/07/16 21:34 POC ABG pH 7.624 (7.35-7.45) H 12/08/16 04:07 POC ABG pCO2 52.2 (35-45) H 12/08/16 04:07 POC ABG pO2 76 (80-105) L 12/08/16 04:07 POC ABG HCO3 54.2 12/08/16 04:07 POC ABG Total CO2 > 50 12/08/16 04:07 POC ABG O2 Sat 97 12/08/16 04:07 POC ABG Base Excess > 30 12/08/16 04:07 FiO2 50 % 12/08/16 04:07 Sodium 143 mmol/L (137-145) 12/08/16 04:39 Potassium 3.9 mmol/L (3.6-5.0) 12/08/16 04:39 Chloride 91.1 mmol/L (98-107) L 12/08/16 04:39 Carbon Dioxide 41 mmol/L (22-30) H* 12/08/16 04:39 Anion Gap 15 mmol/L 12/08/16 04:39 BUN 21 mg/dL (7-17) H 12/08/16 04:39 Creatinine 0.9 mg/dL (0.7-1.2) 12/08/16 04:39 Estimated GFR > 60 ml/min 12/08/16 04:39 BUN/Creatinine Ratio 23.33 % 12/08/16 04:39 Glucose 265 mg/dL (65-100) H 12/08/16 04:39 POC Glucose 240 (70-105) H 12/08/16 12:19 Lactic Acid 1.20 mmol/L (0.7-2.0) 12/06/16 18:26 Calcium 8.1 mg/dL (8.4-10.2) L 12/08/16 04:39 Phosphorus 3.90 mg/dL (2.5-4.5) 12/07/16 21:34 Magnesium 2.10 mg/dL (1.7-2.3) 12/07/16 21:34 Total Bilirubin 0.50 mg/dL (0.1-1.2) 12/06/16 16:37 AST 13 units/L (5-40) 12/06/16 16:37 ALT 16 units/L (7-56) 12/06/16 16:37 Alkaline Phosphatase 73 units/L (35-129) 12/06/16 16:37 Troponin T < 0.010 ng/mL (0.00-0.029) 12/06/16 16:37 C-Reactive Protein 0.90 mg/dL (0.00-1.30) 12/07/16 13:43 NT-Pro-B Natriuret Pep 5274 pg/mL (0-900) H 12/06/16 16:50 Total Protein 6.5 g/dL (6.3-8.2) 12/06/16 16:37 Albumin 3.6 g/dL (3.9-5) L 12/06/16 16:37 Albumin/Globulin Ratio 1.2 % 12/06/16 16:37 Urine Color Yellow (Yellow) 12/06/16 18:11 Urine Turbidity Clear (Clear) 12/06/16 18:11 Urine pH 5.0 (5.0-7.0) 12/06/16 18:11 Ur Specific [place] 1.020 (1.003-1.030) 12/06/16 18:11 Urine Protein 100 mg/dl mg/dL (Negative) 12/06/16 18:11 Urine Glucose (UA) Neg mg/dL (Negative) 12/06/16 18:11 Urine Ketones Neg mg/dL (Negative) 12/06/16 18:11 Urine Blood Neg (Negative) 12/06/16 18:11 Urine Nitrite Neg (Negative) 12/06/16 18:11 Urine Bilirubin Neg (Negative) 12/06/16 18:11 Urine Urobilinogen < 2.0 mg/dL (<2.0) 12/06/16 18:11 Ur Leukocyte Esterase Neg (Negative) 12/06/16 18:11 Urine WBC (Auto) 1.0 /HPF (0.0-6.0) 12/06/16 18:11 Urine RBC (Auto) 3.0 /HPF (0.0-6.0) 12/06/16 18:11 U Epithel Cells (Auto) 1.0 /HPF (0-13.0) 12/06/16 18:11 Hyaline Casts 17 /LPF 12/06/16 18:11 Urine Mucus Few /HPF 12/06/16 18:11 - Imaging and Cardiology Venous US: report reviewed (nonocclusive right lower extremity DVT)
[2016-12-08] MEDS: LEVEMIR SUB-Q SCH (23:43)
[2016-12-09] MEDS: DUONEB *Not for PRN Use IH SCH ×4 (03:48→19:50)
[2016-12-09 04:31] LABS: ISTAT Base Excess 26; ISTAT HCO3 50.2; ISTAT PCO2 70.5 (35-45); ISTAT PH 7.461 (7.35-7.45); ISTAT PO2 72 (80-105); ISTAT SO2 94; ISTAT TCO2 > 50
[2016-12-09] MEDS: D5/0.45NS 1,000 ML IV SCH (05:00)
[2016-12-09] MEDS: ZOSYN/NS 4.5GM/100ML 4.5 GM/100 ML VIAL IV SCH ×3 (05:05→21:23)
[2016-12-09] MEDS: REGLAN IV SCH ×3 (05:05→21:00)
[2016-12-09] MEDS: HEPARIN/ 0.45% NACL-25,000 UNIT/500 ML 25,000 UNIT/500 ML BAG IV SCH ×2 (05:17→21:24)
[2016-12-09 05:23] LABS: Hematocrit 43.7 % (30.3-42.9); Mean Corpuscular HGB Conc 32 % (30-34); Mean Corpuscular Hemoglobin 31 pg (28-32); Mean Corpuscular Volume 96 fl (79-97); Platelet Count 126 K/mm3 (140-440); Red Blood Count 4.55 M/mm3 (3.65-5.03); Red Cell Distribution Width 17.9 % (13.2-15.2); White Blood Count 6.9 K/mm3 (4.5-11.0)
[2016-12-09] MEDS: NOVOLOG SUB-Q SCH ×4 (05:25→18:36)
[2016-12-09 05:32] LABS: BUN/Creatinine Ratio 37.14; Blood Urea Nitrogen 26 mg/dL (7-17); Calcium 8.1 mg/dL (8.4-10.2); Chloride 91.7 mmol/L (98-107); Glucose 237 mg/dL (65-100); Potassium 3.4 mmol/L (3.6-5.0); Sodium 145 mmol/L (137-145)
[2016-12-09 05:40] LABS: Anion Gap 16 mmol/L
[2016-12-09 06:25] LABS: Carbon Dioxide 41 mmol/L (22-30)
[2016-12-09 07:59] LABS: Basophils % (Manual) 0 % (0.0-1.8); Blastocytes % (Manual) 0 %; Eosinophils % (Manual) 0 % (0.0-4.3)
[2016-12-09 08:00] LABS: Anisocytosis 1+; Diff Status Complete; Platelet Estimate Appears Decreased
[2016-12-09] MEDS: SUBLIMAZE IV PRN (08:16)
[2016-12-09] MEDS: PULMICORT IH SCH ×2 (08:52→19:50)
--- NOTE | 2016-12-09 09:17 | XRay Report ---
Single view chest: Compared to 12/08/16. History: Followup of respiratory failure. Findings: Marked cardiomegaly. Trachea is midline. Stable support system. Pulmonary venous congestion bilaterally without significant interval change. Bilateral suspected pleural effusions. Impression: No significant interval change.
[2016-12-09] MEDS: COZAAR PO SCH (09:57)
[2016-12-09] MEDS: LASIX IV SCH (09:58)
[2016-12-09] MEDS: PEPCID IV SCH ×2 (09:58→21:23)
--- NOTE | 2016-12-09 11:43 | Progress Note ---
Assessment and Plan - Patient Problems (1) Acute exacerbation of chronic obstructive pulmonary disease (COPD) Current Visit: No Status: Acute Plan to address problem: - continue systemic steroids - continue long and short acting bronchodilators - continue full mechanical ventilatory support - wean FiO2 for sats > 90% - keep Peep at [id number] for now - continue aspiration precautions / address VAP bundle daily - continue bronchodilators and pulmonary toilet - continue to treat VTE (2) Altered mental status Current Visit: No Status: Acute Qualifiers: Altered mental status type: A Coma depth: C Coma timing: C Plan to address problem: - no acute indication for neuroimaging based on clinical exam - avoid sedatives / over-analgesia (3) Cellulitis of lower extremity Current Visit: No Status: Acute Qualifiers: Laterality: right Qualified Code(s): L03.115 - Cellulitis of right lower limb Plan to address problem: - continue levaquin monotherapy (4) Gastroesophageal reflux disease Current Visit: Yes Status: Chronic Qualifiers: Esophagitis presence: without esophagitis Qualified Code(s): K21.9 - Gastro -esophageal reflux disease without esophagitis Plan to address problem: - continue pepcid - aspiration precautions (5) Morbid obesity Current Visit: No Status: Chronic Plan to address problem: - weight loss counselling once improved clinically - sleep clinic evaluation for SDB (6) VTE (venous thromboembolism) Current Visit: Yes Status: Acute Plan to address problem: - dopplers positive for left lower ext DVT - will continue IV heparin - P.E. explains hypoxemia better (7) Constipation Current Visit: Yes Status: Acute Qualifiers: Constipation type: C Plan to address problem: - KUB reviewed - scheduled lactulose - scheduled low dose reglan - keep NGT to LIS for now (8) Discharge planning issues Current Visit: Yes Status: Acute Plan to address problem: - remains critically ill on life sustaining interventions including MVS and at risk for further deterioration including ....re-evaluate in am & prn ...30' CCT Subjective Date of service: 12/09/16 Principal diagnosis: Acute on Chronic Hypercapnic Hypoxemic Respiratory Failure Interval history: Seen and examined at bedside; 24 hour events reviewed; nursing and respiratory care staff consulted; no adverse overnight events reported to me; remains on MVS ; on IV heparin and no gross bleeding; still lethargic; oxygenation slowly improving Objective Vital Signs - 12hr 12/08/16 12/09/1617 23:52 00:01 00:31 Temperature 98.8 F Pulse Rate 89 79 Pulse Rate [ Anterior Bilateral Throughout] Pulse Rate [ Apical] Pulse Rate [ From Monitor] Respiratory 17 20 Rate Respiratory Rate [Anterior Bilateral Throughout] Blood Pressure 156/81 168/78 O2 Sat by Pulse 95 92 Oximetry 12/09/16 12/09/16 12/09/16 01:00 01:01 01:31 Temperature Pulse Rate 83 85 Pulse Rate [ Anterior Bilateral Throughout] Pulse Rate [ 81 Apical] Pulse Rate [ 81 From Monitor] Respiratory 14 19 12 Rate Respiratory Rate [Anterior Bilateral Throughout] Blood Pressure 161/85 161/85 O2 Sat by Pulse 95 91 92 Oximetry 12/09/16 12/09/16 12/09/16 02:01 02:31 02:48 Temperature 98.7 F Pulse Rate 82 77 Pulse Rate [ Anterior Bilateral Throughout] Pulse Rate [ Apical] Pulse Rate [ From Monitor] Respiratory 12 14 Rate Respiratory Rate [Anterior Bilateral Throughout] Blood Pressure 161/85 161/85 O2 Sat by Pulse 91 94 Oximetry 12/09/16 12/09/16 12/09/16 03:01 03:31 03:48 Temperature Pulse Rate 74 80 Pulse Rate [ 80 Anterior Bilateral Throughout] Pulse Rate [ Apical] Pulse Rate [ From Monitor] Respiratory 13 16 Rate Respiratory 14 Rate [Anterior Bilateral Throughout] Blood Pressure 161/85 193/113 O2 Sat by Pulse 92 93 Oximetry 12/09/16 12/09/16 12/09/16 03:56 03:57 04:00 Temperature Pulse Rate 83 Pulse Rate [ 83 Anterior Bilateral Throughout] Pulse Rate [ 83 Apical] Pulse Rate [ 83 From Monitor] Respiratory 12 Rate Respiratory 11 L Rate [Anterior Bilateral Throughout] Blood Pressure O2 Sat by Pulse 93 94 Oximetry 12/09/16 12/09/16 12/09/16 04:01 04:31 05:01 Temperature Pulse Rate 84 87 65 Pulse Rate [ Anterior Bilateral Throughout] Pulse Rate [ Apical] Pulse Rate [ From Monitor] Respiratory 17 16 15 Rate Respiratory Rate [Anterior Bilateral Throughout] Blood Pressure 193/113 150/75 150/75 O2 Sat by Pulse 93 92 90 Oximetry 12/09/16 12/09/16 12/09/16 05:31 06:01 06:31 Temperature Pulse Rate 57 L 68 61 Pulse Rate [ Anterior Bilateral Throughout] Pulse Rate [ Apical] Pulse Rate [ From Monitor] Respiratory 18 15 14 Rate Respiratory Rate [Anterior Bilateral Throughout] Blood Pressure 150/75 163/88 163/88 O2 Sat by Pulse 90 87 90 Oximetry 12/09/16 12/09/16 12/09/16 07:01 07:31 08:00 Temperature 99.1 F Pulse Rate 64 58 L Pulse Rate [ Anterior Bilateral Throughout] Pulse Rate [ Apical] Pulse Rate [ From Monitor] Respiratory 13 18 Rate Respiratory Rate [Anterior Bilateral Throughout] Blood Pressure 163/88 163/88 O2 Sat by Pulse 89 93 92 Oximetry 12/09/16 12/09/16 12/09/16 08:01 08:16 08:31 Temperature Pulse Rate 70 50 L Pulse Rate [ Anterior Bilateral Throughout] Pulse Rate [ Apical] Pulse Rate [ From Monitor] Respiratory 15 17 19 Rate Respiratory Rate [Anterior Bilateral Throughout] Blood Pressure 163/88 178/88 O2 Sat by Pulse 90 90 Oximetry 12/09/16 12/09/16 12/09/16 08:45 08:52 09:01 Temperature Pulse Rate 59 L 66 Pulse Rate [ 62 Anterior Bilateral Throughout] Pulse Rate [ Apical] Pulse Rate [ From Monitor] Respiratory 15 Rate Respiratory 18 Rate [Anterior Bilateral Throughout] Blood Pressure 178/88 176/83 O2 Sat by Pulse 94 88 Oximetry 12/09/16 12/09/16 12/09/16 09:30 09:31 09:57 Temperature Pulse Rate 56 L 61 Pulse Rate [ 68 Anterior Bilateral Throughout] Pulse Rate [ Apical] Pulse Rate [ From Monitor] Respiratory 18 Rate Respiratory 18 Rate [Anterior Bilateral Throughout] Blood Pressure 176/83 176/83 O2 Sat by Pulse 90 Oximetry 12/09/16 12/09/16 12/09/16 10:01 10:31 11:04 Temperature Pulse Rate 82 71 81 Pulse Rate [ Anterior Bilateral Throughout] Pulse Rate [ Apical] Pulse Rate [ From Monitor] Respiratory 19 15 Rate Respiratory Rate [Anterior Bilateral Throughout] Blood Pressure 176/83 176/83 181/81 O2 Sat by Pulse 90 89 93 Oximetry Constitutional: lethargic Eyes: non-icteric ENT: oropharynx moist Neck: supple, no lymphadenopathy Effort: mildly labored Ascultation: Bilateral: diminished breath sounds, rales Cardiovascular: regular rate and rhythm Gastrointestinal: normoactive bowel sounds, soft, non-tender, non-distended Integumentary: normal Extremities: no cyanosis, no edema, pulses normal, no ischemia or petechiae, other ( erhythematous vs mild cellulitis) Neurologic: non-focal exam (grossly), other (lethargic) Psychiatric: other (unable to assess) CBC and BMP: 12/10/16 03:55 12/09/16 03:52 ABG, PT/INR, D-dimer: ABG POC ABG pH 7.461 (7.35-7.45) H 12/09/16 04:14 POC ABG pCO2 70.5 (35-45) H 12/09/16 04:14 POC ABG pO2 72 (80-105) L 12/09/16 04:14 POC ABG HCO3 50.2 12/09/16 04:14 POC ABG Total CO2 > 50 12/09/16 04:14 POC ABG O2 Sat 94 12/09/16 04:14 PT/INR, D-dimer PT 14.7 Sec. (12.2-14.9) 12/08/16 14:01 INR 1.16 (0.87-1.13) H 12/08/16 14:01 D-Dimer 776.86 ng/mlDDU (0-234) H 12/07/16 21:34 Abnormal lab findings: Abnormal Labs 12/07/16 12/07/16 12/07/16 05:18 05:58 07:02 Hct RDW Plt Count Seg Neuts % (Manual) Lymphocytes % (Manual) Seg Neutrophils # Man Lymphocytes # (Manual) INR APTT D-Dimer Heparin Anti-Xa Level POC ABG pH 7.463 H POC ABG pCO2 68.5 H POC ABG pO2 65 L Potassium Chloride 93.0 L Carbon Dioxide 43 H* BUN Glucose 211 H POC Glucose 195 H Calcium 8.2 L 12/07/16 12/07/16 12/07/16 12:50 17:45 21:34 Hct RDW Plt Count Seg Neuts % (Manual) Lymphocytes % (Manual) Seg Neutrophils # Man Lymphocytes # (Manual) INR APTT D-Dimer 776.86 H Heparin Anti-Xa Level POC ABG pH POC ABG pCO2 POC ABG pO2 Potassium Chloride Carbon Dioxide BUN Glucose POC Glucose 275 H 234 H Calcium 12/08/16 12/08/16 12/08/16 00:10 04:07 04:39 Hct RDW Plt Count Seg Neuts % (Manual) Lymphocytes % (Manual) Seg Neutrophils # Man Lymphocytes # (Manual) INR APTT D-Dimer Heparin Anti-Xa Level POC ABG pH 7.624 H POC ABG pCO2 52.2 H POC ABG pO2 76 L Potassium Chloride 91.1 L Carbon Dioxide 41 H* BUN 21 H Glucose 265 H POC Glucose 203 H Calcium 8.1 L 12/08/16 12/08/16 12/08/16 04:39 05:16 12:19 Hct 43.8 H RDW 18.6 H Plt Count 118 L Seg Neuts % (Manual) 97.0 H Lymphocytes % (Manual) 1.0 L Seg Neutrophils # Man 8.5 H Lymphocytes # (Manual) 0.1 L INR APTT D-Dimer Heparin Anti-Xa Level POC ABG pH POC ABG pCO2 POC ABG pO2 Potassium Chloride Carbon Dioxide BUN Glucose POC Glucose 245 H 240 H Calcium 12/08/16 12/08/16 12/08/16 14:01 14:01 18:18 Hct 44.0 H RDW Plt Count 138 L Seg Neuts % (Manual) Lymphocytes % (Manual) Seg Neutrophils # Man Lymphocytes # (Manual) INR 1.16 H APTT 23.5 L D-Dimer Heparin Anti-Xa Level POC ABG pH POC ABG pCO2 POC ABG pO2 Potassium Chloride Carbon Dioxide BUN Glucose POC Glucose 282 H Calcium 12/08/16 12/08/16 12/09/16 21:09 23:30 03:52 Hct RDW Plt Count Seg Neuts % (Manual) Lymphocytes % (Manual) Seg Neutrophils # Man Lymphocytes # (Manual) INR APTT D-Dimer Heparin Anti-Xa Level 0.86 H POC ABG pH POC ABG pCO2 POC ABG pO2 Potassium 3.4 L Chloride 91.7 L Carbon Dioxide 41 H* BUN 26 H Glucose 237 H POC Glucose 225 H Calcium 8.1 L 12/09/16 12/09/16 12/09/16 03:52 04:14 05:19 Hct 43.7 H RDW 17.9 H Plt Count 126 L Seg Neuts % (Manual) 97.0 H Lymphocytes % (Manual) 2.0 L Seg Neutrophils # Man Lymphocytes # (Manual) 0.1 L INR APTT D-Dimer Heparin Anti-Xa Level POC ABG pH 7.461 H POC ABG pCO2 70.5 H POC ABG pO2 72 L Potassium Chloride Carbon Dioxide BUN Glucose POC Glucose 251 H Calcium Chest x-ray: image reviewed (improving infiltrates)
[2016-12-09] MEDS: APRESOLINE IV PRN (13:49)
[2016-12-09] MEDS ORDERED: POTASSIUM CHLORIDE FEEDTUBE ONE (15:00)
--- NOTE | 2016-12-09 15:52 | Progress Note ---
Assessment and Plan Assessment and plan: Acute on chronic hypoxic respiratory failure, patient is on mechanical ventilation less than 96 hours - On SMV - Pulmonary is following - Patient is off sedation VTE, PE is a possibility - Patient is on IV heparin COPD exacerbation - On IV antibiotics, Solu-Medrol, nebulizer treatment Toxic metabolic encephalopathy - treat the underlying cause - Supportive care Pulmonary hypertension - She is on Lasix DVT prophylaxis Disposition - Continue ICU care CODE STATUS full Prognosis - Guarded The high probability of a clinically significant, sudden or life threatening deterioration of the [respiratory, neurology] system(s) required my full and direct attention, intervention and personal management. The aggregate critical care time was [31] minutes. This time is in addition to time spent performing reported procedures but includes the following: [x] Data Review and interpretation [x] Patient assessment and monitoring of vital signs [x] Documentation [x] Medication orders and management History Interval history: Patient was seen and evaluated this morning, patient is intubated and on SMV, alert. Hospitalist Physical - Physical exam Narrative exam: Patient is intubated and on SMV, patient is off sedation. The patient appeared well nourished and normally developed. Vital signs as documented. Head exam is unremarkable. No scleral icterus . Neck is without jugular venous distension, thyromegaly, or carotid bruits. Lungs wheezing all over the chest. Cardiac exam reveals regular rate and Rhythm. First and second heart sounds normal. No murmurs, rubs or gallops. Abdominal exam reveals normal bowel sounds, no masses, no organomegaly and no aortic enlargement. Extremities are nonedematous and both femoral and pedal pulses are normal. 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 - Constitutional Vitals: Temp Pulse Resp BP Pulse Ox 99.5 F 75 17 183/69 92 12/09/16 12:00 12/09/16 15:01 12/09/16 15:01 12/09/16 15:01 12/09/16 15:01 General appearance: Present: no acute distress, severe distress (patient intubated and on ventilator), well-nourished Results - Labs CBC & Chem 7: 12/09/16 03:52 12/09/16 03:52 Labs: Laboratory Last Values WBC 6.9 K/mm3 (4.5-11.0) 12/09/16 03:52 RBC 4.55 M/mm3 (3.65-5.03) 12/09/16 03:52 Hgb 14.0 gm/dl (10.1-14.3) 12/09/16 03:52 Hct 43.7 % (30.3-42.9) H 12/09/16 03:52 MCV 96 fl (79-97) 12/09/16 03:52 MCH 31 pg (28-32) 12/09/16 03:52 MCHC 32 % (30-34) 12/09/16 03:52 RDW 17.9 % (13.2-15.2) H 12/09/16 03:52 Plt Count 126 K/mm3 (140-440) L 12/09/16 03:52 Lymph % (Auto) 17.2 % (13.4-35.0) 12/06/16 16:37 [place] % (Auto) 6.6 % (0.0-7.3) 12/06/16 16:37 Eos % (Auto) 2.1 % (0.0-4.3) 12/06/16 16:37 Baso % (Auto) 0.4 % (0.0-1.8) 12/06/16 16:37 Lymph # 1.7 K/mm3 (1.2-5.4) 12/06/16 16:37 [place] # 0.7 K/mm3 (0.0-0.8) 12/06/16 16:37 Eos # 0.2 K/mm3 (0.0-0.4) 12/06/16 16:37 Baso # 0.0 K/mm3 (0.0-0.1) 12/06/16 16:37 Add Manual Diff Complete 12/09/16 03:52 Total Counted 100 12/09/16 03:52 Seg Neutrophils % [employer] 12/09/16 03:52 Seg Neuts % (Manual) 97.0 % (40.0-70.0) H 12/09/16 03:52 Band Neutrophils % 0 % 12/09/16 03:52 Lymphocytes % (Manual) 2.0 % (13.4-35.0) L 12/09/16 03:52 Reactive Lymphs % (Man) 0 % 12/09/16 03:52 Monocytes % (Manual) 1.0 % (0.0-7.3) 12/09/16 03:52 Eosinophils % (Manual) 0 % (0.0-4.3) 12/09/16 03:52 Basophils % (Manual) 0 % (0.0-1.8) 12/09/16 03:52 Metamyelocytes % 0 % 12/09/16 03:52 Myelocytes % 0 % 12/09/16 03:52 Promyelocytes % 0 % 12/09/16 03:52 Blast Cells % 0 % 12/09/16 03:52 Nucleated RBC % Not Reportable 12/09/16 03:52 Seg Neutrophils # 7.3 K/mm3 (1.8-7.7) 12/06/16 16:37 Seg Neutrophils # Man 6.7 K/mm3 (1.8-7.7) 12/09/16 03:52 Band Neutrophils # 0.0 K/mm3 12/09/16 03:52 Lymphocytes # (Manual) 0.1 K/mm3 (1.2-5.4) L 12/09/16 03:52 Abs React Lymphs (Man) 0.0 K/mm3 12/09/16 03:52 Monocytes # (Manual) 0.1 K/mm3 (0.0-0.8) 12/09/16 03:52 Eosinophils # (Manual) 0.0 K/mm3 (0.0-0.4) 12/09/16 03:52 Basophils # (Manual) 0.0 K/mm3 (0.0-0.1) 12/09/16 03:52 Metamyelocytes # 0.0 K/mm3 12/09/16 03:52 Myelocytes # 0.0 K/mm3 12/09/16 03:52 Promyelocytes # 0.0 K/mm3 12/09/16 03:52 Blast Cells # 0.0 K/mm3 12/09/16 03:52 WBC Morphology Not Reportable 12/09/16 03:52 Hypersegmented Neuts Not Reportable 12/09/16 03:52 Hyposegmented Neuts Not Reportable 12/09/16 03:52 Hypogranular Neuts Not Reportable 12/09/16 03:52 Smudge Cells Not Reportable 12/09/16 03:52 Toxic Granulation Not Reportable 12/09/16 03:52 Toxic Vacuolation Not Reportable 12/09/16 03:52 Dohle Bodies Not Reportable 12/09/16 03:52 Pelger-Huet Anomaly Not Reportable 12/09/16 03:52 Ivone Rods Not Reportable 12/09/16 03:52 Platelet Estimate Appears decreased 12/09/16 03:52 Clumped Platelets Not Reportable 12/09/16 03:52 Plt Clumps, EDTA Not Reportable 12/09/16 03:52 Large Platelets Not Reportable 12/09/16 03:52 Giant Platelets Not Reportable 12/09/16 03:52 Platelet Satelliting Not Reportable 12/09/16 03:52 Plt Morphology Comment Not Reportable 12/09/16 03:52 RBC Morphology Not Reportable 12/09/16 03:52 Dimorphic RBCs Not Reportable 12/09/16 03:52 Polychromasia Not Reportable 12/09/16 03:52 Hypochromasia Not Reportable 12/09/16 03:52 Poikilocytosis Not Reportable 12/09/16 03:52 Anisocytosis 1+ 12/09/16 03:52 Microcytosis Not Reportable 12/09/16 03:52 Macrocytosis Not Reportable 12/09/16 03:52 Spherocytes Not Reportable 12/09/16 03:52 Pappenheimer Bodies Not Reportable 12/09/16 03:52 Sickle Cells Not Reportable 12/09/16 03:52 Target Cells Not Reportable 12/09/16 03:52 Tear Drop Cells Not Reportable 12/09/16 03:52 Ovalocytes Not Reportable 12/09/16 03:52 Helmet Cells Not Reportable 12/09/16 03:52 Campbell-Hodges Bodies Not Reportable 12/09/16 03:52 [place] Rings Not Reportable 12/09/16 03:52 Cam Cells Not Reportable 12/09/16 03:52 Bite Cells Not Reportable 12/09/16 03:52 Crenated Cell Not Reportable 12/09/16 03:52 Elliptocytes Not Reportable 12/09/16 03:52 Acanthocytes (Spur) Not Reportable 12/09/16 03:52 Rouleaux Not Reportable 12/09/16 03:52 Hemoglobin C Crystals Not Reportable 12/09/16 03:52 Schistocytes Not Reportable 12/09/16 03:52 Malaria parasites Not Reportable 12/09/16 03:52 German Bodies Not Reportable 12/09/16 03:52 Hem Pathologist Commnt No 12/09/16 03:52 PT 14.7 Sec. (12.2-14.9) 12/08/16 14:01 INR 1.16 (0.87-1.13) H 12/08/16 14:01 APTT 23.5 Sec. (24.2-36.6) L 12/08/16 14:01 D-Dimer 776.86 ng/mlDDU (0-234) H 12/07/16 21:34 Heparin Anti-Xa Level 0.45 U.I./ml (0.3-0.7) 12/09/16 05:27 POC ABG pH 7.461 (7.35-7.45) H 12/09/16 04:14 POC ABG pCO2 70.5 (35-45) H 12/09/16 04:14 POC ABG pO2 72 (80-105) L 12/09/16 04:14 POC ABG HCO3 50.2 12/09/16 04:14 POC ABG Total CO2 > 50 12/09/16 04:14 POC ABG O2 Sat 94 12/09/16 04:14 POC ABG Base Excess 26 12/09/16 04:14 FiO2 50 % 12/09/16 04:14 Sodium 145 mmol/L (137-145) 12/09/16 03:52 Potassium 3.4 mmol/L (3.6-5.0) L 12/09/16 03:52 Chloride 91.7 mmol/L (98-107) L 12/09/16 03:52 Carbon Dioxide 41 mmol/L (22-30) H* 12/09/16 03:52 Anion Gap 16 mmol/L 12/09/16 03:52 BUN 26 mg/dL (7-17) H 12/09/16 03:52 Creatinine 0.7 mg/dL (0.7-1.2) 12/09/16 03:52 Estimated GFR > 60 ml/min 12/09/16 03:52 BUN/Creatinine Ratio 37.14 % 12/09/16 03:52 Glucose 237 mg/dL (65-100) H 12/09/16 03:52 POC Glucose 269 (70-105) H 12/09/16 12:19 Lactic Acid 1.20 mmol/L (0.7-2.0) 12/06/16 18:26 Calcium 8.1 mg/dL (8.4-10.2) L 12/09/16 03:52 Phosphorus 3.90 mg/dL (2.5-4.5) 12/07/16 21:34 Magnesium 2.10 mg/dL (1.7-2.3) 12/07/16 21:34 Total Bilirubin 0.50 mg/dL (0.1-1.2) 12/06/16 16:37 AST 13 units/L (5-40) 12/06/16 16:37 ALT 16 units/L (7-56) 12/06/16 16:37 Alkaline Phosphatase 73 units/L (35-129) 12/06/16 16:37 Troponin T < 0.010 ng/mL (0.00-0.029) 12/06/16 16:37 C-Reactive Protein 0.90 mg/dL (0.00-1.30) 12/07/16 13:43 NT-Pro-B Natriuret Pep 5274 pg/mL (0-900) H 12/06/16 16:50 Total Protein 6.5 g/dL (6.3-8.2) 12/06/16 16:37 Albumin 3.6 g/dL (3.9-5) L 12/06/16 16:37 Albumin/Globulin Ratio 1.2 % 12/06/16 16:37 Urine Color Yellow (Yellow) 12/06/16 18:11 Urine Turbidity Clear (Clear) 12/06/16 18:11 Urine pH 5.0 (5.0-7.0) 12/06/16 18:11 Ur Specific [place] 1.020 (1.003-1.030) 12/06/16 18:11 Urine Protein 100 mg/dl mg/dL (Negative) 12/06/16 18:11 Urine Glucose (UA) Neg mg/dL (Negative) 12/06/16 18:11 Urine Ketones Neg mg/dL (Negative) 12/06/16 18:11 Urine Blood Neg (Negative) 12/06/16 18:11 Urine Nitrite Neg (Negative) 12/06/16 18:11 Urine Bilirubin Neg (Negative) 12/06/16 18:11 Urine Urobilinogen < 2.0 mg/dL (<2.0) 12/06/16 18:11 Ur Leukocyte Esterase Neg (Negative) 12/06/16 18:11 Urine WBC (Auto) 1.0 /HPF (0.0-6.0) 12/06/16 18:11 Urine RBC (Auto) 3.0 /HPF (0.0-6.0) 12/06/16 18:11 U Epithel Cells (Auto) 1.0 /HPF (0-13.0) 12/06/16 18:11 Hyaline Casts 17 /LPF 12/06/16 18:11 Urine Mucus Few /HPF 12/06/16 18:11
[2016-12-09] MEDS ORDERED: LOPRESSOR PO ONE ×2 (19:00→22:00)
[2016-12-09] MEDS: LEVEMIR SUB-Q SCH (21:24)
[2016-12-09 21:46] LABS: ISTAT Base Excess 25; ISTAT PCO2 48.9 (35-45); ISTAT PH 7.591 (7.35-7.45); ISTAT PO2 66 (80-105); ISTAT SO2 95; ISTAT TCO2 49
[2016-12-10] MEDS: NOVOLOG SUB-Q SCH ×4 (00:18→17:59)
[2016-12-10] MEDS: SUBLIMAZE IV PRN ×2 (00:19→23:05)
[2016-12-10] MEDS: DUONEB *Not for PRN Use IH SCH ×4 (02:06→20:05)
[2016-12-10 04:11] LABS: Hematocrit 47.4 % (30.3-42.9); Hemoglobin 15.2 gm/dl (10.1-14.3)
[2016-12-10 04:55] LABS: ISTAT Base Excess 24; ISTAT HCO3 46.5; ISTAT PCO2 53.5 (35-45); ISTAT PH 7.547 (7.35-7.45); ISTAT PO2 71 (80-105); ISTAT SO2 95; ISTAT TCO2 48
[2016-12-10] MEDS: REGLAN IV SCH ×3 (05:49→21:30)
[2016-12-10] MEDS: ZOSYN/NS 4.5GM/100ML 4.5 GM/100 ML VIAL IV SCH ×3 (05:49→21:25)
[2016-12-10] MEDS: D5/0.45NS 1,000 ML IV SCH (05:58)
[2016-12-10] MEDS: PULMICORT IH SCH ×2 (09:06→20:05)
--- NOTE | 2016-12-10 09:38 | XRay Report ---
AP CHEST: HISTORY: Followup respiratory failure Lines and support devices remain in good position. Mild improvement in cardiomegaly, vascular congestion and small pleural effusions is demonstrated since yesterday's exam. The lungs are grossly clear. IMPRESSION: Mild improvement in CHF.
[2016-12-10] MEDS: COZAAR PO SCH (10:00)
[2016-12-10] MEDS: PEPCID IV SCH ×2 (11:25→21:25)
[2016-12-10] MEDS: LASIX IV SCH (11:26)
[2016-12-10] MEDS: HEPARIN/ 0.45% NACL-25,000 UNIT/500 ML 25,000 UNIT/500 ML BAG IV SCH (13:12)
--- NOTE | 2016-12-10 15:32 | Progress Note ---
Assessment and Plan Assessment and plan: Acute on chronic hypoxic respiratory failure, patient is on mechanical ventilation less than 96 hours - On SMV - Pulmonary is following - Patient is off sedation VTE, PE is a possibility - Patient is on IV heparin COPD exacerbation - On IV antibiotics, Solu-Medrol, nebulizer treatment Toxic metabolic encephalopathy - treat the underlying cause - Supportive care Pulmonary hypertension - She is on Lasix DVT prophylaxis Disposition - Continue ICU care CODE STATUS full Prognosis - Guarded The high probability of a clinically significant, sudden or life threatening deterioration of the [respiratory, neurology] system(s) required my full and direct attention, intervention and personal management. The aggregate critical care time was [31] minutes. This time is in addition to time spent performing reported procedures but includes the following: [x] Data Review and interpretation [x] Patient assessment and monitoring of vital signs [x] Documentation [x] Medication orders and management History Interval history: Patient was seen and evaluated this morning, patient is intubated and on SMV, alert and complaining pain on the throat. Hospitalist Physical - Physical exam Narrative exam: Patient is intubated and on SMV, patient is off sedation. The patient appeared well nourished and normally developed. Vital signs as documented. Head exam is unremarkable. No scleral icterus . Neck is without jugular venous distension, thyromegaly, or carotid bruits. Lungs wheezing all over the chest. Cardiac exam reveals regular rate and Rhythm. First and second heart sounds normal. No murmurs, rubs or gallops. Abdominal exam reveals normal bowel sounds, no masses, no organomegaly and no aortic enlargement. Extremities are nonedematous and both femoral and pedal pulses are normal. 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 - Constitutional Vitals: Temp Pulse Resp BP Pulse Ox 98.9 F 85 15 148/69 89 12/10/16 12:00 12/10/16 14:30 12/10/16 14:30 12/10/16 14:30 12/10/16 14:30 General appearance: Present: no acute distress, severe distress (patient intubated and on ventilator), well-nourished Results - Labs CBC & Chem 7: 12/10/16 03:55 12/09/16 03:52 Labs: Laboratory Last Values WBC 6.9 K/mm3 (4.5-11.0) 12/09/16 03:52 RBC 4.55 M/mm3 (3.65-5.03) 12/09/16 03:52 Hgb 15.2 gm/dl (10.1-14.3) H 12/10/16 03:55 Hct 47.4 % (30.3-42.9) H 12/10/16 03:55 MCV 96 fl (79-97) 12/09/16 03:52 MCH 31 pg (28-32) 12/09/16 03:52 MCHC 32 % (30-34) 12/09/16 03:52 RDW 17.9 % (13.2-15.2) H 12/09/16 03:52 Plt Count 136 K/mm3 (140-440) L 12/10/16 03:55 Lymph % (Auto) 17.2 % (13.4-35.0) 12/06/16 16:37 [place] % (Auto) 6.6 % (0.0-7.3) 12/06/16 16:37 Eos % (Auto) 2.1 % (0.0-4.3) 12/06/16 16:37 Baso % (Auto) 0.4 % (0.0-1.8) 12/06/16 16:37 Lymph # 1.7 K/mm3 (1.2-5.4) 12/06/16 16:37 [place] # 0.7 K/mm3 (0.0-0.8) 12/06/16 16:37 Eos # 0.2 K/mm3 (0.0-0.4) 12/06/16 16:37 Baso # 0.0 K/mm3 (0.0-0.1) 12/06/16 16:37 Add Manual Diff Complete 12/09/16 03:52 Total Counted 100 12/09/16 03:52 Seg Neutrophils % Manager Emergency Department 12/09/16 03:52 Seg Neuts % (Manual) 97.0 % (40.0-70.0) H 12/09/16 03:52 Band Neutrophils % 0 % 12/09/16 03:52 Lymphocytes % (Manual) 2.0 % (13.4-35.0) L 12/09/16 03:52 Reactive Lymphs % (Man) 0 % 12/09/16 03:52 Monocytes % (Manual) 1.0 % (0.0-7.3) 12/09/16 03:52 Eosinophils % (Manual) 0 % (0.0-4.3) 12/09/16 03:52 Basophils % (Manual) 0 % (0.0-1.8) 12/09/16 03:52 Metamyelocytes % 0 % 12/09/16 03:52 Myelocytes % 0 % 12/09/16 03:52 Promyelocytes % 0 % 12/09/16 03:52 Blast Cells % 0 % 12/09/16 03:52 Nucleated RBC % Not Reportable 12/09/16 03:52 Seg Neutrophils # 7.3 K/mm3 (1.8-7.7) 12/06/16 16:37 Seg Neutrophils # Man 6.7 K/mm3 (1.8-7.7) 12/09/16 03:52 Band Neutrophils # 0.0 K/mm3 12/09/16 03:52 Lymphocytes # (Manual) 0.1 K/mm3 (1.2-5.4) L 12/09/16 03:52 Abs React Lymphs (Man) 0.0 K/mm3 12/09/16 03:52 Monocytes # (Manual) 0.1 K/mm3 (0.0-0.8) 12/09/16 03:52 Eosinophils # (Manual) 0.0 K/mm3 (0.0-0.4) 12/09/16 03:52 Basophils # (Manual) 0.0 K/mm3 (0.0-0.1) 12/09/16 03:52 Metamyelocytes # 0.0 K/mm3 12/09/16 03:52 Myelocytes # 0.0 K/mm3 12/09/16 03:52 Promyelocytes # 0.0 K/mm3 12/09/16 03:52 Blast Cells # 0.0 K/mm3 12/09/16 03:52 WBC Morphology Not Reportable 12/09/16 03:52 Hypersegmented Neuts Not Reportable 12/09/16 03:52 Hyposegmented Neuts Not Reportable 12/09/16 03:52 Hypogranular Neuts Not Reportable 12/09/16 03:52 Smudge Cells Not Reportable 12/09/16 03:52 Toxic Granulation Not Reportable 12/09/16 03:52 Toxic Vacuolation Not Reportable 12/09/16 03:52 Dohle Bodies Not Reportable 12/09/16 03:52 Pelger-Huet Anomaly Not Reportable 12/09/16 03:52 Ivone Rods Not Reportable 12/09/16 03:52 Platelet Estimate Appears decreased 12/09/16 03:52 Clumped Platelets Not Reportable 12/09/16 03:52 Plt Clumps, EDTA Not Reportable 12/09/16 03:52 Large Platelets Not Reportable 12/09/16 03:52 Giant Platelets Not Reportable 12/09/16 03:52 Platelet Satelliting Not Reportable 12/09/16 03:52 Plt Morphology Comment Not Reportable 12/09/16 03:52 RBC Morphology Not Reportable 12/09/16 03:52 Dimorphic RBCs Not Reportable 12/09/16 03:52 Polychromasia Not Reportable 12/09/16 03:52 Hypochromasia Not Reportable 12/09/16 03:52 Poikilocytosis Not Reportable 12/09/16 03:52 Anisocytosis 1+ 12/09/16 03:52 Microcytosis Not Reportable 12/09/16 03:52 Macrocytosis Not Reportable 12/09/16 03:52 Spherocytes Not Reportable 12/09/16 03:52 Pappenheimer Bodies Not Reportable 12/09/16 03:52 Sickle Cells Not Reportable 12/09/16 03:52 Target Cells Not Reportable 12/09/16 03:52 Tear Drop Cells Not Reportable 12/09/16 03:52 Ovalocytes Not Reportable 12/09/16 03:52 Helmet Cells Not Reportable 12/09/16 03:52 Campbell-Crowder Bodies Not Reportable 12/09/16 03:52 [place] Rings Not Reportable 12/09/16 03:52 Cam Cells Not Reportable 12/09/16 03:52 Bite Cells Not Reportable 12/09/16 03:52 Crenated Cell Not Reportable 12/09/16 03:52 Elliptocytes Not Reportable 12/09/16 03:52 Acanthocytes (Spur) Not Reportable 12/09/16 03:52 Rouleaux Not Reportable 12/09/16 03:52 Hemoglobin C Crystals Not Reportable 12/09/16 03:52 Schistocytes Not Reportable 12/09/16 03:52 Malaria parasites Not Reportable 12/09/16 03:52 German Bodies Not Reportable 12/09/16 03:52 Hem Pathologist Commnt No 12/09/16 03:52 PT 14.7 Sec. (12.2-14.9) 12/08/16 14:01 INR 1.16 (0.87-1.13) H 12/08/16 14:01 APTT 23.5 Sec. (24.2-36.6) L 12/08/16 14:01 D-Dimer 776.86 ng/mlDDU (0-234) H 12/07/16 21:34 Heparin Anti-Xa Level 0.70 U.I./ml (0.3-0.7) 12/10/16 12:07 POC ABG pH 7.547 (7.35-7.45) H 12/10/16 04:46 POC ABG pCO2 53.5 (35-45) H 12/10/16 04:46 POC ABG pO2 71 (80-105) L 12/10/16 04:46 POC ABG HCO3 46.5 12/10/16 04:46 POC ABG Total CO2 48 12/10/16 04:46 POC ABG O2 Sat 95 12/10/16 04:46 POC ABG Base Excess 24 12/10/16 04:46 FiO2 45 % 12/10/16 04:46 Sodium 145 mmol/L (137-145) 12/09/16 03:52 Potassium 3.4 mmol/L (3.6-5.0) L 12/09/16 03:52 Chloride 91.7 mmol/L (98-107) L 12/09/16 03:52 Carbon Dioxide 41 mmol/L (22-30) H* 12/09/16 03:52 Anion Gap 16 mmol/L 12/09/16 03:52 BUN 26 mg/dL (7-17) H 12/09/16 03:52 Creatinine 0.7 mg/dL (0.7-1.2) 12/09/16 03:52 Estimated GFR > 60 ml/min 12/09/16 03:52 BUN/Creatinine Ratio 37.14 % 12/09/16 03:52 Glucose 237 mg/dL (65-100) H 12/09/16 03:52 POC Glucose 252 (70-105) H 12/10/16 11:39 Lactic Acid 1.20 mmol/L (0.7-2.0) 12/06/16 18:26 Calcium 8.1 mg/dL (8.4-10.2) L 12/09/16 03:52 Phosphorus 3.90 mg/dL (2.5-4.5) 12/07/16 21:34 Magnesium 2.10 mg/dL (1.7-2.3) 12/07/16 21:34 Total Bilirubin 0.50 mg/dL (0.1-1.2) 12/06/16 16:37 AST 13 units/L (5-40) 12/06/16 16:37 ALT 16 units/L (7-56) 12/06/16 16:37 Alkaline Phosphatase 73 units/L (35-129) 12/06/16 16:37 Troponin T < 0.010 ng/mL (0.00-0.029) 12/06/16 16:37 C-Reactive Protein 0.90 mg/dL (0.00-1.30) 12/07/16 13:43 NT-Pro-B Natriuret Pep 5274 pg/mL (0-900) H 12/06/16 16:50 Total Protein 6.5 g/dL (6.3-8.2) 12/06/16 16:37 Albumin 3.6 g/dL (3.9-5) L 12/06/16 16:37 Albumin/Globulin Ratio 1.2 % 12/06/16 16:37 Urine Color Yellow (Yellow) 12/06/16 18:11 Urine Turbidity Clear (Clear) 12/06/16 18:11 Urine pH 5.0 (5.0-7.0) 12/06/16 18:11 Ur Specific [place] 1.020 (1.003-1.030) 12/06/16 18:11 Urine Protein 100 mg/dl mg/dL (Negative) 12/06/16 18:11 Urine Glucose (UA) Neg mg/dL (Negative) 12/06/16 18:11 Urine Ketones Neg mg/dL (Negative) 12/06/16 18:11 Urine Blood Neg (Negative) 12/06/16 18:11 Urine Nitrite Neg (Negative) 12/06/16 18:11 Urine Bilirubin Neg (Negative) 12/06/16 18:11 Urine Urobilinogen < 2.0 mg/dL (<2.0) 12/06/16 18:11 Ur Leukocyte Esterase Neg (Negative) 12/06/16 18:11 Urine WBC (Auto) 1.0 /HPF (0.0-6.0) 12/06/16 18:11 Urine RBC (Auto) 3.0 /HPF (0.0-6.0) 12/06/16 18:11 U Epithel Cells (Auto) 1.0 /HPF (0-13.0) 12/06/16 18:11 Hyaline Casts 17 /LPF 12/06/16 18:11 Urine Mucus Few /HPF 12/06/16 18:11
--- NOTE | 2016-12-10 18:33 | Progress Note ---
Assessment and Plan - Patient Problems (1) Acute exacerbation of chronic obstructive pulmonary disease (COPD) Current Visit: No Status: Acute (2) Altered mental status Current Visit: No Status: Acute Qualifiers: Altered mental status type: A Coma depth: C Coma timing: C (3) Cellulitis of lower extremity Current Visit: No Status: Acute Qualifiers: Laterality: right Qualified Code(s): L03.115 - Cellulitis of right lower limb (4) Gastroesophageal reflux disease Current Visit: Yes Status: Chronic Qualifiers: Esophagitis presence: without esophagitis Qualified Code(s): K21.9 - Gastro -esophageal reflux disease without esophagitis (5) Morbid obesity Current Visit: No Status: Chronic (6) VTE (venous thromboembolism) Current Visit: Yes Status: Acute (7) Constipation Current Visit: Yes Status: Acute Qualifiers: Constipation type: C (8) Discharge planning issues Current Visit: Yes Status: Acute Subjective Date of service: 12/10/16 Principal diagnosis: Acute on Chronic Hypercapnic Hypoxemic Respiratory Failure Interval history: Seen and examined at bedside; 24 hour events reviewed; nursing and respiratory care staff consulted; no adverse overnight events reported to me; Objective Vital Signs - 12hr 12/10/16 12/10/16 12/10/16 07:01 07:26 07:31 Temperature 99.3 F Pulse Rate 72 70 Pulse Rate [ Anterior Bilateral Throughout] Respiratory 14 14 Rate Respiratory Rate [Anterior Bilateral Throughout] Blood Pressure 122/55 122/55 O2 Sat by Pulse 91 93 Oximetry 12/10/16 12/10/16 12/10/16 08:00 08:01 08:31 Temperature Pulse Rate 77 64 Pulse Rate [ Anterior Bilateral Throughout] Respiratory 15 15 15 Rate Respiratory Rate [Anterior Bilateral Throughout] Blood Pressure 122/55 140/70 O2 Sat by Pulse 88 92 Oximetry 12/10/16 12/10/16 12/10/16 08:59 09:01 09:14 Temperature Pulse Rate 77 77 Pulse Rate [ 77 69 Anterior Bilateral Throughout] Respiratory 18 Rate Respiratory 16 15 Rate [Anterior Bilateral Throughout] Blood Pressure 140/70 145/76 O2 Sat by Pulse 91 87 Oximetry 12/10/16 12/10/16 12/10/16 09:16 09:30 10:00 Temperature Pulse Rate 62 72 77 Pulse Rate [ Anterior Bilateral Throughout] Respiratory 13 14 Rate Respiratory Rate [Anterior Bilateral Throughout] Blood Pressure 145/76 145/76 O2 Sat by Pulse 90 91 89 Oximetry 12/10/16 12/10/16 12/10/16 10:30 11:00 11:13 Temperature Pulse Rate 90 89 84 Pulse Rate [ Anterior Bilateral Throughout] Respiratory 16 17 Rate Respiratory Rate [Anterior Bilateral Throughout] Blood Pressure 150/67 150/67 156/69 O2 Sat by Pulse 88 87 90 Oximetry 12/10/16 12/10/16 12/10/16 11:30 12:00 12:30 Temperature 98.9 F Pulse Rate 76 78 81 Pulse Rate [ Anterior Bilateral Throughout] Respiratory 14 15 15 Rate Respiratory Rate [Anterior Bilateral Throughout] Blood Pressure 156/69 156/69 161/77 O2 Sat by Pulse 90 90 89 Oximetry 12/10/16 12/10/16 12/10/16 13:00 13:30 14:00 Temperature 98.6 F Pulse Rate 77 87 82 Pulse Rate [ Anterior Bilateral Throughout] Respiratory 15 14 17 Rate Respiratory Rate [Anterior Bilateral Throughout] Blood Pressure 161/77 142/116 142/116 O2 Sat by Pulse 87 88 Oximetry 12/10/16 12/10/16 12/10/16 14:30 15:00 15:30 Temperature Pulse Rate 85 94 H 82 Pulse Rate [ Anterior Bilateral Throughout] Respiratory 15 17 16 Rate Respiratory Rate [Anterior Bilateral Throughout] Blood Pressure 148/69 148/69 145/49 O2 Sat by Pulse 89 90 91 Oximetry 12/10/16 12/10/16 12/10/16 15:40 16:00 16:01 Temperature Pulse Rate 61 84 Pulse Rate [ 80 70 Anterior Bilateral Throughout] Respiratory 15 Rate Respiratory 16 20 Rate [Anterior Bilateral Throughout] Blood Pressure 145/49 145/49 O2 Sat by Pulse 90 89 Oximetry 12/10/16 12/10/16 16:30 17:00 Temperature Pulse Rate 100 H 99 H Pulse Rate [ Anterior Bilateral Throughout] Respiratory 16 17 Rate Respiratory Rate [Anterior Bilateral Throughout] Blood Pressure 143/92 143/92 O2 Sat by Pulse 87 81 L Oximetry Constitutional: lethargic Eyes: non-icteric ENT: oropharynx moist Neck: supple, no lymphadenopathy Effort: mildly labored Ascultation: Bilateral: diminished breath sounds, rales Cardiovascular: regular rate and rhythm Gastrointestinal: normoactive bowel sounds, soft, non-tender, non-distended Integumentary: normal Extremities: no cyanosis, no edema, pulses normal, no ischemia or petechiae, other ( erhythematous vs mild cellulitis) Neurologic: non-focal exam (grossly), other (lethargic) Psychiatric: other (unable to assess) CBC and BMP: 12/10/16 03:55 12/09/16 03:52 ABG, PT/INR, D-dimer: ABG POC ABG pH 7.547 (7.35-7.45) H 12/10/16 04:46 POC ABG pCO2 53.5 (35-45) H 12/10/16 04:46 POC ABG pO2 71 (80-105) L 12/10/16 04:46 POC ABG HCO3 46.5 12/10/16 04:46 POC ABG Total CO2 48 12/10/16 04:46 POC ABG O2 Sat 95 12/10/16 04:46 PT/INR, D-dimer PT 14.7 Sec. (12.2-14.9) 12/08/16 14:01 INR 1.16 (0.87-1.13) H 12/08/16 14:01 D-Dimer 776.86 ng/mlDDU (0-234) H 12/07/16 21:34 Abnormal lab findings: Abnormal Labs 12/07/16 12/07/16 12/07/16 05:18 05:58 07:02 Hgb Hct RDW Plt Count Seg Neuts % (Manual) Lymphocytes % (Manual) Seg Neutrophils # Man Lymphocytes # (Manual) INR APTT D-Dimer Heparin Anti-Xa Level POC ABG pH 7.463 H POC ABG pCO2 68.5 H POC ABG pO2 65 L Potassium Chloride 93.0 L Carbon Dioxide 43 H* BUN Glucose 211 H POC Glucose 195 H Calcium 8.2 L 12/07/16 12/07/16 12/07/16 12:50 17:45 21:34 Hgb Hct RDW Plt Count Seg Neuts % (Manual) Lymphocytes % (Manual) Seg Neutrophils # Man Lymphocytes # (Manual) INR APTT D-Dimer 776.86 H Heparin Anti-Xa Level POC ABG pH POC ABG pCO2 POC ABG pO2 Potassium Chloride Carbon Dioxide BUN Glucose POC Glucose 275 H 234 H Calcium 12/08/16 12/08/16 12/08/16 00:10 04:07 04:39 Hgb Hct RDW Plt Count Seg Neuts % (Manual) Lymphocytes % (Manual) Seg Neutrophils # Man Lymphocytes # (Manual) INR APTT D-Dimer Heparin Anti-Xa Level POC ABG pH 7.624 H POC ABG pCO2 52.2 H POC ABG pO2 76 L Potassium Chloride 91.1 L Carbon Dioxide 41 H* BUN 21 H Glucose 265 H POC Glucose 203 H Calcium 8.1 L 12/08/16 12/08/16 12/08/16 04:39 05:16 12:19 Hgb Hct 43.8 H RDW 18.6 H Plt Count 118 L Seg Neuts % (Manual) 97.0 H Lymphocytes % (Manual) 1.0 L Seg Neutrophils # Man 8.5 H Lymphocytes # (Manual) 0.1 L INR APTT D-Dimer Heparin Anti-Xa Level POC ABG pH POC ABG pCO2 POC ABG pO2 Potassium Chloride Carbon Dioxide BUN Glucose POC Glucose 245 H 240 H Calcium 12/08/16 12/08/16 12/08/16 14:01 14:01 18:18 Hgb Hct 44.0 H RDW Plt Count 138 L Seg Neuts % (Manual) Lymphocytes % (Manual) Seg Neutrophils # Man Lymphocytes # (Manual) INR 1.16 H APTT 23.5 L D-Dimer Heparin Anti-Xa Level POC ABG pH POC ABG pCO2 POC ABG pO2 Potassium Chloride Carbon Dioxide BUN Glucose POC Glucose 282 H Calcium 12/08/16 12/08/16 12/09/16 21:09 23:30 03:52 Hgb Hct RDW Plt Count Seg Neuts % (Manual) Lymphocytes % (Manual) Seg Neutrophils # Man Lymphocytes # (Manual) INR APTT D-Dimer Heparin Anti-Xa Level 0.86 H POC ABG pH POC ABG pCO2 POC ABG pO2 Potassium 3.4 L Chloride 91.7 L Carbon Dioxide 41 H* BUN 26 H Glucose 237 H POC Glucose 225 H Calcium 8.1 L 12/09/16 12/09/16 12/09/16 03:52 04:14 05:19 Hgb Hct 43.7 H RDW 17.9 H Plt Count 126 L Seg Neuts % (Manual) 97.0 H Lymphocytes % (Manual) 2.0 L Seg Neutrophils # Man Lymphocytes # (Manual) 0.1 L INR APTT D-Dimer Heparin Anti-Xa Level POC ABG pH 7.461 H POC ABG pCO2 70.5 H POC ABG pO2 72 L Potassium Chloride Carbon Dioxide BUN Glucose POC Glucose 251 H Calcium 12/09/16 12/09/16 12/09/16 12:19 18:03 21:34 Hgb Hct RDW Plt Count Seg Neuts % (Manual) Lymphocytes % (Manual) Seg Neutrophils # Man Lymphocytes # (Manual) INR APTT D-Dimer Heparin Anti-Xa Level POC ABG pH 7.591 H POC ABG pCO2 48.9 H POC ABG pO2 66 L Potassium Chloride Carbon Dioxide BUN Glucose POC Glucose 269 H 206 H Calcium 12/10/16 12/10/16 12/10/16 00:01 03:55 03:55 Hgb 15.2 H Hct 47.4 H RDW Plt Count 136 L Seg Neuts % (Manual) Lymphocytes % (Manual) Seg Neutrophils # Man Lymphocytes # (Manual) INR APTT D-Dimer Heparin Anti-Xa Level < 0.10 L POC ABG pH POC ABG pCO2 POC ABG pO2 Potassium Chloride Carbon Dioxide BUN Glucose POC Glucose 220 H Calcium 12/10/16 12/10/16 12/10/16 04:46 05:27 11:39 Hgb Hct RDW Plt Count Seg Neuts % (Manual) Lymphocytes % (Manual) Seg Neutrophils # Man Lymphocytes # (Manual) INR APTT D-Dimer Heparin Anti-Xa Level POC ABG pH 7.547 H POC ABG pCO2 53.5 H POC ABG pO2 71 L Potassium Chloride Carbon Dioxide BUN Glucose POC Glucose 237 H 252 H Calcium 12/10/16 17:51 Hgb Hct RDW Plt Count Seg Neuts % (Manual) Lymphocytes % (Manual) Seg Neutrophils # Man Lymphocytes # (Manual) INR APTT D-Dimer Heparin Anti-Xa Level POC ABG pH POC ABG pCO2 POC ABG pO2 Potassium Chloride Carbon Dioxide BUN Glucose POC Glucose 235 H Calcium
[2016-12-10] MEDS: MORPHINE IV PRN ×2 (21:49→23:00)
[2016-12-10] MEDS: LEVEMIR SUB-Q SCH (22:06)
[2016-12-11] MEDS: NOVOLOG SUB-Q SCH ×4 (00:20→18:17)
[2016-12-11] MEDS: D5/0.45NS 1,000 ML IV SCH ×2 (01:22→09:32)
[2016-12-11] MEDS: SUBLIMAZE IV PRN ×2 (02:00→05:50)
[2016-12-11] MEDS: MORPHINE IV PRN ×3 (02:00→05:49)
[2016-12-11] MEDS: DUONEB *Not for PRN Use IH SCH ×4 (02:04→20:14)
[2016-12-11 03:20] LABS: Hematocrit 45.7 % (30.3-42.9); Hemoglobin 14.7 gm/dl (10.1-14.3); Mean Corpuscular HGB Conc 32 % (30-34); Mean Corpuscular Hemoglobin 31 pg (28-32); Mean Corpuscular Volume 95 fl (79-97); Platelet Count 108 K/mm3 (140-440); Red Cell Distribution Width 17.5 % (13.2-15.2); White Blood Count 5.8 K/mm3 (4.5-11.0)
[2016-12-11 03:23] LABS: Blood Urea Nitrogen 21 mg/dL (7-17); Calcium 8.1 mg/dL (8.4-10.2); Chloride 87.5 mmol/L (98-107); Glucose 223 mg/dL (65-100); Sodium 138 mmol/L (137-145)
[2016-12-11 03:35] LABS: Anion Gap 10 mmol/L; Carbon Dioxide 43 mmol/L (22-30); Potassium 2.8 mmol/L (3.6-5.0)
[2016-12-11 04:51] LABS: Basophils % (Manual) 0 % (0.0-1.8); Blastocytes % (Manual) 0 %; Eosinophils % (Manual) 0 % (0.0-4.3)
[2016-12-11 04:52] LABS: Anisocytosis 1+; Diff Status Complete; Platelet Estimate Consistent w Auto
[2016-12-11] MEDS: ZOSYN/NS 4.5GM/100ML 4.5 GM/100 ML VIAL IV SCH (05:08)
[2016-12-11] MEDS: HEPARIN/ 0.45% NACL-25,000 UNIT/500 ML 25,000 UNIT/500 ML BAG IV SCH ×2 (05:11→22:01)
[2016-12-11 05:13] LABS: ISTAT Base Excess 24; ISTAT HCO3 47.2; ISTAT PCO2 57.6 (35-45); ISTAT PH 7.521 (7.35-7.45); ISTAT PO2 59 (80-105); ISTAT SO2 92; ISTAT TCO2 49
[2016-12-11] MEDS: REGLAN IV SCH ×3 (05:22→21:01)
--- NOTE | 2016-12-11 07:46 | Vascular Lab Report ---
LOWER EXTREMITY VENOUS DUPLEX: REASON FOR EXAM: Swelling of the lower extremities. COMMENTS ON THE RIGHT: All veins visualized are freely compressible without evidence of internal echogenicity. Flow is spontaneous and phasic throughout. Soft tissue changes consistent with edema COMMENTS ON THE LEFT: Deep venous thrombus is noted in the posterior tibial vein extending into the popliteal above-knee. The remaining veins visualized are freely compressible without evidence of internal echogenicity. Spontaneous and phasic flow is present proximally. IMPRESSION: Deep venous thrombosis in the left lower extremity
--- NOTE | 2016-12-11 08:07 | XRay Report ---
AP CHEST :12/11/16 CLINICAL: Intubated.Follow up respiratory failure. COMPARISON:12/10/16 2:16. FINDINGS: The endotracheal tube is in satisfactory position. The feeding tube tip is below the diaphragm and not imaged. Stable cardiomegaly and central vascular congestion. Persistent mild opacification of the lung bases. No pneumothorax. IMPRESSION: No change.Mild CHF.
[2016-12-11] MEDS: PULMICORT IH SCH ×2 (08:13→20:14)
[2016-12-11] MEDS ORDERED: POTASSIUM CHLORIDE FEEDTUBE ONE ×2 (08:14→13:00)
[2016-12-11] MEDS: KCL 10MEQ/100ML 10 MEQ/100 ML BAG IV SCH ×4 (08:30→11:40)
--- NOTE | 2016-12-11 09:08 | Progress Note ---
Assessment and Plan Assessment: Acute on chronic respiratory failure - intubated COPD exacerbation ? Right heart failure / cor pulmonale Severe pulmonary HTN LLE DVT Elevated DDimer - further eval/management to r/o PE per primary/pulmonary. RLE cellulitis HTN Hypokalemia Morbid obesity Noncompliance Plan: Cont present cardiac regimen, including diuresis with IV lasix daily. Replete K+. Mg WNL this AM. Repeat BMP in AM. On heparin gtt for DVT. Pt has severe pulmonary HTN and is showing signs of cor pulmonale. She may benefit from pulmonary HTN medications but compliance has been an issue in the past. Consider RHC once medically stable for confirmation of pulmonary HTN for medication pre-approval requirements if pt is agreeable to be compliant with medications. Consider OP referral to [place] [facility] at discharge. The patient has been seen in conjunction with Dr. Vega who agrees with the assessment and plan of care. Subjective Date of service: 12/11/16 Principal diagnosis: Acute on Chronic Hypercapnic Hypoxemic Respiratory Failure Interval history: Pt remains intubated, restrained, alert, responds appropriately to commands. VSS. Objective Last Vital Signs Temp 99.7 F H 12/11/16 04:00 Pulse 91 H 12/11/16 08:26 Resp 12 12/11/16 08:26 BP 163/79 12/11/16 08:26 Pulse Ox 92 12/11/16 08:26 - Physical Examination General: Other (intubated ) HEENT: Positive: PERRL Neck: Positive: neck supple, trachea midline Cardiac: Positive: Reg Rate and Rhythm, S1/S2 Lungs: Positive: Ventilated Respirations Neuro: Positive: Grossly Intact, Cranial Nerve 2-12 Intact Abdomen: Positive: Soft, Active Bowel Sounds. Negative: Tender Skin: Positive: Clear. Negative: Rash, Wound Extremities: Present: edema (trace BLE), Other (chronic skin changes noted in BLE ) - Labs and Meds CBC 12/11/16 Range/Units 02:53 WBC 5.8 (4.5-11.0) K/mm3 RBC 4.80 (3.65-5.03) M/mm3 Hgb 14.7 H (10.1-14.3) gm/dl Hct 45.7 H (30.3-42.9) % Plt Count 108 L (140-440) K/mm3 Comprehensive Metabolic Panel 12/11/16 Range/Units 02:53 Potassium 2.8 L* (3.6-5.0) mmol/L Carbon Dioxide 43 H* (22-30) mmol/L BUN 21 H (7-17) mg/dL Creatinine 0.6 L (0.7-1.2) mg/dL Glucose 223 H (65-100) mg/dL Calcium 8.1 L (8.4-10.2) mg/dL - Imaging and Cardiology EKG: report reviewed, image reviewed Echo: report reviewed - EKG Sinus rhythms and dysrhythmias: sinus rhythm QRS axis and voltage: right axis deviation Repolarization changes or abnormalities: nonspecific abnormality, ST segment, and/or T wave
[2016-12-11] MEDS: LASIX IV SCH (09:32)
[2016-12-11] MEDS: PEPCID IV SCH (09:32)
[2016-12-11 11:09] LABS: ISTAT Base Excess 24; ISTAT HCO3 47.5; ISTAT PCO2 63.7 (35-45); ISTAT PO2 61 (80-105); ISTAT SO2 92; ISTAT TCO2 49
--- NOTE | 2016-12-11 11:09 | Progress Note ---
Assessment and Plan - Patient Problems (1) Acute and chronic respiratory failure with hypoxia Current Visit: No Status: Acute Plan to address problem: Get weaning parameters if acceptable, extubate. May need NIPPV support post extubation (2) Acute exacerbation of chronic obstructive pulmonary disease (COPD) Current Visit: No Status: Acute Plan to address problem: Bronchodilators Steroids Limit supplemental oxygen Smoking cessation counselling prior to discharge (3) VTE (venous thromboembolism) Current Visit: Yes Status: Acute Plan to address problem: Anticoagulated on heparin infusion (4) Morbid obesity Current Visit: No Status: Acute Plan to address problem: Life style modification counselling to be done prior to discharge (5) Agitation Current Visit: Yes Status: Acute Plan to address problem: Anti-psychotics, resume home medications Subjective Date of service: 12/11/16 Principal diagnosis: Acute on Chronic Hypercapnic Hypoxemic Respiratory Failure Interval history: Seen and examined. Vitals, labs, medications, chart, imaging reviewed. Very agitated. Tolerating SBT trials. Discussed in multidisciplinary rounds. Adequate gas exchange. Objective - Exam Narrative Exam: Gen Appearance: No acute distress, morbidly obese Orally intubated to Ventilator. PSV trial, generating adequate tidal volumes Obese, short neck HEENT: normocephalic, atraumatic, eoMI Neck: supple, no JVD Lungs: Decreased breath sounds bilaterally, bilateral exiratory wheeze Heart: S1 and S2 regular, no murmurs or gallop Abdomen: Soft non-tender, non-distended, normal bowel sounds Extremity: No edema, clubbing or cyanosis Neuro : Awake, alert, moves all extreities Vital Signs - 12hr 12/10/16 12/10/16 12/10/16 23:16 23:30 23:33 Temperature Pulse Rate 84 90 Pulse Rate [ Anterior Bilateral Throughout] Respiratory 15 25 H Rate Respiratory Rate [Anterior Bilateral Throughout] Blood Pressure 143/69 143/69 O2 Sat by Pulse 90 93 Oximetry 12/10/16 12/10/16 12/11/16 23:35 23:52 00:00 Temperature 99.0 F Pulse Rate 86 Pulse Rate [ Anterior Bilateral Throughout] Respiratory 25 H 19 Rate Respiratory Rate [Anterior Bilateral Throughout] Blood Pressure 143/69 O2 Sat by Pulse 96 Oximetry 12/11/16 12/11/16 12/11/16 01:00 02:00 02:05 Temperature Pulse Rate 94 H 81 Pulse Rate [ 76 Anterior Bilateral Throughout] Respiratory 22 14 Rate Respiratory 16 Rate [Anterior Bilateral Throughout] Blood Pressure 163/83 176/86 O2 Sat by Pulse 96 98 Oximetry 12/11/16 12/11/16 12/11/16 02:30 03:00 03:45 Temperature Pulse Rate 76 Pulse Rate [ Anterior Bilateral Throughout] Respiratory 23 15 23 Rate Respiratory Rate [Anterior Bilateral Throughout] Blood Pressure 137/101 O2 Sat by Pulse 94 Oximetry 12/11/16 12/11/16 12/11/16 03:52 04:00 04:15 Temperature 99.7 F H Pulse Rate 75 74 Pulse Rate [ Anterior Bilateral Throughout] Respiratory 14 19 Rate Respiratory Rate [Anterior Bilateral Throughout] Blood Pressure 159/69 137/101 O2 Sat by Pulse 93 91 Oximetry 12/11/16 12/11/16 12/11/16 05:00 05:49 05:50 Temperature Pulse Rate 84 Pulse Rate [ Anterior Bilateral Throughout] Respiratory 14 22 23 Rate Respiratory Rate [Anterior Bilateral Throughout] Blood Pressure 141/69 O2 Sat by Pulse 91 Oximetry 12/11/16 12/11/16 12/11/16 06:00 07:00 08:00 Temperature 97.9 F Pulse Rate 73 78 77 Pulse Rate [ Anterior Bilateral Throughout] Respiratory 14 11 L 12 Rate Respiratory Rate [Anterior Bilateral Throughout] Blood Pressure 134/57 144/65 156/78 O2 Sat by Pulse 92 92 94 Oximetry 12/11/16 12/11/16 12/11/16 08:11 08:26 09:00 Temperature Pulse Rate 71 91 H 102 H Pulse Rate [ 81 91 H Anterior Bilateral Throughout] Respiratory 12 12 Rate Respiratory 19 12 Rate [Anterior Bilateral Throughout] Blood Pressure 163/79 163/79 163/79 O2 Sat by Pulse 96 92 97 Oximetry 12/11/16 10:00 Temperature Pulse Rate 88 Pulse Rate [ Anterior Bilateral Throughout] Respiratory 11 L Rate Respiratory Rate [Anterior Bilateral Throughout] Blood Pressure 163/79 O2 Sat by Pulse 96 Oximetry Constitutional: lethargic Eyes: non-icteric ENT: oropharynx moist Neck: supple, no lymphadenopathy Effort: mildly labored Ascultation: Bilateral: diminished breath sounds, rales Cardiovascular: regular rate and rhythm Gastrointestinal: normoactive bowel sounds, soft, non-tender, non-distended Integumentary: normal Extremities: no cyanosis, no edema, pulses normal, no ischemia or petechiae, other ( erhythematous vs mild cellulitis) Neurologic: non-focal exam (grossly), other (lethargic) Psychiatric: other (unable to assess) CBC and BMP: 12/12/16 04:29 12/12/16 04:29 ABG, PT/INR, D-dimer: ABG POC ABG pH 7.521 (7.35-7.45) H 12/11/16 04:45 POC ABG pCO2 57.6 (35-45) H 12/11/16 04:45 POC ABG pO2 59 (80-105) L 12/11/16 04:45 POC ABG HCO3 47.2 12/11/16 04:45 POC ABG Total CO2 49 12/11/16 04:45 POC ABG O2 Sat 92 12/11/16 04:45 PT/INR, D-dimer PT 14.7 Sec. (12.2-14.9) 12/08/16 14:01 INR 1.16 (0.87-1.13) H 12/08/16 14:01 D-Dimer 776.86 ng/mlDDU (0-234) H 12/07/16 21:34 Abnormal lab findings: Abnormal Labs 12/07/16 12/07/16 12/07/16 05:18 05:58 07:02 Hgb Hct RDW Plt Count Seg Neuts % (Manual) Lymphocytes % (Manual) Seg Neutrophils # Man Lymphocytes # (Manual) INR APTT D-Dimer Heparin Anti-Xa Level POC ABG pH 7.463 H POC ABG pCO2 68.5 H POC ABG pO2 65 L Potassium Chloride 93.0 L Carbon Dioxide 43 H* BUN Creatinine Glucose 211 H POC Glucose 195 H Calcium 8.2 L 12/07/16 12/07/16 12/07/16 12:50 17:45 21:34 Hgb Hct RDW Plt Count Seg Neuts % (Manual) Lymphocytes % (Manual) Seg Neutrophils # Man Lymphocytes # (Manual) INR APTT D-Dimer 776.86 H Heparin Anti-Xa Level POC ABG pH POC ABG pCO2 POC ABG pO2 Potassium Chloride Carbon Dioxide BUN Creatinine Glucose POC Glucose 275 H 234 H Calcium 12/08/16 12/08/16 12/08/16 00:10 04:07 04:39 Hgb Hct RDW Plt Count Seg Neuts % (Manual) Lymphocytes % (Manual) Seg Neutrophils # Man Lymphocytes # (Manual) INR APTT D-Dimer Heparin Anti-Xa Level POC ABG pH 7.624 H POC ABG pCO2 52.2 H POC ABG pO2 76 L Potassium Chloride 91.1 L Carbon Dioxide 41 H* BUN 21 H Creatinine Glucose 265 H POC Glucose 203 H Calcium 8.1 L 12/08/16 12/08/16 12/08/16 04:39 05:16 12:19 Hgb Hct 43.8 H RDW 18.6 H Plt Count 118 L Seg Neuts % (Manual) 97.0 H Lymphocytes % (Manual) 1.0 L Seg Neutrophils # Man 8.5 H Lymphocytes # (Manual) 0.1 L INR APTT D-Dimer Heparin Anti-Xa Level POC ABG pH POC ABG pCO2 POC ABG pO2 Potassium Chloride Carbon Dioxide BUN Creatinine Glucose POC Glucose 245 H 240 H Calcium 12/08/16 12/08/16 12/08/16 14:01 14:01 18:18 Hgb Hct 44.0 H RDW Plt Count 138 L Seg Neuts % (Manual) Lymphocytes % (Manual) Seg Neutrophils # Man Lymphocytes # (Manual) INR 1.16 H APTT 23.5 L D-Dimer Heparin Anti-Xa Level POC ABG pH POC ABG pCO2 POC ABG pO2 Potassium Chloride Carbon Dioxide BUN Creatinine Glucose POC Glucose 282 H Calcium 12/08/16 12/08/16 12/09/16 21:09 23:30 03:52 Hgb Hct RDW Plt Count Seg Neuts % (Manual) Lymphocytes % (Manual) Seg Neutrophils # Man Lymphocytes # (Manual) INR APTT D-Dimer Heparin Anti-Xa Level 0.86 H POC ABG pH POC ABG pCO2 POC ABG pO2 Potassium 3.4 L Chloride 91.7 L Carbon Dioxide 41 H* BUN 26 H Creatinine Glucose 237 H POC Glucose 225 H Calcium 8.1 L 12/09/16 12/09/16 12/09/16 03:52 04:14 05:19 Hgb Hct 43.7 H RDW 17.9 H Plt Count 126 L Seg Neuts % (Manual) 97.0 H Lymphocytes % (Manual) 2.0 L Seg Neutrophils # Man Lymphocytes # (Manual) 0.1 L INR APTT D-Dimer Heparin Anti-Xa Level POC ABG pH 7.461 H POC ABG pCO2 70.5 H POC ABG pO2 72 L Potassium Chloride Carbon Dioxide BUN Creatinine Glucose POC Glucose 251 H Calcium 12/09/16 12/09/16 12/09/16 12:19 18:03 21:34 Hgb Hct RDW Plt Count Seg Neuts % (Manual) Lymphocytes % (Manual) Seg Neutrophils # Man Lymphocytes # (Manual) INR APTT D-Dimer Heparin Anti-Xa Level POC ABG pH 7.591 H POC ABG pCO2 48.9 H POC ABG pO2 66 L Potassium Chloride Carbon Dioxide BUN Creatinine Glucose POC Glucose 269 H 206 H Calcium 12/10/16 12/10/16 12/10/16 00:01 03:55 03:55 Hgb 15.2 H Hct 47.4 H RDW Plt Count 136 L Seg Neuts % (Manual) Lymphocytes % (Manual) Seg Neutrophils # Man Lymphocytes # (Manual) INR APTT D-Dimer Heparin Anti-Xa Level < 0.10 L POC ABG pH POC ABG pCO2 POC ABG pO2 Potassium Chloride Carbon Dioxide BUN Creatinine Glucose POC Glucose 220 H Calcium 12/10/16 12/10/16 12/10/16 04:46 05:27 11:39 Hgb Hct RDW Plt Count Seg Neuts % (Manual) Lymphocytes % (Manual) Seg Neutrophils # Man Lymphocytes # (Manual) INR APTT D-Dimer Heparin Anti-Xa Level POC ABG pH 7.547 H POC ABG pCO2 53.5 H POC ABG pO2 71 L Potassium Chloride Carbon Dioxide BUN Creatinine Glucose POC Glucose 237 H 252 H Calcium 12/10/16 12/10/16 12/10/16 17:51 21:56 23:36 Hgb Hct RDW Plt Count Seg Neuts % (Manual) Lymphocytes % (Manual) Seg Neutrophils # Man Lymphocytes # (Manual) INR APTT D-Dimer Heparin Anti-Xa Level POC ABG pH POC ABG pCO2 POC ABG pO2 Potassium Chloride Carbon Dioxide BUN Creatinine Glucose POC Glucose 235 H 215 H 233 H Calcium 12/11/16 12/11/16 12/11/16 02:53 02:53 02:53 Hgb 14.7 H Hct 45.7 H RDW 17.5 H Plt Count 108 L Seg Neuts % (Manual) 94.0 H Lymphocytes % (Manual) 2.0 L Seg Neutrophils # Man Lymphocytes # (Manual) 0.1 L INR APTT D-Dimer Heparin Anti-Xa Level 0.86 H POC ABG pH POC ABG pCO2 POC ABG pO2 Potassium 2.8 L* Chloride Carbon Dioxide 43 H* BUN 21 H Creatinine 0.6 L Glucose 223 H POC Glucose Calcium 8.1 L 12/11/16 12/11/16 04:45 05:23 Hgb Hct RDW Plt Count Seg Neuts % (Manual) Lymphocytes % (Manual) Seg Neutrophils # Man Lymphocytes # (Manual) INR APTT D-Dimer Heparin Anti-Xa Level POC ABG pH 7.521 H POC ABG pCO2 57.6 H POC ABG pO2 59 L Potassium Chloride Carbon Dioxide BUN Creatinine Glucose POC Glucose 187 H Calcium Chest x-ray: report reviewed
[2016-12-11] MEDS: COZAAR PO SCH (13:01)
[2016-12-11] MEDS: LEVEMIR SUB-Q SCH (14:08)
[2016-12-11] MEDS: APRESOLINE IV PRN (14:16)
--- NOTE | 2016-12-11 16:59 | Progress Note ---
Assessment and Plan Assessment and plan: Acute on chronic hypoxic respiratory failure, patient is on mechanical ventilation less than 96 hours - On SMV - Pulmonary is following - Patient is off sedation VTE, PE is a possibility - Patient is on IV heparin COPD exacerbation - On IV antibiotics, Solu-Medrol, nebulizer treatment Toxic metabolic encephalopathy - Resolving - Supportive care Pulmonary hypertension - She is on Lasix Hypokalemia - repleted DVT prophylaxis Disposition - Continue ICU care CODE STATUS full Prognosis - Guarded The high probability of a clinically significant, sudden or life threatening deterioration of the [respiratory, neurology] system(s) required my full and direct attention, intervention and personal management. The aggregate critical care time was [31] minutes. This time is in addition to time spent performing reported procedures but includes the following: [x] Data Review and interpretation [x] Patient assessment and monitoring of vital signs [x] Documentation [x] Medication orders and management History Interval history: Patient was seen and evaluated this morning, patient is intubated and on SMV, alert and complaining pain on the throat. Hospitalist Physical - Physical exam Narrative exam: Patient is intubated and on SMV, patient is off sedation. The patient appeared well nourished and normally developed. Vital signs as documented. Head exam is unremarkable. No scleral icterus . Neck is without jugular venous distension, thyromegaly, or carotid bruits. Lungs wheezing all over the chest. Cardiac exam reveals regular rate and Rhythm. First and second heart sounds normal. No murmurs, rubs or gallops. Abdominal exam reveals normal bowel sounds, no masses, no organomegaly and no aortic enlargement. Extremities are nonedematous and both femoral and pedal pulses are normal. SR. MANAGER: Patient is off sedation and alert. - Constitutional Vitals: Temp Pulse Resp BP Pulse Ox 97.9 F 103 H 23 137/70 91 12/11/16 08:00 12/11/16 16:00 12/11/16 16:00 12/11/16 16:00 12/11/16 16:00 General appearance: Present: no acute distress, severe distress (patient intubated and on ventilator), well-nourished Results - Labs CBC & Chem 7: 12/11/16 02:53 12/11/16 02:53 Labs: Laboratory Last Values WBC 5.8 K/mm3 (4.5-11.0) 12/11/16 02:53 RBC 4.80 M/mm3 (3.65-5.03) 12/11/16 02:53 Hgb 14.7 gm/dl (10.1-14.3) H 12/11/16 02:53 Hct 45.7 % (30.3-42.9) H 12/11/16 02:53 MCV 95 fl (79-97) 12/11/16 02:53 MCH 31 pg (28-32) 12/11/16 02:53 MCHC 32 % (30-34) 12/11/16 02:53 RDW 17.5 % (13.2-15.2) H 12/11/16 02:53 Plt Count 108 K/mm3 (140-440) L 12/11/16 02:53 Lymph % (Auto) 17.2 % (13.4-35.0) 12/06/16 16:37 [place] % (Auto) 6.6 % (0.0-7.3) 12/06/16 16:37 Eos % (Auto) 2.1 % (0.0-4.3) 12/06/16 16:37 Baso % (Auto) 0.4 % (0.0-1.8) 12/06/16 16:37 Lymph # 1.7 K/mm3 (1.2-5.4) 12/06/16 16:37 [place] # 0.7 K/mm3 (0.0-0.8) 12/06/16 16:37 Eos # 0.2 K/mm3 (0.0-0.4) 12/06/16 16:37 Baso # 0.0 K/mm3 (0.0-0.1) 12/06/16 16:37 Add Manual Diff Complete 12/11/16 02:53 Total Counted 100 12/11/16 02:53 Seg Neutrophils % [employer] [place] 12/11/16 02:53 Seg Neuts % (Manual) 94.0 % (40.0-70.0) H 12/11/16 02:53 Band Neutrophils % 0 % 12/11/16 02:53 Lymphocytes % (Manual) 2.0 % (13.4-35.0) L 12/11/16 02:53 Reactive Lymphs % (Man) 0 % 12/11/16 02:53 Monocytes % (Manual) 4.0 % (0.0-7.3) 12/11/16 02:53 Eosinophils % (Manual) 0 % (0.0-4.3) 12/11/16 02:53 Basophils % (Manual) 0 % (0.0-1.8) 12/11/16 02:53 Metamyelocytes % 0 % 12/11/16 02:53 Myelocytes % 0 % 12/11/16 02:53 Promyelocytes % 0 % 12/11/16 02:53 Blast Cells % 0 % 12/11/16 02:53 Nucleated RBC % Not Reportable 12/11/16 02:53 Seg Neutrophils # 7.3 K/mm3 (1.8-7.7) 12/06/16 16:37 Seg Neutrophils # Man 5.5 K/mm3 (1.8-7.7) 12/11/16 02:53 Band Neutrophils # 0.0 K/mm3 12/11/16 02:53 Lymphocytes # (Manual) 0.1 K/mm3 (1.2-5.4) L 12/11/16 02:53 Abs React Lymphs (Man) 0.0 K/mm3 12/11/16 02:53 Monocytes # (Manual) 0.2 K/mm3 (0.0-0.8) 12/11/16 02:53 Eosinophils # (Manual) 0.0 K/mm3 (0.0-0.4) 12/11/16 02:53 Basophils # (Manual) 0.0 K/mm3 (0.0-0.1) 12/11/16 02:53 Metamyelocytes # 0.0 K/mm3 12/11/16 02:53 Myelocytes # 0.0 K/mm3 12/11/16 02:53 Promyelocytes # 0.0 K/mm3 12/11/16 02:53 Blast Cells # 0.0 K/mm3 12/11/16 02:53 WBC Morphology Not Reportable 12/11/16 02:53 Hypersegmented Neuts Not Reportable 12/11/16 02:53 Hyposegmented Neuts Not Reportable 12/11/16 02:53 Hypogranular Neuts Not Reportable 12/11/16 02:53 Smudge Cells Not Reportable 12/11/16 02:53 Toxic Granulation Not Reportable 12/11/16 02:53 Toxic Vacuolation Not Reportable 12/11/16 02:53 Dohle Bodies Not Reportable 12/11/16 02:53 Pelger-Huet Anomaly Not Reportable 12/11/16 02:53 Ivone Rods Not Reportable 12/11/16 02:53 Platelet Estimate Consistent w auto 12/11/16 02:53 Clumped Platelets Not Reportable 12/11/16 02:53 Plt Clumps, EDTA Not Reportable 12/11/16 02:53 Large Platelets Not Reportable 12/11/16 02:53 Giant Platelets Not Reportable 12/11/16 02:53 Platelet Satelliting Not Reportable 12/11/16 02:53 Plt Morphology Comment Not Reportable 12/11/16 02:53 RBC Morphology Not Reportable 12/11/16 02:53 Dimorphic RBCs Not Reportable 12/11/16 02:53 Polychromasia Not Reportable 12/11/16 02:53 Hypochromasia Not Reportable 12/11/16 02:53 Poikilocytosis Not Reportable 12/11/16 02:53 Anisocytosis 1+ 12/11/16 02:53 Microcytosis Not Reportable 12/11/16 02:53 Macrocytosis Not Reportable 12/11/16 02:53 Spherocytes Not Reportable 12/11/16 02:53 Pappenheimer Bodies Not Reportable 12/11/16 02:53 Sickle Cells Not Reportable 12/11/16 02:53 Target Cells Not Reportable 12/11/16 02:53 Tear Drop Cells Not Reportable 12/11/16 02:53 Ovalocytes Not Reportable 12/11/16 02:53 Helmet Cells Not Reportable 12/11/16 02:53 [place] Bodies Not Reportable 12/11/16 02:53 [place] Rings Not Reportable 12/11/16 02:53 Cam Cells Not Reportable 12/11/16 02:53 Bite Cells Not Reportable 12/11/16 02:53 Crenated Cell Not Reportable 12/11/16 02:53 Elliptocytes Not Reportable 12/11/16 02:53 Acanthocytes (Spur) Not Reportable 12/11/16 02:53 Rouleaux Not Reportable 12/11/16 02:53 Hemoglobin C Crystals Not Reportable 12/11/16 02:53 Schistocytes Not Reportable 12/11/16 02:53 Malaria parasites Not Reportable 12/11/16 02:53 [place] Bodies Not Reportable 12/11/16 02:53 Hem Pathologist Commnt No 12/11/16 02:53 PT 14.7 Sec. (12.2-14.9) 12/08/16 14:01 INR 1.16 (0.87-1.13) H 12/08/16 14:01 APTT 23.5 Sec. (24.2-36.6) L 12/08/16 14:01 D-Dimer 776.86 ng/mlDDU (0-234) H 12/07/16 21:34 Heparin Anti-Xa Level 0.84 U.I./ml (0.3-0.7) H 12/11/16 10:46 POC ABG pH 7.480 (7.35-7.45) H 12/11/16 10:48 POC ABG pCO2 63.7 (35-45) H 12/11/16 10:48 POC ABG pO2 61 (80-105) L 12/11/16 10:48 POC ABG HCO3 47.5 12/11/16 10:48 POC ABG Total CO2 49 12/11/16 10:48 POC ABG O2 Sat 92 12/11/16 10:48 POC ABG Base Excess 24 12/11/16 10:48 FiO2 40 % 12/11/16 10:48 Sodium 145 mmol/L (137-145) 12/09/16 03:52 Potassium 2.8 mmol/L (3.6-5.0) L* 12/11/16 02:53 Chloride 91.7 mmol/L (98-107) L 12/09/16 03:52 Carbon Dioxide 43 mmol/L (22-30) H* 12/11/16 02:53 Anion Gap 10 mmol/L 12/11/16 02:53 BUN 21 mg/dL (7-17) H 12/11/16 02:53 Creatinine 0.6 mg/dL (0.7-1.2) L 12/11/16 02:53 Estimated GFR > 60 ml/min 12/11/16 02:53 BUN/Creatinine Ratio 35.00 % 12/11/16 02:53 Glucose 223 mg/dL (65-100) H 12/11/16 02:53 POC Glucose 187 (70-105) H 12/11/16 05:23 Lactic Acid 1.20 mmol/L (0.7-2.0) 12/06/16 18:26 Calcium 8.1 mg/dL (8.4-10.2) L 12/11/16 02:53 Phosphorus 3.90 mg/dL (2.5-4.5) 12/07/16 21:34 Magnesium 1.90 mg/dL (1.7-2.3) 12/11/16 08:22 Total Bilirubin 0.50 mg/dL (0.1-1.2) 12/06/16 16:37 AST 13 units/L (5-40) 12/06/16 16:37 ALT 16 units/L (7-56) 12/06/16 16:37 Alkaline Phosphatase 73 units/L (35-129) 12/06/16 16:37 Troponin T < 0.010 ng/mL (0.00-0.029) 12/06/16 16:37 C-Reactive Protein 0.90 mg/dL (0.00-1.30) 12/07/16 13:43 NT-Pro-B Natriuret Pep 5274 pg/mL (0-900) H 12/06/16 16:50 Total Protein 6.5 g/dL (6.3-8.2) 12/06/16 16:37 Albumin 3.6 g/dL (3.9-5) L 12/06/16 16:37 Albumin/Globulin Ratio 1.2 % 12/06/16 16:37 Urine Color Yellow (Yellow) 12/06/16 18:11 Urine Turbidity Clear (Clear) 12/06/16 18:11 Urine pH 5.0 (5.0-7.0) 12/06/16 18:11 Ur Specific [place] 1.020 (1.003-1.030) 12/06/16 18:11 Urine Protein 100 mg/dl mg/dL (Negative) 12/06/16 18:11 Urine Glucose (UA) Neg mg/dL (Negative) 12/06/16 18:11 Urine Ketones Neg mg/dL (Negative) 12/06/16 18:11 Urine Blood Neg (Negative) 12/06/16 18:11 Urine Nitrite Neg (Negative) 12/06/16 18:11 Urine Bilirubin Neg (Negative) 12/06/16 18:11 Urine Urobilinogen < 2.0 mg/dL (<2.0) 12/06/16 18:11 Ur Leukocyte Esterase Neg (Negative) 12/06/16 18:11 Urine WBC (Auto) 1.0 /HPF (0.0-6.0) 12/06/16 18:11 Urine RBC (Auto) 3.0 /HPF (0.0-6.0) 12/06/16 18:11 U Epithel Cells (Auto) 1.0 /HPF (0-13.0) 12/06/16 18:11 Hyaline Casts 17 /LPF 12/06/16 18:11 Urine Mucus Few /HPF 12/06/16 18:11 Hypokalemia
[2016-12-11] MEDS: PEPCID PO SCH (22:00)
[2016-12-12] MEDS: NOVOLOG SUB-Q SCH ×4 (00:14→18:10)
[2016-12-12] MEDS: DUONEB *Not for PRN Use IH SCH ×4 (02:16→21:00)
[2016-12-12 05:12] LABS: Hematocrit 47.6 % (30.3-42.9); Hemoglobin 15.6 gm/dl (10.1-14.3)
[2016-12-12] MEDS: REGLAN IV SCH (05:19)
[2016-12-12 05:39] LABS: Blood Urea Nitrogen 21 mg/dL (7-17); Calcium 8.1 mg/dL (8.4-10.2); Carbon Dioxide 37 mmol/L (22-30); Chloride 88.8 mmol/L (98-107); Glucose 200 mg/dL (65-100); Sodium 136 mmol/L (137-145)
[2016-12-12 06:09] LABS: Anion Gap 14 mmol/L; Potassium 3.7 mmol/L (3.6-5.0)
--- NOTE | 2016-12-12 08:11 | XRay Report ---
AP CHEST :12/12/16 01:54 CLINICAL: Followup respiratory failure. COMPARISON:The previous day. FINDINGS: Since the prior exam, the endotracheal tube and feeding tube have been removed. Stable cardiomegaly and central vascular congestion. Low lung volumes. No airspace disease or pleural effusion. IMPRESSION: Cardiomegaly and pulmonary venous hypertension. No pulmonary edema or pneumonia.
--- NOTE | 2016-12-12 09:56 | Progress Note ---
Assessment and Plan Assessment and plan: Acute on chronic hypoxic respiratory failure. Patient was initially intubated on mechanical intubation. She is now extubated and on BiPAP. -Continue solu-medrol IV, DuoNeb, BiPAP - Pulmonology COPD exacerbation - On IV antibiotics, Solu-Medrol, nebulizer treatment DVT left lower extremity.On Heparin drip. Will consult Investment Manager Toxic metabolic encephalopathy. Improving. Continue supportive care Pulmonary hypertension Hypokalemia - repleted. Potassium level now normal. DVT prophylaxis. She is on heparin. Full CODE STATUS History Interval history: Patient extubated, now on BiPAP. Less shortness of breath Hospitalist Physical - Physical exam Narrative exam: Gen Appearance: No acute distress, morbidly obese HEENT: normocephalic, atraumatic Neck: supple, no JVD Lungs: Decreased breath sounds bilaterally, bilateral rhonchi. Heart: S1 and S2 regular, no murmurs or gallop Abdomen: Soft non-tender, non-distended, normal bowel sounds Extremity: No edema, clubbing or cyanosis Neuro : Awake, alert, moves all ext - Constitutional Vitals: Temp Pulse Resp BP Pulse Ox 98.7 F 92 H 28 H 165/106 89 12/12/16 08:00 12/12/16 08:00 12/12/16 08:00 12/12/16 08:00 12/12/16 07:01 General appearance: Present: no acute distress, severe distress (patient intubated and on ventilator), well-nourished Results - Labs CBC & Chem 7: 12/12/16 04:29 12/12/16 04:29 Labs: Laboratory Last Values WBC 5.8 K/mm3 (4.5-11.0) 12/11/16 02:53 RBC 4.80 M/mm3 (3.65-5.03) 12/11/16 02:53 Hgb 15.6 gm/dl (10.1-14.3) H 12/12/16 04:29 Hct 47.6 % (30.3-42.9) H 12/12/16 04:29 MCV 95 fl (79-97) 12/11/16 02:53 MCH 31 pg (28-32) 12/11/16 02:53 MCHC 32 % (30-34) 12/11/16 02:53 RDW 17.5 % (13.2-15.2) H 12/11/16 02:53 Plt Count 101 K/mm3 (140-440) L 12/12/16 04:29 Lymph % (Auto) 17.2 % (13.4-35.0) 12/06/16 16:37 [place] % (Auto) 6.6 % (0.0-7.3) 12/06/16 16:37 Eos % (Auto) 2.1 % (0.0-4.3) 12/06/16 16:37 Baso % (Auto) 0.4 % (0.0-1.8) 12/06/16 16:37 Lymph # 1.7 K/mm3 (1.2-5.4) 12/06/16 16:37 [place] # 0.7 K/mm3 (0.0-0.8) 12/06/16 16:37 Eos # 0.2 K/mm3 (0.0-0.4) 12/06/16 16:37 Baso # 0.0 K/mm3 (0.0-0.1) 12/06/16 16:37 Add Manual Diff Complete 12/11/16 02:53 Total Counted 100 12/11/16 02:53 Seg Neutrophils % Manager Of Photography 12/11/16 02:53 Seg Neuts % (Manual) 94.0 % (40.0-70.0) H 12/11/16 02:53 Band Neutrophils % 0 % 12/11/16 02:53 Lymphocytes % (Manual) 2.0 % (13.4-35.0) L 12/11/16 02:53 Reactive Lymphs % (Man) 0 % 12/11/16 02:53 Monocytes % (Manual) 4.0 % (0.0-7.3) 12/11/16 02:53 Eosinophils % (Manual) 0 % (0.0-4.3) 12/11/16 02:53 Basophils % (Manual) 0 % (0.0-1.8) 12/11/16 02:53 Metamyelocytes % 0 % 12/11/16 02:53 Myelocytes % 0 % 12/11/16 02:53 Promyelocytes % 0 % 12/11/16 02:53 Blast Cells % 0 % 12/11/16 02:53 Nucleated RBC % Not Reportable 12/11/16 02:53 Seg Neutrophils # 7.3 K/mm3 (1.8-7.7) 12/06/16 16:37 Seg Neutrophils # Man 5.5 K/mm3 (1.8-7.7) 12/11/16 02:53 Band Neutrophils # 0.0 K/mm3 12/11/16 02:53 Lymphocytes # (Manual) 0.1 K/mm3 (1.2-5.4) L 12/11/16 02:53 Abs React Lymphs (Man) 0.0 K/mm3 12/11/16 02:53 Monocytes # (Manual) 0.2 K/mm3 (0.0-0.8) 12/11/16 02:53 Eosinophils # (Manual) 0.0 K/mm3 (0.0-0.4) 12/11/16 02:53 Basophils # (Manual) 0.0 K/mm3 (0.0-0.1) 12/11/16 02:53 Metamyelocytes # 0.0 K/mm3 12/11/16 02:53 Myelocytes # 0.0 K/mm3 12/11/16 02:53 Promyelocytes # 0.0 K/mm3 12/11/16 02:53 Blast Cells # 0.0 K/mm3 12/11/16 02:53 WBC Morphology Not Reportable 12/11/16 02:53 Hypersegmented Neuts Not Reportable 12/11/16 02:53 Hyposegmented Neuts Not Reportable 12/11/16 02:53 Hypogranular Neuts Not Reportable 12/11/16 02:53 Smudge Cells Not Reportable 12/11/16 02:53 Toxic Granulation Not Reportable 12/11/16 02:53 Toxic Vacuolation Not Reportable 12/11/16 02:53 Dohle Bodies Not Reportable 12/11/16 02:53 Pelger-Huet Anomaly Not Reportable 12/11/16 02:53 Ivone Rods Not Reportable 12/11/16 02:53 Platelet Estimate Consistent w auto 12/11/16 02:53 Clumped Platelets Not Reportable 12/11/16 02:53 Plt Clumps, EDTA Not Reportable 12/11/16 02:53 Large Platelets Not Reportable 12/11/16 02:53 Giant Platelets Not Reportable 12/11/16 02:53 Platelet Satelliting Not Reportable 12/11/16 02:53 Plt Morphology Comment Not Reportable 12/11/16 02:53 RBC Morphology Not Reportable 12/11/16 02:53 Dimorphic RBCs Not Reportable 12/11/16 02:53 Polychromasia Not Reportable 12/11/16 02:53 Hypochromasia Not Reportable 12/11/16 02:53 Poikilocytosis Not Reportable 12/11/16 02:53 Anisocytosis 1+ 12/11/16 02:53 Microcytosis Not Reportable 12/11/16 02:53 Macrocytosis Not Reportable 12/11/16 02:53 Spherocytes Not Reportable 12/11/16 02:53 Pappenheimer Bodies Not Reportable 12/11/16 02:53 Sickle Cells Not Reportable 12/11/16 02:53 Target Cells Not Reportable 12/11/16 02:53 Tear Drop Cells Not Reportable 12/11/16 02:53 Ovalocytes Not Reportable 12/11/16 02:53 Helmet Cells Not Reportable 12/11/16 02:53 [place] Bodies Not Reportable 12/11/16 02:53 [place] Rings Not Reportable 12/11/16 02:53 Cam Cells Not Reportable 12/11/16 02:53 Bite Cells Not Reportable 12/11/16 02:53 Crenated Cell Not Reportable 12/11/16 02:53 Elliptocytes Not Reportable 12/11/16 02:53 Acanthocytes (Spur) Not Reportable 12/11/16 02:53 Rouleaux Not Reportable 12/11/16 02:53 Hemoglobin C Crystals Not Reportable 12/11/16 02:53 Schistocytes Not Reportable 12/11/16 02:53 Malaria parasites Not Reportable 12/11/16 02:53 [place] Bodies Not Reportable 12/11/16 02:53 Hem Pathologist Commnt No 12/11/16 02:53 PT 14.7 Sec. (12.2-14.9) 12/08/16 14:01 INR 1.16 (0.87-1.13) H 12/08/16 14:01 APTT 23.5 Sec. (24.2-36.6) L 12/08/16 14:01 D-Dimer 776.86 ng/mlDDU (0-234) H 12/07/16 21:34 Heparin Anti-Xa Level 0.50 U.I./ml (0.3-0.7) 12/11/16 21:07 POC ABG pH 7.480 (7.35-7.45) H 12/11/16 10:48 POC ABG pCO2 63.7 (35-45) H 12/11/16 10:48 POC ABG pO2 61 (80-105) L 12/11/16 10:48 POC ABG HCO3 47.5 12/11/16 10:48 POC ABG Total CO2 49 12/11/16 10:48 POC ABG O2 Sat 92 12/11/16 10:48 POC ABG Base Excess 24 12/11/16 10:48 FiO2 40 % 12/11/16 10:48 Sodium 136 mmol/L (137-145) L 12/12/16 04:29 Potassium 3.7 mmol/L (3.6-5.0) D 12/12/16 04:29 Chloride 88.8 mmol/L (98-107) L 12/12/16 04:29 Carbon Dioxide 37 mmol/L (22-30) H 12/12/16 04:29 Anion Gap 14 mmol/L 12/12/16 04:29 BUN 21 mg/dL (7-17) H 12/12/16 04:29 Creatinine 0.3 mg/dL (0.7-1.2) L 12/12/16 04:29 Estimated GFR > 60 ml/min 12/12/16 04:29 BUN/Creatinine Ratio 70.00 % 12/12/16 04:29 Glucose 200 mg/dL (65-100) H 12/12/16 04:29 POC Glucose 184 (70-105) H 12/12/16 06:06 Lactic Acid 1.20 mmol/L (0.7-2.0) 12/06/16 18:26 Calcium 8.1 mg/dL (8.4-10.2) L 12/12/16 04:29 Phosphorus 3.90 mg/dL (2.5-4.5) 12/07/16 21:34 Magnesium 1.90 mg/dL (1.7-2.3) 12/11/16 08:22 Total Bilirubin 0.50 mg/dL (0.1-1.2) 12/06/16 16:37 AST 13 units/L (5-40) 12/06/16 16:37 ALT 16 units/L (7-56) 12/06/16 16:37 Alkaline Phosphatase 73 units/L (35-129) 12/06/16 16:37 Troponin T < 0.010 ng/mL (0.00-0.029) 12/06/16 16:37 C-Reactive Protein 0.90 mg/dL (0.00-1.30) 12/07/16 13:43 NT-Pro-B Natriuret Pep 5274 pg/mL (0-900) H 12/06/16 16:50 Total Protein 6.5 g/dL (6.3-8.2) 12/06/16 16:37 Albumin 3.6 g/dL (3.9-5) L 12/06/16 16:37 Albumin/Globulin Ratio 1.2 % 12/06/16 16:37 Urine Color Yellow (Yellow) 12/06/16 18:11 Urine Turbidity Clear (Clear) 12/06/16 18:11 Urine pH 5.0 (5.0-7.0) 12/06/16 18:11 Ur Specific [place] 1.020 (1.003-1.030) 12/06/16 18:11 Urine Protein 100 mg/dl mg/dL (Negative) 12/06/16 18:11 Urine Glucose (UA) Neg mg/dL (Negative) 12/06/16 18:11 Urine Ketones Neg mg/dL (Negative) 12/06/16 18:11 Urine Blood Neg (Negative) 12/06/16 18:11 Urine Nitrite Neg (Negative) 12/06/16 18:11 Urine Bilirubin Neg (Negative) 12/06/16 18:11 Urine Urobilinogen < 2.0 mg/dL (<2.0) 12/06/16 18:11 Ur Leukocyte Esterase Neg (Negative) 12/06/16 18:11 Urine WBC (Auto) 1.0 /HPF (0.0-6.0) 12/06/16 18:11 Urine RBC (Auto) 3.0 /HPF (0.0-6.0) 12/06/16 18:11 U Epithel Cells (Auto) 1.0 /HPF (0-13.0) 12/06/16 18:11 Hyaline Casts 17 /LPF 12/06/16 18:11 Urine Mucus Few /HPF 12/06/16 18:11
[2016-12-12] MEDS: PULMICORT IH SCH ×2 (10:12→21:00)
[2016-12-12] MEDS: LEVEMIR SUB-Q SCH (10:18)
[2016-12-12] MEDS: D5/0.45NS 1,000 ML IV SCH (10:18)
[2016-12-12] MEDS: COZAAR PO SCH (10:19)
[2016-12-12] MEDS: PEPCID PO SCH ×2 (10:19→22:16)
[2016-12-12] MEDS: LASIX IV SCH (10:20)
[2016-12-12] MEDS: APRESOLINE IV PRN (11:45)
--- NOTE | 2016-12-12 12:14 | Progress Note ---
Assessment and Plan Assessment: Acute on chronic respiratory failure - intubated COPD exacerbation ? Right heart failure / cor pulmonale Severe pulmonary HTN LLE DVT Elevated DDimer - further eval/management to r/o PE per primary/pulmonary. RLE cellulitis HTN Hypokalemia Morbid obesity Noncompliance Plan: Cont present cardiac regimen, including diuresis with IV lasix daily and consider conversion to PO lasix in AM. On heparin gtt for DVT. Pt has severe pulmonary HTN and is showing signs of cor pulmonale. She may benefit from pulmonary HTN medications but compliance has been an issue in the past. Consider RHC once medically stable for confirmation of pulmonary HTN for medication pre-approval requirements if pt is agreeable to be compliant with medications. Consider OP referral to [place] pulmonary HTN clinic at discharge. The patient has been seen in conjunction with Dr. Vega who agrees with the assessment and plan of care. Subjective Date of service: 12/12/16 Principal diagnosis: Acute on Chronic Hypercapnic Hypoxemic Respiratory Failure Interval history: Pt has been extubated to BiPAP, restrained, alert, responds appropriately to commands. VSS. Objective Last Vital Signs Temp 98.7 F 12/12/16 08:00 Pulse 82 12/12/16 10:19 Resp 28 H 12/12/16 08:00 BP 177/100 12/12/16 10:19 Pulse Ox 89 12/12/16 07:01 - Physical Examination General: Appears Well HEENT: Positive: PERRL Neck: Positive: neck supple, trachea midline Cardiac: Positive: Reg Rate and Rhythm, S1/S2 Lungs: Positive: Decreased Breath Sounds, Oxygen Neuro: Positive: Grossly Intact, Cranial Nerve 2-12 Intact Abdomen: Positive: Soft, Active Bowel Sounds. Negative: Tender Skin: Positive: Clear. Negative: Rash, Wound Extremities: Present: edema (trace BLE), Other (chronic skin changes noted in BLE ) - Labs and Meds CBC 12/12/16 Range/Units 04:29 Hgb 15.6 H (10.1-14.3) gm/dl Hct 47.6 H (30.3-42.9) % Plt Count 101 L (140-440) K/mm3 Comprehensive Metabolic Panel 12/12/16 Range/Units 04:29 Sodium 136 L (137-145) mmol/L Potassium 3.7 D (3.6-5.0) mmol/L Chloride 88.8 L (98-107) mmol/L Carbon Dioxide 37 H (22-30) mmol/L BUN 21 H (7-17) mg/dL Creatinine 0.3 L (0.7-1.2) mg/dL Glucose 200 H (65-100) mg/dL Calcium 8.1 L (8.4-10.2) mg/dL - Imaging and Cardiology EKG: report reviewed, image reviewed Echo: report reviewed - Telemetry EKG Rhythm: Sinus Rhythm - EKG Sinus rhythms and dysrhythmias: sinus rhythm QRS axis and voltage: right axis deviation Repolarization changes or abnormalities: nonspecific abnormality, ST segment, and/or T wave
[2016-12-12] MEDS: HEPARIN/ 0.45% NACL-25,000 UNIT/500 ML 25,000 UNIT/500 ML BAG IV SCH (12:48)
--- NOTE | 2016-12-12 15:01 | Progress Note ---
Assessment and Plan - Patient Problems (1) Acute and chronic respiratory failure with hypoxia Current Visit: No Status: Acute Plan to address problem: Extubated yesterday. NIPPV qhs and prn (2) Acute exacerbation of chronic obstructive pulmonary disease (COPD) Current Visit: No Status: Acute Plan to address problem: Bronchodilators Steroids Limit supplemental oxygen Smoking cessation counselling prior to discharge (3) VTE (venous thromboembolism) Current Visit: Yes Status: Acute Plan to address problem: Anticoagulated on heparin infusion (4) Morbid obesity Current Visit: No Status: Chronic Plan to address problem: Life style modifications, weight loss Subjective Date of service: 12/12/16 Principal diagnosis: Acute on Chronic Hypercapnic Hypoxemic Respiratory Failure Interval history: Seen and examined. Vitals, labs, medications, chart, imaging reviewed. Very agitated, trying to get out of bed. Apparently combative earlier Extubated yesterday- doing well Discussed in multidisciplinary rounds. Adequate gas exchange. Objective - Exam Narrative Exam: Gen Appearance: No acute distress, morbidly obese Not in any distress Obese, short neck HEENT: normocephalic, atraumatic, EOMI Neck: supple, no JVD Lungs: Decreased breath sounds bilaterally, bilateral expiratory wheeze Heart: S1 and S2 regular, no murmurs or gallop Abdomen: Soft non-tender, non-distended, normal bowel sounds Extremity: No edema, clubbing or cyanosis Neuro : Awake, alert, moves all extremities Vital Signs - 12hr 12/12/16 12/12/16 12/12/16 04:01 04:20 04:30 Temperature 97.6 F Pulse Rate 80 80 Respiratory 21 23 Rate Blood Pressure 175/104 O2 Sat by Pulse 89 92 Oximetry 12/12/16 12/12/16 12/12/16 05:01 06:01 07:01 Temperature Pulse Rate 78 98 H 83 Respiratory 17 28 H 17 Rate Blood Pressure 175/104 175/104 180/93 O2 Sat by Pulse 92 89 89 Oximetry 12/12/16 12/12/16 12/12/16 08:00 09:01 10:00 Temperature 98.7 F Pulse Rate 92 H 84 80 Respiratory 28 H 19 19 Rate Blood Pressure 165/106 169/97 177/100 O2 Sat by Pulse 92 Oximetry 12/12/16 12/12/16 12/12/16 10:19 11:01 11:45 Temperature Pulse Rate 82 89 Respiratory 13 Rate Blood Pressure 177/100 172/89 187/77 O2 Sat by Pulse 93 Oximetry 12/12/16 12/12/16 12:01 13:01 Temperature Pulse Rate 107 H 101 H Respiratory 20 12 Rate Blood Pressure 159/80 159/80 O2 Sat by Pulse 94 91 Oximetry Constitutional: lethargic Eyes: non-icteric ENT: oropharynx moist Neck: supple, no lymphadenopathy Effort: mildly labored Ascultation: Bilateral: diminished breath sounds, rales Cardiovascular: regular rate and rhythm Gastrointestinal: normoactive bowel sounds, soft, non-tender, non-distended Integumentary: normal Extremities: no cyanosis, no edema, pulses normal, no ischemia or petechiae, other ( erhythematous vs mild cellulitis) Neurologic: non-focal exam (grossly), other (lethargic) Psychiatric: other (unable to assess) CBC and BMP: 12/12/16 04:29 12/12/16 04:29 ABG, PT/INR, D-dimer: ABG POC ABG pH 7.480 (7.35-7.45) H 12/11/16 10:48 POC ABG pCO2 63.7 (35-45) H 12/11/16 10:48 POC ABG pO2 61 (80-105) L 12/11/16 10:48 POC ABG HCO3 47.5 12/11/16 10:48 POC ABG Total CO2 49 12/11/16 10:48 POC ABG O2 Sat 92 12/11/16 10:48 PT/INR, D-dimer PT 14.7 Sec. (12.2-14.9) 12/08/16 14:01 INR 1.16 (0.87-1.13) H 12/08/16 14:01 D-Dimer 776.86 ng/mlDDU (0-234) H 12/07/16 21:34 Abnormal lab findings: Abnormal Labs 12/07/16 12/07/16 12/07/16 05:18 05:58 07:02 Hgb Hct RDW Plt Count Seg Neuts % (Manual) Lymphocytes % (Manual) Seg Neutrophils # Man Lymphocytes # (Manual) INR APTT D-Dimer Heparin Anti-Xa Level POC ABG pH 7.463 H POC ABG pCO2 68.5 H POC ABG pO2 65 L Sodium Potassium Chloride 93.0 L Carbon Dioxide 43 H* BUN Creatinine Glucose 211 H POC Glucose 195 H Calcium 8.2 L 12/07/16 12/07/16 12/07/16 12:50 17:45 21:34 Hgb Hct RDW Plt Count Seg Neuts % (Manual) Lymphocytes % (Manual) Seg Neutrophils # Man Lymphocytes # (Manual) INR APTT D-Dimer 776.86 H Heparin Anti-Xa Level POC ABG pH POC ABG pCO2 POC ABG pO2 Sodium Potassium Chloride Carbon Dioxide BUN Creatinine Glucose POC Glucose 275 H 234 H Calcium 12/08/16 12/08/16 12/08/16 00:10 04:07 04:39 Hgb Hct RDW Plt Count Seg Neuts % (Manual) Lymphocytes % (Manual) Seg Neutrophils # Man Lymphocytes # (Manual) INR APTT D-Dimer Heparin Anti-Xa Level POC ABG pH 7.624 H POC ABG pCO2 52.2 H POC ABG pO2 76 L Sodium Potassium Chloride 91.1 L Carbon Dioxide 41 H* BUN 21 H Creatinine Glucose 265 H POC Glucose 203 H Calcium 8.1 L 12/08/16 12/08/16 12/08/16 04:39 05:16 12:19 Hgb Hct 43.8 H RDW 18.6 H Plt Count 118 L Seg Neuts % (Manual) 97.0 H Lymphocytes % (Manual) 1.0 L Seg Neutrophils # Man 8.5 H Lymphocytes # (Manual) 0.1 L INR APTT D-Dimer Heparin Anti-Xa Level POC ABG pH POC ABG pCO2 POC ABG pO2 Sodium Potassium Chloride Carbon Dioxide BUN Creatinine Glucose POC Glucose 245 H 240 H Calcium 12/08/16 12/08/16 12/08/16 14:01 14:01 18:18 Hgb Hct 44.0 H RDW Plt Count 138 L Seg Neuts % (Manual) Lymphocytes % (Manual) Seg Neutrophils # Man Lymphocytes # (Manual) INR 1.16 H APTT 23.5 L D-Dimer Heparin Anti-Xa Level POC ABG pH POC ABG pCO2 POC ABG pO2 Sodium Potassium Chloride Carbon Dioxide BUN Creatinine Glucose POC Glucose 282 H Calcium 12/08/16 12/08/16 12/09/16 21:09 23:30 03:52 Hgb Hct RDW Plt Count Seg Neuts % (Manual) Lymphocytes % (Manual) Seg Neutrophils # Man Lymphocytes # (Manual) INR APTT D-Dimer Heparin Anti-Xa Level 0.86 H POC ABG pH POC ABG pCO2 POC ABG pO2 Sodium Potassium 3.4 L Chloride 91.7 L Carbon Dioxide 41 H* BUN 26 H Creatinine Glucose 237 H POC Glucose 225 H Calcium 8.1 L 12/09/16 12/09/16 12/09/16 03:52 04:14 05:19 Hgb Hct 43.7 H RDW 17.9 H Plt Count 126 L Seg Neuts % (Manual) 97.0 H Lymphocytes % (Manual) 2.0 L Seg Neutrophils # Man Lymphocytes # (Manual) 0.1 L INR APTT D-Dimer Heparin Anti-Xa Level POC ABG pH 7.461 H POC ABG pCO2 70.5 H POC ABG pO2 72 L Sodium Potassium Chloride Carbon Dioxide BUN Creatinine Glucose POC Glucose 251 H Calcium 12/09/16 12/09/16 12/09/16 12:19 18:03 21:34 Hgb Hct RDW Plt Count Seg Neuts % (Manual) Lymphocytes % (Manual) Seg Neutrophils # Man Lymphocytes # (Manual) INR APTT D-Dimer Heparin Anti-Xa Level POC ABG pH 7.591 H POC ABG pCO2 48.9 H POC ABG pO2 66 L Sodium Potassium Chloride Carbon Dioxide BUN Creatinine Glucose POC Glucose 269 H 206 H Calcium 12/10/16 12/10/16 12/10/16 00:01 03:55 03:55 Hgb 15.2 H Hct 47.4 H RDW Plt Count 136 L Seg Neuts % (Manual) Lymphocytes % (Manual) Seg Neutrophils # Man Lymphocytes # (Manual) INR APTT D-Dimer Heparin Anti-Xa Level < 0.10 L POC ABG pH POC ABG pCO2 POC ABG pO2 Sodium Potassium Chloride Carbon Dioxide BUN Creatinine Glucose POC Glucose 220 H Calcium 12/10/16 12/10/16 12/10/16 04:46 05:27 11:39 Hgb Hct RDW Plt Count Seg Neuts % (Manual) Lymphocytes % (Manual) Seg Neutrophils # Man Lymphocytes # (Manual) INR APTT D-Dimer Heparin Anti-Xa Level POC ABG pH 7.547 H POC ABG pCO2 53.5 H POC ABG pO2 71 L Sodium Potassium Chloride Carbon Dioxide BUN Creatinine Glucose POC Glucose 237 H 252 H Calcium 12/10/16 12/10/16 12/10/16 17:51 21:56 23:36 Hgb Hct RDW Plt Count Seg Neuts % (Manual) Lymphocytes % (Manual) Seg Neutrophils # Man Lymphocytes # (Manual) INR APTT D-Dimer Heparin Anti-Xa Level POC ABG pH POC ABG pCO2 POC ABG pO2 Sodium Potassium Chloride Carbon Dioxide BUN Creatinine Glucose POC Glucose 235 H 215 H 233 H Calcium 12/11/16 12/11/16 12/11/16 02:53 02:53 02:53 Hgb 14.7 H Hct 45.7 H RDW 17.5 H Plt Count 108 L Seg Neuts % (Manual) 94.0 H Lymphocytes % (Manual) 2.0 L Seg Neutrophils # Man Lymphocytes # (Manual) 0.1 L INR APTT D-Dimer Heparin Anti-Xa Level 0.86 H POC ABG pH POC ABG pCO2 POC ABG pO2 Sodium Potassium 2.8 L* Chloride Carbon Dioxide 43 H* BUN 21 H Creatinine 0.6 L Glucose 223 H POC Glucose Calcium 8.1 L 12/11/16 12/11/16 12/11/16 04:45 05:23 10:46 Hgb Hct RDW Plt Count Seg Neuts % (Manual) Lymphocytes % (Manual) Seg Neutrophils # Man Lymphocytes # (Manual) INR APTT D-Dimer Heparin Anti-Xa Level 0.84 H POC ABG pH 7.521 H POC ABG pCO2 57.6 H POC ABG pO2 59 L Sodium Potassium Chloride Carbon Dioxide BUN Creatinine Glucose POC Glucose 187 H Calcium 12/11/16 12/11/16 12/11/16 10:48 12:04 17:42 Hgb Hct RDW Plt Count Seg Neuts % (Manual) Lymphocytes % (Manual) Seg Neutrophils # Man Lymphocytes # (Manual) INR APTT D-Dimer Heparin Anti-Xa Level POC ABG pH 7.480 H POC ABG pCO2 63.7 H POC ABG pO2 61 L Sodium Potassium Chloride Carbon Dioxide BUN Creatinine Glucose POC Glucose 219 H 170 H Calcium 12/11/16 12/12/16 12/12/16 23:38 04:29 04:29 Hgb 15.6 H Hct 47.6 H RDW Plt Count 101 L Seg Neuts % (Manual) Lymphocytes % (Manual) Seg Neutrophils # Man Lymphocytes # (Manual) INR APTT D-Dimer Heparin Anti-Xa Level POC ABG pH POC ABG pCO2 POC ABG pO2 Sodium 136 L Potassium Chloride 88.8 L Carbon Dioxide 37 H BUN 21 H Creatinine 0.3 L Glucose 200 H POC Glucose 175 H Calcium 8.1 L 12/12/16 06:06 Hgb Hct RDW Plt Count Seg Neuts % (Manual) Lymphocytes % (Manual) Seg Neutrophils # Man Lymphocytes # (Manual) INR APTT D-Dimer Heparin Anti-Xa Level POC ABG pH POC ABG pCO2 POC ABG pO2 Sodium Potassium Chloride Carbon Dioxide BUN Creatinine Glucose POC Glucose 184 H Calcium
[2016-12-13] MEDS: NOVOLOG SUB-Q SCH ×5 (01:00→20:00)
[2016-12-13] MEDS: DUONEB *Not for PRN Use IH SCH ×4 (02:07→20:30)
[2016-12-13 04:14] LABS: Hemoglobin 16.1 gm/dl (10.1-14.3); Mean Corpuscular HGB Conc 32 % (30-34); Mean Corpuscular Hemoglobin 31 pg (28-32); Mean Corpuscular Volume 96 fl (79-97); Platelet Count 123 K/mm3 (140-440); Red Blood Count 5.22 M/mm3 (3.65-5.03); Red Cell Distribution Width 17.5 % (13.2-15.2); White Blood Count 9.6 K/mm3 (4.5-11.0)
[2016-12-13 04:28] LABS: Anion Gap 16 mmol/L; Blood Urea Nitrogen 27 mg/dL (7-17); Calcium 8.2 mg/dL (8.4-10.2); Carbon Dioxide 37 mmol/L (22-30); Chloride 90.6 mmol/L (98-107); Glucose 234 mg/dL (65-100); Potassium 3.3 mmol/L (3.6-5.0); Sodium 140 mmol/L (137-145)
[2016-12-13] MEDS: POTASSIUM CHLORIDE PO SCH (08:11)
[2016-12-13] MEDS: PULMICORT IH SCH ×2 (08:12→20:30)
--- NOTE | 2016-12-13 08:19 | Progress Note ---
Assessment and Plan Assessment and plan: Acute on chronic hypoxic respiratory failure. Patient was initially intubated on mechanical intubation. She is now extubated and on BiPAP. -Continue solu-medrol IV, DuoNeb, BiPAP. Pulmonology following COPD exacerbation - On IV antibiotics, Solu-Medrol, nebulizer treatment DVT left lower extremity.On Heparin drip. Consulted Commissioning Manager. I discussed case with Dr. Mcfadden today. To switch to oral anticoagulation Toxic metabolic encephalopathy. Improving. She is now awake,alert,oriented x 3. Continue supportive care Pulmonary hypertension Hypokalemia. Potassium 3.3. Replace po and repeat level tomorrow. DVT prophylaxis. She is on heparin drip Full CODE STATUS She is medically stable to transfer to [facility]. History Interval history: Patient extubated, now on BiPAP. Less shortness of breath, feels much better Hospitalist Physical - Physical exam Narrative exam: Gen Appearance: No acute distress, morbidly obese HEENT: normocephalic, atraumatic Neck: supple, no JVD Lungs: Decreased breath sounds bilaterally, bilateral rhonchi. Heart: S1 and S2 regular, no murmurs or gallop Abdomen: Soft non-tender, non-distended, normal bowel sounds Extremity: No edema, clubbing or cyanosis Neuro : Awake, alert, oriented x 3moves all ext - Constitutional Vitals: Temp Pulse Resp BP Pulse Ox 98.6 F 88 17 137/68 93 12/13/16 08:00 12/13/16 07:01 12/13/16 07:01 12/13/16 07:01 12/13/16 07:01 General appearance: Present: no acute distress, severe distress (patient intubated and on ventilator), well-nourished Results - Labs CBC & Chem 7: 12/13/16 03:51 12/13/16 03:51 Labs: Laboratory Last Values WBC 9.6 K/mm3 (4.5-11.0) 12/13/16 03:51 RBC 5.22 M/mm3 (3.65-5.03) H 12/13/16 03:51 Hgb 16.1 gm/dl (10.1-14.3) H 12/13/16 03:51 Hct 50.0 % (30.3-42.9) H 12/13/16 03:51 MCV 96 fl (79-97) 12/13/16 03:51 MCH 31 pg (28-32) 12/13/16 03:51 MCHC 32 % (30-34) 12/13/16 03:51 RDW 17.5 % (13.2-15.2) H 12/13/16 03:51 Plt Count 123 K/mm3 (140-440) L 12/13/16 03:51 Lymph % (Auto) 17.2 % (13.4-35.0) 12/06/16 16:37 [place] % (Auto) 6.6 % (0.0-7.3) 12/06/16 16:37 Eos % (Auto) 2.1 % (0.0-4.3) 12/06/16 16:37 Baso % (Auto) 0.4 % (0.0-1.8) 12/06/16 16:37 Lymph # 1.7 K/mm3 (1.2-5.4) 12/06/16 16:37 [place]duff[place] # 0.7 K/mm3 (0.0-0.8) 12/06/16 16:37 Eos # 0.2 K/mm3 (0.0-0.4) 12/06/16 16:37 Baso # 0.0 K/mm3 (0.0-0.1) 12/06/16 16:37 Add Manual Diff Complete 12/11/16 02:53 Total Counted 100 12/11/16 02:53 Seg Neutrophils % On Air Director 12/11/16 02:53 Seg Neuts % (Manual) 94.0 % (40.0-70.0) H 12/11/16 02:53 Band Neutrophils % 0 % 12/11/16 02:53 Lymphocytes % (Manual) 2.0 % (13.4-35.0) L 12/11/16 02:53 Reactive Lymphs % (Man) 0 % 12/11/16 02:53 Monocytes % (Manual) 4.0 % (0.0-7.3) 12/11/16 02:53 Eosinophils % (Manual) 0 % (0.0-4.3) 12/11/16 02:53 Basophils % (Manual) 0 % (0.0-1.8) 12/11/16 02:53 Metamyelocytes % 0 % 12/11/16 02:53 Myelocytes % 0 % 12/11/16 02:53 Promyelocytes % 0 % 12/11/16 02:53 Blast Cells % 0 % 12/11/16 02:53 Nucleated RBC % Not Reportable 12/11/16 02:53 Seg Neutrophils # 7.3 K/mm3 (1.8-7.7) 12/06/16 16:37 Seg Neutrophils # Man 5.5 K/mm3 (1.8-7.7) 12/11/16 02:53 Band Neutrophils # 0.0 K/mm3 12/11/16 02:53 Lymphocytes # (Manual) 0.1 K/mm3 (1.2-5.4) L 12/11/16 02:53 Abs React Lymphs (Man) 0.0 K/mm3 12/11/16 02:53 Monocytes # (Manual) 0.2 K/mm3 (0.0-0.8) 12/11/16 02:53 Eosinophils # (Manual) 0.0 K/mm3 (0.0-0.4) 12/11/16 02:53 Basophils # (Manual) 0.0 K/mm3 (0.0-0.1) 12/11/16 02:53 Metamyelocytes # 0.0 K/mm3 12/11/16 02:53 Myelocytes # 0.0 K/mm3 12/11/16 02:53 Promyelocytes # 0.0 K/mm3 12/11/16 02:53 Blast Cells # 0.0 K/mm3 12/11/16 02:53 WBC Morphology Not Reportable 12/11/16 02:53 Hypersegmented Neuts Not Reportable 12/11/16 02:53 Hyposegmented Neuts Not Reportable 12/11/16 02:53 Hypogranular Neuts Not Reportable 12/11/16 02:53 Smudge Cells Not Reportable 12/11/16 02:53 Toxic Granulation Not Reportable 12/11/16 02:53 Toxic Vacuolation Not Reportable 12/11/16 02:53 Dohle Bodies Not Reportable 12/11/16 02:53 Pelger-Huet Anomaly Not Reportable 12/11/16 02:53 Ivone Rods Not Reportable 12/11/16 02:53 Platelet Estimate Consistent w auto 12/11/16 02:53 Clumped Platelets Not Reportable 12/11/16 02:53 Plt Clumps, EDTA Not Reportable 12/11/16 02:53 Large Platelets Not Reportable 12/11/16 02:53 Giant Platelets Not Reportable 12/11/16 02:53 Platelet Satelliting Not Reportable 12/11/16 02:53 Plt Morphology Comment Not Reportable 12/11/16 02:53 RBC Morphology Not Reportable 12/11/16 02:53 Dimorphic RBCs Not Reportable 12/11/16 02:53 Polychromasia Not Reportable 12/11/16 02:53 Hypochromasia Not Reportable 12/11/16 02:53 Poikilocytosis Not Reportable 12/11/16 02:53 Anisocytosis 1+ 12/11/16 02:53 Microcytosis Not Reportable 12/11/16 02:53 Macrocytosis Not Reportable 12/11/16 02:53 Spherocytes Not Reportable 12/11/16 02:53 Pappenheimer Bodies Not Reportable 12/11/16 02:53 Sickle Cells Not Reportable 12/11/16 02:53 Target Cells Not Reportable 12/11/16 02:53 Tear Drop Cells Not Reportable 12/11/16 02:53 Ovalocytes Not Reportable 12/11/16 02:53 Helmet Cells Not Reportable 12/11/16 02:53 [place] Bodies Not Reportable 12/11/16 02:53 [place] Rings Not Reportable 12/11/16 02:53 Closplint Cells Not Reportable 12/11/16 02:53 Bite Cells Not Reportable 12/11/16 02:53 Crenated Cell Not Reportable 12/11/16 02:53 Elliptocytes Not Reportable 12/11/16 02:53 Acanthocytes (Spur) Not Reportable 12/11/16 02:53 Rouleaux Not Reportable 12/11/16 02:53 Hemoglobin C Crystals Not Reportable 12/11/16 02:53 Schistocytes Not Reportable 12/11/16 02:53 Malaria parasites Not Reportable 12/11/16 02:53 [place] Bodies Not Reportable 12/11/16 02:53 Hem Pathologist Commnt No 12/11/16 02:53 PT 14.7 Sec. (12.2-14.9) 12/08/16 14:01 INR 1.16 (0.87-1.13) H 12/08/16 14:01 APTT 23.5 Sec. (24.2-36.6) L 12/08/16 14:01 D-Dimer 776.86 ng/mlDDU (0-234) H 12/07/16 21:34 Heparin Anti-Xa Level 0.37 U.I./ml (0.3-0.7) 12/12/16 22:03 POC ABG pH 7.480 (7.35-7.45) H 12/11/16 10:48 POC ABG pCO2 63.7 (35-45) H 12/11/16 10:48 POC ABG pO2 61 (80-105) L 12/11/16 10:48 POC ABG HCO3 47.5 12/11/16 10:48 POC ABG Total CO2 49 12/11/16 10:48 POC ABG O2 Sat 92 12/11/16 10:48 POC ABG Base Excess 24 12/11/16 10:48 FiO2 40 % 12/11/16 10:48 Sodium 140 mmol/L (137-145) 12/13/16 03:51 Potassium 3.3 mmol/L (3.6-5.0) L 12/13/16 03:51 Chloride 90.6 mmol/L (98-107) L 12/13/16 03:51 Carbon Dioxide 37 mmol/L (22-30) H 12/13/16 03:51 Anion Gap 16 mmol/L 12/13/16 03:51 BUN 27 mg/dL (7-17) H 12/13/16 03:51 Creatinine 0.5 mg/dL (0.7-1.2) L D 12/13/16 03:51 Estimated GFR > 60 ml/min 12/13/16 03:51 BUN/Creatinine Ratio 54.00 % 12/13/16 03:51 Glucose 234 mg/dL (65-100) H 12/13/16 03:51 POC Glucose 201 (70-105) H 12/13/16 04:54 Lactic Acid 1.20 mmol/L (0.7-2.0) 12/06/16 18:26 Calcium 8.2 mg/dL (8.4-10.2) L 12/13/16 03:51 Phosphorus 3.90 mg/dL (2.5-4.5) 12/07/16 21:34 Magnesium 1.90 mg/dL (1.7-2.3) 12/11/16 08:22 Total Bilirubin 0.50 mg/dL (0.1-1.2) 12/06/16 16:37 AST 13 units/L (5-40) 12/06/16 16:37 ALT 16 units/L (7-56) 12/06/16 16:37 Alkaline Phosphatase 73 units/L (35-129) 12/06/16 16:37 Troponin T < 0.010 ng/mL (0.00-0.029) 12/06/16 16:37 C-Reactive Protein 0.90 mg/dL (0.00-1.30) 12/07/16 13:43 NT-Pro-B Natriuret Pep 5274 pg/mL (0-900) H 12/06/16 16:50 Total Protein 6.5 g/dL (6.3-8.2) 12/06/16 16:37 Albumin 3.6 g/dL (3.9-5) L 12/06/16 16:37 Albumin/Globulin Ratio 1.2 % 12/06/16 16:37 Urine Color Yellow (Yellow) 12/06/16 18:11 Urine Turbidity Clear (Clear) 12/06/16 18:11 Urine pH 5.0 (5.0-7.0) 12/06/16 18:11 Ur Specific [place] 1.020 (1.003-1.030) 12/06/16 18:11 Urine Protein 100 mg/dl mg/dL (Negative) 12/06/16 18:11 Urine Glucose (UA) Neg mg/dL (Negative) 12/06/16 18:11 Urine Ketones Neg mg/dL (Negative) 12/06/16 18:11 Urine Blood Neg (Negative) 12/06/16 18:11 Urine Nitrite Neg (Negative) 12/06/16 18:11 Urine Bilirubin Neg (Negative) 12/06/16 18:11 Urine Urobilinogen < 2.0 mg/dL (<2.0) 12/06/16 18:11 Ur Leukocyte Esterase Neg (Negative) 12/06/16 18:11 Urine WBC (Auto) 1.0 /HPF (0.0-6.0) 12/06/16 18:11 Urine RBC (Auto) 3.0 /HPF (0.0-6.0) 12/06/16 18:11 U Epithel Cells (Auto) 1.0 /HPF (0-13.0) 12/06/16 18:11 Hyaline Casts 17 /LPF 12/06/16 18:11 Urine Mucus Few /HPF 12/06/16 18:11
--- NOTE | 2016-12-13 08:37 | XRay Report ---
AP CHEST :12/13/16 CLINICAL: Followup respiratory failure. COMPARISON:12/12/16 FINDINGS: Stable cardiomegaly and central vascular congestion. The lungs are relatively clear. No pulmonary consolidation. No tubes or lines. IMPRESSION: No change.
--- NOTE | 2016-12-13 09:04 | Hem/Onc Consultation ---
History of Present Illness - Reason for Consult Consult date: 12/13/16 - History of Present Illness This is a 56-year-old female with history of recurrent respiratory failure. Multiple intubations in the past. Noncompliant with medications. Past medical history includes COPD, respiratory failure, heart failure.Patient is brought to the hospital by EMS for altered mental status and respiratory distress. As per verbal report from EMS, patient found at home, with difficulty breathing. They report that the patient was receiving bag valve mask ventilation in the field. pt did have evidence of L lowe ext sided dvt. pt on heparin. plts did drop now better. no pmh of dvt no hormones quit tob 1 yr ago Medications and Allergies Allergies Allergy/AdvReac Type Severity Reaction Status Date / Time methylprednisolone sodium Allergy Itching Verified 09/15/16 10:40 succinate [From Solu-Medrol] Home Medications Medication Instructions Recorded Confirmed Last Taken Type ALBUTEROL Inhaler [ProAir HFA 1 puff IH Q4H PRN #1 inha 11/17/16 12/12/16 Unknown Rx Inhaler] Arformoterol Nebu [Brovana Nebu] 15 mcg IH Q12HRT #60 ml 11/17/16 12/12/16 Unknown Rx Aspirin [Aspirin TAB] 325 mg PO QDAY #30 tablet 11/17/16 12/12/16 Unknown Rx Budesonide [Pulmicort Respules] 0.5 mg IH Q12HRT #60 nebu 11/17/16 12/12/16 Unknown Rx Hydrochlorothiazide [HCTZ] 25 mg PO QDAY #30 tablet 11/17/16 12/12/16 Unknown Rx Lisinopril [Zestril TAB] 10 mg PO QDAY #30 tablet 11/17/16 12/12/16 Unknown Rx Oxycodone HCl/Acetaminophen 1 each PO Q6HR PRN #28 tablet 11/17/16 12/12/16 Unknown Rx [Percocet 7.5/325 mg] Pantoprazole [Protonix TAB] 40 mg PO DAILY #30 tablet 11/17/16 12/12/16 Unknown Rx Prednisone [predniSONE 10 mg 10 mg PO .TAPER #1 tab.ds.pk 11/17/16 12/12/16 Unknown Rx (6-Day Pack, 21 Tabs)] Active Meds: Active Medications Al Hydrox/Mg Hydrox/Simethicone (Alum-Mag Hydrox-Simeth [id number]/5ml) 30 ml PO Q4H PRN PRN Reason: Indigestion Albuterol (Proventil) 2.5 mg IH Q3HRT PRN PRN Reason: Wheezing Albuterol/Ipratropium (Duoneb *Not For Prn Use*) 1 ampul IH Q6HRT [facility] Last Admin: 12/13/16 08:12 Dose: 1 ampul Lipase/Protease/Amylase (Raul Chaudhari 10,500 Unit) 1 each FEEDTUBE PRN PRN PRN Reason: For Clogged Feeding Tube Bisacodyl (Dulcolax) 10 mg RI QDAY PRN PRN Reason: constipation unrelieved by MOM Budesonide (Pulmicort) 0.5 mg IH Q12HRT [facility] Last Admin: 12/13/16 08:12 Dose: 0.5 mg Dextrose (D50w (25gm)) 50 ml IV PRN PRN PRN Reason: Hypoglycemia Famotidine (Pepcid) 20 mg PO BID [facility] Last Admin: 12/12/16 22:16 Dose: 20 mg Fentanyl (Sublimaze) 50 mcg IV Q2H PRN PRN Reason: AGITATION Last Admin: 12/11/16 05:50 Dose: 50 mcg Furosemide (Lasix) 40 mg IV QDAY [facility] Last Admin: 12/12/16 10:20 Dose: 40 mg Hydralazine HCl (Apresoline) 10 mg IV Q6H PRN PRN Reason: Hypertension Last Admin: 12/12/16 11:45 Dose: 10 mg Hydrophilic Ointment (Vaseline Lip Therapy) 1 applic TP Q2HR PRN PRN Reason: Dry Lips Heparin Sodium/Sodium Chloride (Heparin/ 0.45% Nacl-25,000 Unit/500 Ml) 25,000 unit in 500 mls @ 30 mls/hr IV TITR SHANNON; 1,500 UNITS/HR PRN Reason: Protocol Last Admin: 12/12/16 12:48 Dose: 1,450 units/hr, 29 mls/hr Insulin Aspart (Novolog) 0 units SUB-Q Q6HR SHANNON PRN Reason: Protocol Last Admin: 12/13/16 06:39 Dose: 4 units Insulin Detemir (Levemir) 15 units SUB-Q DAILY [facility] Last Admin: 12/12/16 10:18 Dose: 15 units Losartan Potassium (Cozaar) 100 mg PO QDAY [facility] Last Admin: 12/12/16 10:19 Dose: 100 mg Magnesium Hydroxide (Milk Of Magnesia) 30 ml PO Q4H PRN PRN Reason: Constipation Methylprednisolone Sodium Succinate (Solu-Medrol) 60 mg IV Q8HR [facility] Last Admin: 12/13/16 06:40 Dose: 60 mg Morphine Sulfate (Morphine) 2 mg IV Q4H PRN PRN Reason: Pain, Moderate (4-6) Last Admin: 12/11/16 05:49 Dose: 2 mg Multi-Ingred Cream/Lotion/Oil/Oint (Artificial Tears Ophth Oint) 1 applic OU Q4HR PRN PRN Reason: Dry Eye(s) Potassium Chloride (Potassium Chloride) 40 meq PO Q6H [facility] Stop: 12/13/16 15:01 Last Admin: 12/13/16 08:11 Dose: 40 meq Simple Syrup (Simple Syrup) 15 ml FEEDTUBE PRN PRN PRN Reason: Hypoglycemia Simple Syrup (Simple Syrup) 30 ml FEEDTUBE PRN PRN PRN Reason: Hypoglycemia Sodium Bicarbonate (Sodium Bicarbonate) 325 mg FEEDTUBE PRN PRN PRN Reason: For Clogged Feeding Tube Exam - Exam Narrative Exam: obese - Constitutional Vitals: Last Vital Signs Temp 98.6 F 12/13/16 08:00 Pulse 88 12/13/16 07:01 Resp 17 12/13/16 07:01 BP 137/68 12/13/16 07:01 Pulse Ox 93 12/13/16 07:01 General appearance: mild distress Performance status: 3-limited selfcare - Neck Neck: supple - Respiratory Respiratory: bilateral: diminished, wheezing Extremities: No edema (chronic changes) - Gastrointestinal General gastrointestinal: Present: soft (obese) Results - Labs lab Results: Laboratory Results - last 24 hr 12/12/16 12/12/16 12/12/16 12:04 17:38 22:03 WBC RBC Hgb Hct MCV MCH MCHC RDW Plt Count Heparin Anti-Xa Level 0.37 Sodium Potassium Chloride Carbon Dioxide Anion Gap BUN Creatinine Estimated GFR BUN/Creatinine Ratio Glucose POC Glucose 206 H 217 H Calcium 12/12/16 12/13/16 12/13/16 23:50 03:51 03:51 WBC 9.6 RBC 5.22 H Hgb 16.1 H Hct 50.0 H MCV 96 MCH 31 MCHC 32 RDW 17.5 H Plt Count 123 L Heparin Anti-Xa Level Sodium 140 Potassium 3.3 L Chloride 90.6 L Carbon Dioxide 37 H Anion Gap 16 BUN 27 H Creatinine 0.5 L D Estimated GFR > 60 BUN/Creatinine Ratio 54.00 Glucose 234 H POC Glucose 211 H Calcium 8.2 L 12/13/16 04:54 WBC RBC Hgb Hct MCV MCH MCHC RDW Plt Count Heparin Anti-Xa Level Sodium Potassium Chloride Carbon Dioxide Anion Gap BUN Creatinine Estimated GFR BUN/Creatinine Ratio Glucose POC Glucose 201 H Calcium Assessment and Plan pt has several risk factors-1 obesity 2copd 3previous h/o tob will need a/coag for at least 3 months possibly longer since she is not very mobile will swithch to nga [facility] to assist
--- NOTE | 2016-12-13 09:43 | Progress Note ---
Assessment and Plan - Patient Problems (1) Acute and chronic respiratory failure with hypoxia Current Visit: No Status: Acute Plan to address problem: Extubated yesterday. NIPPV qhs and prn Supplemental oxygen to keep O2 sats about 92%. currently on high flow oxygen- vapotherm (2) Acute exacerbation of chronic obstructive pulmonary disease (COPD) Current Visit: No Status: Acute Plan to address problem: Bronchodilators Steroids Limit supplemental oxygen Smoking cessation counselling prior to discharge (3) VTE (venous thromboembolism) Current Visit: Yes Status: Acute Plan to address problem: Anticoagulated on heparin infusion. Seen by hematology, eladia Rodriguez (4) Morbid obesity Current Visit: No Status: Chronic Plan to address problem: Life style modifications, weight loss Subjective Date of service: 12/13/16 Principal diagnosis: Acute on Chronic Hypercapnic Hypoxemic Respiratory Failure Interval history: Seen and examined. Vitals, labs, medications, chart, imaging reviewed. Used her BIPAP overnight. Tolerating diet. Sitting up in chair. Discussed in multidisciplinary rounds. Adequate gas exchange. Objective - Exam Narrative Exam: obese Vital Signs - 12hr 12/12/16 12/12/16 12/12/16 22:00 22:01 23:01 Temperature Pulse Rate 92 H 94 H 95 H Pulse Rate [ Anterior Bilateral Throughout] Respiratory 18 18 Rate Respiratory Rate [Anterior Bilateral Throughout] Blood Pressure 142/83 126/68 O2 Sat by Pulse 90 93 Oximetry 12/13/16 12/13/16 12/13/16 00:00 00:01 01:01 Temperature 98.7 F Pulse Rate 97 H 98 H Pulse Rate [ Anterior Bilateral Throughout] Respiratory 19 18 Rate Respiratory Rate [Anterior Bilateral Throughout] Blood Pressure 126/68 161/94 O2 Sat by Pulse 93 95 Oximetry 12/13/16 12/13/16 12/13/16 02:01 02:15 03:01 Temperature Pulse Rate 93 H 99 H Pulse Rate [ 105 H Anterior Bilateral Throughout] Respiratory 19 22 Rate Respiratory 20 Rate [Anterior Bilateral Throughout] Blood Pressure 149/73 146/73 O2 Sat by Pulse 93 94 Oximetry 12/13/16 12/13/16 12/13/16 03:31 04:01 05:01 Temperature 99.1 F Pulse Rate 94 H 91 H Pulse Rate [ Anterior Bilateral Throughout] Respiratory 17 17 Rate Respiratory Rate [Anterior Bilateral Throughout] Blood Pressure 145/72 137/71 O2 Sat by Pulse 94 95 Oximetry 12/13/16 12/13/16 12/13/16 06:01 07:01 08:00 Temperature 98.6 F Pulse Rate 88 88 Pulse Rate [ Anterior Bilateral Throughout] Respiratory 17 17 Rate Respiratory Rate [Anterior Bilateral Throughout] Blood Pressure 142/69 137/68 O2 Sat by Pulse 95 93 Oximetry Constitutional: alert, lethargic Eyes: non-icteric ENT: oropharynx moist Neck: supple, no lymphadenopathy, no JVD Effort: mildly labored Ascultation: Bilateral: diminished breath sounds, rales Cardiovascular: regular rate and rhythm Gastrointestinal: normoactive bowel sounds, soft, non-tender, non-distended Integumentary: erythema Extremities: no cyanosis, no edema, pulses normal, no ischemia or petechiae, other ( erhythematous vs mild cellulitis) Neurologic: non-focal exam (grossly) Psychiatric: affect normal, other (unable to assess) CBC and BMP: 12/13/16 03:51 12/13/16 03:51 ABG, PT/INR, D-dimer: ABG POC ABG pH 7.480 (7.35-7.45) H 12/11/16 10:48 POC ABG pCO2 63.7 (35-45) H 12/11/16 10:48 POC ABG pO2 61 (80-105) L 12/11/16 10:48 POC ABG HCO3 47.5 12/11/16 10:48 POC ABG Total CO2 49 12/11/16 10:48 POC ABG O2 Sat 92 12/11/16 10:48 PT/INR, D-dimer PT 14.7 Sec. (12.2-14.9) 12/08/16 14:01 INR 1.16 (0.87-1.13) H 12/08/16 14:01 D-Dimer 776.86 ng/mlDDU (0-234) H 12/07/16 21:34 Abnormal lab findings: Abnormal Labs 12/07/16 12/07/16 12/07/16 05:18 05:58 07:02 RBC Hgb Hct RDW Plt Count Seg Neuts % (Manual) Lymphocytes % (Manual) Seg Neutrophils # Man Lymphocytes # (Manual) INR APTT D-Dimer Heparin Anti-Xa Level POC ABG pH 7.463 H POC ABG pCO2 68.5 H POC ABG pO2 65 L Sodium Potassium Chloride 93.0 L Carbon Dioxide 43 H* BUN Creatinine Glucose 211 H POC Glucose 195 H Calcium 8.2 L 12/07/16 12/07/16 12/07/16 12:50 17:45 21:34 RBC Hgb Hct RDW Plt Count Seg Neuts % (Manual) Lymphocytes % (Manual) Seg Neutrophils # Man Lymphocytes # (Manual) INR APTT D-Dimer 776.86 H Heparin Anti-Xa Level POC ABG pH POC ABG pCO2 POC ABG pO2 Sodium Potassium Chloride Carbon Dioxide BUN Creatinine Glucose POC Glucose 275 H 234 H Calcium 12/08/16 12/08/16 12/08/16 00:10 04:07 04:39 RBC Hgb Hct RDW Plt Count Seg Neuts % (Manual) Lymphocytes % (Manual) Seg Neutrophils # Man Lymphocytes # (Manual) INR APTT D-Dimer Heparin Anti-Xa Level POC ABG pH 7.624 H POC ABG pCO2 52.2 H POC ABG pO2 76 L Sodium Potassium Chloride 91.1 L Carbon Dioxide 41 H* BUN 21 H Creatinine Glucose 265 H POC Glucose 203 H Calcium 8.1 L 12/08/16 12/08/16 12/08/16 04:39 05:16 12:19 RBC Hgb Hct 43.8 H RDW 18.6 H Plt Count 118 L Seg Neuts % (Manual) 97.0 H Lymphocytes % (Manual) 1.0 L Seg Neutrophils # Man 8.5 H Lymphocytes # (Manual) 0.1 L INR APTT D-Dimer Heparin Anti-Xa Level POC ABG pH POC ABG pCO2 POC ABG pO2 Sodium Potassium Chloride Carbon Dioxide BUN Creatinine Glucose POC Glucose 245 H 240 H Calcium 12/08/16 12/08/16 12/08/16 14:01 14:01 18:18 RBC Hgb Hct 44.0 H RDW Plt Count 138 L Seg Neuts % (Manual) Lymphocytes % (Manual) Seg Neutrophils # Man Lymphocytes # (Manual) INR 1.16 H APTT 23.5 L D-Dimer Heparin Anti-Xa Level POC ABG pH POC ABG pCO2 POC ABG pO2 Sodium Potassium Chloride Carbon Dioxide BUN Creatinine Glucose POC Glucose 282 H Calcium 12/08/16 12/08/16 12/09/16 21:09 23:30 03:52 RBC Hgb Hct RDW Plt Count Seg Neuts % (Manual) Lymphocytes % (Manual) Seg Neutrophils # Man Lymphocytes # (Manual) INR APTT D-Dimer Heparin Anti-Xa Level 0.86 H POC ABG pH POC ABG pCO2 POC ABG pO2 Sodium Potassium 3.4 L Chloride 91.7 L Carbon Dioxide 41 H* BUN 26 H Creatinine Glucose 237 H POC Glucose 225 H Calcium 8.1 L 12/09/16 12/09/16 12/09/16 03:52 04:14 05:19 RBC Hgb Hct 43.7 H RDW 17.9 H Plt Count 126 L Seg Neuts % (Manual) 97.0 H Lymphocytes % (Manual) 2.0 L Seg Neutrophils # Man Lymphocytes # (Manual) 0.1 L INR APTT D-Dimer Heparin Anti-Xa Level POC ABG pH 7.461 H POC ABG pCO2 70.5 H POC ABG pO2 72 L Sodium Potassium Chloride Carbon Dioxide BUN Creatinine Glucose POC Glucose 251 H Calcium 12/09/16 12/09/16 12/09/16 12:19 18:03 21:34 RBC Hgb Hct RDW Plt Count Seg Neuts % (Manual) Lymphocytes % (Manual) Seg Neutrophils # Man Lymphocytes # (Manual) INR APTT D-Dimer Heparin Anti-Xa Level POC ABG pH 7.591 H POC ABG pCO2 48.9 H POC ABG pO2 66 L Sodium Potassium Chloride Carbon Dioxide BUN Creatinine Glucose POC Glucose 269 H 206 H Calcium 12/10/16 12/10/16 12/10/16 00:01 03:55 03:55 RBC Hgb 15.2 H Hct 47.4 H RDW Plt Count 136 L Seg Neuts % (Manual) Lymphocytes % (Manual) Seg Neutrophils # Man Lymphocytes # (Manual) INR APTT D-Dimer Heparin Anti-Xa Level < 0.10 L POC ABG pH POC ABG pCO2 POC ABG pO2 Sodium Potassium Chloride Carbon Dioxide BUN Creatinine Glucose POC Glucose 220 H Calcium 12/10/16 12/10/16 12/10/16 04:46 05:27 11:39 RBC Hgb Hct RDW Plt Count Seg Neuts % (Manual) Lymphocytes % (Manual) Seg Neutrophils # Man Lymphocytes # (Manual) INR APTT D-Dimer Heparin Anti-Xa Level POC ABG pH 7.547 H POC ABG pCO2 53.5 H POC ABG pO2 71 L Sodium Potassium Chloride Carbon Dioxide BUN Creatinine Glucose POC Glucose 237 H 252 H Calcium 12/10/16 12/10/16 12/10/16 17:51 21:56 23:36 RBC Hgb Hct RDW Plt Count Seg Neuts % (Manual) Lymphocytes % (Manual) Seg Neutrophils # Man Lymphocytes # (Manual) INR APTT D-Dimer Heparin Anti-Xa Level POC ABG pH POC ABG pCO2 POC ABG pO2 Sodium Potassium Chloride Carbon Dioxide BUN Creatinine Glucose POC Glucose 235 H 215 H 233 H Calcium 12/11/16 12/11/16 12/11/16 02:53 02:53 02:53 RBC Hgb 14.7 H Hct 45.7 H RDW 17.5 H Plt Count 108 L Seg Neuts % (Manual) 94.0 H Lymphocytes % (Manual) 2.0 L Seg Neutrophils # Man Lymphocytes # (Manual) 0.1 L INR APTT D-Dimer Heparin Anti-Xa Level 0.86 H POC ABG pH POC ABG pCO2 POC ABG pO2 Sodium Potassium 2.8 L* Chloride Carbon Dioxide 43 H* BUN 21 H Creatinine 0.6 L Glucose 223 H POC Glucose Calcium 8.1 L 12/11/16 12/11/16 12/11/16 04:45 05:23 10:46 RBC Hgb Hct RDW Plt Count Seg Neuts % (Manual) Lymphocytes % (Manual) Seg Neutrophils # Man Lymphocytes # (Manual) INR APTT D-Dimer Heparin Anti-Xa Level 0.84 H POC ABG pH 7.521 H POC ABG pCO2 57.6 H POC ABG pO2 59 L Sodium Potassium Chloride Carbon Dioxide BUN Creatinine Glucose POC Glucose 187 H Calcium 12/11/16 12/11/16 12/11/16 10:48 12:04 17:42 RBC Hgb Hct RDW Plt Count Seg Neuts % (Manual) Lymphocytes % (Manual) Seg Neutrophils # Man Lymphocytes # (Manual) INR APTT D-Dimer Heparin Anti-Xa Level POC ABG pH 7.480 H POC ABG pCO2 63.7 H POC ABG pO2 61 L Sodium Potassium Chloride Carbon Dioxide BUN Creatinine Glucose POC Glucose 219 H 170 H Calcium 12/11/16 12/12/16 12/12/16 23:38 04:29 04:29 RBC Hgb 15.6 H Hct 47.6 H RDW Plt Count 101 L Seg Neuts % (Manual) Lymphocytes % (Manual) Seg Neutrophils # Man Lymphocytes # (Manual) INR APTT D-Dimer Heparin Anti-Xa Level POC ABG pH POC ABG pCO2 POC ABG pO2 Sodium 136 L Potassium Chloride 88.8 L Carbon Dioxide 37 H BUN 21 H Creatinine 0.3 L Glucose 200 H POC Glucose 175 H Calcium 8.1 L 12/12/16 12/12/16 12/12/16 06:06 12:04 17:38 RBC Hgb Hct RDW Plt Count Seg Neuts % (Manual) Lymphocytes % (Manual) Seg Neutrophils # Man Lymphocytes # (Manual) INR APTT D-Dimer Heparin Anti-Xa Level POC ABG pH POC ABG pCO2 POC ABG pO2 Sodium Potassium Chloride Carbon Dioxide BUN Creatinine Glucose POC Glucose 184 H 206 H 217 H Calcium 12/12/16 12/13/16 12/13/16 23:50 03:51 03:51 RBC 5.22 H Hgb 16.1 H Hct 50.0 H RDW 17.5 H Plt Count 123 L Seg Neuts % (Manual) Lymphocytes % (Manual) Seg Neutrophils # Man Lymphocytes # (Manual) INR APTT D-Dimer Heparin Anti-Xa Level POC ABG pH POC ABG pCO2 POC ABG pO2 Sodium Potassium 3.3 L Chloride 90.6 L Carbon Dioxide 37 H BUN 27 H Creatinine 0.5 L D Glucose 234 H POC Glucose 211 H Calcium 8.2 L 12/13/16 04:54 RBC Hgb Hct RDW Plt Count Seg Neuts % (Manual) Lymphocytes % (Manual) Seg Neutrophils # Man Lymphocytes # (Manual) INR APTT D-Dimer Heparin Anti-Xa Level POC ABG pH POC ABG pCO2 POC ABG pO2 Sodium Potassium Chloride Carbon Dioxide BUN Creatinine Glucose POC Glucose 201 H Calcium
[2016-12-13] MEDS: PEPCID PO SCH ×2 (10:07→22:15)
[2016-12-13] MEDS: LASIX IV SCH (10:07)
[2016-12-13] MEDS: COZAAR PO SCH (10:08)
[2016-12-13] MEDS: LEVEMIR SUB-Q SCH (10:14)
--- NOTE | 2016-12-13 11:45 | Progress Note ---
Assessment and Plan Assessment: Acute on chronic respiratory failure - intubated COPD exacerbation ? Right heart failure / cor pulmonale Severe pulmonary HTN LLE DVT Elevated DDimer - further eval/management to r/o PE per primary/pulmonary. RLE cellulitis HTN Hypokalemia Morbid obesity Noncompliance Plan: Potential for RHC and pulmonary HTN medical management discussed with pt. She does not wish to undergo any aggressive evaluation/management of pulmonary HTN, including RHC, at this time. Currently stable cardiac status. Convert IV lasix to PO, 40mg daily. Will see PRN. Recommend follow up in our office with Dinora Naranjo NP, within 1-2 weeks of hospital discharge ([phone]). The patient has been seen in conjunction with Dr. Vega who agrees with the assessment and plan of care. Subjective Date of service: 12/13/16 Principal diagnosis: Acute on Chronic Hypercapnic Hypoxemic Respiratory Failure Interval history: Pt sitting up in chair comfortably, on HiFlo NC. States she is feeling better. VSS. Awaiting tx to tele. Objective Last Vital Signs Temp 98.6 F 12/13/16 08:00 Pulse 91 H 12/13/16 10:08 Resp 15 12/13/16 10:01 BP 135/72 12/13/16 10:08 Pulse Ox 94 12/13/16 10:01 - Physical Examination General: Appears Well HEENT: Positive: PERRL Neck: Positive: neck supple, trachea midline Cardiac: Positive: Reg Rate and Rhythm, S1/S2 Lungs: Positive: Decreased Breath Sounds, Oxygen Neuro: Positive: Grossly Intact, Cranial Nerve 2-12 Intact Abdomen: Positive: Soft, Active Bowel Sounds. Negative: Tender Skin: Positive: Clear. Negative: Rash, Wound Extremities: Present: edema (trace BLE), Other (chronic skin changes noted in BLE ) - Labs and Meds CBC 12/13/16 Range/Units 03:51 WBC 9.6 (4.5-11.0) K/mm3 RBC 5.22 H (3.65-5.03) M/mm3 Hgb 16.1 H (10.1-14.3) gm/dl Hct 50.0 H (30.3-42.9) % Plt Count 123 L (140-440) K/mm3 Comprehensive Metabolic Panel 12/13/16 Range/Units 03:51 Sodium 140 (137-145) mmol/L Potassium 3.3 L (3.6-5.0) mmol/L Chloride 90.6 L (98-107) mmol/L Carbon Dioxide 37 H (22-30) mmol/L BUN 27 H (7-17) mg/dL Creatinine 0.5 L D (0.7-1.2) mg/dL Glucose 234 H (65-100) mg/dL Calcium 8.2 L (8.4-10.2) mg/dL - Imaging and Cardiology EKG: report reviewed, image reviewed Echo: report reviewed - Telemetry EKG Rhythm: Sinus Rhythm - EKG Sinus rhythms and dysrhythmias: sinus rhythm QRS axis and voltage: right axis deviation Repolarization changes or abnormalities: nonspecific abnormality, ST segment, and/or T wave
[2016-12-13] MEDS: ELIQUIS PO SCH ×2 (13:00→22:14)
[2016-12-13] MEDS ORDERED: DELTASONE PO SCH (13:00)
[2016-12-14] MEDS: DUONEB *Not for PRN Use IH SCH ×4 (01:50→20:32)
[2016-12-14] MEDS: POTASSIUM CHLORIDE PO SCH (05:05)
[2016-12-14 05:31] LABS: Hemoglobin 14.9 gm/dl (10.1-14.3)
[2016-12-14 05:59] LABS: Anion Gap 12 mmol/L; Blood Urea Nitrogen 27 mg/dL (7-17); Calcium 8.4 mg/dL (8.4-10.2); Carbon Dioxide 40 mmol/L (22-30); Chloride 91.8 mmol/L (98-107); Glucose 228 mg/dL (65-100); Potassium 3.8 mmol/L (3.6-5.0); Sodium 140 mmol/L (137-145)
[2016-12-14] MEDS: NOVOLOG SUB-Q SCH ×2 (06:20→12:35)
[2016-12-14] MEDS: PULMICORT IH SCH ×2 (07:44→20:32)
--- NOTE | 2016-12-14 09:37 | Progress Note ---
Assessment and Plan Assessment and plan: Acute on chronic hypoxic respiratory failure. Patient was initially intubated on mechanical intubation. She is now extubated and on BiPAP. -Continue Prednisone, DuoNeb, She is on flow oxygen at 20 l/min with sat 95% Pulmonology following COPD exacerbation - On IV antibiotics, Prednisonel, nebulizer treatment DVT left lower extremity.On Heparin drip. Consulted Airport Engineer. I discussed case with Dr. Mcfadden today. To switch to oral anticoagulation Toxic metabolic encephalopathy. Improving. She is now awake,alert,oriented x 3. Continue supportive care Pulmonary hypertension Hypokalemia. This is resolved. Potassium 3.8 today. DVT prophylaxis. Started on Eliquis. Full CODE STATUS History Interval history: Patient extubated, now on BiPAP. Still shortness of breath, Hospitalist Physical - Physical exam Narrative exam: Gen Appearance: No acute distress, morbidly obese HEENT: normocephalic, atraumatic Neck: supple, no JVD Lungs: Decreased breath sounds bilaterally, bilateral rhonchi. Heart: S1 and S2 regular, no murmurs, rubs or gallop Abdomen: Soft non-tender, non-distended, normal bowel sounds Extremity: No edema, clubbing or cyanosis Neuro : Awake, alert, oriented x 3, moves all extremities - Constitutional Vitals: Temp Pulse Resp BP Pulse Ox 98.1 F 91 H 22 154/73 91 12/14/16 08:27 12/14/16 08:27 12/14/16 08:27 12/14/16 08:27 12/14/16 08:27 General appearance: Present: no acute distress, severe distress (patient intubated and on ventilator), well-nourished Results - Labs CBC & Chem 7: 12/14/16 04:55 12/14/16 04:55 Labs: Laboratory Last Values WBC 9.6 K/mm3 (4.5-11.0) 12/13/16 03:51 RBC 5.22 M/mm3 (3.65-5.03) H 12/13/16 03:51 Hgb 14.9 gm/dl (10.1-14.3) H 12/14/16 04:55 Hct 47.0 % (30.3-42.9) H 12/14/16 04:55 MCV 96 fl (79-97) 12/13/16 03:51 MCH 31 pg (28-32) 12/13/16 03:51 MCHC 32 % (30-34) 12/13/16 03:51 RDW 17.5 % (13.2-15.2) H 12/13/16 03:51 Plt Count 126 K/mm3 (140-440) L 12/14/16 04:55 Lymph % (Auto) 17.2 % (13.4-35.0) 12/06/16 16:37 Evans % (Auto) 6.6 % (0.0-7.3) 12/06/16 16:37 Eos % (Auto) 2.1 % (0.0-4.3) 12/06/16 16:37 Baso % (Auto) 0.4 % (0.0-1.8) 12/06/16 16:37 Lymph # 1.7 K/mm3 (1.2-5.4) 12/06/16 16:37 Evans # 0.7 K/mm3 (0.0-0.8) 12/06/16 16:37 Eos # 0.2 K/mm3 (0.0-0.4) 12/06/16 16:37 Baso # 0.0 K/mm3 (0.0-0.1) 12/06/16 16:37 Add Manual Diff Complete 12/11/16 02:53 Total Counted 100 12/11/16 02:53 Seg Neutrophils % [place] [employer] 12/11/16 02:53 Seg Neuts % (Manual) 94.0 % (40.0-70.0) H 12/11/16 02:53 Band Neutrophils % 0 % 12/11/16 02:53 Lymphocytes % (Manual) 2.0 % (13.4-35.0) L 12/11/16 02:53 Reactive Lymphs % (Man) 0 % 12/11/16 02:53 Monocytes % (Manual) 4.0 % (0.0-7.3) 12/11/16 02:53 Eosinophils % (Manual) 0 % (0.0-4.3) 12/11/16 02:53 Basophils % (Manual) 0 % (0.0-1.8) 12/11/16 02:53 Metamyelocytes % 0 % 12/11/16 02:53 Myelocytes % 0 % 12/11/16 02:53 Promyelocytes % 0 % 12/11/16 02:53 Blast Cells % 0 % 12/11/16 02:53 Nucleated RBC % Not Reportable 12/11/16 02:53 Seg Neutrophils # 7.3 K/mm3 (1.8-7.7) 12/06/16 16:37 Seg Neutrophils # Man 5.5 K/mm3 (1.8-7.7) 12/11/16 02:53 Band Neutrophils # 0.0 K/mm3 12/11/16 02:53 Lymphocytes # (Manual) 0.1 K/mm3 (1.2-5.4) L 12/11/16 02:53 Abs React Lymphs (Man) 0.0 K/mm3 12/11/16 02:53 Monocytes # (Manual) 0.2 K/mm3 (0.0-0.8) 12/11/16 02:53 Eosinophils # (Manual) 0.0 K/mm3 (0.0-0.4) 12/11/16 02:53 Basophils # (Manual) 0.0 K/mm3 (0.0-0.1) 12/11/16 02:53 Metamyelocytes # 0.0 K/mm3 12/11/16 02:53 Myelocytes # 0.0 K/mm3 12/11/16 02:53 Promyelocytes # 0.0 K/mm3 12/11/16 02:53 Blast Cells # 0.0 K/mm3 12/11/16 02:53 WBC Morphology Not Reportable 12/11/16 02:53 Hypersegmented Neuts Not Reportable 12/11/16 02:53 Hyposegmented Neuts Not Reportable 12/11/16 02:53 Hypogranular Neuts Not Reportable 12/11/16 02:53 Smudge Cells Not Reportable 12/11/16 02:53 Toxic Granulation Not Reportable 12/11/16 02:53 Toxic Vacuolation Not Reportable 12/11/16 02:53 Dohle Bodies Not Reportable 12/11/16 02:53 Pelger-Huet Anomaly Not Reportable 12/11/16 02:53 Ivone Rods Not Reportable 12/11/16 02:53 Platelet Estimate Consistent w auto 12/11/16 02:53 Clumped Platelets Not Reportable 12/11/16 02:53 Plt Clumps, EDTA Not Reportable 12/11/16 02:53 Large Platelets Not Reportable 12/11/16 02:53 Giant Platelets Not Reportable 12/11/16 02:53 Platelet Satelliting Not Reportable 12/11/16 02:53 Plt Morphology Comment Not Reportable 12/11/16 02:53 RBC Morphology Not Reportable 12/11/16 02:53 Dimorphic RBCs Not Reportable 12/11/16 02:53 Polychromasia Not Reportable 12/11/16 02:53 Hypochromasia Not Reportable 12/11/16 02:53 Poikilocytosis Not Reportable 12/11/16 02:53 Anisocytosis 1+ 12/11/16 02:53 Microcytosis Not Reportable 12/11/16 02:53 Macrocytosis Not Reportable 12/11/16 02:53 Spherocytes Not Reportable 12/11/16 02:53 Pappenheimer Bodies Not Reportable 12/11/16 02:53 Sickle Cells Not Reportable 12/11/16 02:53 Target Cells Not Reportable 12/11/16 02:53 Tear Drop Cells Not Reportable 12/11/16 02:53 Ovalocytes Not Reportable 12/11/16 02:53 Helmet Cells Not Reportable 12/11/16 02:53 [place] Bodies Not Reportable 12/11/16 02:53 [place] Rings Not Reportable 12/11/16 02:53 Cam Cells Not Reportable 12/11/16 02:53 Bite Cells Not Reportable 12/11/16 02:53 Crenated Cell Not Reportable 12/11/16 02:53 Elliptocytes Not Reportable 12/11/16 02:53 Acanthocytes (Spur) Not Reportable 12/11/16 02:53 Rouleaux Not Reportable 12/11/16 02:53 Hemoglobin C Crystals Not Reportable 12/11/16 02:53 Schistocytes Not Reportable 12/11/16 02:53 Malaria parasites Not Reportable 12/11/16 02:53 [place] Bodies Not Reportable 12/11/16 02:53 Hem Pathologist Commnt No 12/11/16 02:53 PT 14.7 Sec. (12.2-14.9) 12/08/16 14:01 INR 1.16 (0.87-1.13) H 12/08/16 14:01 APTT 23.5 Sec. (24.2-36.6) L 12/08/16 14:01 D-Dimer 776.86 ng/mlDDU (0-234) H 12/07/16 21:34 Heparin Anti-Xa Level 0.37 U.I./ml (0.3-0.7) 12/12/16 22:03 POC ABG pH 7.480 (7.35-7.45) H 12/11/16 10:48 POC ABG pCO2 63.7 (35-45) H 12/11/16 10:48 POC ABG pO2 61 (80-105) L 12/11/16 10:48 POC ABG HCO3 47.5 12/11/16 10:48 POC ABG Total CO2 49 12/11/16 10:48 POC ABG O2 Sat 92 12/11/16 10:48 POC ABG Base Excess 24 12/11/16 10:48 FiO2 40 % 12/11/16 10:48 Sodium 140 mmol/L (137-145) 12/14/16 04:55 Potassium 3.8 mmol/L (3.6-5.0) 12/14/16 04:55 Chloride 91.8 mmol/L (98-107) L 12/14/16 04:55 Carbon Dioxide 40 mmol/L (22-30) H 12/14/16 04:55 Anion Gap 12 mmol/L 12/14/16 04:55 BUN 27 mg/dL (7-17) H 12/14/16 04:55 Creatinine 0.4 mg/dL (0.7-1.2) L 12/14/16 04:55 Estimated GFR > 60 ml/min 12/14/16 04:55 BUN/Creatinine Ratio 67.50 % 12/14/16 04:55 Glucose 228 mg/dL (65-100) H 12/14/16 04:55 POC Glucose 215 (70-105) H 12/14/16 05:03 Lactic Acid 1.20 mmol/L (0.7-2.0) 12/06/16 18:26 Calcium 8.4 mg/dL (8.4-10.2) 12/14/16 04:55 Phosphorus 3.90 mg/dL (2.5-4.5) 12/07/16 21:34 Magnesium 1.90 mg/dL (1.7-2.3) 12/11/16 08:22 Total Bilirubin 0.50 mg/dL (0.1-1.2) 12/06/16 16:37 AST 13 units/L (5-40) 12/06/16 16:37 ALT 16 units/L (7-56) 12/06/16 16:37 Alkaline Phosphatase 73 units/L (35-129) 12/06/16 16:37 Troponin T < 0.010 ng/mL (0.00-0.029) 12/06/16 16:37 C-Reactive Protein 0.90 mg/dL (0.00-1.30) 12/07/16 13:43 NT-Pro-B Natriuret Pep 5274 pg/mL (0-900) H 12/06/16 16:50 Total Protein 6.5 g/dL (6.3-8.2) 12/06/16 16:37 Albumin 3.6 g/dL (3.9-5) L 12/06/16 16:37 Albumin/Globulin Ratio 1.2 % 12/06/16 16:37 Urine Color Yellow (Yellow) 12/06/16 18:11 Urine Turbidity Clear (Clear) 12/06/16 18:11 Urine pH 5.0 (5.0-7.0) 12/06/16 18:11 Ur Specific [place] 1.020 (1.003-1.030) 12/06/16 18:11 Urine Protein 100 mg/dl mg/dL (Negative) 12/06/16 18:11 Urine Glucose (UA) Neg mg/dL (Negative) 12/06/16 18:11 Urine Ketones Neg mg/dL (Negative) 12/06/16 18:11 Urine Blood Neg (Negative) 12/06/16 18:11 Urine Nitrite Neg (Negative) 12/06/16 18:11 Urine Bilirubin Neg (Negative) 12/06/16 18:11 Urine Urobilinogen < 2.0 mg/dL (<2.0) 12/06/16 18:11 Ur Leukocyte Esterase Neg (Negative) 12/06/16 18:11 Urine WBC (Auto) 1.0 /HPF (0.0-6.0) 12/06/16 18:11 Urine RBC (Auto) 3.0 /HPF (0.0-6.0) 12/06/16 18:11 U Epithel Cells (Auto) 1.0 /HPF (0-13.0) 12/06/16 18:11 Hyaline Casts 17 /LPF 12/06/16 18:11 Urine Mucus Few /HPF 12/06/16 18:11
[2016-12-14] MEDS: LASIX PO SCH (09:55)
[2016-12-14] MEDS: COZAAR PO SCH (09:55)
[2016-12-14] MEDS: PEPCID PO SCH ×2 (09:55→22:25)
[2016-12-14] MEDS: ELIQUIS PO SCH ×2 (09:55→22:25)
[2016-12-14] MEDS ORDERED: DELTASONE PO SCH (10:00)
[2016-12-14] MEDS: LEVEMIR SUB-Q SCH (10:01)
--- NOTE | 2016-12-14 10:09 | Progress Note ---
Assessment and Plan - Patient Problems (1) Acute and chronic respiratory failure with hypoxia Current Visit: No Status: Acute Plan to address problem: Bronchodiltors Acetazolamide for 3 doses NIPPV qhs and prn Supplemental oxygen to keep O2 sats about 92%. currently on high flow oxygen- vapotherm (2) Acute exacerbation of chronic obstructive pulmonary disease (COPD) Current Visit: No Status: Acute Plan to address problem: Bronchodilators Steroids Limit supplemental oxygen Metabolic alkalosis probably compensatory to respiratory acidosis. (3) VTE (venous thromboembolism) Current Visit: Yes Status: Acute Plan to address problem: Seen by hematology, eladia Rodriguez (4) Morbid obesity Current Visit: No Status: Chronic Plan to address problem: Life style modifications, weight loss Subjective Date of service: 12/14/16 Principal diagnosis: Acute on Chronic Hypercapnic Hypoxemic Respiratory Failure Interval history: Seen and examined. Vitals, labs, medications, chart, imaging reviewed. Used her BIPAP overnight. Tolerating diet. Lying in bed, still has some conversational dyspnea Adequate gas exchange. Objective - Exam Narrative Exam: Gen Appearance: No acute distress, morbidly obese, on high flow Oxygen HEENT: normocephalic, atraumatic Neck: supple, no JVD Lungs: Decreased breath sounds bilaterally, bilateral rhonchi. Heart: S1 and S2 regular, no murmurs, rubs or gallop Abdomen: Soft non-tender, non-distended, normal bowel sounds Extremity: Bilateral lower extremity edema, clubbing or cyanosis Neuro : Awake, alert, oriented x 3, moves all extremities Vital Signs - 12hr 12/13/16 12/14/16 12/14/16 23:34 00:00 01:50 Temperature 97.3 F L Pulse Rate 81 Pulse Rate [ 72 Anterior Bilateral Throughout] Pulse Rate [ 79 Apical] Pulse Rate [ 79 From Monitor] Pulse Rate [ 79 Left Dorsalis Pedis] Pulse Rate [ 79 Left Radial] Pulse Rate [ 79 Right Dorsalis Pedis] Pulse Rate [ 79 Right Radial] Respiratory 20 20 Rate Respiratory 22 Rate [Anterior Bilateral Throughout] Blood Pressure 128/71 [Left Arm] O2 Sat by Pulse 93 95 Oximetry 12/14/16 12/14/16 12/14/16 02:05 04:00 08:01 Temperature 97.3 F L Pulse Rate 84 Pulse Rate [ 74 Anterior Bilateral Throughout] Pulse Rate [ 75 Apical] Pulse Rate [ 75 From Monitor] Pulse Rate [ 75 Left Dorsalis Pedis] Pulse Rate [ 75 Left Radial] Pulse Rate [ 75 Right Dorsalis Pedis] Pulse Rate [ 75 Right Radial] Respiratory 19 Rate Respiratory 22 Rate [Anterior Bilateral Throughout] Blood Pressure 132/71 [Left Arm] O2 Sat by Pulse 99 Oximetry 12/14/16 08:27 Temperature 98.1 F Pulse Rate Pulse Rate [ Anterior Bilateral Throughout] Pulse Rate [ 91 H Apical] Pulse Rate [ 91 H From Monitor] Pulse Rate [ 91 H Left Dorsalis Pedis] Pulse Rate [ 91 H Left Radial] Pulse Rate [ 91 H Right Dorsalis Pedis] Pulse Rate [ 91 H Right Radial] Respiratory 22 Rate Respiratory Rate [Anterior Bilateral Throughout] Blood Pressure 154/73 [Left Arm] O2 Sat by Pulse 91 Oximetry Constitutional: alert, lethargic Eyes: non-icteric ENT: oropharynx moist Neck: supple, no lymphadenopathy, no JVD Effort: mildly labored Ascultation: Bilateral: diminished breath sounds, rales Cardiovascular: regular rate and rhythm Gastrointestinal: normoactive bowel sounds, soft, non-tender, non-distended Integumentary: erythema Extremities: no cyanosis, no edema, pulses normal, no ischemia or petechiae, other ( erhythematous vs mild cellulitis) Neurologic: non-focal exam (grossly) Psychiatric: affect normal, other (unable to assess) CBC and BMP: 12/14/16 04:55 12/15/16 06:03 ABG, PT/INR, D-dimer: ABG POC ABG pH 7.480 (7.35-7.45) H 12/11/16 10:48 POC ABG pCO2 63.7 (35-45) H 12/11/16 10:48 POC ABG pO2 61 (80-105) L 12/11/16 10:48 POC ABG HCO3 47.5 12/11/16 10:48 POC ABG Total CO2 49 12/11/16 10:48 POC ABG O2 Sat 92 12/11/16 10:48 PT/INR, D-dimer PT 14.7 Sec. (12.2-14.9) 12/08/16 14:01 INR 1.16 (0.87-1.13) H 12/08/16 14:01 D-Dimer 776.86 ng/mlDDU (0-234) H 12/07/16 21:34 Abnormal lab findings: Abnormal Labs 12/07/16 12/07/16 12/07/16 05:18 05:58 07:02 RBC Hgb Hct RDW Plt Count Seg Neuts % (Manual) Lymphocytes % (Manual) Seg Neutrophils # Man Lymphocytes # (Manual) INR APTT D-Dimer Heparin Anti-Xa Level POC ABG pH 7.463 H POC ABG pCO2 68.5 H POC ABG pO2 65 L Sodium Potassium Chloride 93.0 L Carbon Dioxide 43 H* BUN Creatinine Glucose 211 H POC Glucose 195 H Calcium 8.2 L 12/07/16 12/07/16 12/07/16 12:50 17:45 21:34 RBC Hgb Hct RDW Plt Count Seg Neuts % (Manual) Lymphocytes % (Manual) Seg Neutrophils # Man Lymphocytes # (Manual) INR APTT D-Dimer 776.86 H Heparin Anti-Xa Level POC ABG pH POC ABG pCO2 POC ABG pO2 Sodium Potassium Chloride Carbon Dioxide BUN Creatinine Glucose POC Glucose 275 H 234 H Calcium 12/08/16 12/08/16 12/08/16 00:10 04:07 04:39 RBC Hgb Hct RDW Plt Count Seg Neuts % (Manual) Lymphocytes % (Manual) Seg Neutrophils # Man Lymphocytes # (Manual) INR APTT D-Dimer Heparin Anti-Xa Level POC ABG pH 7.624 H POC ABG pCO2 52.2 H POC ABG pO2 76 L Sodium Potassium Chloride 91.1 L Carbon Dioxide 41 H* BUN 21 H Creatinine Glucose 265 H POC Glucose 203 H Calcium 8.1 L 12/08/16 12/08/16 12/08/16 04:39 05:16 12:19 RBC Hgb Hct 43.8 H RDW 18.6 H Plt Count 118 L Seg Neuts % (Manual) 97.0 H Lymphocytes % (Manual) 1.0 L Seg Neutrophils # Man 8.5 H Lymphocytes # (Manual) 0.1 L INR APTT D-Dimer Heparin Anti-Xa Level POC ABG pH POC ABG pCO2 POC ABG pO2 Sodium Potassium Chloride Carbon Dioxide BUN Creatinine Glucose POC Glucose 245 H 240 H Calcium 12/08/16 12/08/16 12/08/16 14:01 14:01 18:18 RBC Hgb Hct 44.0 H RDW Plt Count 138 L Seg Neuts % (Manual) Lymphocytes % (Manual) Seg Neutrophils # Man Lymphocytes # (Manual) INR 1.16 H APTT 23.5 L D-Dimer Heparin Anti-Xa Level POC ABG pH POC ABG pCO2 POC ABG pO2 Sodium Potassium Chloride Carbon Dioxide BUN Creatinine Glucose POC Glucose 282 H Calcium 12/08/16 12/08/16 12/09/16 21:09 23:30 03:52 RBC Hgb Hct RDW Plt Count Seg Neuts % (Manual) Lymphocytes % (Manual) Seg Neutrophils # Man Lymphocytes # (Manual) INR APTT D-Dimer Heparin Anti-Xa Level 0.86 H POC ABG pH POC ABG pCO2 POC ABG pO2 Sodium Potassium 3.4 L Chloride 91.7 L Carbon Dioxide 41 H* BUN 26 H Creatinine Glucose 237 H POC Glucose 225 H Calcium 8.1 L 12/09/16 12/09/16 12/09/16 03:52 04:14 05:19 RBC Hgb Hct 43.7 H RDW 17.9 H Plt Count 126 L Seg Neuts % (Manual) 97.0 H Lymphocytes % (Manual) 2.0 L Seg Neutrophils # Man Lymphocytes # (Manual) 0.1 L INR APTT D-Dimer Heparin Anti-Xa Level POC ABG pH 7.461 H POC ABG pCO2 70.5 H POC ABG pO2 72 L Sodium Potassium Chloride Carbon Dioxide BUN Creatinine Glucose POC Glucose 251 H Calcium 12/09/16 12/09/16 12/09/16 12:19 18:03 21:34 RBC Hgb Hct RDW Plt Count Seg Neuts % (Manual) Lymphocytes % (Manual) Seg Neutrophils # Man Lymphocytes # (Manual) INR APTT D-Dimer Heparin Anti-Xa Level POC ABG pH 7.591 H POC ABG pCO2 48.9 H POC ABG pO2 66 L Sodium Potassium Chloride Carbon Dioxide BUN Creatinine Glucose POC Glucose 269 H 206 H Calcium 12/10/16 12/10/16 12/10/16 00:01 03:55 03:55 RBC Hgb 15.2 H Hct 47.4 H RDW Plt Count 136 L Seg Neuts % (Manual) Lymphocytes % (Manual) Seg Neutrophils # Man Lymphocytes # (Manual) INR APTT D-Dimer Heparin Anti-Xa Level < 0.10 L POC ABG pH POC ABG pCO2 POC ABG pO2 Sodium Potassium Chloride Carbon Dioxide BUN Creatinine Glucose POC Glucose 220 H Calcium 12/10/16 12/10/16 12/10/16 04:46 05:27 11:39 RBC Hgb Hct RDW Plt Count Seg Neuts % (Manual) Lymphocytes % (Manual) Seg Neutrophils # Man Lymphocytes # (Manual) INR APTT D-Dimer Heparin Anti-Xa Level POC ABG pH 7.547 H POC ABG pCO2 53.5 H POC ABG pO2 71 L Sodium Potassium Chloride Carbon Dioxide BUN Creatinine Glucose POC Glucose 237 H 252 H Calcium 12/10/16 12/10/16 12/10/16 17:51 21:56 23:36 RBC Hgb Hct RDW Plt Count Seg Neuts % (Manual) Lymphocytes % (Manual) Seg Neutrophils # Man Lymphocytes # (Manual) INR APTT D-Dimer Heparin Anti-Xa Level POC ABG pH POC ABG pCO2 POC ABG pO2 Sodium Potassium Chloride Carbon Dioxide BUN Creatinine Glucose POC Glucose 235 H 215 H 233 H Calcium 12/11/16 12/11/16 12/11/16 02:53 02:53 02:53 RBC Hgb 14.7 H Hct 45.7 H RDW 17.5 H Plt Count 108 L Seg Neuts % (Manual) 94.0 H Lymphocytes % (Manual) 2.0 L Seg Neutrophils # Man Lymphocytes # (Manual) 0.1 L INR APTT D-Dimer Heparin Anti-Xa Level 0.86 H POC ABG pH POC ABG pCO2 POC ABG pO2 Sodium Potassium 2.8 L* Chloride Carbon Dioxide 43 H* BUN 21 H Creatinine 0.6 L Glucose 223 H POC Glucose Calcium 8.1 L 12/11/16 12/11/16 12/11/16 04:45 05:23 10:46 RBC Hgb Hct RDW Plt Count Seg Neuts % (Manual) Lymphocytes % (Manual) Seg Neutrophils # Man Lymphocytes # (Manual) INR APTT D-Dimer Heparin Anti-Xa Level 0.84 H POC ABG pH 7.521 H POC ABG pCO2 57.6 H POC ABG pO2 59 L Sodium Potassium Chloride Carbon Dioxide BUN Creatinine Glucose POC Glucose 187 H Calcium 12/11/16 12/11/16 12/11/16 10:48 12:04 17:42 RBC Hgb Hct RDW Plt Count Seg Neuts % (Manual) Lymphocytes % (Manual) Seg Neutrophils # Man Lymphocytes # (Manual) INR APTT D-Dimer Heparin Anti-Xa Level POC ABG pH 7.480 H POC ABG pCO2 63.7 H POC ABG pO2 61 L Sodium Potassium Chloride Carbon Dioxide BUN Creatinine Glucose POC Glucose 219 H 170 H Calcium 12/11/16 12/12/16 12/12/16 23:38 04:29 04:29 RBC Hgb 15.6 H Hct 47.6 H RDW Plt Count 101 L Seg Neuts % (Manual) Lymphocytes % (Manual) Seg Neutrophils # Man Lymphocytes # (Manual) INR APTT D-Dimer Heparin Anti-Xa Level POC ABG pH POC ABG pCO2 POC ABG pO2 Sodium 136 L Potassium Chloride 88.8 L Carbon Dioxide 37 H BUN 21 H Creatinine 0.3 L Glucose 200 H POC Glucose 175 H Calcium 8.1 L 12/12/16 12/12/16 12/12/16 06:06 12:04 17:38 RBC Hgb Hct RDW Plt Count Seg Neuts % (Manual) Lymphocytes % (Manual) Seg Neutrophils # Man Lymphocytes # (Manual) INR APTT D-Dimer Heparin Anti-Xa Level POC ABG pH POC ABG pCO2 POC ABG pO2 Sodium Potassium Chloride Carbon Dioxide BUN Creatinine Glucose POC Glucose 184 H 206 H 217 H Calcium 12/12/16 12/13/16 12/13/16 23:50 03:51 03:51 RBC 5.22 H Hgb 16.1 H Hct 50.0 H RDW 17.5 H Plt Count 123 L Seg Neuts % (Manual) Lymphocytes % (Manual) Seg Neutrophils # Man Lymphocytes # (Manual) INR APTT D-Dimer Heparin Anti-Xa Level POC ABG pH POC ABG pCO2 POC ABG pO2 Sodium Potassium 3.3 L Chloride 90.6 L Carbon Dioxide 37 H BUN 27 H Creatinine 0.5 L D Glucose 234 H POC Glucose 211 H Calcium 8.2 L 12/13/16 12/13/16 12/13/16 04:54 12:00 19:27 RBC Hgb Hct RDW Plt Count Seg Neuts % (Manual) Lymphocytes % (Manual) Seg Neutrophils # Man Lymphocytes # (Manual) INR APTT D-Dimer Heparin Anti-Xa Level POC ABG pH POC ABG pCO2 POC ABG pO2 Sodium Potassium Chloride Carbon Dioxide BUN Creatinine Glucose POC Glucose 201 H 254 H 158 H Calcium 12/14/16 12/14/16 12/14/16 04:55 04:55 05:03 RBC Hgb 14.9 H Hct 47.0 H RDW Plt Count 126 L Seg Neuts % (Manual) Lymphocytes % (Manual) Seg Neutrophils # Man Lymphocytes # (Manual) INR APTT D-Dimer Heparin Anti-Xa Level POC ABG pH POC ABG pCO2 POC ABG pO2 Sodium Potassium Chloride 91.8 L Carbon Dioxide 40 H BUN 27 H Creatinine 0.4 L Glucose 228 H POC Glucose 215 H Calcium
--- NOTE | 2016-12-14 10:18 | Hem/Onc Progress Note ---
Assessment and Plan pt has several risk factors-1 obesity 2copd 3previous h/o tob will need a/coag for at least 3 months possibly longer since she is not very mobile cont nga CHRISTINA to assist Subjective Date of service: 12/14/16 Interval history: pt feels fair. c/o leg pain Objective - Exam Narrative Exam: obese - Constitutional Vitals: Last Vital Signs Temp 98.1 F 12/14/16 08:27 Pulse 91 H 12/14/16 08:27 Resp 22 12/14/16 08:27 BP 154/73 12/14/16 08:27 Pulse Ox 91 12/14/16 08:27 General appearance: no acute distress Performance status: 3-limited selfcare - Neck Neck: supple - Respiratory Respiratory effort: Positive: normal - Cardiovascular Rhythm: regular Extremities: abnormal - Labs Lab Results: Laboratory Results - last 24 hr 12/13/16 12/13/16 12/14/16 12:00 19:27 04:55 Hgb 14.9 H Hct 47.0 H Plt Count 126 L Sodium Potassium Chloride Carbon Dioxide Anion Gap BUN Creatinine Estimated GFR BUN/Creatinine Ratio Glucose POC Glucose 254 H 158 H Calcium 12/14/16 12/14/16 04:55 05:03 Hgb Hct Plt Count Sodium 140 Potassium 3.8 Chloride 91.8 L Carbon Dioxide 40 H Anion Gap 12 BUN 27 H Creatinine 0.4 L Estimated GFR > 60 BUN/Creatinine Ratio 67.50 Glucose 228 H POC Glucose 215 H Calcium 8.4
[2016-12-14] MEDS: MORPHINE IV PRN (12:00)
[2016-12-14] MEDS: APRESOLINE IV PRN (22:24)
[2016-12-15] MEDS: DUONEB *Not for PRN Use IH SCH ×4 (02:03→21:57)
[2016-12-15] MEDS: NOVOLOG SUB-Q SCH ×2 (06:51→11:56)
[2016-12-15 07:30] LABS: Blood Urea Nitrogen 23 mg/dL (7-17); Chloride 95.2 mmol/L (98-107); Glucose 126 mg/dL (65-100); Potassium 3.5 mmol/L (3.6-5.0); Sodium 144 mmol/L (137-145)
[2016-12-15 07:33] LABS: Anion Gap 8 mmol/L; Carbon Dioxide 44 mmol/L (22-30)
[2016-12-15] MEDS: PULMICORT IH SCH ×2 (08:29→21:56)
--- NOTE | 2016-12-15 09:42 | Progress Note ---
Assessment and Plan - Patient Problems (1) Acute and chronic respiratory failure with hypoxia Current Visit: No Status: Acute Plan to address problem: Bronchodiltors Acetazolamide for 3 doses NIPPV qhs and prn Supplemental oxygen to keep O2 sats about 92%. currently on high flow oxygen- vapotherm (2) Acute exacerbation of chronic obstructive pulmonary disease (COPD) Current Visit: No Status: Acute Plan to address problem: Bronchodilators Steroids Limit supplemental oxygen Metabolic alkalosis probably compensatory to respiratory acidosis. (3) VTE (venous thromboembolism) Current Visit: Yes Status: Acute Plan to address problem: Seen by hematology, eladia Rodriguez (4) Morbid obesity Current Visit: No Status: Chronic Plan to address problem: Life style modifications, weight loss Subjective Date of service: 12/15/16 Principal diagnosis: Acute on Chronic Hypercapnic Hypoxemic Respiratory Failure Interval history: Seen and examined. Vitals, labs, medications, chart, imaging reviewed. Used her BIPAP overnight. Tolerating diet. Sitting up in bed Adequate gas exchange. Objective - Exam Narrative Exam: Gen Appearance: No acute distress, morbidly obese, on high flow Oxygen HEENT: normocephalic, atraumatic Neck: supple, no JVD Lungs: Decreased breath sounds bilaterally, bilateral rhonchi. Heart: S1 and S2 regular, no murmurs, rubs or gallop Abdomen: Soft non-tender, non-distended, normal bowel sounds Extremity: Bilateral lower extremity edema, clubbing or cyanosis Neuro : Awake, alert, oriented x 3, moves all extremities Vital Signs - 12hr 12/14/16 12/15/16 12/15/16 23:00 00:04 02:05 Temperature 98.8 F Pulse Rate 80 Pulse Rate [ 63 Anterior Bilateral Throughout] Pulse Rate [ 68 Apical] Pulse Rate [ 68 From Monitor] Pulse Rate [ 68 Left Dorsalis Pedis] Pulse Rate [ 68 Left Radial] Pulse Rate [ 68 Right Dorsalis Pedis] Pulse Rate [ 68 Right Radial] Respiratory 24 18 Rate Respiratory 18 Rate [Anterior Bilateral Throughout] Blood Pressure 90/53 [Left Arm] O2 Sat by Pulse 96 98 Oximetry 12/15/16 12/15/16 02:21 04:50 Temperature 97.6 F Pulse Rate Pulse Rate [ 65 Anterior Bilateral Throughout] Pulse Rate [ 52 L Apical] Pulse Rate [ 52 L From Monitor] Pulse Rate [ 52 L Left Dorsalis Pedis] Pulse Rate [ 52 L Left Radial] Pulse Rate [ 52 L Right Dorsalis Pedis] Pulse Rate [ 52 L Right Radial] Respiratory 18 Rate Respiratory 18 Rate [Anterior Bilateral Throughout] Blood Pressure 115/56 [Left Arm] O2 Sat by Pulse 94 Oximetry Constitutional: alert, lethargic Eyes: non-icteric ENT: oropharynx moist Neck: supple, no lymphadenopathy, no JVD Effort: mildly labored Ascultation: Bilateral: diminished breath sounds, rales Cardiovascular: regular rate and rhythm Gastrointestinal: normoactive bowel sounds, soft, non-tender, non-distended Integumentary: erythema Extremities: no cyanosis, no edema, pulses normal, no ischemia or petechiae, other ( erhythematous vs mild cellulitis) Neurologic: non-focal exam (grossly) Psychiatric: affect normal, other (unable to assess) CBC and BMP: 12/14/16 04:55 12/15/16 06:03 ABG, PT/INR, D-dimer: ABG POC ABG pH 7.480 (7.35-7.45) H 12/11/16 10:48 POC ABG pCO2 63.7 (35-45) H 12/11/16 10:48 POC ABG pO2 61 (80-105) L 12/11/16 10:48 POC ABG HCO3 47.5 12/11/16 10:48 POC ABG Total CO2 49 12/11/16 10:48 POC ABG O2 Sat 92 12/11/16 10:48 PT/INR, D-dimer PT 14.7 Sec. (12.2-14.9) 12/08/16 14:01 INR 1.16 (0.87-1.13) H 12/08/16 14:01 D-Dimer 776.86 ng/mlDDU (0-234) H 12/07/16 21:34 Abnormal lab findings: Abnormal Labs 12/07/16 12/07/16 12/07/16 05:18 05:58 07:02 RBC Hgb Hct RDW Plt Count Seg Neuts % (Manual) Lymphocytes % (Manual) Seg Neutrophils # Man Lymphocytes # (Manual) INR APTT D-Dimer Heparin Anti-Xa Level POC ABG pH 7.463 H POC ABG pCO2 68.5 H POC ABG pO2 65 L Sodium Potassium Chloride 93.0 L Carbon Dioxide 43 H* BUN Creatinine Glucose 211 H POC Glucose 195 H Calcium 8.2 L 12/07/16 12/07/16 12/07/16 12:50 17:45 21:34 RBC Hgb Hct RDW Plt Count Seg Neuts % (Manual) Lymphocytes % (Manual) Seg Neutrophils # Man Lymphocytes # (Manual) INR APTT D-Dimer 776.86 H Heparin Anti-Xa Level POC ABG pH POC ABG pCO2 POC ABG pO2 Sodium Potassium Chloride Carbon Dioxide BUN Creatinine Glucose POC Glucose 275 H 234 H Calcium 12/08/16 12/08/16 12/08/16 00:10 04:07 04:39 RBC Hgb Hct RDW Plt Count Seg Neuts % (Manual) Lymphocytes % (Manual) Seg Neutrophils # Man Lymphocytes # (Manual) INR APTT D-Dimer Heparin Anti-Xa Level POC ABG pH 7.624 H POC ABG pCO2 52.2 H POC ABG pO2 76 L Sodium Potassium Chloride 91.1 L Carbon Dioxide 41 H* BUN 21 H Creatinine Glucose 265 H POC Glucose 203 H Calcium 8.1 L 12/08/16 12/08/16 12/08/16 04:39 05:16 12:19 RBC Hgb Hct 43.8 H RDW 18.6 H Plt Count 118 L Seg Neuts % (Manual) 97.0 H Lymphocytes % (Manual) 1.0 L Seg Neutrophils # Man 8.5 H Lymphocytes # (Manual) 0.1 L INR APTT D-Dimer Heparin Anti-Xa Level POC ABG pH POC ABG pCO2 POC ABG pO2 Sodium Potassium Chloride Carbon Dioxide BUN Creatinine Glucose POC Glucose 245 H 240 H Calcium 12/08/16 12/08/16 12/08/16 14:01 14:01 18:18 RBC Hgb Hct 44.0 H RDW Plt Count 138 L Seg Neuts % (Manual) Lymphocytes % (Manual) Seg Neutrophils # Man Lymphocytes # (Manual) INR 1.16 H APTT 23.5 L D-Dimer Heparin Anti-Xa Level POC ABG pH POC ABG pCO2 POC ABG pO2 Sodium Potassium Chloride Carbon Dioxide BUN Creatinine Glucose POC Glucose 282 H Calcium 12/08/16 12/08/16 12/09/16 21:09 23:30 03:52 RBC Hgb Hct RDW Plt Count Seg Neuts % (Manual) Lymphocytes % (Manual) Seg Neutrophils # Man Lymphocytes # (Manual) INR APTT D-Dimer Heparin Anti-Xa Level 0.86 H POC ABG pH POC ABG pCO2 POC ABG pO2 Sodium Potassium 3.4 L Chloride 91.7 L Carbon Dioxide 41 H* BUN 26 H Creatinine Glucose 237 H POC Glucose 225 H Calcium 8.1 L 12/09/16 12/09/16 12/09/16 03:52 04:14 05:19 RBC Hgb Hct 43.7 H RDW 17.9 H Plt Count 126 L Seg Neuts % (Manual) 97.0 H Lymphocytes % (Manual) 2.0 L Seg Neutrophils # Man Lymphocytes # (Manual) 0.1 L INR APTT D-Dimer Heparin Anti-Xa Level POC ABG pH 7.461 H POC ABG pCO2 70.5 H POC ABG pO2 72 L Sodium Potassium Chloride Carbon Dioxide BUN Creatinine Glucose POC Glucose 251 H Calcium 12/09/16 12/09/16 12/09/16 12:19 18:03 21:34 RBC Hgb Hct RDW Plt Count Seg Neuts % (Manual) Lymphocytes % (Manual) Seg Neutrophils # Man Lymphocytes # (Manual) INR APTT D-Dimer Heparin Anti-Xa Level POC ABG pH 7.591 H POC ABG pCO2 48.9 H POC ABG pO2 66 L Sodium Potassium Chloride Carbon Dioxide BUN Creatinine Glucose POC Glucose 269 H 206 H Calcium 12/10/16 12/10/16 12/10/16 00:01 03:55 03:55 RBC Hgb 15.2 H Hct 47.4 H RDW Plt Count 136 L Seg Neuts % (Manual) Lymphocytes % (Manual) Seg Neutrophils # Man Lymphocytes # (Manual) INR APTT D-Dimer Heparin Anti-Xa Level < 0.10 L POC ABG pH POC ABG pCO2 POC ABG pO2 Sodium Potassium Chloride Carbon Dioxide BUN Creatinine Glucose POC Glucose 220 H Calcium 12/10/16 12/10/16 12/10/16 04:46 05:27 11:39 RBC Hgb Hct RDW Plt Count Seg Neuts % (Manual) Lymphocytes % (Manual) Seg Neutrophils # Man Lymphocytes # (Manual) INR APTT D-Dimer Heparin Anti-Xa Level POC ABG pH 7.547 H POC ABG pCO2 53.5 H POC ABG pO2 71 L Sodium Potassium Chloride Carbon Dioxide BUN Creatinine Glucose POC Glucose 237 H 252 H Calcium 12/10/16 12/10/16 12/10/16 17:51 21:56 23:36 RBC Hgb Hct RDW Plt Count Seg Neuts % (Manual) Lymphocytes % (Manual) Seg Neutrophils # Man Lymphocytes # (Manual) INR APTT D-Dimer Heparin Anti-Xa Level POC ABG pH POC ABG pCO2 POC ABG pO2 Sodium Potassium Chloride Carbon Dioxide BUN Creatinine Glucose POC Glucose 235 H 215 H 233 H Calcium 12/11/16 12/11/16 12/11/16 02:53 02:53 02:53 RBC Hgb 14.7 H Hct 45.7 H RDW 17.5 H Plt Count 108 L Seg Neuts % (Manual) 94.0 H Lymphocytes % (Manual) 2.0 L Seg Neutrophils # Man Lymphocytes # (Manual) 0.1 L INR APTT D-Dimer Heparin Anti-Xa Level 0.86 H POC ABG pH POC ABG pCO2 POC ABG pO2 Sodium Potassium 2.8 L* Chloride Carbon Dioxide 43 H* BUN 21 H Creatinine 0.6 L Glucose 223 H POC Glucose Calcium 8.1 L 12/11/16 12/11/16 12/11/16 04:45 05:23 10:46 RBC Hgb Hct RDW Plt Count Seg Neuts % (Manual) Lymphocytes % (Manual) Seg Neutrophils # Man Lymphocytes # (Manual) INR APTT D-Dimer Heparin Anti-Xa Level 0.84 H POC ABG pH 7.521 H POC ABG pCO2 57.6 H POC ABG pO2 59 L Sodium Potassium Chloride Carbon Dioxide BUN Creatinine Glucose POC Glucose 187 H Calcium 12/11/16 12/11/16 12/11/16 10:48 12:04 17:42 RBC Hgb Hct RDW Plt Count Seg Neuts % (Manual) Lymphocytes % (Manual) Seg Neutrophils # Man Lymphocytes # (Manual) INR APTT D-Dimer Heparin Anti-Xa Level POC ABG pH 7.480 H POC ABG pCO2 63.7 H POC ABG pO2 61 L Sodium Potassium Chloride Carbon Dioxide BUN Creatinine Glucose POC Glucose 219 H 170 H Calcium 12/11/16 12/12/16 12/12/16 23:38 04:29 04:29 RBC Hgb 15.6 H Hct 47.6 H RDW Plt Count 101 L Seg Neuts % (Manual) Lymphocytes % (Manual) Seg Neutrophils # Man Lymphocytes # (Manual) INR APTT D-Dimer Heparin Anti-Xa Level POC ABG pH POC ABG pCO2 POC ABG pO2 Sodium 136 L Potassium Chloride 88.8 L Carbon Dioxide 37 H BUN 21 H Creatinine 0.3 L Glucose 200 H POC Glucose 175 H Calcium 8.1 L 12/12/16 12/12/16 12/12/16 06:06 12:04 17:38 RBC Hgb Hct RDW Plt Count Seg Neuts % (Manual) Lymphocytes % (Manual) Seg Neutrophils # Man Lymphocytes # (Manual) INR APTT D-Dimer Heparin Anti-Xa Level POC ABG pH POC ABG pCO2 POC ABG pO2 Sodium Potassium Chloride Carbon Dioxide BUN Creatinine Glucose POC Glucose 184 H 206 H 217 H Calcium 12/12/16 12/13/16 12/13/16 23:50 03:51 03:51 RBC 5.22 H Hgb 16.1 H Hct 50.0 H RDW 17.5 H Plt Count 123 L Seg Neuts % (Manual) Lymphocytes % (Manual) Seg Neutrophils # Man Lymphocytes # (Manual) INR APTT D-Dimer Heparin Anti-Xa Level POC ABG pH POC ABG pCO2 POC ABG pO2 Sodium Potassium 3.3 L Chloride 90.6 L Carbon Dioxide 37 H BUN 27 H Creatinine 0.5 L D Glucose 234 H POC Glucose 211 H Calcium 8.2 L 12/13/16 12/13/16 12/13/16 04:54 12:00 19:27 RBC Hgb Hct RDW Plt Count Seg Neuts % (Manual) Lymphocytes % (Manual) Seg Neutrophils # Man Lymphocytes # (Manual) INR APTT D-Dimer Heparin Anti-Xa Level POC ABG pH POC ABG pCO2 POC ABG pO2 Sodium Potassium Chloride Carbon Dioxide BUN Creatinine Glucose POC Glucose 201 H 254 H 158 H Calcium 12/14/16 12/14/16 12/14/16 04:55 04:55 05:03 RBC Hgb 14.9 H Hct 47.0 H RDW Plt Count 126 L Seg Neuts % (Manual) Lymphocytes % (Manual) Seg Neutrophils # Man Lymphocytes # (Manual) INR APTT D-Dimer Heparin Anti-Xa Level POC ABG pH POC ABG pCO2 POC ABG pO2 Sodium Potassium Chloride 91.8 L Carbon Dioxide 40 H BUN 27 H Creatinine 0.4 L Glucose 228 H POC Glucose 215 H Calcium 12/14/16 12/14/16 12/14/16 11:56 18:05 23:07 RBC Hgb Hct RDW Plt Count Seg Neuts % (Manual) Lymphocytes % (Manual) Seg Neutrophils # Man Lymphocytes # (Manual) INR APTT D-Dimer Heparin Anti-Xa Level POC ABG pH POC ABG pCO2 POC ABG pO2 Sodium Potassium Chloride Carbon Dioxide BUN Creatinine Glucose POC Glucose 206 H 254 H 194 H Calcium 12/15/16 06:03 RBC Hgb Hct RDW Plt Count Seg Neuts % (Manual) Lymphocytes % (Manual) Seg Neutrophils # Man Lymphocytes # (Manual) INR APTT D-Dimer Heparin Anti-Xa Level POC ABG pH POC ABG pCO2 POC ABG pO2 Sodium Potassium 3.5 L Chloride 95.2 L Carbon Dioxide 44 H* BUN 23 H Creatinine 0.5 L Glucose 126 H POC Glucose Calcium 8.0 L
[2016-12-15] MEDS ORDERED: DELTASONE PO SCH (10:00)
[2016-12-15] MEDS ORDERED: LASIX IV ONE (10:44)
[2016-12-15] MEDS: ELIQUIS PO SCH ×2 (11:51→22:04)
[2016-12-15] MEDS: COZAAR PO SCH (11:53)
[2016-12-15] MEDS: LASIX PO SCH (11:53)
[2016-12-15] MEDS: PEPCID PO SCH ×2 (11:54→22:03)
--- NOTE | 2016-12-15 16:26 | Progress Note ---
Assessment and Plan Assessment and plan: Acute on chronic hypoxic respiratory failure. Patient was initially intubated on mechanical intubation. She is now extubated and on BiPAP. -Continue Prednisone, DuoNeb Pulmonology following COPD exacerbation - On IV antibiotics, Prednisone, nebulizer treatment DVT left lower extremity. Now on Eliquis Toxic metabolic encephalopathy, resolved. She is now awake,alert,oriented x 3. Continue supportive care Pulmonary hypertension Hypokalemia. Give Potassium and repeat in am. DVT prophylaxis. Started on Eliquis. Full CODE STATUS History Interval history: Patient extubated, now on BiPAP. Still shortness of breath, Insomnia Hospitalist Physical - Physical exam Narrative exam: Gen Appearance: No acute distress, morbidly obese, on high flow Oxygen HEENT: normocephalic, atraumatic Neck: supple, no JVD Lungs: Decreased breath sounds bilaterally, bilateral rhonchi. Heart: S1 and S2 regular, no murmurs, rubs or gallop Abdomen: Soft non-tender, non-distended, normal bowel sounds Extremity: No edema, clubbing or cyanosis Neuro : Awake, alert, oriented x 3, moves all extremities - Constitutional Vitals: Temp Pulse Resp BP Pulse Ox 98.4 F 81 20 119/65 94 12/15/16 12:06 12/15/16 14:13 12/15/16 14:13 12/15/16 12:06 12/15/16 13:52 General appearance: Present: no acute distress, severe distress (patient intubated and on ventilator), well-nourished Results - Labs CBC & Chem 7: 12/14/16 04:55 12/15/16 06:03 Labs: Laboratory Last Values WBC 9.6 K/mm3 (4.5-11.0) 12/13/16 03:51 RBC 5.22 M/mm3 (3.65-5.03) H 12/13/16 03:51 Hgb 14.9 gm/dl (10.1-14.3) H 12/14/16 04:55 Hct 47.0 % (30.3-42.9) H 12/14/16 04:55 MCV 96 fl (79-97) 12/13/16 03:51 MCH 31 pg (28-32) 12/13/16 03:51 MCHC 32 % (30-34) 12/13/16 03:51 RDW 17.5 % (13.2-15.2) H 12/13/16 03:51 Plt Count 126 K/mm3 (140-440) L 12/14/16 04:55 Lymph % (Auto) 17.2 % (13.4-35.0) 12/06/16 16:37 [place] % (Auto) 6.6 % (0.0-7.3) 12/06/16 16:37 Eos % (Auto) 2.1 % (0.0-4.3) 12/06/16 16:37 Baso % (Auto) 0.4 % (0.0-1.8) 12/06/16 16:37 Lymph # 1.7 K/mm3 (1.2-5.4) 12/06/16 16:37 [place] # 0.7 K/mm3 (0.0-0.8) 12/06/16 16:37 Eos # 0.2 K/mm3 (0.0-0.4) 12/06/16 16:37 Baso # 0.0 K/mm3 (0.0-0.1) 12/06/16 16:37 Add Manual Diff Complete 12/11/16 02:53 Total Counted 100 12/11/16 02:53 Seg Neutrophils % Pantographer 12/11/16 02:53 Seg Neuts % (Manual) 94.0 % (40.0-70.0) H 12/11/16 02:53 Band Neutrophils % 0 % 12/11/16 02:53 Lymphocytes % (Manual) 2.0 % (13.4-35.0) L 12/11/16 02:53 Reactive Lymphs % (Man) 0 % 12/11/16 02:53 Monocytes % (Manual) 4.0 % (0.0-7.3) 12/11/16 02:53 Eosinophils % (Manual) 0 % (0.0-4.3) 12/11/16 02:53 Basophils % (Manual) 0 % (0.0-1.8) 12/11/16 02:53 Metamyelocytes % 0 % 12/11/16 02:53 Myelocytes % 0 % 12/11/16 02:53 Promyelocytes % 0 % 12/11/16 02:53 Blast Cells % 0 % 12/11/16 02:53 Nucleated RBC % Not Reportable 12/11/16 02:53 Seg Neutrophils # 7.3 K/mm3 (1.8-7.7) 12/06/16 16:37 Seg Neutrophils # Man 5.5 K/mm3 (1.8-7.7) 12/11/16 02:53 Band Neutrophils # 0.0 K/mm3 12/11/16 02:53 Lymphocytes # (Manual) 0.1 K/mm3 (1.2-5.4) L 12/11/16 02:53 Abs React Lymphs (Man) 0.0 K/mm3 12/11/16 02:53 Monocytes # (Manual) 0.2 K/mm3 (0.0-0.8) 12/11/16 02:53 Eosinophils # (Manual) 0.0 K/mm3 (0.0-0.4) 12/11/16 02:53 Basophils # (Manual) 0.0 K/mm3 (0.0-0.1) 12/11/16 02:53 Metamyelocytes # 0.0 K/mm3 12/11/16 02:53 Myelocytes # 0.0 K/mm3 12/11/16 02:53 Promyelocytes # 0.0 K/mm3 12/11/16 02:53 Blast Cells # 0.0 K/mm3 12/11/16 02:53 WBC Morphology Not Reportable 12/11/16 02:53 Hypersegmented Neuts Not Reportable 12/11/16 02:53 Hyposegmented Neuts Not Reportable 12/11/16 02:53 Hypogranular Neuts Not Reportable 12/11/16 02:53 Smudge Cells Not Reportable 12/11/16 02:53 Toxic Granulation Not Reportable 12/11/16 02:53 Toxic Vacuolation Not Reportable 12/11/16 02:53 Dohle Bodies Not Reportable 12/11/16 02:53 Pelger-Huet Anomaly Not Reportable 12/11/16 02:53 Ivone Rods Not Reportable 12/11/16 02:53 Platelet Estimate Consistent w auto 12/11/16 02:53 Clumped Platelets Not Reportable 12/11/16 02:53 Plt Clumps, EDTA Not Reportable 12/11/16 02:53 Large Platelets Not Reportable 12/11/16 02:53 Giant Platelets Not Reportable 12/11/16 02:53 Platelet Satelliting Not Reportable 12/11/16 02:53 Plt Morphology Comment Not Reportable 12/11/16 02:53 RBC Morphology Not Reportable 12/11/16 02:53 Dimorphic RBCs Not Reportable 12/11/16 02:53 Polychromasia Not Reportable 12/11/16 02:53 Hypochromasia Not Reportable 12/11/16 02:53 Poikilocytosis Not Reportable 12/11/16 02:53 Anisocytosis 1+ 12/11/16 02:53 Microcytosis Not Reportable 12/11/16 02:53 Macrocytosis Not Reportable 12/11/16 02:53 Spherocytes Not Reportable 12/11/16 02:53 Pappenheimer Bodies Not Reportable 12/11/16 02:53 Sickle Cells Not Reportable 12/11/16 02:53 Target Cells Not Reportable 12/11/16 02:53 Tear Drop Cells Not Reportable 12/11/16 02:53 Ovalocytes Not Reportable 12/11/16 02:53 Helmet Cells Not Reportable 12/11/16 02:53 Campbell-Ivor Bodies Not Reportable 12/11/16 02:53 [place] Rings Not Reportable 12/11/16 02:53 [place] Cells Not Reportable 12/11/16 02:53 Bite Cells Not Reportable 12/11/16 02:53 Crenated Cell Not Reportable 12/11/16 02:53 Elliptocytes Not Reportable 12/11/16 02:53 Acanthocytes (Spur) Not Reportable 12/11/16 02:53 Rouleaux Not Reportable 12/11/16 02:53 Hemoglobin C Crystals Not Reportable 12/11/16 02:53 Schistocytes Not Reportable 12/11/16 02:53 Malaria parasites Not Reportable 12/11/16 02:53 [place] Bodies Not Reportable 12/11/16 02:53 Hem Pathologist Commnt No 12/11/16 02:53 PT 14.7 Sec. (12.2-14.9) 12/08/16 14:01 INR 1.16 (0.87-1.13) H 12/08/16 14:01 APTT 23.5 Sec. (24.2-36.6) L 12/08/16 14:01 D-Dimer 776.86 ng/mlDDU (0-234) H 12/07/16 21:34 Heparin Anti-Xa Level 0.37 U.I./ml (0.3-0.7) 12/12/16 22:03 POC ABG pH 7.480 (7.35-7.45) H 12/11/16 10:48 POC ABG pCO2 63.7 (35-45) H 12/11/16 10:48 POC ABG pO2 61 (80-105) L 12/11/16 10:48 POC ABG HCO3 47.5 12/11/16 10:48 POC ABG Total CO2 49 12/11/16 10:48 POC ABG O2 Sat 92 12/11/16 10:48 POC ABG Base Excess 24 12/11/16 10:48 FiO2 40 % 12/11/16 10:48 Sodium 144 mmol/L (137-145) 12/15/16 06:03 Potassium 3.5 mmol/L (3.6-5.0) L 12/15/16 06:03 Chloride 95.2 mmol/L (98-107) L 12/15/16 06:03 Carbon Dioxide 44 mmol/L (22-30) H* 12/15/16 06:03 Anion Gap 8 mmol/L 12/15/16 06:03 BUN 23 mg/dL (7-17) H 12/15/16 06:03 Creatinine 0.5 mg/dL (0.7-1.2) L 12/15/16 06:03 Estimated GFR > 60 ml/min 12/15/16 06:03 BUN/Creatinine Ratio 46.00 % 12/15/16 06:03 Glucose 126 mg/dL (65-100) H 12/15/16 06:03 POC Glucose 166 (70-105) H 12/15/16 06:03 Lactic Acid 1.20 mmol/L (0.7-2.0) 12/06/16 18:26 Calcium 8.0 mg/dL (8.4-10.2) L 12/15/16 06:03 Phosphorus 3.90 mg/dL (2.5-4.5) 12/07/16 21:34 Magnesium 1.90 mg/dL (1.7-2.3) 12/11/16 08:22 Total Bilirubin 0.50 mg/dL (0.1-1.2) 12/06/16 16:37 AST 13 units/L (5-40) 12/06/16 16:37 ALT 16 units/L (7-56) 12/06/16 16:37 Alkaline Phosphatase 73 units/L (35-129) 12/06/16 16:37 Troponin T < 0.010 ng/mL (0.00-0.029) 12/06/16 16:37 C-Reactive Protein 0.90 mg/dL (0.00-1.30) 12/07/16 13:43 NT-Pro-B Natriuret Pep 5274 pg/mL (0-900) H 12/06/16 16:50 Total Protein 6.5 g/dL (6.3-8.2) 12/06/16 16:37 Albumin 3.6 g/dL (3.9-5) L 12/06/16 16:37 Albumin/Globulin Ratio 1.2 % 12/06/16 16:37 Urine Color Yellow (Yellow) 12/06/16 18:11 Urine Turbidity Clear (Clear) 12/06/16 18:11 Urine pH 5.0 (5.0-7.0) 12/06/16 18:11 Ur Specific [place] 1.020 (1.003-1.030) 12/06/16 18:11 Urine Protein 100 mg/dl mg/dL (Negative) 12/06/16 18:11 Urine Glucose (UA) Neg mg/dL (Negative) 12/06/16 18:11 Urine Ketones Neg mg/dL (Negative) 12/06/16 18:11 Urine Blood Neg (Negative) 12/06/16 18:11 Urine Nitrite Neg (Negative) 12/06/16 18:11 Urine Bilirubin Neg (Negative) 12/06/16 18:11 Urine Urobilinogen < 2.0 mg/dL (<2.0) 12/06/16 18:11 Ur Leukocyte Esterase Neg (Negative) 12/06/16 18:11 Urine WBC (Auto) 1.0 /HPF (0.0-6.0) 12/06/16 18:11 Urine RBC (Auto) 3.0 /HPF (0.0-6.0) 12/06/16 18:11 U Epithel Cells (Auto) 1.0 /HPF (0-13.0) 12/06/16 18:11 Hyaline Casts 17 /LPF 12/06/16 18:11 Urine Mucus Few /HPF 12/06/16 18:11
[2016-12-15] MEDS: LEVEMIR SUB-Q SCH (16:58)
[2016-12-15] MEDS: POTASSIUM CHLORIDE FEEDTUBE SCH ×2 (17:00→22:00)
[2016-12-16 00:23] LABS: ISTAT Base Excess 24; ISTAT HCO3 49.4; ISTAT PCO2 88.1 (35-45); ISTAT PH 7.357 (7.35-7.45); ISTAT PO2 77 (80-105); ISTAT SO2 93; ISTAT TCO2 > 50
[2016-12-16] MEDS: NOVOLOG SUB-Q SCH ×7 (00:45→23:50)
[2016-12-16] MEDS: DUONEB *Not for PRN Use IH SCH ×5 (01:56→21:51)
[2016-12-16] MEDS: PULMICORT IH SCH ×2 (08:10→19:47)
[2016-12-16 08:32] LABS: Basophils % (Auto) 0.2 % (0.0-1.8); Eosinophils % (Auto) 1.5 % (0.0-4.3); Hematocrit 47.1 % (30.3-42.9); Hemoglobin 14.7 gm/dl (10.1-14.3); Mean Corpuscular HGB Conc 31 % (30-34); Mean Corpuscular Hemoglobin 30 pg (28-32); Mean Corpuscular Volume 97 fl (79-97); Platelet Count 129 K/mm3 (140-440); Red Blood Count 4.85 M/mm3 (3.65-5.03); Red Cell Distribution Width 17.7 % (13.2-15.2); White Blood Count 8.2 K/mm3 (4.5-11.0)
[2016-12-16 09:15] LABS: Blood Urea Nitrogen 19 mg/dL (7-17); Calcium 8.1 mg/dL (8.4-10.2); Chloride 94.7 mmol/L (98-107); Glucose 94 mg/dL (65-100); Potassium 3.6 mmol/L (3.6-5.0); Sodium 146 mmol/L (137-145)
[2016-12-16 09:21] LABS: Anion Gap 13 mmol/L
[2016-12-16 09:43] LABS: Carbon Dioxide 42 mmol/L (22-30)
--- NOTE | 2016-12-16 09:48 | Progress Note ---
Assessment and Plan - Patient Problems (1) Acute and chronic respiratory failure with hypoxia Current Visit: No Status: Acute Plan to address problem: Bronchodiltors Acetazolamide for 3 doses NIPPV qhs and prn Supplemental oxygen to keep O2 sats about 92%. currently on high flow oxygen- vapotherm (2) Acute exacerbation of chronic obstructive pulmonary disease (COPD) Current Visit: No Status: Acute Plan to address problem: Bronchodilators Steroids Limit supplemental oxygen Metabolic alkalosis probably compensatory to respiratory acidosis. (3) VTE (venous thromboembolism) Current Visit: Yes Status: Acute Plan to address problem: Seen by hematology, eladia Rodriguez (4) Morbid obesity Current Visit: No Status: Chronic Plan to address problem: Life style modifications, weight loss Subjective Date of service: 12/16/16 Principal diagnosis: Acute on Chronic Hypercapnic Hypoxemic Respiratory Failure Interval history: Seen and examined. Vitals, labs, medications, chart, imaging reviewed. Used her BIPAP overnight. Tolerating diet. Sitting up in bed Adequate gas exchange. Objective - Exam Narrative Exam: VITAL SIGNS: Reviewed. GENERAL: The patient appeared well nourished and normally developed. Obese, Vital signs as documented. HEAD: No signs of head trauma. EYES: Pupils are equal. Extraocular motions intact. EARS: Hearing grossly intact. MOUTH: Oropharynx is normal. NECK: No adenopathy, no JVD. CHEST: Chest with clear breath sounds bilaterally. No wheezes, rales, or rhonchi. CARDIAC: Regular rate and rhythm. S1 and S2, without murmurs, gallops, or rubs. VASCULAR: No Edema. Peripheral pulses normal and equal in all extremities. ABDOMEN: Soft, without detectable tenderness. No sign of distention. No rebound or guarding, and no masses palpated. Bowel Sounds normal. MUSCULOSKELETAL: Good range of motion of all major joints. Extremities without clubbing, cyanosis or edema. NEUROLOGIC EXAM: Alert and oriented x 3. No focal sensory or strength deficits. Speech normal. Follows commands. PSYCHIATRIC: Mood normal. SKIN: No rash or lesions. Vital Signs - 12hr 12/15/16 12/15/16 12/15/16 21:57 22:00 22:16 Temperature Pulse Rate 88 Pulse Rate [ 82 81 Anterior Bilateral Throughout] Pulse Rate [ From Monitor] Respiratory 20 Rate Respiratory 17 15 Rate [Anterior Bilateral Throughout] Blood Pressure [Left Arm] O2 Sat by Pulse 97 Oximetry 12/16/16 12/16/16 12/16/16 00:14 00:46 01:57 Temperature 98.1 F Pulse Rate 78 Pulse Rate [ 57 L Anterior Bilateral Throughout] Pulse Rate [ 88 From Monitor] Respiratory 22 18 Rate Respiratory 21 Rate [Anterior Bilateral Throughout] Blood Pressure 116/66 [Left Arm] O2 Sat by Pulse 93 97 Oximetry 12/16/16 12/16/16 12/16/16 02:07 08:10 08:27 Temperature Pulse Rate Pulse Rate [ 62 75 72 Anterior Bilateral Throughout] Pulse Rate [ From Monitor] Respiratory Rate Respiratory 21 20 20 Rate [Anterior Bilateral Throughout] Blood Pressure [Left Arm] O2 Sat by Pulse 93 Oximetry 12/16/16 09:09 Temperature 98.3 F Pulse Rate Pulse Rate [ Anterior Bilateral Throughout] Pulse Rate [ 97 H From Monitor] Respiratory 20 Rate Respiratory Rate [Anterior Bilateral Throughout] Blood Pressure 118/72 [Left Arm] O2 Sat by Pulse 91 Oximetry Constitutional: alert, lethargic Eyes: non-icteric ENT: oropharynx moist Neck: supple, no lymphadenopathy, no JVD Effort: mildly labored Ascultation: Bilateral: diminished breath sounds, rales Cardiovascular: regular rate and rhythm Gastrointestinal: normoactive bowel sounds, soft, non-tender, non-distended Integumentary: erythema Extremities: no cyanosis, no edema, pulses normal, no ischemia or petechiae, other ( erhythematous vs mild cellulitis) Neurologic: non-focal exam (grossly) Psychiatric: affect normal, other (unable to assess) CBC and BMP: 12/17/16 08:47 12/17/16 08:47 ABG, PT/INR, D-dimer: ABG POC ABG pH 7.357 (7.35-7.45) 12/15/16 23:57 POC ABG pCO2 88.1 (35-45) H 12/15/16 23:57 POC ABG pO2 77 (80-105) L 12/15/16 23:57 POC ABG HCO3 49.4 12/15/16 23:57 POC ABG Total CO2 > 50 12/15/16 23:57 POC ABG O2 Sat 93 12/15/16 23:57 PT/INR, D-dimer PT 14.7 Sec. (12.2-14.9) 12/08/16 14:01 INR 1.16 (0.87-1.13) H 12/08/16 14:01 D-Dimer 776.86 ng/mlDDU (0-234) H 12/07/16 21:34 Abnormal lab findings: Abnormal Labs 12/07/16 12/07/16 12/07/16 05:18 05:58 07:02 RBC Hgb Hct RDW Plt Count [place] % (Auto) Seg Neutrophils % Seg Neuts % (Manual) Lymphocytes % (Manual) Seg Neutrophils # Man Lymphocytes # (Manual) INR APTT D-Dimer Heparin Anti-Xa Level POC ABG pH 7.463 H POC ABG pCO2 68.5 H POC ABG pO2 65 L Sodium Potassium Chloride 93.0 L Carbon Dioxide 43 H* BUN Creatinine Glucose 211 H POC Glucose 195 H Calcium 8.2 L 12/07/16 12/07/16 12/07/16 12:50 17:45 21:34 RBC Hgb Hct RDW Plt Count [place] % (Auto) Seg Neutrophils % Seg Neuts % (Manual) Lymphocytes % (Manual) Seg Neutrophils # Man Lymphocytes # (Manual) INR APTT D-Dimer 776.86 H Heparin Anti-Xa Level POC ABG pH POC ABG pCO2 POC ABG pO2 Sodium Potassium Chloride Carbon Dioxide BUN Creatinine Glucose POC Glucose 275 H 234 H Calcium 12/08/16 12/08/16 12/08/16 00:10 04:07 04:39 RBC Hgb Hct RDW Plt Count [place] % (Auto) Seg Neutrophils % Seg Neuts % (Manual) Lymphocytes % (Manual) Seg Neutrophils # Man Lymphocytes # (Manual) INR APTT D-Dimer Heparin Anti-Xa Level POC ABG pH 7.624 H POC ABG pCO2 52.2 H POC ABG pO2 76 L Sodium Potassium Chloride 91.1 L Carbon Dioxide 41 H* BUN 21 H Creatinine Glucose 265 H POC Glucose 203 H Calcium 8.1 L 12/08/16 12/08/16 12/08/16 04:39 05:16 12:19 RBC Hgb Hct 43.8 H RDW 18.6 H Plt Count 118 L [place] % (Auto) Seg Neutrophils % Seg Neuts % (Manual) 97.0 H Lymphocytes % (Manual) 1.0 L Seg Neutrophils # Man 8.5 H Lymphocytes # (Manual) 0.1 L INR APTT D-Dimer Heparin Anti-Xa Level POC ABG pH POC ABG pCO2 POC ABG pO2 Sodium Potassium Chloride Carbon Dioxide BUN Creatinine Glucose POC Glucose 245 H 240 H Calcium 12/08/16 12/08/16 12/08/16 14:01 14:01 18:18 RBC Hgb Hct 44.0 H RDW Plt Count 138 L [place] % (Auto) Seg Neutrophils % Seg Neuts % (Manual) Lymphocytes % (Manual) Seg Neutrophils # Man Lymphocytes # (Manual) INR 1.16 H APTT 23.5 L D-Dimer Heparin Anti-Xa Level POC ABG pH POC ABG pCO2 POC ABG pO2 Sodium Potassium Chloride Carbon Dioxide BUN Creatinine Glucose POC Glucose 282 H Calcium 12/08/16 12/08/16 12/09/16 21:09 23:30 03:52 RBC Hgb Hct RDW Plt Count [place] % (Auto) Seg Neutrophils % Seg Neuts % (Manual) Lymphocytes % (Manual) Seg Neutrophils # Man Lymphocytes # (Manual) INR APTT D-Dimer Heparin Anti-Xa Level 0.86 H POC ABG pH POC ABG pCO2 POC ABG pO2 Sodium Potassium 3.4 L Chloride 91.7 L Carbon Dioxide 41 H* BUN 26 H Creatinine Glucose 237 H POC Glucose 225 H Calcium 8.1 L 12/09/16 12/09/16 12/09/16 03:52 04:14 05:19 RBC Hgb Hct 43.7 H RDW 17.9 H Plt Count 126 L [place] % (Auto) Seg Neutrophils % Seg Neuts % (Manual) 97.0 H Lymphocytes % (Manual) 2.0 L Seg Neutrophils # Man Lymphocytes # (Manual) 0.1 L INR APTT D-Dimer Heparin Anti-Xa Level POC ABG pH 7.461 H POC ABG pCO2 70.5 H POC ABG pO2 72 L Sodium Potassium Chloride Carbon Dioxide BUN Creatinine Glucose POC Glucose 251 H Calcium 12/09/16 12/09/16 12/09/16 12:19 18:03 21:34 RBC Hgb Hct RDW Plt Count [place] % (Auto) Seg Neutrophils % Seg Neuts % (Manual) Lymphocytes % (Manual) Seg Neutrophils # Man Lymphocytes # (Manual) INR APTT D-Dimer Heparin Anti-Xa Level POC ABG pH 7.591 H POC ABG pCO2 48.9 H POC ABG pO2 66 L Sodium Potassium Chloride Carbon Dioxide BUN Creatinine Glucose POC Glucose 269 H 206 H Calcium 0712/10/16 12/10/16 00:01 03:55 03:55 RBC Hgb 15.2 H Hct 47.4 H RDW Plt Count 136 L [place] % (Auto) Seg Neutrophils % Seg Neuts % (Manual) Lymphocytes % (Manual) Seg Neutrophils # Man Lymphocytes # (Manual) INR APTT D-Dimer Heparin Anti-Xa Level < 0.10 L POC ABG pH POC ABG pCO2 POC ABG pO2 Sodium Potassium Chloride Carbon Dioxide BUN Creatinine Glucose POC Glucose 220 H Calcium 12/10/16 12/10/16 12/10/16 04:46 05:27 11:39 RBC Hgb Hct RDW Plt Count [place] % (Auto) Seg Neutrophils % Seg Neuts % (Manual) Lymphocytes % (Manual) Seg Neutrophils # Man Lymphocytes # (Manual) INR APTT D-Dimer Heparin Anti-Xa Level POC ABG pH 7.547 H POC ABG pCO2 53.5 H POC ABG pO2 71 L Sodium Potassium Chloride Carbon Dioxide BUN Creatinine Glucose POC Glucose 237 H 252 H Calcium 12/10/16 12/10/16 12/10/16 17:51 21:56 23:36 RBC Hgb Hct RDW Plt Count [place] % (Auto) Seg Neutrophils % Seg Neuts % (Manual) Lymphocytes % (Manual) Seg Neutrophils # Man Lymphocytes # (Manual) INR APTT D-Dimer Heparin Anti-Xa Level POC ABG pH POC ABG pCO2 POC ABG pO2 Sodium Potassium Chloride Carbon Dioxide BUN Creatinine Glucose POC Glucose 235 H 215 H 233 H Calcium 12/11/16 12/11/16 12/11/16 02:53 02:53 02:53 RBC Hgb 14.7 H Hct 45.7 H RDW 17.5 H Plt Count 108 L [place] % (Auto) Seg Neutrophils % Seg Neuts % (Manual) 94.0 H Lymphocytes % (Manual) 2.0 L Seg Neutrophils # Man Lymphocytes # (Manual) 0.1 L INR APTT D-Dimer Heparin Anti-Xa Level 0.86 H POC ABG pH POC ABG pCO2 POC ABG pO2 Sodium Potassium 2.8 L* Chloride Carbon Dioxide 43 H* BUN 21 H Creatinine 0.6 L Glucose 223 H POC Glucose Calcium 8.1 L 12/11/16 12/11/16 12/11/16 04:45 05:23 10:46 RBC Hgb Hct RDW Plt Count [place] % (Auto) Seg Neutrophils % Seg Neuts % (Manual) Lymphocytes % (Manual) Seg Neutrophils # Man Lymphocytes # (Manual) INR APTT D-Dimer Heparin Anti-Xa Level 0.84 H POC ABG pH 7.521 H POC ABG pCO2 57.6 H POC ABG pO2 59 L Sodium Potassium Chloride Carbon Dioxide BUN Creatinine Glucose POC Glucose 187 H Calcium 12/11/16 12/11/16 12/11/16 10:48 12:04 17:42 RBC Hgb Hct RDW Plt Count [place] % (Auto) Seg Neutrophils % Seg Neuts % (Manual) Lymphocytes % (Manual) Seg Neutrophils # Man Lymphocytes # (Manual) INR APTT D-Dimer Heparin Anti-Xa Level POC ABG pH 7.480 H POC ABG pCO2 63.7 H POC ABG pO2 61 L Sodium Potassium Chloride Carbon Dioxide BUN Creatinine Glucose POC Glucose 219 H 170 H Calcium 12/11/16 12/12/16 12/12/16 23:38 04:29 04:29 RBC Hgb 15.6 H Hct 47.6 H RDW Plt Count 101 L [place] % (Auto) Seg Neutrophils % Seg Neuts % (Manual) Lymphocytes % (Manual) Seg Neutrophils # Man Lymphocytes # (Manual) INR APTT D-Dimer Heparin Anti-Xa Level POC ABG pH POC ABG pCO2 POC ABG pO2 Sodium 136 L Potassium Chloride 88.8 L Carbon Dioxide 37 H BUN 21 H Creatinine 0.3 L Glucose 200 H POC Glucose 175 H Calcium 8.1 L 12/12/16 12/12/16 12/12/16 06:06 12:04 17:38 RBC Hgb Hct RDW Plt Count [place] % (Auto) Seg Neutrophils % Seg Neuts % (Manual) Lymphocytes % (Manual) Seg Neutrophils # Man Lymphocytes # (Manual) INR APTT D-Dimer Heparin Anti-Xa Level POC ABG pH POC ABG pCO2 POC ABG pO2 Sodium Potassium Chloride Carbon Dioxide BUN Creatinine Glucose POC Glucose 184 H 206 H 217 H Calcium 12/12/16 12/13/16 12/13/16 23:50 03:51 03:51 RBC 5.22 H Hgb 16.1 H Hct 50.0 H RDW 17.5 H Plt Count 123 L [place] % (Auto) Seg Neutrophils % Seg Neuts % (Manual) Lymphocytes % (Manual) Seg Neutrophils # Man Lymphocytes # (Manual) INR APTT D-Dimer Heparin Anti-Xa Level POC ABG pH POC ABG pCO2 POC ABG pO2 Sodium Potassium 3.3 L Chloride 90.6 L Carbon Dioxide 37 H BUN 27 H Creatinine 0.5 L D Glucose 234 H POC Glucose 211 H Calcium 8.2 L 12/13/16 12/13/16 12/13/16 04:54 12:00 19:27 RBC Hgb Hct RDW Plt Count [place] % (Auto) Seg Neutrophils % Seg Neuts % (Manual) Lymphocytes % (Manual) Seg Neutrophils # Man Lymphocytes # (Manual) INR APTT D-Dimer Heparin Anti-Xa Level POC ABG pH POC ABG pCO2 POC ABG pO2 Sodium Potassium Chloride Carbon Dioxide BUN Creatinine Glucose POC Glucose 201 H 254 H 158 H Calcium 12/14/16 12/14/16 12/14/16 04:55 04:55 05:03 RBC Hgb 14.9 H Hct 47.0 H RDW Plt Count 126 L [place] % (Auto) Seg Neutrophils % Seg Neuts % (Manual) Lymphocytes % (Manual) Seg Neutrophils # Man Lymphocytes # (Manual) INR APTT D-Dimer Heparin Anti-Xa Level POC ABG pH POC ABG pCO2 POC ABG pO2 Sodium Potassium Chloride 91.8 L Carbon Dioxide 40 H BUN 27 H Creatinine 0.4 L Glucose 228 H POC Glucose 215 H Calcium 12/14/16 12/14/16 12/14/16 11:56 18:05 23:07 RBC Hgb Hct RDW Plt Count [place] % (Auto) Seg Neutrophils % Seg Neuts % (Manual) Lymphocytes % (Manual) Seg Neutrophils # Man Lymphocytes # (Manual) INR APTT D-Dimer Heparin Anti-Xa Level POC ABG pH POC ABG pCO2 POC ABG pO2 Sodium Potassium Chloride Carbon Dioxide BUN Creatinine Glucose POC Glucose 206 H 254 H 194 H Calcium 12/15/16 12/15/16 12/15/16 06:03 06:03 16:50 RBC Hgb Hct RDW Plt Count [place] % (Auto) Seg Neutrophils % Seg Neuts % (Manual) Lymphocytes % (Manual) Seg Neutrophils # Man Lymphocytes # (Manual) INR APTT D-Dimer Heparin Anti-Xa Level POC ABG pH POC ABG pCO2 POC ABG pO2 Sodium Potassium 3.5 L Chloride 95.2 L Carbon Dioxide 44 H* BUN 23 H Creatinine 0.5 L Glucose 126 H POC Glucose 166 H 184 H Calcium 8.0 L 0712/15/16 12/16/16 21:08 23:57 07:49 RBC Hgb 14.7 H Hct 47.1 H RDW 17.7 H Plt Count 129 L [place] % (Auto) 8.4 H Seg Neutrophils % 74.9 H Seg Neuts % (Manual) Lymphocytes % (Manual) Seg Neutrophils # Man Lymphocytes # (Manual) INR APTT D-Dimer Heparin Anti-Xa Level POC ABG pH POC ABG pCO2 88.1 H POC ABG pO2 77 L Sodium Potassium Chloride Carbon Dioxide BUN Creatinine Glucose POC Glucose 153 H Calcium 12/16/16 08:43 RBC Hgb Hct RDW Plt Count [place] % (Auto) Seg Neutrophils % Seg Neuts % (Manual) Lymphocytes % (Manual) Seg Neutrophils # Man Lymphocytes # (Manual) INR APTT D-Dimer Heparin Anti-Xa Level POC ABG pH POC ABG pCO2 POC ABG pO2 Sodium 146 H Potassium Chloride 94.7 L Carbon Dioxide 42 H* BUN 19 H Creatinine 0.4 L Glucose POC Glucose Calcium 8.1 L
[2016-12-16] MEDS: COZAAR PO SCH (09:57)
[2016-12-16] MEDS: PEPCID PO SCH ×2 (10:00→22:36)
[2016-12-16] MEDS ORDERED: DELTASONE PO SCH (10:00)
[2016-12-16] MEDS ORDERED: DIAMOX IV SCH (10:00)
[2016-12-16] MEDS: ELIQUIS PO SCH ×2 (10:00→22:36)
[2016-12-16] MEDS: LASIX PO SCH (10:01)
[2016-12-16] MEDS: LEVEMIR SUB-Q SCH (10:02)
[2016-12-16] MEDS: MYCELEX VG SCH (10:02)
--- NOTE | 2016-12-16 10:09 | Progress Note ---
Assessment and Plan Assessment and plan: Acute on chronic hypoxic and hypercarbic respiratory failure. Patient was initially intubated on ventilator. She is now extubated and on BiPAP prn. -Continue Prednisone, DuoNeb. Pulmonology following. Was on high flow Oxygen 20 L/min. Weaning to Oxygen by regular NC today COPD exacerbation - On IV antibiotics, Prednisone, nebulizer treatment DVT left lower extremity. Now on Eliquis Toxic metabolic encephalopathy, resolved. She is now awake,alert,oriented x 3. Continue supportive care Pulmonary hypertension Hypokalemia. Resolved after Potassium given. Hypernatremia, due to lasix DVT prophylaxis. Started on Eliquis. Full CODE STATUS History Interval history: Patient extubated, now on BiPAP. Less shortness of breath Hospitalist Physical - Physical exam Narrative exam: Gen Appearance: No acute distress, morbidly obese, HEENT: normocephalic, atraumatic Neck: supple, no JVD Lungs: Decreased breath sounds bilaterally, no wheeze Heart: S1 and S2 regular, no murmurs, rubs or gallop Abdomen: Soft non-tender, non-distended, normal bowel sounds Extremity: No edema, clubbing or cyanosis Neuro : Awake, alert, oriented x 3, moves all extremities Psych: Normal mood - Constitutional Vitals: Temp Pulse Resp BP Pulse Ox 98.3 F 91 H 20 118/72 91 12/16/16 09:09 12/16/16 09:57 12/16/16 09:09 12/16/16 09:57 12/16/16 09:09 Results - Labs CBC & Chem 7: 12/16/16 07:49 12/16/16 08:43 Labs: Laboratory Last Values WBC 8.2 K/mm3 (4.5-11.0) 12/16/16 07:49 RBC 4.85 M/mm3 (3.65-5.03) 12/16/16 07:49 Hgb 14.7 gm/dl (10.1-14.3) H 12/16/16 07:49 Hct 47.1 % (30.3-42.9) H 12/16/16 07:49 MCV 97 fl (79-97) 12/16/16 07:49 MCH 30 pg (28-32) 12/16/16 07:49 MCHC 31 % (30-34) 12/16/16 07:49 RDW 17.7 % (13.2-15.2) H 12/16/16 07:49 Plt Count 129 K/mm3 (140-440) L 12/16/16 07:49 Lymph % (Auto) 15.0 % (13.4-35.0) 12/16/16 07:49 [place] % (Auto) 8.4 % (0.0-7.3) H 12/16/16 07:49 Eos % (Auto) 1.5 % (0.0-4.3) 12/16/16 07:49 Baso % (Auto) 0.2 % (0.0-1.8) 12/16/16 07:49 Lymph # 1.2 K/mm3 (1.2-5.4) 12/16/16 07:49 [place] # 0.7 K/mm3 (0.0-0.8) 12/16/16 07:49 Eos # 0.1 K/mm3 (0.0-0.4) 12/16/16 07:49 Baso # 0.0 K/mm3 (0.0-0.1) 12/16/16 07:49 Add Manual Diff Complete 12/11/16 02:53 Total Counted 100 12/11/16 02:53 Seg Neutrophils % 74.9 % (40.0-70.0) H 12/16/16 07:49 Seg Neuts % (Manual) 94.0 % (40.0-70.0) H 12/11/16 02:53 Band Neutrophils % 0 % 12/11/16 02:53 Lymphocytes % (Manual) 2.0 % (13.4-35.0) L 12/11/16 02:53 Reactive Lymphs % (Man) 0 % 12/11/16 02:53 Monocytes % (Manual) 4.0 % (0.0-7.3) 12/11/16 02:53 Eosinophils % (Manual) 0 % (0.0-4.3) 12/11/16 02:53 Basophils % (Manual) 0 % (0.0-1.8) 12/11/16 02:53 Metamyelocytes % 0 % 12/11/16 02:53 Myelocytes % 0 % 12/11/16 02:53 Promyelocytes % 0 % 12/11/16 02:53 Blast Cells % 0 % 12/11/16 02:53 Nucleated RBC % Not Reportable 12/11/16 02:53 Seg Neutrophils # 6.2 K/mm3 (1.8-7.7) 12/16/16 07:49 Seg Neutrophils # Man 5.5 K/mm3 (1.8-7.7) 12/11/16 02:53 Band Neutrophils # 0.0 K/mm3 12/11/16 02:53 Lymphocytes # (Manual) 0.1 K/mm3 (1.2-5.4) L 12/11/16 02:53 Abs React Lymphs (Man) 0.0 K/mm3 12/11/16 02:53 Monocytes # (Manual) 0.2 K/mm3 (0.0-0.8) 12/11/16 02:53 Eosinophils # (Manual) 0.0 K/mm3 (0.0-0.4) 12/11/16 02:53 Basophils # (Manual) 0.0 K/mm3 (0.0-0.1) 12/11/16 02:53 Metamyelocytes # 0.0 K/mm3 12/11/16 02:53 Myelocytes # 0.0 K/mm3 12/11/16 02:53 Promyelocytes # 0.0 K/mm3 12/11/16 02:53 Blast Cells # 0.0 K/mm3 12/11/16 02:53 WBC Morphology Not Reportable 12/11/16 02:53 Hypersegmented Neuts Not Reportable 12/11/16 02:53 Hyposegmented Neuts Not Reportable 12/11/16 02:53 Hypogranular Neuts Not Reportable 12/11/16 02:53 Smudge Cells Not Reportable 12/11/16 02:53 Toxic Granulation Not Reportable 12/11/16 02:53 Toxic Vacuolation Not Reportable 12/11/16 02:53 Dohle Bodies Not Reportable 12/11/16 02:53 Pelger-Huet Anomaly Not Reportable 12/11/16 02:53 Ivone Rods Not Reportable 12/11/16 02:53 Platelet Estimate Consistent w auto 12/11/16 02:53 Clumped Platelets Not Reportable 12/11/16 02:53 Plt Clumps, EDTA Not Reportable 12/11/16 02:53 Large Platelets Not Reportable 12/11/16 02:53 Giant Platelets Not Reportable 12/11/16 02:53 Platelet Satelliting Not Reportable 12/11/16 02:53 Plt Morphology Comment Not Reportable 12/11/16 02:53 RBC Morphology Not Reportable 12/11/16 02:53 Dimorphic RBCs Not Reportable 12/11/16 02:53 Polychromasia Not Reportable 12/11/16 02:53 Hypochromasia Not Reportable 12/11/16 02:53 Poikilocytosis Not Reportable 12/11/16 02:53 Anisocytosis 1+ 12/11/16 02:53 Microcytosis Not Reportable 12/11/16 02:53 Macrocytosis Not Reportable 12/11/16 02:53 Spherocytes Not Reportable 12/11/16 02:53 Pappenheimer Bodies Not Reportable 12/11/16 02:53 Sickle Cells Not Reportable 12/11/16 02:53 Target Cells Not Reportable 12/11/16 02:53 Tear Drop Cells Not Reportable 12/11/16 02:53 Ovalocytes Not Reportable 12/11/16 02:53 Helmet Cells Not Reportable 12/11/16 02:53 [place] Bodies Not Reportable 12/11/16 02:53 [place] Rings Not Reportable 12/11/16 02:53 Cam Cells Not Reportable 12/11/16 02:53 Bite Cells Not Reportable 12/11/16 02:53 Crenated Cell Not Reportable 12/11/16 02:53 Elliptocytes Not Reportable 12/11/16 02:53 Acanthocytes (Spur) Not Reportable 12/11/16 02:53 Rouleaux Not Reportable 12/11/16 02:53 Hemoglobin C Crystals Not Reportable 12/11/16 02:53 Schistocytes Not Reportable 12/11/16 02:53 Malaria parasites Not Reportable 12/11/16 02:53 German Bodies Not Reportable 12/11/16 02:53 Hem Pathologist Commnt No 12/11/16 02:53 PT 14.7 Sec. (12.2-14.9) 12/08/16 14:01 INR 1.16 (0.87-1.13) H 12/08/16 14:01 APTT 23.5 Sec. (24.2-36.6) L 12/08/16 14:01 D-Dimer 776.86 ng/mlDDU (0-234) H 12/07/16 21:34 Heparin Anti-Xa Level 0.37 U.I./ml (0.3-0.7) 12/12/16 22:03 POC ABG pH 7.357 (7.35-7.45) 12/15/16 23:57 POC ABG pCO2 88.1 (35-45) H 12/15/16 23:57 POC ABG pO2 77 (80-105) L 12/15/16 23:57 POC ABG HCO3 49.4 12/15/16 23:57 POC ABG Total CO2 > 50 12/15/16 23:57 POC ABG O2 Sat 93 12/15/16 23:57 POC ABG Base Excess 24 12/15/16 23:57 FiO2 50 % 12/15/16 23:57 Sodium 146 mmol/L (137-145) H 12/16/16 08:43 Potassium 3.6 mmol/L (3.6-5.0) 12/16/16 08:43 Chloride 94.7 mmol/L (98-107) L 12/16/16 08:43 Carbon Dioxide 42 mmol/L (22-30) H* 12/16/16 08:43 Anion Gap 13 mmol/L 12/16/16 08:43 BUN 19 mg/dL (7-17) H 12/16/16 08:43 Creatinine 0.4 mg/dL (0.7-1.2) L 12/16/16 08:43 Estimated GFR > 60 ml/min 12/16/16 08:43 BUN/Creatinine Ratio 47.50 % 12/16/16 08:43 Glucose 94 mg/dL (65-100) 12/16/16 08:43 POC Glucose 99 (70-105) 12/16/16 04:52 Lactic Acid 1.20 mmol/L (0.7-2.0) 12/06/16 18:26 Calcium 8.1 mg/dL (8.4-10.2) L 12/16/16 08:43 Phosphorus 3.90 mg/dL (2.5-4.5) 12/07/16 21:34 Magnesium 1.90 mg/dL (1.7-2.3) 12/11/16 08:22 Total Bilirubin 0.50 mg/dL (0.1-1.2) 12/06/16 16:37 AST 13 units/L (5-40) 12/06/16 16:37 ALT 16 units/L (7-56) 12/06/16 16:37 Alkaline Phosphatase 73 units/L (35-129) 12/06/16 16:37 Troponin T < 0.010 ng/mL (0.00-0.029) 12/06/16 16:37 C-Reactive Protein 0.90 mg/dL (0.00-1.30) 12/07/16 13:43 NT-Pro-B Natriuret Pep 5274 pg/mL (0-900) H 12/06/16 16:50 Total Protein 6.5 g/dL (6.3-8.2) 12/06/16 16:37 Albumin 3.6 g/dL (3.9-5) L 12/06/16 16:37 Albumin/Globulin Ratio 1.2 % 12/06/16 16:37 Urine Color Yellow (Yellow) 12/06/16 18:11 Urine Turbidity Clear (Clear) 12/06/16 18:11 Urine pH 5.0 (5.0-7.0) 12/06/16 18:11 Ur Specific [place] 1.020 (1.003-1.030) 12/06/16 18:11 Urine Protein 100 mg/dl mg/dL (Negative) 12/06/16 18:11 Urine Glucose (UA) Neg mg/dL (Negative) 12/06/16 18:11 Urine Ketones Neg mg/dL (Negative) 12/06/16 18:11 Urine Blood Neg (Negative) 12/06/16 18:11 Urine Nitrite Neg (Negative) 12/06/16 18:11 Urine Bilirubin Neg (Negative) 12/06/16 18:11 Urine Urobilinogen < 2.0 mg/dL (<2.0) 12/06/16 18:11 Ur Leukocyte Esterase Neg (Negative) 12/06/16 18:11 Urine WBC (Auto) 1.0 /HPF (0.0-6.0) 12/06/16 18:11 Urine RBC (Auto) 3.0 /HPF (0.0-6.0) 12/06/16 18:11 U Epithel Cells (Auto) 1.0 /HPF (0-13.0) 12/06/16 18:11 Hyaline Casts 17 /LPF 12/06/16 18:11 Urine Mucus Few /HPF 12/06/16 18:11
[2016-12-16] MEDS: NACL 0.9% IV SCH ×2 (11:14→22:35)
[2016-12-16] MEDS: DIAMOX IV SCH ×2 (11:14→22:35)
[2016-12-17] MEDS: DUONEB *Not for PRN Use IH SCH ×4 (03:20→21:33)
[2016-12-17] MEDS: NOVOLOG SUB-Q SCH ×4 (06:12→17:44)
[2016-12-17] MEDS: PULMICORT IH SCH ×2 (07:57→21:32)
[2016-12-17 09:38] LABS: Mean Corpuscular HGB Conc 31 % (30-34); Mean Corpuscular Hemoglobin 30 pg (28-32); Mean Corpuscular Volume 97 fl (79-97); Platelet Count 165 K/mm3 (140-440); Red Cell Distribution Width 18.2 % (13.2-15.2); White Blood Count 10.7 K/mm3 (4.5-11.0)
[2016-12-17 09:42] LABS: Hematocrit 50.2 % (30.3-42.9); Hemoglobin 15.7 gm/dl (10.1-14.3)
[2016-12-17] MEDS ORDERED: DELTASONE PO SCH (10:00)
[2016-12-17 10:05] LABS: Anion Gap 15 mmol/L; Blood Urea Nitrogen 17 mg/dL (7-17); Calcium 8.7 mg/dL (8.4-10.2); Carbon Dioxide 36 mmol/L (22-30); Chloride 94.8 mmol/L (98-107); Glucose 148 mg/dL (65-100); Potassium 4.9 mmol/L (3.6-5.0); Sodium 141 mmol/L (137-145)
[2016-12-17] MEDS: COZAAR PO SCH (10:12)
[2016-12-17] MEDS: MYCELEX VG SCH ×2 (10:12→10:14)
[2016-12-17] MEDS: LEVEMIR SUB-Q SCH (10:13)
[2016-12-17] MEDS: DIAMOX IV SCH ×2 (10:13→22:09)
[2016-12-17] MEDS: PEPCID PO SCH ×2 (10:13→22:09)
[2016-12-17] MEDS: NACL 0.9% IV SCH ×2 (10:13→22:09)
[2016-12-17] MEDS: ELIQUIS PO SCH ×2 (10:13→22:09)
[2016-12-17] MEDS: LASIX PO SCH (10:13)
--- NOTE | 2016-12-17 10:22 | Progress Note ---
Assessment and Plan Assessment and plan: Patient is a 56 year old femalw with history of recurrent respiratory failure. chronic home o2, Multiple intubations in the past. Noncompliant with medications. Past medical history includes COPD, respiratory failure, heart failure. Patient is brought to the hospital by EMS for altered mental status and respiratory distress. As per verbal report from EMS, patient found at home , with difficulty breathing. They report that the patient was receiving bag valve mask ventilation in the field and subsequently intubated and extubated Acute on chronic hypoxic and hypercarbic respiratory failure. Patient was initially intubated on ventilator. She is now extubated and on BiPAP prn. -Continue Prednisone, DuoNeb. Pulmonology following. Was on high flow Oxygen 20 L/min. CoNtninue to wean -Bipap at night time Diarrhea- R/O CDIFF COPD exacerbation - On IV antibiotics, Prednisone, nebulizer treatment DVT left lower extremity. on Eliquis Toxic metabolic encephalopathy, resolved. She is now awake,alert,oriented x 3. Continue supportive care Pulmonary hypertension- Stable, cardiology eval outpatient Morbid obesity: Weight loss modality discussed in detail Hypokalemia. Resolved after Potassium given. Hypernatremia, due to lasix DVT prophylaxis. Started on Eliquis. Full CODE STATUS - History Interval history: Patient seen and examined, in no acute distress, reports improvement in symptoms , but had 2 loose bowel movement today. Hospitalist Physical - Physical exam Narrative exam: VITAL SIGNS: Reviewed. GENERAL: The patient appeared well nourished and normally developed. Vital signs as documented. HEAD: No signs of head trauma. EYES: Pupils are equal. Extraocular motions intact. EARS: Hearing grossly intact. MOUTH: Oropharynx is normal. NECK: No adenopathy, no JVD. CHEST: Chest with clear breath sounds bilaterally. No wheezes, rales, or rhonchi. CARDIAC: Regular rate and rhythm. S1 and S2, without murmurs, gallops, or rubs. VASCULAR: No Edema. Peripheral pulses normal and equal in all extremities. ABDOMEN: Soft, without detectable tenderness. No sign of distention. No rebound or guarding, and no masses palpated. Bowel Sounds normal. MUSCULOSKELETAL: Good range of motion of all major joints. Extremities without clubbing, cyanosis or edema. NEUROLOGIC EXAM: Alert and oriented x 3. No focal sensory or strength deficits. Speech normal. Follows commands. PSYCHIATRIC: Mood normal. SKIN: No rash or lesions. - Constitutional Vitals: Temp Pulse Resp BP Pulse Ox 97.6 F 72 20 129/86 97 12/17/16 09:28 12/17/16 09:28 12/17/16 09:28 12/17/16 09:28 12/17/16 09:28 General appearance: Present: no acute distress, severe distress (patient intubated and on ventilator), well-nourished Results - Labs CBC & Chem 7: 12/17/16 08:47 12/17/16 08:47 Labs: Laboratory Last Values WBC 10.7 K/mm3 (4.5-11.0) 12/17/16 08:47 RBC 5.20 M/mm3 (3.65-5.03) H 12/17/16 08:47 Hgb 15.7 gm/dl (10.1-14.3) H 12/17/16 08:47 Hct 50.2 % (30.3-42.9) H 12/17/16 08:47 MCV 97 fl (79-97) 12/17/16 08:47 MCH 30 pg (28-32) 12/17/16 08:47 MCHC 31 % (30-34) 12/17/16 08:47 RDW 18.2 % (13.2-15.2) H 12/17/16 08:47 Plt Count 165 K/mm3 (140-440) 12/17/16 08:47 Lymph % (Auto) 15.0 % (13.4-35.0) 12/16/16 07:49 [place] % (Auto) 8.4 % (0.0-7.3) H 12/16/16 07:49 Eos % (Auto) 1.5 % (0.0-4.3) 12/16/16 07:49 Baso % (Auto) 0.2 % (0.0-1.8) 12/16/16 07:49 Lymph # 1.2 K/mm3 (1.2-5.4) 12/16/16 07:49 [place] # 0.7 K/mm3 (0.0-0.8) 12/16/16 07:49 Eos # 0.1 K/mm3 (0.0-0.4) 12/16/16 07:49 Baso # 0.0 K/mm3 (0.0-0.1) 12/16/16 07:49 Add Manual Diff Complete 12/11/16 02:53 Total Counted 100 12/11/16 02:53 Seg Neutrophils % 74.9 % (40.0-70.0) H 12/16/16 07:49 Seg Neuts % (Manual) 94.0 % (40.0-70.0) H 12/11/16 02:53 Band Neutrophils % 0 % 12/11/16 02:53 Lymphocytes % (Manual) 2.0 % (13.4-35.0) L 12/11/16 02:53 Reactive Lymphs % (Man) 0 % 12/11/16 02:53 Monocytes % (Manual) 4.0 % (0.0-7.3) 12/11/16 02:53 Eosinophils % (Manual) 0 % (0.0-4.3) 12/11/16 02:53 Basophils % (Manual) 0 % (0.0-1.8) 12/11/16 02:53 Metamyelocytes % 0 % 12/11/16 02:53 Myelocytes % 0 % 12/11/16 02:53 Promyelocytes % 0 % 12/11/16 02:53 Blast Cells % 0 % 12/11/16 02:53 Nucleated RBC % Not Reportable 12/11/16 02:53 Seg Neutrophils # 6.2 K/mm3 (1.8-7.7) 12/16/16 07:49 Seg Neutrophils # Man 5.5 K/mm3 (1.8-7.7) 12/11/16 02:53 Band Neutrophils # 0.0 K/mm3 12/11/16 02:53 Lymphocytes # (Manual) 0.1 K/mm3 (1.2-5.4) L 12/11/16 02:53 Abs React Lymphs (Man) 0.0 K/mm3 12/11/16 02:53 Monocytes # (Manual) 0.2 K/mm3 (0.0-0.8) 12/11/16 02:53 Eosinophils # (Manual) 0.0 K/mm3 (0.0-0.4) 12/11/16 02:53 Basophils # (Manual) 0.0 K/mm3 (0.0-0.1) 12/11/16 02:53 Metamyelocytes # 0.0 K/mm3 12/11/16 02:53 Myelocytes # 0.0 K/mm3 12/11/16 02:53 Promyelocytes # 0.0 K/mm3 12/11/16 02:53 Blast Cells # 0.0 K/mm3 12/11/16 02:53 WBC Morphology Not Reportable 12/11/16 02:53 Hypersegmented Neuts Not Reportable 12/11/16 02:53 Hyposegmented Neuts Not Reportable 12/11/16 02:53 Hypogranular Neuts Not Reportable 12/11/16 02:53 Smudge Cells Not Reportable 12/11/16 02:53 Toxic Granulation Not Reportable 12/11/16 02:53 Toxic Vacuolation Not Reportable 12/11/16 02:53 Dohle Bodies Not Reportable 12/11/16 02:53 Pelger-Huet Anomaly Not Reportable 12/11/16 02:53 Ivone Rods Not Reportable 12/11/16 02:53 Platelet Estimate Consistent w auto 12/11/16 02:53 Clumped Platelets Not Reportable 12/11/16 02:53 Plt Clumps, EDTA Not Reportable 12/11/16 02:53 Large Platelets Not Reportable 12/11/16 02:53 Giant Platelets Not Reportable 12/11/16 02:53 Platelet Satelliting Not Reportable 12/11/16 02:53 Plt Morphology Comment Not Reportable 12/11/16 02:53 RBC Morphology Not Reportable 12/11/16 02:53 Dimorphic RBCs Not Reportable 12/11/16 02:53 Polychromasia Not Reportable 12/11/16 02:53 Hypochromasia Not Reportable 12/11/16 02:53 Poikilocytosis Not Reportable 12/11/16 02:53 Anisocytosis 1+ 12/11/16 02:53 Microcytosis Not Reportable 12/11/16 02:53 Macrocytosis Not Reportable 12/11/16 02:53 Spherocytes Not Reportable 12/11/16 02:53 Pappenheimer Bodies Not Reportable 12/11/16 02:53 Sickle Cells Not Reportable 12/11/16 02:53 Target Cells Not Reportable 12/11/16 02:53 Tear Drop Cells Not Reportable 12/11/16 02:53 Ovalocytes Not Reportable 12/11/16 02:53 Helmet Cells Not Reportable 12/11/16 02:53 [place] Bodies Not Reportable 12/11/16 02:53 [place] Rings Not Reportable 12/11/16 02:53 [place] Cells Not Reportable 12/11/16 02:53 Bite Cells Not Reportable 12/11/16 02:53 Crenated Cell Not Reportable 12/11/16 02:53 Elliptocytes Not Reportable 12/11/16 02:53 Acanthocytes (Spur) Not Reportable 12/11/16 02:53 Rouleaux Not Reportable 12/11/16 02:53 Hemoglobin C Crystals Not Reportable 12/11/16 02:53 Schistocytes Not Reportable 12/11/16 02:53 Malaria parasites Not Reportable 12/11/16 02:53 German Bodies Not Reportable 12/11/16 02:53 Hem Pathologist Commnt No 12/11/16 02:53 PT 14.7 Sec. (12.2-14.9) 12/08/16 14:01 INR 1.16 (0.87-1.13) H 12/08/16 14:01 APTT 23.5 Sec. (24.2-36.6) L 12/08/16 14:01 D-Dimer 776.86 ng/mlDDU (0-234) H 12/07/16 21:34 Heparin Anti-Xa Level 0.37 U.I./ml (0.3-0.7) 12/12/16 22:03 POC ABG pH 7.357 (7.35-7.45) 12/15/16 23:57 POC ABG pCO2 88.1 (35-45) H 12/15/16 23:57 POC ABG pO2 77 (80-105) L 12/15/16 23:57 POC ABG HCO3 49.4 12/15/16 23:57 POC ABG Total CO2 > 50 12/15/16 23:57 POC ABG O2 Sat 93 12/15/16 23:57 POC ABG Base Excess 24 12/15/16 23:57 FiO2 50 % 12/15/16 23:57 Sodium 141 mmol/L (137-145) 12/17/16 08:47 Potassium 4.9 mmol/L (3.6-5.0) D 12/17/16 08:47 Chloride 94.8 mmol/L (98-107) L 12/17/16 08:47 Carbon Dioxide 36 mmol/L (22-30) H 12/17/16 08:47 Anion Gap 15 mmol/L 12/17/16 08:47 BUN 17 mg/dL (7-17) 12/17/16 08:47 Creatinine 0.4 mg/dL (0.7-1.2) L 12/17/16 08:47 Estimated GFR > 60 ml/min 12/17/16 08:47 BUN/Creatinine Ratio 42.50 % 12/17/16 08:47 Glucose 148 mg/dL (65-100) H 12/17/16 08:47 POC Glucose 111 (70-105) H 12/17/16 05:53 Lactic Acid 1.20 mmol/L (0.7-2.0) 12/06/16 18:26 Calcium 8.7 mg/dL (8.4-10.2) 12/17/16 08:47 Phosphorus 3.90 mg/dL (2.5-4.5) 12/07/16 21:34 Magnesium 1.90 mg/dL (1.7-2.3) 12/11/16 08:22 Total Bilirubin 0.50 mg/dL (0.1-1.2) 12/06/16 16:37 AST 13 units/L (5-40) 12/06/16 16:37 ALT 16 units/L (7-56) 12/06/16 16:37 Alkaline Phosphatase 73 units/L (35-129) 12/06/16 16:37 Troponin T < 0.010 ng/mL (0.00-0.029) 12/06/16 16:37 C-Reactive Protein 0.90 mg/dL (0.00-1.30) 12/07/16 13:43 NT-Pro-B Natriuret Pep 5274 pg/mL (0-900) H 12/06/16 16:50 Total Protein 6.5 g/dL (6.3-8.2) 12/06/16 16:37 Albumin 3.6 g/dL (3.9-5) L 12/06/16 16:37 Albumin/Globulin Ratio 1.2 % 12/06/16 16:37 Urine Color Yellow (Yellow) 12/06/16 18:11 Urine Turbidity Clear (Clear) 12/06/16 18:11 Urine pH 5.0 (5.0-7.0) 12/06/16 18:11 Ur Specific [place] 1.020 (1.003-1.030) 12/06/16 18:11 Urine Protein 100 mg/dl mg/dL (Negative) 12/06/16 18:11 Urine Glucose (UA) Neg mg/dL (Negative) 12/06/16 18:11 Urine Ketones Neg mg/dL (Negative) 12/06/16 18:11 Urine Blood Neg (Negative) 12/06/16 18:11 Urine Nitrite Neg (Negative) 12/06/16 18:11 Urine Bilirubin Neg (Negative) 12/06/16 18:11 Urine Urobilinogen < 2.0 mg/dL (<2.0) 12/06/16 18:11 Ur Leukocyte Esterase Neg (Negative) 12/06/16 18:11 Urine WBC (Auto) 1.0 /HPF (0.0-6.0) 12/06/16 18:11 Urine RBC (Auto) 3.0 /HPF (0.0-6.0) 12/06/16 18:11 U Epithel Cells (Auto) 1.0 /HPF (0-13.0) 12/06/16 18:11 Hyaline Casts 17 /LPF 12/06/16 18:11 Urine Mucus Few /HPF 12/06/16 18:11
[2016-12-17 10:28] LABS: Basophils % (Manual) 0 % (0.0-1.8); Blastocytes % (Manual) 0 %
[2016-12-17 10:30] LABS: Anisocytosis 2+; Diff Status Complete; Platelet Estimate Consistent w Auto
[2016-12-17] MEDS: MORPHINE IV PRN (14:12)
--- NOTE | 2016-12-17 15:56 | Progress Note ---
Assessment and Plan - Patient Problems (1) Acute and chronic respiratory failure with hypoxia Current Visit: No Status: Acute Plan to address problem: Bronchodiltors Acetazolamide - dsiccontinue in 24 hours NIPPV qhs and prn Supplemental oxygen to keep O2 sats about 92%. currently on NC @ 3l/min (2) Acute exacerbation of chronic obstructive pulmonary disease (COPD) Current Visit: No Status: Acute Plan to address problem: Bronchodilators Steroids Limit supplemental oxygen Metabolic alkalosis probably compensatory to respiratory acidosis. (3) VTE (venous thromboembolism) Current Visit: Yes Status: Acute Plan to address problem: Seen by hematology, on Eliquis (4) Morbid obesity Current Visit: No Status: Chronic Plan to address problem: Life style modifications, weight loss (5) Insomnia Current Visit: Yes Status: Acute Qualifiers: Insomnia type: I Plan to address problem: Ambien prn qhs Subjective Date of service: 12/17/16 Principal diagnosis: Acute on Chronic Hypercapnic Hypoxemic Respiratory Failure Interval history: Seen and examined. Vitals, labs, medications, chart, imaging reviewed. Used her BIPAP overnight. Tolerating diet. Sitting up in bed Adequate gas exchange. Down to 2L/min of supplemental oxygen Ambulated with PT today with a walker. No shortness of breath, no chest pain Complains of insomnia Objective - Exam Narrative Exam: VITAL SIGNS: Reviewed. GENERAL: The patient appeared well nourished and normally developed. Obese, Vital signs as documented. HEAD: No signs of head trauma. EYES: Pupils are equal. Extraocular motions intact. EARS: Hearing grossly intact. MOUTH: Oropharynx is normal. NECK: No adenopathy, no JVD. CHEST: Chest with clear breath sounds bilaterally. No wheezes, rales, or rhonchi. CARDIAC: Regular rate and rhythm. S1 and S2, without murmurs, gallops, or rubs. VASCULAR: No Edema. Peripheral pulses normal and equal in all extremities. ABDOMEN: Soft, without detectable tenderness. No sign of distention. No rebound or guarding, and no masses palpated. Bowel Sounds normal. MUSCULOSKELETAL: Good range of motion of all major joints. Extremities without clubbing, cyanosis or edema. NEUROLOGIC EXAM: Alert and oriented x 3. No focal sensory or strength deficits. Speech normal. Follows commands. PSYCHIATRIC: Mood normal. SKIN: No rash or lesions. Vital Signs - 12hr 0712/17/16 12/17/16 04:00 07:57 08:03 Temperature 98.4 F Pulse Rate Pulse Rate [ 90 95 H Anterior Bilateral Throughout] Pulse Rate [ 76 From Monitor] Respiratory 18 Rate Respiratory 20 20 Rate [Anterior Bilateral Throughout] Blood Pressure 129/58 [Left Arm] O2 Sat by Pulse 96 Oximetry 12/17/16 12/17/16 12/17/16 08:56 09:28 10:00 Temperature 97.6 F Pulse Rate 74 Pulse Rate [ Anterior Bilateral Throughout] Pulse Rate [ 72 72 From Monitor] Respiratory 20 20 Rate Respiratory Rate [Anterior Bilateral Throughout] Blood Pressure 129/86 [Left Arm] O2 Sat by Pulse 97 94 Oximetry 12/17/16 12/17/16 12/17/16 12:00 13:30 13:40 Temperature 98.2 F Pulse Rate Pulse Rate [ 92 H 94 H Anterior Bilateral Throughout] Pulse Rate [ 89 From Monitor] Respiratory 18 Rate Respiratory 20 20 Rate [Anterior Bilateral Throughout] Blood Pressure 137/67 [Left Arm] O2 Sat by Pulse 93 Oximetry Constitutional: alert, lethargic Eyes: non-icteric ENT: oropharynx moist Neck: supple, no lymphadenopathy, no JVD Effort: mildly labored Ascultation: Bilateral: diminished breath sounds, rales Cardiovascular: regular rate and rhythm Gastrointestinal: normoactive bowel sounds, soft, non-tender, non-distended Integumentary: erythema Extremities: no cyanosis, no edema, pulses normal, no ischemia or petechiae, other ( erhythematous vs mild cellulitis) Neurologic: non-focal exam (grossly) Psychiatric: affect normal, other (unable to assess) CBC and BMP: 12/17/16 08:47 12/17/16 08:47 ABG, PT/INR, D-dimer: ABG POC ABG pH 7.357 (7.35-7.45) 12/15/16 23:57 POC ABG pCO2 88.1 (35-45) H 12/15/16 23:57 POC ABG pO2 77 (80-105) L 12/15/16 23:57 POC ABG HCO3 49.4 12/15/16 23:57 POC ABG Total CO2 > 50 12/15/16 23:57 POC ABG O2 Sat 93 12/15/16 23:57 PT/INR, D-dimer PT 14.7 Sec. (12.2-14.9) 12/08/16 14:01 INR 1.16 (0.87-1.13) H 12/08/16 14:01 D-Dimer 776.86 ng/mlDDU (0-234) H 12/07/16 21:34 Abnormal lab findings: Abnormal Labs 12/07/16 12/07/16 12/07/16 05:18 05:58 07:02 RBC Hgb Hct RDW Plt Count Page % (Auto) Seg Neutrophils % Seg Neuts % (Manual) Lymphocytes % (Manual) Seg Neutrophils # Man Lymphocytes # (Manual) INR APTT D-Dimer Heparin Anti-Xa Level POC ABG pH 7.463 H POC ABG pCO2 68.5 H POC ABG pO2 65 L Sodium Potassium Chloride 93.0 L Carbon Dioxide 43 H* BUN Creatinine Glucose 211 H POC Glucose 195 H Calcium 8.2 L 12/07/16 12/07/16 12/07/16 12:50 17:45 21:34 RBC Hgb Hct RDW Plt Count Page % (Auto) Seg Neutrophils % Seg Neuts % (Manual) Lymphocytes % (Manual) Seg Neutrophils # Man Lymphocytes # (Manual) INR APTT D-Dimer 776.86 H Heparin Anti-Xa Level POC ABG pH POC ABG pCO2 POC ABG pO2 Sodium Potassium Chloride Carbon Dioxide BUN Creatinine Glucose POC Glucose 275 H 234 H Calcium 12/08/16 12/08/16 12/08/16 00:10 04:07 04:39 RBC Hgb Hct RDW Plt Count Page % (Auto) Seg Neutrophils % Seg Neuts % (Manual) Lymphocytes % (Manual) Seg Neutrophils # Man Lymphocytes # (Manual) INR APTT D-Dimer Heparin Anti-Xa Level POC ABG pH 7.624 H POC ABG pCO2 52.2 H POC ABG pO2 76 L Sodium Potassium Chloride 91.1 L Carbon Dioxide 41 H* BUN 21 H Creatinine Glucose 265 H POC Glucose 203 H Calcium 8.1 L 12/08/16 12/08/16 12/08/16 04:39 05:16 12:19 RBC Hgb Hct 43.8 H RDW 18.6 H Plt Count 118 L Page % (Auto) Seg Neutrophils % Seg Neuts % (Manual) 97.0 H Lymphocytes % (Manual) 1.0 L Seg Neutrophils # Man 8.5 H Lymphocytes # (Manual) 0.1 L INR APTT D-Dimer Heparin Anti-Xa Level POC ABG pH POC ABG pCO2 POC ABG pO2 Sodium Potassium Chloride Carbon Dioxide BUN Creatinine Glucose POC Glucose 245 H 240 H Calcium 12/08/16 12/08/16 12/08/16 14:01 14:01 18:18 RBC Hgb Hct 44.0 H RDW Plt Count 138 L Page % (Auto) Seg Neutrophils % Seg Neuts % (Manual) Lymphocytes % (Manual) Seg Neutrophils # Man Lymphocytes # (Manual) INR 1.16 H APTT 23.5 L D-Dimer Heparin Anti-Xa Level POC ABG pH POC ABG pCO2 POC ABG pO2 Sodium Potassium Chloride Carbon Dioxide BUN Creatinine Glucose POC Glucose 282 H Calcium 12/08/16 12/08/16 12/09/16 21:09 23:30 03:52 RBC Hgb Hct RDW Plt Count Page % (Auto) Seg Neutrophils % Seg Neuts % (Manual) Lymphocytes % (Manual) Seg Neutrophils # Man Lymphocytes # (Manual) INR APTT D-Dimer Heparin Anti-Xa Level 0.86 H POC ABG pH POC ABG pCO2 POC ABG pO2 Sodium Potassium 3.4 L Chloride 91.7 L Carbon Dioxide 41 H* BUN 26 H Creatinine Glucose 237 H POC Glucose 225 H Calcium 8.1 L 12/09/16 12/09/16 12/09/16 03:52 04:14 05:19 RBC Hgb Hct 43.7 H RDW 17.9 H Plt Count 126 L Page % (Auto) Seg Neutrophils % Seg Neuts % (Manual) 97.0 H Lymphocytes % (Manual) 2.0 L Seg Neutrophils # Man Lymphocytes # (Manual) 0.1 L INR APTT D-Dimer Heparin Anti-Xa Level POC ABG pH 7.461 H POC ABG pCO2 70.5 H POC ABG pO2 72 L Sodium Potassium Chloride Carbon Dioxide BUN Creatinine Glucose POC Glucose 251 H Calcium 12/09/16 12/09/16 12/09/16 12:19 18:03 21:34 RBC Hgb Hct RDW Plt Count Page % (Auto) Seg Neutrophils % Seg Neuts % (Manual) Lymphocytes % (Manual) Seg Neutrophils # Man Lymphocytes # (Manual) INR APTT D-Dimer Heparin Anti-Xa Level POC ABG pH 7.591 H POC ABG pCO2 48.9 H POC ABG pO2 66 L Sodium Potassium Chloride Carbon Dioxide BUN Creatinine Glucose POC Glucose 269 H 206 H Calcium 12/10/16 12/10/16 12/10/16 00:01 03:55 03:55 RBC Hgb 15.2 H Hct 47.4 H RDW Plt Count 136 L Page % (Auto) Seg Neutrophils % Seg Neuts % (Manual) Lymphocytes % (Manual) Seg Neutrophils # Man Lymphocytes # (Manual) INR APTT D-Dimer Heparin Anti-Xa Level < 0.10 L POC ABG pH POC ABG pCO2 POC ABG pO2 Sodium Potassium Chloride Carbon Dioxide BUN Creatinine Glucose POC Glucose 220 H Calcium 12/10/16 12/10/16 12/10/16 04:46 05:27 11:39 RBC Hgb Hct RDW Plt Count Page % (Auto) Seg Neutrophils % Seg Neuts % (Manual) Lymphocytes % (Manual) Seg Neutrophils # Man Lymphocytes # (Manual) INR APTT D-Dimer Heparin Anti-Xa Level POC ABG pH 7.547 H POC ABG pCO2 53.5 H POC ABG pO2 71 L Sodium Potassium Chloride Carbon Dioxide BUN Creatinine Glucose POC Glucose 237 H 252 H Calcium 12/10/16 12/10/16 12/10/16 17:51 21:56 23:36 RBC Hgb Hct RDW Plt Count Page % (Auto) Seg Neutrophils % Seg Neuts % (Manual) Lymphocytes % (Manual) Seg Neutrophils # Man Lymphocytes # (Manual) INR APTT D-Dimer Heparin Anti-Xa Level POC ABG pH POC ABG pCO2 POC ABG pO2 Sodium Potassium Chloride Carbon Dioxide BUN Creatinine Glucose POC Glucose 235 H 215 H 233 H Calcium 12/11/16 12/11/16 12/11/16 02:53 02:53 02:53 RBC Hgb 14.7 H Hct 45.7 H RDW 17.5 H Plt Count 108 L Page % (Auto) Seg Neutrophils % Seg Neuts % (Manual) 94.0 H Lymphocytes % (Manual) 2.0 L Seg Neutrophils # Man Lymphocytes # (Manual) 0.1 L INR APTT D-Dimer Heparin Anti-Xa Level 0.86 H POC ABG pH POC ABG pCO2 POC ABG pO2 Sodium Potassium 2.8 L* Chloride Carbon Dioxide 43 H* BUN 21 H Creatinine 0.6 L Glucose 223 H POC Glucose Calcium 8.1 L 12/11/16 12/11/16 12/11/16 04:45 05:23 10:46 RBC Hgb Hct RDW Plt Count Page % (Auto) Seg Neutrophils % Seg Neuts % (Manual) Lymphocytes % (Manual) Seg Neutrophils # Man Lymphocytes # (Manual) INR APTT D-Dimer Heparin Anti-Xa Level 0.84 H POC ABG pH 7.521 H POC ABG pCO2 57.6 H POC ABG pO2 59 L Sodium Potassium Chloride Carbon Dioxide BUN Creatinine Glucose POC Glucose 187 H Calcium 12/11/16 12/11/16 12/11/16 10:48 12:04 17:42 RBC Hgb Hct RDW Plt Count Page % (Auto) Seg Neutrophils % Seg Neuts % (Manual) Lymphocytes % (Manual) Seg Neutrophils # Man Lymphocytes # (Manual) INR APTT D-Dimer Heparin Anti-Xa Level POC ABG pH 7.480 H POC ABG pCO2 63.7 H POC ABG pO2 61 L Sodium Potassium Chloride Carbon Dioxide BUN Creatinine Glucose POC Glucose 219 H 170 H Calcium 12/11/16 12/12/16 12/12/16 23:38 04:29 04:29 RBC Hgb 15.6 H Hct 47.6 H RDW Plt Count 101 L Page % (Auto) Seg Neutrophils % Seg Neuts % (Manual) Lymphocytes % (Manual) Seg Neutrophils # Man Lymphocytes # (Manual) INR APTT D-Dimer Heparin Anti-Xa Level POC ABG pH POC ABG pCO2 POC ABG pO2 Sodium 136 L Potassium Chloride 88.8 L Carbon Dioxide 37 H BUN 21 H Creatinine 0.3 L Glucose 200 H POC Glucose 175 H Calcium 8.1 L 12/12/16 12/12/16 12/12/16 06:06 12:04 17:38 RBC Hgb Hct RDW Plt Count Page % (Auto) Seg Neutrophils % Seg Neuts % (Manual) Lymphocytes % (Manual) Seg Neutrophils # Man Lymphocytes # (Manual) INR APTT D-Dimer Heparin Anti-Xa Level POC ABG pH POC ABG pCO2 POC ABG pO2 Sodium Potassium Chloride Carbon Dioxide BUN Creatinine Glucose POC Glucose 184 H 206 H 217 H Calcium 12/12/16 12/13/16 12/13/16 23:50 03:51 03:51 RBC 5.22 H Hgb 16.1 H Hct 50.0 H RDW 17.5 H Plt Count 123 L Page % (Auto) Seg Neutrophils % Seg Neuts % (Manual) Lymphocytes % (Manual) Seg Neutrophils # Man Lymphocytes # (Manual) INR APTT D-Dimer Heparin Anti-Xa Level POC ABG pH POC ABG pCO2 POC ABG pO2 Sodium Potassium 3.3 L Chloride 90.6 L Carbon Dioxide 37 H BUN 27 H Creatinine 0.5 L D Glucose 234 H POC Glucose 211 H Calcium 8.2 L 12/13/16 12/13/16 12/13/16 04:54 12:00 19:27 RBC Hgb Hct RDW Plt Count Page % (Auto) Seg Neutrophils % Seg Neuts % (Manual) Lymphocytes % (Manual) Seg Neutrophils # Man Lymphocytes # (Manual) INR APTT D-Dimer Heparin Anti-Xa Level POC ABG pH POC ABG pCO2 POC ABG pO2 Sodium Potassium Chloride Carbon Dioxide BUN Creatinine Glucose POC Glucose 201 H 254 H 158 H Calcium 12/14/16 12/14/16 12/14/16 04:55 04:55 05:03 RBC Hgb 14.9 H Hct 47.0 H RDW Plt Count 126 L Page % (Auto) Seg Neutrophils % Seg Neuts % (Manual) Lymphocytes % (Manual) Seg Neutrophils # Man Lymphocytes # (Manual) INR APTT D-Dimer Heparin Anti-Xa Level POC ABG pH POC ABG pCO2 POC ABG pO2 Sodium Potassium Chloride 91.8 L Carbon Dioxide 40 H BUN 27 H Creatinine 0.4 L Glucose 228 H POC Glucose 215 H Calcium 12/14/16 12/14/16 12/14/16 11:56 18:05 23:07 RBC Hgb Hct RDW Plt Count Page % (Auto) Seg Neutrophils % Seg Neuts % (Manual) Lymphocytes % (Manual) Seg Neutrophils # Man Lymphocytes # (Manual) INR APTT D-Dimer Heparin Anti-Xa Level POC ABG pH POC ABG pCO2 POC ABG pO2 Sodium Potassium Chloride Carbon Dioxide BUN Creatinine Glucose POC Glucose 206 H 254 H 194 H Calcium 12/15/16 12/15/16 12/15/16 06:03 06:03 16:50 RBC Hgb Hct RDW Plt Count Page % (Auto) Seg Neutrophils % Seg Neuts % (Manual) Lymphocytes % (Manual) Seg Neutrophils # Man Lymphocytes # (Manual) INR APTT D-Dimer Heparin Anti-Xa Level POC ABG pH POC ABG pCO2 POC ABG pO2 Sodium Potassium 3.5 L Chloride 95.2 L Carbon Dioxide 44 H* BUN 23 H Creatinine 0.5 L Glucose 126 H POC Glucose 166 H 184 H Calcium 8.0 L 12/15/16 12/15/16 12/16/16 21:08 23:57 07:49 RBC Hgb 14.7 H Hct 47.1 H RDW 17.7 H Plt Count 129 L Page % (Auto) 8.4 H Seg Neutrophils % 74.9 H Seg Neuts % (Manual) Lymphocytes % (Manual) Seg Neutrophils # Man Lymphocytes # (Manual) INR APTT D-Dimer Heparin Anti-Xa Level POC ABG pH POC ABG pCO2 88.1 H POC ABG pO2 77 L Sodium Potassium Chloride Carbon Dioxide BUN Creatinine Glucose POC Glucose 153 H Calcium 12/16/16 12/16/16 12/16/16 08:43 11:54 16:21 RBC Hgb Hct RDW Plt Count Page % (Auto) Seg Neutrophils % Seg Neuts % (Manual) Lymphocytes % (Manual) Seg Neutrophils # Man Lymphocytes # (Manual) INR APTT D-Dimer Heparin Anti-Xa Level POC ABG pH POC ABG pCO2 POC ABG pO2 Sodium 146 H Potassium Chloride 94.7 L Carbon Dioxide 42 H* BUN 19 H Creatinine 0.4 L Glucose POC Glucose 125 H 179 H Calcium 8.1 L 12/16/16 12/16/16 12/17/16 18:50 23:27 05:53 RBC Hgb Hct RDW Plt Count Page % (Auto) Seg Neutrophils % Seg Neuts % (Manual) Lymphocytes % (Manual) Seg Neutrophils # Man Lymphocytes # (Manual) INR APTT D-Dimer Heparin Anti-Xa Level POC ABG pH POC ABG pCO2 POC ABG pO2 Sodium Potassium Chloride Carbon Dioxide BUN Creatinine Glucose POC Glucose 225 H 172 H 111 H Calcium 12/17/16 12/17/16 08:47 08:47 RBC 5.20 H Hgb 15.7 H Hct 50.2 H RDW 18.2 H Plt Count Page % (Auto) Seg Neutrophils % Seg Neuts % (Manual) 78.0 H Lymphocytes % (Manual) Seg Neutrophils # Man 8.3 H Lymphocytes # (Manual) INR APTT D-Dimer Heparin Anti-Xa Level POC ABG pH POC ABG pCO2 POC ABG pO2 Sodium Potassium Chloride 94.8 L Carbon Dioxide 36 H BUN Creatinine 0.4 L Glucose 148 H POC Glucose Calcium Allied health notes reviewed: RT
[2016-12-17] MEDS ORDERED: AMBIEN PO PRN (17:36)
[2016-12-17] MEDS: FLEXERIL PO PRN (18:45)
[2016-12-18] MEDS: NOVOLOG SUB-Q SCH ×4 (00:17→17:18)
[2016-12-18] MEDS: DUONEB *Not for PRN Use IH SCH ×4 (03:08→20:07)
[2016-12-18 07:17] LABS: Basophils % (Auto) 0.1 % (0.0-1.8); Eosinophils % (Auto) 1.9 % (0.0-4.3); Hematocrit 43.9 % (30.3-42.9); Hemoglobin 14.1 gm/dl (10.1-14.3); Mean Corpuscular HGB Conc 32 % (30-34); Mean Corpuscular Hemoglobin 31 pg (28-32); Mean Corpuscular Volume 95 fl (79-97); Platelet Count 155 K/mm3 (140-440); Red Blood Count 4.61 M/mm3 (3.65-5.03); Red Cell Distribution Width 17.2 % (13.2-15.2); White Blood Count 10.7 K/mm3 (4.5-11.0)
[2016-12-18] MEDS: PULMICORT IH SCH ×2 (07:26→20:07)
[2016-12-18] MEDS: PEPCID PO SCH ×2 (09:40→21:39)
[2016-12-18] MEDS: LASIX PO SCH (09:40)
[2016-12-18] MEDS: ELIQUIS PO SCH ×2 (09:41→21:40)
[2016-12-18] MEDS: COZAAR PO SCH (09:42)
[2016-12-18] MEDS: NACL 0.9% IV SCH ×2 (09:50→21:55)
[2016-12-18] MEDS: DIAMOX IV SCH ×2 (09:50→21:55)
[2016-12-18] MEDS ORDERED: DELTASONE PO SCH (10:00)
--- NOTE | 2016-12-18 10:51 | Progress Note ---
Assessment and Plan Assessment and plan: Patient is a 56 year old femalw with history of recurrent respiratory failure. chronic home o2, Multiple intubations in the past. Noncompliant with medications. Past medical history includes COPD, respiratory failure, heart failure. Patient is brought to the hospital by EMS for altered mental status and respiratory distress. As per verbal report from EMS, patient found at home , with difficulty breathing. They report that the patient was receiving bag valve mask ventilation in the field and subsequently intubated and extubated Acute on chronic hypoxic and hypercarbic respiratory failure. Patient was initially intubated on ventilator. She is now extubated and on BiPAP prn. -Continue Prednisone, DuoNeb. Pulmonology following. Was on high flow Oxygen 20 L/min. Now on 3Liter NC. Continue to wean -Bipap at night time On acetazolamide to be discontinued today. Anticipate discharge in am Diarrhea-resolved. There was no good sample to send for C. difficile. Metabolic alkalosis-monitor. Improving patient on acetazolamide. COPD exacerbation - On IV antibiotics, Prednisone, nebulizer treatment DVT left lower extremity. on Eliquis Toxic metabolic encephalopathy, resolved. She is now awake,alert,oriented x 3. Continue supportive care Pulmonary hypertension- Stable, cardiology eval outpatient Morbid obesity: Weight loss modality discussed in detail Hypokalemia. Resolved after Potassium given. Hypernatremia, due to lasix DVT prophylaxis. Started on Eliquis. Full CODE STATUS - History Interval history: Patient seen and examined, in no acute distress, reports improvement in symptoms , no further diarrhea.. Hospitalist Physical - Physical exam Narrative exam: VITAL SIGNS: Reviewed. GENERAL: The patient appeared well nourished and normally developed. Vital signs as documented. Sitting up on the edge of the bed. HEAD: No signs of head trauma. EYES: Pupils are equal. Extraocular motions intact. EARS: Hearing grossly intact. MOUTH: Oropharynx is normal. NECK: No adenopathy, no JVD. CHEST: Chest with clear breath sounds bilaterally. No wheezes, rales, or rhonchi. CARDIAC: Regular rate and rhythm. S1 and S2, without murmurs, gallops, or rubs. VASCULAR: No Edema. Peripheral pulses normal and equal in all extremities. ABDOMEN: Soft, without detectable tenderness. No sign of distention. No rebound or guarding, and no masses palpated. Bowel Sounds normal. MUSCULOSKELETAL: Good range of motion of all major joints. Extremities without clubbing, cyanosis or edema. NEUROLOGIC EXAM: Alert and oriented x 3. No focal sensory or strength deficits. Speech normal. Follows commands. PSYCHIATRIC: Mood normal. SKIN: No rash or lesions. - Constitutional Vitals: Temp Pulse Resp BP Pulse Ox 98.0 F 88 20 111/57 92 12/18/16 08:00 12/18/16 08:00 12/18/16 08:00 12/18/16 08:00 12/18/16 08:00 General appearance: Present: no acute distress, severe distress (patient intubated and on ventilator), well-nourished Results - Labs CBC & Chem 7: 12/18/16 06:27 12/17/16 08:47 Labs: Laboratory Last Values WBC 10.7 K/mm3 (4.5-11.0) 12/18/16 06:27 RBC 4.61 M/mm3 (3.65-5.03) 12/18/16 06:27 Hgb 14.1 gm/dl (10.1-14.3) 12/18/16 06:27 Hct 43.9 % (30.3-42.9) H D 12/18/16 06:27 MCV 95 fl (79-97) 12/18/16 06:27 MCH 31 pg (28-32) 12/18/16 06:27 MCHC 32 % (30-34) 12/18/16 06:27 RDW 17.2 % (13.2-15.2) H 12/18/16 06:27 Plt Count 155 K/mm3 (140-440) 12/18/16 06:27 Lymph % (Auto) 17.9 % (13.4-35.0) 12/18/16 06:27 [place] % (Auto) 6.2 % (0.0-7.3) 12/18/16 06:27 Eos % (Auto) 1.9 % (0.0-4.3) 12/18/16 06:27 Baso % (Auto) 0.1 % (0.0-1.8) 12/18/16 06:27 Lymph # 1.9 K/mm3 (1.2-5.4) 12/18/16 06:27 [place] # 0.7 K/mm3 (0.0-0.8) 12/18/16 06:27 Eos # 0.2 K/mm3 (0.0-0.4) 12/18/16 06:27 Baso # 0.0 K/mm3 (0.0-0.1) 12/18/16 06:27 Add Manual Diff Complete 12/17/16 08:47 Total Counted 100 12/17/16 08:47 Seg Neutrophils % 73.9 % (40.0-70.0) H 12/18/16 06:27 Seg Neuts % (Manual) 78.0 % (40.0-70.0) H 12/17/16 08:47 Band Neutrophils % 0 % 12/17/16 08:47 Lymphocytes % (Manual) 15.0 % (13.4-35.0) 12/17/16 08:47 Reactive Lymphs % (Man) 0 % 12/17/16 08:47 Monocytes % (Manual) 6.0 % (0.0-7.3) 12/17/16 08:47 Eosinophils % (Manual) 1.0 % (0.0-4.3) 12/17/16 08:47 Basophils % (Manual) 0 % (0.0-1.8) 12/17/16 08:47 Metamyelocytes % 0 % 12/17/16 08:47 Myelocytes % 0 % 12/17/16 08:47 Promyelocytes % 0 % 12/17/16 08:47 Blast Cells % 0 % 12/17/16 08:47 Nucleated RBC % Not Reportable 12/17/16 08:47 Seg Neutrophils # 7.9 K/mm3 (1.8-7.7) H 12/18/16 06:27 Seg Neutrophils # Man 8.3 K/mm3 (1.8-7.7) H 12/17/16 08:47 Band Neutrophils # 0.0 K/mm3 12/17/16 08:47 Lymphocytes # (Manual) 1.6 K/mm3 (1.2-5.4) 12/17/16 08:47 Abs React Lymphs (Man) 0.0 K/mm3 12/17/16 08:47 Monocytes # (Manual) 0.6 K/mm3 (0.0-0.8) 12/17/16 08:47 Eosinophils # (Manual) 0.1 K/mm3 (0.0-0.4) 12/17/16 08:47 Basophils # (Manual) 0.0 K/mm3 (0.0-0.1) 12/17/16 08:47 Metamyelocytes # 0.0 K/mm3 12/17/16 08:47 Myelocytes # 0.0 K/mm3 12/17/16 08:47 Promyelocytes # 0.0 K/mm3 12/17/16 08:47 Blast Cells # 0.0 K/mm3 12/17/16 08:47 WBC Morphology Not Reportable 12/17/16 08:47 Hypersegmented Neuts Not Reportable 12/17/16 08:47 Hyposegmented Neuts Not Reportable 12/17/16 08:47 Hypogranular Neuts Not Reportable 12/17/16 08:47 Smudge Cells Not Reportable 12/17/16 08:47 Toxic Granulation Not Reportable 12/17/16 08:47 Toxic Vacuolation Not Reportable 12/17/16 08:47 Dohle Bodies Not Reportable 12/17/16 08:47 Pelger-Huet Anomaly Not Reportable 12/17/16 08:47 Ivone Rods Not Reportable 12/17/16 08:47 Platelet Estimate Consistent w auto 12/17/16 08:47 Clumped Platelets Not Reportable 12/17/16 08:47 Plt Clumps, EDTA Not Reportable 12/17/16 08:47 Large Platelets Not Reportable 12/17/16 08:47 Giant Platelets Not Reportable 12/17/16 08:47 Platelet Satelliting Not Reportable 12/17/16 08:47 Plt Morphology Comment Not Reportable 12/17/16 08:47 RBC Morphology Not Reportable 12/17/16 08:47 Dimorphic RBCs Not Reportable 12/17/16 08:47 Polychromasia Not Reportable 12/17/16 08:47 Hypochromasia Not Reportable 12/17/16 08:47 Poikilocytosis Not Reportable 12/17/16 08:47 Anisocytosis 2+ 12/17/16 08:47 Microcytosis Not Reportable 12/17/16 08:47 Macrocytosis Not Reportable 12/17/16 08:47 Spherocytes Not Reportable 12/17/16 08:47 Pappenheimer Bodies Not Reportable 12/17/16 08:47 Sickle Cells Not Reportable 12/17/16 08:47 Target Cells Not Reportable 12/17/16 08:47 Tear Drop Cells Not Reportable 12/17/16 08:47 Ovalocytes Not Reportable 12/17/16 08:47 Helmet Cells Not Reportable 12/17/16 08:47 [place] Bodies Not Reportable 12/17/16 08:47 [place] Rings Not Reportable 12/17/16 08:47 Cam Cells Not Reportable 12/17/16 08:47 Bite Cells Not Reportable 12/17/16 08:47 Crenated Cell Not Reportable 12/17/16 08:47 Elliptocytes Not Reportable 12/17/16 08:47 Acanthocytes (Spur) Not Reportable 12/17/16 08:47 Rouleaux Not Reportable 12/17/16 08:47 Hemoglobin C Crystals Not Reportable 12/17/16 08:47 Schistocytes Not Reportable 12/17/16 08:47 Malaria parasites Not Reportable 12/17/16 08:47 [place] Bodies Not Reportable 12/17/16 08:47 Hem Pathologist Commnt No 12/17/16 08:47 PT 14.7 Sec. (12.2-14.9) 12/08/16 14:01 INR 1.16 (0.87-1.13) H 12/08/16 14:01 APTT 23.5 Sec. (24.2-36.6) L 12/08/16 14:01 D-Dimer 776.86 ng/mlDDU (0-234) H 12/07/16 21:34 Heparin Anti-Xa Level 0.37 U.I./ml (0.3-0.7) 12/12/16 22:03 POC ABG pH 7.357 (7.35-7.45) 12/15/16 23:57 POC ABG pCO2 88.1 (35-45) H 12/15/16 23:57 POC ABG pO2 77 (80-105) L 12/15/16 23:57 POC ABG HCO3 49.4 12/15/16 23:57 POC ABG Total CO2 > 50 12/15/16 23:57 POC ABG O2 Sat 93 12/15/16 23:57 POC ABG Base Excess 24 12/15/16 23:57 FiO2 50 % 12/15/16 23:57 Sodium 141 mmol/L (137-145) 12/17/16 08:47 Potassium 4.9 mmol/L (3.6-5.0) D 12/17/16 08:47 Chloride 94.8 mmol/L (98-107) L 12/17/16 08:47 Carbon Dioxide 36 mmol/L (22-30) H 12/17/16 08:47 Anion Gap 15 mmol/L 12/17/16 08:47 BUN 17 mg/dL (7-17) 12/17/16 08:47 Creatinine 0.4 mg/dL (0.7-1.2) L 12/17/16 08:47 Estimated GFR > 60 ml/min 12/17/16 08:47 BUN/Creatinine Ratio 42.50 % 12/17/16 08:47 Glucose 148 mg/dL (65-100) H 12/17/16 08:47 POC Glucose 148 (70-105) H 12/17/16 23:49 Lactic Acid 1.20 mmol/L (0.7-2.0) 12/06/16 18:26 Calcium 8.7 mg/dL (8.4-10.2) 12/17/16 08:47 Phosphorus 3.90 mg/dL (2.5-4.5) 12/07/16 21:34 Magnesium 1.90 mg/dL (1.7-2.3) 12/11/16 08:22 Total Bilirubin 0.50 mg/dL (0.1-1.2) 12/06/16 16:37 AST 13 units/L (5-40) 12/06/16 16:37 ALT 16 units/L (7-56) 12/06/16 16:37 Alkaline Phosphatase 73 units/L (35-129) 12/06/16 16:37 Troponin T < 0.010 ng/mL (0.00-0.029) 12/06/16 16:37 C-Reactive Protein 0.90 mg/dL (0.00-1.30) 12/07/16 13:43 NT-Pro-B Natriuret Pep 5274 pg/mL (0-900) H 12/06/16 16:50 Total Protein 6.5 g/dL (6.3-8.2) 12/06/16 16:37 Albumin 3.6 g/dL (3.9-5) L 12/06/16 16:37 Albumin/Globulin Ratio 1.2 % 12/06/16 16:37 Urine Color Yellow (Yellow) 12/06/16 18:11 Urine Turbidity Clear (Clear) 12/06/16 18:11 Urine pH 5.0 (5.0-7.0) 12/06/16 18:11 Ur Specific [place] 1.020 (1.003-1.030) 12/06/16 18:11 Urine Protein 100 mg/dl mg/dL (Negative) 12/06/16 18:11 Urine Glucose (UA) Neg mg/dL (Negative) 12/06/16 18:11 Urine Ketones Neg mg/dL (Negative) 12/06/16 18:11 Urine Blood Neg (Negative) 12/06/16 18:11 Urine Nitrite Neg (Negative) 12/06/16 18:11 Urine Bilirubin Neg (Negative) 12/06/16 18:11 Urine Urobilinogen < 2.0 mg/dL (<2.0) 12/06/16 18:11 Ur Leukocyte Esterase Neg (Negative) 12/06/16 18:11 Urine WBC (Auto) 1.0 /HPF (0.0-6.0) 12/06/16 18:11 Urine RBC (Auto) 3.0 /HPF (0.0-6.0) 12/06/16 18:11 U Epithel Cells (Auto) 1.0 /HPF (0-13.0) 12/06/16 18:11 Hyaline Casts 17 /LPF 12/06/16 18:11 Urine Mucus Few /HPF 12/06/16 18:11
[2016-12-18] MEDS: LEVEMIR SUB-Q SCH (10:59)
[2016-12-18] MEDS: MYCELEX VG SCH (11:00)
[2016-12-18] MEDS: FLEXERIL PO PRN (14:20)
--- NOTE | 2016-12-18 18:49 | Progress Note ---
Assessment and Plan Patient resting on nasal canula 2 litres and O2 saturation 93%. Says breathing slightly better. - Patient Problems (1) Acute and chronic respiratory failure with hypoxia Current Visit: No Status: Acute Plan to address problem: O2 2 litres via nasal canula. BIPAP standby. Albuterol/atrovent aerosol treatments q 6 hours. Budesonide .5 mg aerosol treatments q 12 hours. Continue Eliquis. Continue famotadine. (2) Acute exacerbation of chronic obstructive pulmonary disease (COPD) Current Visit: No Status: Acute Plan to address problem: O2 2 litres via nasal canula. BIPAP standby. Albuterol/atrovent aerosol treatments q 6 hours. Budesonide .5 mg aerosol treatments q 12 hours. Continue Eliquis. Continue famotadine. Subjective Date of service: 12/18/16 Principal diagnosis: Acute on Chronic Hypercapnic Hypoxemic Respiratory Failure Interval history: Patient resting on nasal canula 2 litres and O2 saturation 93%. Says breathing slightly better. Objective Vital Signs - 12hr 12/18/16 12/18/16 12/18/16 07:26 07:55 08:00 Temperature 98.0 F Pulse Rate Pulse Rate [ 74 88 Anterior Bilateral Throughout] Pulse Rate [ 88 From Monitor] Respiratory 20 Rate Respiratory 18 18 Rate [Anterior Bilateral Throughout] Respiratory Rate [Right Arm ] Blood Pressure 111/57 [Left Arm] O2 Sat by Pulse 94 92 Oximetry 12/18/16 12/18/16 12/18/16 10:00 11:48 13:48 Temperature 98.0 F Pulse Rate 88 Pulse Rate [ 82 Anterior Bilateral Throughout] Pulse Rate [ 88 90 From Monitor] Respiratory 20 18 Rate Respiratory 18 Rate [Anterior Bilateral Throughout] Respiratory 20 Rate [Right Arm ] Blood Pressure 112/57 [Left Arm] O2 Sat by Pulse 100 92 Oximetry 12/18/16 12/18/16 14:01 16:30 Temperature 98.0 F Pulse Rate Pulse Rate [ 81 Anterior Bilateral Throughout] Pulse Rate [ 91 H From Monitor] Respiratory 20 Rate Respiratory 18 Rate [Anterior Bilateral Throughout] Respiratory Rate [Right Arm ] Blood Pressure 110/56 [Left Arm] O2 Sat by Pulse 92 Oximetry Constitutional: no acute distress, alert Eyes: non-icteric ENT: oropharynx moist Neck: supple, no lymphadenopathy, no JVD Effort: mildly labored Ascultation: Bilateral: diminished breath sounds, rales Cardiovascular: regular rate and rhythm Gastrointestinal: normoactive bowel sounds, soft, non-tender, non-distended Integumentary: erythema Extremities: no cyanosis, no edema, pulses normal, no ischemia or petechiae, other ( erhythematous vs mild cellulitis) Neurologic: non-focal exam (grossly) Psychiatric: affect normal, other (unable to assess) CBC and BMP: 12/18/16 06:27 12/17/16 08:47 ABG, PT/INR, D-dimer: ABG POC ABG pH 7.357 (7.35-7.45) 12/15/16 23:57 POC ABG pCO2 88.1 (35-45) H 12/15/16 23:57 POC ABG pO2 77 (80-105) L 12/15/16 23:57 POC ABG HCO3 49.4 12/15/16 23:57 POC ABG Total CO2 > 50 12/15/16 23:57 POC ABG O2 Sat 93 12/15/16 23:57 PT/INR, D-dimer PT 14.7 Sec. (12.2-14.9) 12/08/16 14:01 INR 1.16 (0.87-1.13) H 12/08/16 14:01 D-Dimer 776.86 ng/mlDDU (0-234) H 12/07/16 21:34 Abnormal lab findings: Abnormal Labs 12/07/16 12/07/16 12/07/16 05:18 05:58 07:02 RBC Hgb Hct RDW Plt Count [place] % (Auto) Seg Neutrophils % Seg Neuts % (Manual) Lymphocytes % (Manual) Seg Neutrophils # Seg Neutrophils # Man Lymphocytes # (Manual) INR APTT D-Dimer Heparin Anti-Xa Level POC ABG pH 7.463 H POC ABG pCO2 68.5 H POC ABG pO2 65 L Sodium Potassium Chloride 93.0 L Carbon Dioxide 43 H* BUN Creatinine Glucose 211 H POC Glucose 195 H Calcium 8.2 L 12/07/16 12/07/16 12/07/16 12:50 17:45 21:34 RBC Hgb Hct RDW Plt Count [place] % (Auto) Seg Neutrophils % Seg Neuts % (Manual) Lymphocytes % (Manual) Seg Neutrophils # Seg Neutrophils # Man Lymphocytes # (Manual) INR APTT D-Dimer 776.86 H Heparin Anti-Xa Level POC ABG pH POC ABG pCO2 POC ABG pO2 Sodium Potassium Chloride Carbon Dioxide BUN Creatinine Glucose POC Glucose 275 H 234 H Calcium 12/08/16 12/08/16 12/08/16 00:10 04:07 04:39 RBC Hgb Hct RDW Plt Count [place] % (Auto) Seg Neutrophils % Seg Neuts % (Manual) Lymphocytes % (Manual) Seg Neutrophils # Seg Neutrophils # Man Lymphocytes # (Manual) INR APTT D-Dimer Heparin Anti-Xa Level POC ABG pH 7.624 H POC ABG pCO2 52.2 H POC ABG pO2 76 L Sodium Potassium Chloride 91.1 L Carbon Dioxide 41 H* BUN 21 H Creatinine Glucose 265 H POC Glucose 203 H Calcium 8.1 L 12/08/16 12/08/16 12/08/16 04:39 05:16 12:19 RBC Hgb Hct 43.8 H RDW 18.6 H Plt Count 118 L [place] % (Auto) Seg Neutrophils % Seg Neuts % (Manual) 97.0 H Lymphocytes % (Manual) 1.0 L Seg Neutrophils # Seg Neutrophils # Man 8.5 H Lymphocytes # (Manual) 0.1 L INR APTT D-Dimer Heparin Anti-Xa Level POC ABG pH POC ABG pCO2 POC ABG pO2 Sodium Potassium Chloride Carbon Dioxide BUN Creatinine Glucose POC Glucose 245 H 240 H Calcium 12/08/16 12/08/16 12/08/16 14:01 14:01 18:18 RBC Hgb Hct 44.0 H RDW Plt Count 138 L [place] % (Auto) Seg Neutrophils % Seg Neuts % (Manual) Lymphocytes % (Manual) Seg Neutrophils # Seg Neutrophils # Man Lymphocytes # (Manual) INR 1.16 H APTT 23.5 L D-Dimer Heparin Anti-Xa Level POC ABG pH POC ABG pCO2 POC ABG pO2 Sodium Potassium Chloride Carbon Dioxide BUN Creatinine Glucose POC Glucose 282 H Calcium 12/08/16 12/08/16 12/09/16 21:09 23:30 03:52 RBC Hgb Hct RDW Plt Count [place] % (Auto) Seg Neutrophils % Seg Neuts % (Manual) Lymphocytes % (Manual) Seg Neutrophils # Seg Neutrophils # Man Lymphocytes # (Manual) INR APTT D-Dimer Heparin Anti-Xa Level 0.86 H POC ABG pH POC ABG pCO2 POC ABG pO2 Sodium Potassium 3.4 L Chloride 91.7 L Carbon Dioxide 41 H* BUN 26 H Creatinine Glucose 237 H POC Glucose 225 H Calcium 8.1 L 12/09/16 12/09/16 12/09/16 03:52 04:14 05:19 RBC Hgb Hct 43.7 H RDW 17.9 H Plt Count 126 L [place] % (Auto) Seg Neutrophils % Seg Neuts % (Manual) 97.0 H Lymphocytes % (Manual) 2.0 L Seg Neutrophils # Seg Neutrophils # Man Lymphocytes # (Manual) 0.1 L INR APTT D-Dimer Heparin Anti-Xa Level POC ABG pH 7.461 H POC ABG pCO2 70.5 H POC ABG pO2 72 L Sodium Potassium Chloride Carbon Dioxide BUN Creatinine Glucose POC Glucose 251 H Calcium 12/09/16 12/09/16 12/09/16 12:19 18:03 21:34 RBC Hgb Hct RDW Plt Count [place] % (Auto) Seg Neutrophils % Seg Neuts % (Manual) Lymphocytes % (Manual) Seg Neutrophils # Seg Neutrophils # Man Lymphocytes # (Manual) INR APTT D-Dimer Heparin Anti-Xa Level POC ABG pH 7.591 H POC ABG pCO2 48.9 H POC ABG pO2 66 L Sodium Potassium Chloride Carbon Dioxide BUN Creatinine Glucose POC Glucose 269 H 206 H Calcium 12/10/16 12/10/16 12/10/16 00:01 03:55 03:55 RBC Hgb 15.2 H Hct 47.4 H RDW Plt Count 136 L [place] % (Auto) Seg Neutrophils % Seg Neuts % (Manual) Lymphocytes % (Manual) Seg Neutrophils # Seg Neutrophils # Man Lymphocytes # (Manual) INR APTT D-Dimer Heparin Anti-Xa Level < 0.10 L POC ABG pH POC ABG pCO2 POC ABG pO2 Sodium Potassium Chloride Carbon Dioxide BUN Creatinine Glucose POC Glucose 220 H Calcium 12/10/16 12/10/16 12/10/16 04:46 05:27 11:39 RBC Hgb Hct RDW Plt Count [place] % (Auto) Seg Neutrophils % Seg Neuts % (Manual) Lymphocytes % (Manual) Seg Neutrophils # Seg Neutrophils # Man Lymphocytes # (Manual) INR APTT D-Dimer Heparin Anti-Xa Level POC ABG pH 7.547 H POC ABG pCO2 53.5 H POC ABG pO2 71 L Sodium Potassium Chloride Carbon Dioxide BUN Creatinine Glucose POC Glucose 237 H 252 H Calcium 12/10/16 12/10/16 12/10/16 17:51 21:56 23:36 RBC Hgb Hct RDW Plt Count [place] % (Auto) Seg Neutrophils % Seg Neuts % (Manual) Lymphocytes % (Manual) Seg Neutrophils # Seg Neutrophils # Man Lymphocytes # (Manual) INR APTT D-Dimer Heparin Anti-Xa Level POC ABG pH POC ABG pCO2 POC ABG pO2 Sodium Potassium Chloride Carbon Dioxide BUN Creatinine Glucose POC Glucose 235 H 215 H 233 H Calcium 12/11/16 12/11/16 12/11/16 02:53 02:53 02:53 RBC Hgb 14.7 H Hct 45.7 H RDW 17.5 H Plt Count 108 L [place] % (Auto) Seg Neutrophils % Seg Neuts % (Manual) 94.0 H Lymphocytes % (Manual) 2.0 L Seg Neutrophils # Seg Neutrophils # Man Lymphocytes # (Manual) 0.1 L INR APTT D-Dimer Heparin Anti-Xa Level 0.86 H POC ABG pH POC ABG pCO2 POC ABG pO2 Sodium Potassium 2.8 L* Chloride Carbon Dioxide 43 H* BUN 21 H Creatinine 0.6 L Glucose 223 H POC Glucose Calcium 8.1 L 12/11/16 12/11/16 12/11/16 04:45 05:23 10:46 RBC Hgb Hct RDW Plt Count [place] % (Auto) Seg Neutrophils % Seg Neuts % (Manual) Lymphocytes % (Manual) Seg Neutrophils # Seg Neutrophils # Man Lymphocytes # (Manual) INR APTT D-Dimer Heparin Anti-Xa Level 0.84 H POC ABG pH 7.521 H POC ABG pCO2 57.6 H POC ABG pO2 59 L Sodium Potassium Chloride Carbon Dioxide BUN Creatinine Glucose POC Glucose 187 H Calcium 12/11/16 12/11/16 12/11/16 10:48 12:04 17:42 RBC Hgb Hct RDW Plt Count [place] % (Auto) Seg Neutrophils % Seg Neuts % (Manual) Lymphocytes % (Manual) Seg Neutrophils # Seg Neutrophils # Man Lymphocytes # (Manual) INR APTT D-Dimer Heparin Anti-Xa Level POC ABG pH 7.480 H POC ABG pCO2 63.7 H POC ABG pO2 61 L Sodium Potassium Chloride Carbon Dioxide BUN Creatinine Glucose POC Glucose 219 H 170 H Calcium 12/11/16 12/12/16 12/12/16 23:38 04:29 04:29 RBC Hgb 15.6 H Hct 47.6 H RDW Plt Count 101 L [place] % (Auto) Seg Neutrophils % Seg Neuts % (Manual) Lymphocytes % (Manual) Seg Neutrophils # Seg Neutrophils # Man Lymphocytes # (Manual) INR APTT D-Dimer Heparin Anti-Xa Level POC ABG pH POC ABG pCO2 POC ABG pO2 Sodium 136 L Potassium Chloride 88.8 L Carbon Dioxide 37 H BUN 21 H Creatinine 0.3 L Glucose 200 H POC Glucose 175 H Calcium 8.1 L 12/12/16 12/12/16 12/12/16 06:06 12:04 17:38 RBC Hgb Hct RDW Plt Count [place] % (Auto) Seg Neutrophils % Seg Neuts % (Manual) Lymphocytes % (Manual) Seg Neutrophils # Seg Neutrophils # Man Lymphocytes # (Manual) INR APTT D-Dimer Heparin Anti-Xa Level POC ABG pH POC ABG pCO2 POC ABG pO2 Sodium Potassium Chloride Carbon Dioxide BUN Creatinine Glucose POC Glucose 184 H 206 H 217 H Calcium 12/12/16 12/13/16 12/13/16 23:50 03:51 03:51 RBC 5.22 H Hgb 16.1 H Hct 50.0 H RDW 17.5 H Plt Count 123 L [place] % (Auto) Seg Neutrophils % Seg Neuts % (Manual) Lymphocytes % (Manual) Seg Neutrophils # Seg Neutrophils # Man Lymphocytes # (Manual) INR APTT D-Dimer Heparin Anti-Xa Level POC ABG pH POC ABG pCO2 POC ABG pO2 Sodium Potassium 3.3 L Chloride 90.6 L Carbon Dioxide 37 H BUN 27 H Creatinine 0.5 L D Glucose 234 H POC Glucose 211 H Calcium 8.2 L 12/13/16 12/13/16 12/13/16 04:54 12:00 19:27 RBC Hgb Hct RDW Plt Count [place] % (Auto) Seg Neutrophils % Seg Neuts % (Manual) Lymphocytes % (Manual) Seg Neutrophils # Seg Neutrophils # Man Lymphocytes # (Manual) INR APTT D-Dimer Heparin Anti-Xa Level POC ABG pH POC ABG pCO2 POC ABG pO2 Sodium Potassium Chloride Carbon Dioxide BUN Creatinine Glucose POC Glucose 201 H 254 H 158 H Calcium 12/14/16 12/14/16 12/14/16 04:55 04:55 05:03 RBC Hgb 14.9 H Hct 47.0 H RDW Plt Count 126 L [place] % (Auto) Seg Neutrophils % Seg Neuts % (Manual) Lymphocytes % (Manual) Seg Neutrophils # Seg Neutrophils # Man Lymphocytes # (Manual) INR APTT D-Dimer Heparin Anti-Xa Level POC ABG pH POC ABG pCO2 POC ABG pO2 Sodium Potassium Chloride 91.8 L Carbon Dioxide 40 H BUN 27 H Creatinine 0.4 L Glucose 228 H POC Glucose 215 H Calcium 12/14/16 12/14/16 12/14/16 11:56 18:05 23:07 RBC Hgb Hct RDW Plt Count [place] % (Auto) Seg Neutrophils % Seg Neuts % (Manual) Lymphocytes % (Manual) Seg Neutrophils # Seg Neutrophils # Man Lymphocytes # (Manual) INR APTT D-Dimer Heparin Anti-Xa Level POC ABG pH POC ABG pCO2 POC ABG pO2 Sodium Potassium Chloride Carbon Dioxide BUN Creatinine Glucose POC Glucose 206 H 254 H 194 H Calcium 12/15/16 12/15/16 12/15/16 06:03 06:03 16:50 RBC Hgb Hct RDW Plt Count [place] % (Auto) Seg Neutrophils % Seg Neuts % (Manual) Lymphocytes % (Manual) Seg Neutrophils # Seg Neutrophils # Man Lymphocytes # (Manual) INR APTT D-Dimer Heparin Anti-Xa Level POC ABG pH POC ABG pCO2 POC ABG pO2 Sodium Potassium 3.5 L Chloride 95.2 L Carbon Dioxide 44 H* BUN 23 H Creatinine 0.5 L Glucose 126 H POC Glucose 166 H 184 H Calcium 8.0 L 12/15/16 12/15/16 12/16/16 21:08 23:57 07:49 RBC Hgb 14.7 H Hct 47.1 H RDW 17.7 H Plt Count 129 L [place] % (Auto) 8.4 H Seg Neutrophils % 74.9 H Seg Neuts % (Manual) Lymphocytes % (Manual) Seg Neutrophils # Seg Neutrophils # Man Lymphocytes # (Manual) INR APTT D-Dimer Heparin Anti-Xa Level POC ABG pH POC ABG pCO2 88.1 H POC ABG pO2 77 L Sodium Potassium Chloride Carbon Dioxide BUN Creatinine Glucose POC Glucose 153 H Calcium 12/16/16 12/16/16 12/16/16 08:43 11:54 16:21 RBC Hgb Hct RDW Plt Count [place] % (Auto) Seg Neutrophils % Seg Neuts % (Manual) Lymphocytes % (Manual) Seg Neutrophils # Seg Neutrophils # Man Lymphocytes # (Manual) INR APTT D-Dimer Heparin Anti-Xa Level POC ABG pH POC ABG pCO2 POC ABG pO2 Sodium 146 H Potassium Chloride 94.7 L Carbon Dioxide 42 H* BUN 19 H Creatinine 0.4 L Glucose POC Glucose 125 H 179 H Calcium 8.1 L 12/16/16 12/16/16 12/17/16 18:50 23:27 05:53 RBC Hgb Hct RDW Plt Count [place] % (Auto) Seg Neutrophils % Seg Neuts % (Manual) Lymphocytes % (Manual) Seg Neutrophils # Seg Neutrophils # Man Lymphocytes # (Manual) INR APTT D-Dimer Heparin Anti-Xa Level POC ABG pH POC ABG pCO2 POC ABG pO2 Sodium Potassium Chloride Carbon Dioxide BUN Creatinine Glucose POC Glucose 225 H 172 H 111 H Calcium 12/17/16 12/17/16 12/17/16 08:47 08:47 13:02 RBC 5.20 H Hgb 15.7 H Hct 50.2 H RDW 18.2 H Plt Count [place] % (Auto) Seg Neutrophils % Seg Neuts % (Manual) 78.0 H Lymphocytes % (Manual) Seg Neutrophils # Seg Neutrophils # Man 8.3 H Lymphocytes # (Manual) INR APTT D-Dimer Heparin Anti-Xa Level POC ABG pH POC ABG pCO2 POC ABG pO2 Sodium Potassium Chloride 94.8 L Carbon Dioxide 36 H BUN Creatinine 0.4 L Glucose 148 H POC Glucose 207 H Calcium 12/17/16 12/17/16 12/18/16 17:32 23:49 06:27 RBC Hgb Hct 43.9 H D RDW 17.2 H Plt Count [place] % (Auto) Seg Neutrophils % 73.9 H Seg Neuts % (Manual) Lymphocytes % (Manual) Seg Neutrophils # 7.9 H Seg Neutrophils # Man Lymphocytes # (Manual) INR APTT D-Dimer Heparin Anti-Xa Level POC ABG pH POC ABG pCO2 POC ABG pO2 Sodium Potassium Chloride Carbon Dioxide BUN Creatinine Glucose POC Glucose 217 H 148 H Calcium 12/18/16 13:19 RBC Hgb Hct RDW Plt Count [place] % (Auto) Seg Neutrophils % Seg Neuts % (Manual) Lymphocytes % (Manual) Seg Neutrophils # Seg Neutrophils # Man Lymphocytes # (Manual) INR APTT D-Dimer Heparin Anti-Xa Level POC ABG pH POC ABG pCO2 POC ABG pO2 Sodium Potassium Chloride Carbon Dioxide BUN Creatinine Glucose POC Glucose 240 H Calcium Chest x-ray: report reviewed (Cardiomegaly central pulmonary vascular congestion.), image reviewed Allied health notes reviewed: RT
[2016-12-19] MEDS: NOVOLOG SUB-Q SCH ×2 (01:01→06:38)
[2016-12-19] MEDS: DUONEB *Not for PRN Use IH SCH ×3 (02:39→13:39)
[2016-12-19 07:30] LABS: Hematocrit 45.6 % (30.3-42.9); Hemoglobin 14.4 gm/dl (10.1-14.3); Mean Corpuscular HGB Conc 32 % (30-34); Mean Corpuscular Hemoglobin 31 pg (28-32); Mean Corpuscular Volume 97 fl (79-97); Platelet Count 166 K/mm3 (140-440); Red Cell Distribution Width 17.5 % (13.2-15.2); White Blood Count 11.2 K/mm3 (4.5-11.0)
[2016-12-19 07:52] LABS: Anion Gap 12 mmol/L; Blood Urea Nitrogen 18 mg/dL (7-17); Calcium 8.7 mg/dL (8.4-10.2); Carbon Dioxide 34 mmol/L (22-30); Chloride 97.6 mmol/L (98-107); Glucose 124 mg/dL (65-100); Potassium 4.5 mmol/L (3.6-5.0); Sodium 139 mmol/L (137-145)
[2016-12-19] MEDS: PULMICORT IH SCH (08:27)
[2016-12-19 08:42] VITALS: BP 108/60
[2016-12-19 09:49] LABS: Basophils % (Manual) 0 % (0.0-1.8); Blastocytes % (Manual) 0 %
[2016-12-19 09:50] LABS: Diff Status Complete; Platelet Estimate Consistent w Auto; RBC Morphology Normal
[2016-12-19] MEDS: DIAMOX IV SCH (10:00)
[2016-12-19] MEDS: NACL 0.9% IV SCH (10:00)
[2016-12-19] MEDS: COZAAR PO SCH (10:01)
[2016-12-19] MEDS: ELIQUIS PO SCH (10:01)
[2016-12-19] MEDS: MYCELEX VG SCH (10:02)
[2016-12-19] MEDS: LEVEMIR SUB-Q SCH (10:02)
[2016-12-19] MEDS: LASIX PO SCH (10:02)
[2016-12-19] MEDS: PEPCID PO SCH (10:03)
--- NOTE | 2016-12-19 10:54 | Discharge Summary ---
Providers - Providers Date of Admission: 12/06/16 18:21 Date of discharge: 12/19/16 Attending physician: MACIEL HERNDON MD 12/06/16 22:20 Consult to Physician [CONS] Routine Consulting Provider: ERIC ROJAS Reason For Exam: CHF Place consult to:: Jaciel Notified:: answerening service Phone number called:: [phone] Was contact made?: Yes If yes, spoke with:: geovani 12/06/16 22:21 Consult to Dietitian/Nutrition [CONS] Routine Physician Instructions: Reason For Exam: Reason for Consult: Write/Manage Tube Feeding 12/08/16 15:42 Consult to Wound/ET Nurse [CONS] Routine Reason For Exam: wound eval - 2 ulcers back of left thigh 12/12/16 16:43 Consult to Physician [CONS] Routine Consulting Provider: LUIS CAMPBELL Reason For Exam: DVT left lower ext Place consult to:: Answering service/Dr. Campbell Notified:: yes Phone number called:: [phone] Was contact made?: Yes If yes, spoke with:: Hung Time called:: 18:45 12/14/16 15:36 Physical Therapy Evaluation and Treat [CONS] Routine Comment: Reason For Exam: Generalized weakness Primary care physician: [employer] Hospitalization Reason for admission: Acute on chronic respiratory failure Condition: Critical Hospital course: Patient is a 56 year old femalw with history of recurrent respiratory failure. chronic home o2, Multiple intubations in the past. Noncompliant with medications. Past medical history includes COPD, respiratory failure, heart failure. Patient is brought to the hospital by EMS for altered mental status and respiratory distress. As per verbal report from EMS, patient found at home , with difficulty breathing. They report that the patient was receiving bag valve mask ventilation in the field and subsequently intubated and extubated patient was noted to have lower extremity DVT and was started on Elavil. He was also provided with a coupon for free medication for month and a number to call to get discontinued. She understands she sees us for 3 months. She was noted to have hypercarbnia acetazolamide with good improvement and resolution. She is to follow with pulmonary for continued titration of medications. She is clinically stable at this point she did have an episode of diarrhea which resolved. Electrolytes were replaced. She was seen by etiology and due to the severe pulmonary hypertension evaluation were offered but the patient declined and would rather follow-up outpatient this was already set up prior to discharge time. She is clinically stable and this point for discharge she is back to have 3 L oxygen we did renew all medications for her. Acute on chronic hypoxic and hypercarbic respiratory failure. Diarrhea- Metabolic alkalosis COPD exacerbation DVT left lower extremity. Toxic metabolic encephalopathy, Pulmonary hypertension- Morbid obesity: Hypokalemia. Hypernatremia, Disposition: [id number] HOME UNDER HOME [facility] Time spent for discharge: 35 MINS Core Measure Documentation - Palliative Care Palliative Care/ Comfort Measures: Not Applicable - Core Measures Any of the following diagnoses?: DVT/PE - VTE Discharge Requirements Deep Vein Thrombosis/Pulmonary Embolism Present on Admission: Yes Has pt received <5 days of overlap therapy or INR<2.0: Yes Anticoagulant overlap therapy prescribed at discharge: Yes Exam - Physical Exam Narrative exam: VITAL SIGNS: Reviewed. GENERAL: The patient appeared well nourished and normally developed. Vital signs as documented. Sitting up on the edge of the bed. HEAD: No signs of head trauma. EYES: Pupils are equal. Extraocular motions intact. EARS: Hearing grossly intact. MOUTH: Oropharynx is normal. NECK: No adenopathy, no JVD. CHEST: Chest with clear breath sounds bilaterally. No wheezes, rales, or rhonchi. CARDIAC: Regular rate and rhythm. S1 and S2, without murmurs, gallops, or rubs. VASCULAR: No Edema. Peripheral pulses normal and equal in all extremities. ABDOMEN: Soft, without detectable tenderness. No sign of distention. No rebound or guarding, and no masses palpated. Bowel Sounds normal. MUSCULOSKELETAL: Good range of motion of all major joints. Extremities without clubbing, cyanosis or edema. NEUROLOGIC EXAM: Alert and oriented x 3. No focal sensory or strength deficits. Speech normal. Follows commands. PSYCHIATRIC: Mood normal. SKIN: No rash or lesions. - Constitutional Vitals: Temp Pulse Resp BP Pulse Ox 97.9 F 66 18 108/60 96 12/19/16 08:00 12/19/16 08:28 12/19/16 08:28 12/19/16 08:00 12/19/16 08:28 Plan Activity: advance as tolerated, fall precautions Diet: low fat, diabetic Special Instructions: record daily weights, record daily BP diary, record blood sugar diary Follow up with: PRIMARY CARE, [Primary Care Provider] - 3-5 Days LUIS CAMPBELL MD [Staff Physician] - 7 Days KATIANA RADFORD MD [Staff Physician] - 7 Days Prescriptions: RX: ALBUTEROL Inhaler [ProAir HFA Inhaler] 1 puff IH Q4H PRN #1 inha PRN Reason: Shortness Of Breath/mild wheez RX: Apixaban [Eliquis] 5 mg PO Q12HR #60 tablet RX: Arformoterol Nebu [Brovana Nebu] 15 mcg IH Q12HRT #60 ml RX: Aspirin [Adult Low Dose Aspirin EC] 81 mg PO DAILY #30 tablet. RX: Budesonide [Pulmicort Respules] 0.5 mg IH Q12HRT #60 nebu RX: Clotrimazole [Jock Itch] 14.2 gm TP BID 7 Days RX: Furosemide [Lasix TAB] 40 mg PO QDAY #30 tablet RX: Ipratropium/Albuterol Sulfate [DUONEB *Not for PRN Use*] 1 ampul IH Q6HRT # 30 ampul.neb RX: Losartan [Cozaar] 100 mg PO QDAY #30 tablet RX: Oxycodone HCl/Acetaminophen [Percocet 7.5/325 mg] 1 each PO Q6HR PRN #14 tablet PRN Reason: Pain RX: predniSONE [Deltasone] 10 mg PO .TAPER #48 tab
[2016-12-20] MEDS ORDERED: ELIQUIS PO SCH (10:00)
== END 2016-12-19 15:01 | disposition home health service (06) | DRG 207 ==
LOC: ED 16:23 → CC1 18:21 → 4A 12-13 15:25
PROVIDERS: ADMIT Internal Medicine; ATTEND Internal Medicine
PROC: 5A1955Z Respiratory Ventilation, Greater than 96 Consecutive Hours (ICD-10-PCS; principal; 2016-12-06)
PROC: 0BH17EZ Insertion of Endotracheal Airway into Trachea, Via Natural or Artificial Opening (ICD-10-PCS; 2016-12-06)
PROC: 4A033R1 Measurement of Arterial Saturation, Peripheral, Percutaneous Approach (ICD-10-PCS; 2016-12-06)
DX: J96.22 Acute and chronic respiratory failure with hypercapnia (principal); G92 Toxic encephalopathy; J44.1 Chronic obstructive pulmonary disease with (acute) exacerbation; E87.0 Hyperosmolality and hypernatremia; L03.115 Cellulitis of right lower limb; I82.442 Acute embolism and thrombosis of left tibial vein; I82.432 Acute embolism and thrombosis of left popliteal vein; E87.3 Alkalosis; Z68.42 Body mass index [BMI] 45.0-49.9, adult; J96.21 Acute and chronic respiratory failure with hypoxia; I11.0 Hypertensive heart disease with heart failure; I50.9 Heart failure, unspecified; K21.9 Gastro-esophageal reflux disease without esophagitis; I27.2 Other secondary pulmonary hypertension; E66.01 Morbid (severe) obesity due to excess calories; R45.1 Restlessness and agitation; Z91.14 Patient's other noncompliance with medication regimen; Z99.81 Dependence on supplemental oxygen; Z88.8 Allergy status to other drugs, medicaments and biological substances
CPT/HCPCS: 36415; 36600; 71010; 74000; 80048; 80053; 81001; 82140; 82803; 82962; 83735; 83880; 84100; 84484; 85007; 85014; 85018; 85025; 85027; 85049; 85379; 85520; 85610; 85730; 86140; 87040; 87070; 87205; 87493; 93005; 93010; 93970; 94002; 94003; 94640; 94644; 94660; 94760; 96365; 96366; 96367; 96372; 96375; 99291; J0171; J0360; J1100; J1120; J1644; J1815; J1818; J1940; J1956; J2060; J2270; J2543; J2765; J2920; J2930; J3010; J3370; J3475; J3480; J7040; J7512